=== PATIENT | female | born 2000 | race Caucasian/White ===

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

== ENCOUNTER → 2019-02-04 | Outpatient (REF) | payer OTHER ==
[~2019-02-04] MED LIST changes: +TRINTAB; -TRINTAB3
[2019-02-04 14:03] LABS: CHLAMYDIA DNA AMPLIFICATION NEGATIVE (NEGATIVE); GC DNA AMPLIFICATION NEGATIVE (NEGATIVE)
== END ==
LOC: M SFHCWAGY 11:43
PROVIDERS: ATTEND Nurse Practitioner Women's Health
DX: Z11.3 Encounter for screening for infections with a predominantly sexual mode of transmission (principal)

== ENCOUNTER → 2019-02-06 | Outpatient (REF) | payer OTHER | LOC: M SFHCLERA 15:38 | PROVIDERS: ATTEND Physician Assistant | DX: J02.9 Acute pharyngitis, unspecified (principal); R11.2 Nausea with vomiting, unspecified ==

== ENCOUNTER → 2019-03-27 | Outpatient (REF) | payer OTHER ==
[2019-03-27 20:12] LABS: CHLAMYDIA DNA AMPLIFICATION NEGATIVE (NEGATIVE); GC DNA AMPLIFICATION NEGATIVE (NEGATIVE)
[2019-03-29 10:51] LABS: HIV 1&2 SCREEN CENTAUR NEGATIVE (NEGATIVE)
== END ==
LOC: M SFHCWAGY 14:12
PROVIDERS: ATTEND Nurse Practitioner Women's Health
DX: Z11.4 Encounter for screening for human immunodeficiency virus [HIV] (principal); Z11.3 Encounter for screening for infections with a predominantly sexual mode of transmission; N89.8 Other specified noninflammatory disorders of vagina; N94.10 Unspecified dyspareunia

== ENCOUNTER → 2019-07-03 | Outpatient (REF) | payer OTHER ==
[2019-07-03 18:13] LABS: CHLAMYDIA DNA AMPLIFICATION NEGATIVE (NEGATIVE); GC DNA AMPLIFICATION NEGATIVE (NEGATIVE)
== END ==
LOC: M SMT 16:07
PROVIDERS: ATTEND Nurse Practitioner Women's Health
DX: Z11.3 Encounter for screening for infections with a predominantly sexual mode of transmission (principal)

== ENCOUNTER → 2019-12-17 | Outpatient (REF) | payer OTHER, MEDICAID | LOC: M SFHCLERA 14:45 | PROVIDERS: ATTEND Nurse Practitioner Family | DX: J02.9 Acute pharyngitis, unspecified (principal) ==

== ENCOUNTER → 2020-02-10 | Outpatient (REF) | payer OTHER ==
[2020-02-10 22:31] LABS: CHLAMYDIA DNA AMPLIFICATION NEGATIVE (NEGATIVE); GC DNA AMPLIFICATION NEGATIVE (NEGATIVE)
== END ==
LOC: M SFHCLERA 13:04
PROVIDERS: ATTEND Physician Assistant
DX: Z20.2 Contact with and (suspected) exposure to infections with a predominantly sexual mode of transmission (principal)

== ENCOUNTER → 2020-05-07 | Outpatient (REF) | payer OTHER, MEDICAID ==
[~2020-05-07] MED LIST changes: -ACET120S PO; +ACET125EL PO
[2020-06-26 12:13] LABS: HEPATITIS A ANTIBODY IGM NEGATIVE (NEGATIVE); HEPATITIS B CORE ANTIBODY IGM NEGATIVE (NEGATIVE); HEPATITIS B SURFACE ANTIGEN NEGATIVE (NEGATIVE); HEPATITIS C VIRUS ABY INDEX 0.2 INDEX (<0.8); HIV 1&2 SCREEN CENTAUR NEGATIVE (NEGATIVE)
[2020-07-02 15:21] LABS: CHLAMYDIA DNA AMPLIFICATION NEGATIVE (NEGATIVE); GC DNA AMPLIFICATION NEGATIVE (NEGATIVE)
== END ==
LOC: M SFHCLUC 15:08
PROVIDERS: ATTEND Physician Assistant
DX: Z11.3 Encounter for screening for infections with a predominantly sexual mode of transmission (principal)

== ENCOUNTER → 2020-06-07 | Outpatient (REF) | payer OTHER, MEDICAID ==
[2020-06-07 21:23] LABS: CHLAMYDIA DNA AMPLIFICATION POSITIVE (NEGATIVE); GC DNA AMPLIFICATION NEGATIVE (NEGATIVE)
== END ==
LOC: M LAB 19:16
PROVIDERS: ATTEND Nurse Practitioner Family
DX: Z11.3 Encounter for screening for infections with a predominantly sexual mode of transmission (principal)

== ENCOUNTER → 2020-08-18 | Outpatient (REF) | payer OTHER ==
[~2020-08-18] MED LIST changes: +PROM12.56 PO
[2020-08-18 21:01] LABS: URINE PREG TEST NEGATIVE (NEGATIVE)
[2020-08-18 21:06] LABS: APPEARANCE, URINE CLEAR (CLEAR); BACTERIA, URINE AUTO NEGATIVE (NEGATIVE); BILIRUBIN, URINE AUTO NEGATIVE (NEGATIVE); BLOOD, URINE BLOOD NEGATIVE (NEGATIVE); COLOR, URINE STRAW (YELLOW); GLUCOSE, URINE (UA) AUTO NEGATIVE (NEGATIVE); KETONE, URINE AUTO NEGATIVE (NEGATIVE); LEUKOCYTE ESTERASE, URINE AUTO NEGATIVE (NEGATIVE); MUCUS, URINE SMALL (NEGATIVE); NITRITE, URINE AUTO NEGATIVE (NEGATIVE); PROTEIN, URINE AUTO NEGATIVE (NEGATIVE); RBC, URINE AUTO 0 /HPF (0-3); SPECIFIC GRAVITY URINE AUTO 1.008 (1.002-1.035); SQUAMOUS EPITHELIAL CELL UR AU 1 /HPF (0-6); UROBILINOGEN, URINE AUTO 0.2 mg/dL (0.0-2.0); WBC, URINE AUTO 0 /HPF (0-3)
== END ==
LOC: M LAB REF 20:30
PROVIDERS: ATTEND Physician Assistant Medical
DX: N39.0 Urinary tract infection, site not specified (principal); Z11.3 Encounter for screening for infections with a predominantly sexual mode of transmission

== ENCOUNTER 2020-08-25 11:33 | Emergency (ER) | payer OTHER ==
[~2020-08-25] VITALS: Ht 162.6 cm; Wt 50.9 kg
[~2020-08-25 11:33] MED LIST changes: -PROM12.56 PO
[2020-08-25] MEDS ORDERED: NS 1,000 ML IV ONE (12:00)
[2020-08-25] MEDS ORDERED: METOCLOPRAMIDE INJ 10MG/2ML VIAL (J2765 PER 1) IV ONE (12:00)
[2020-08-25 12:34] LABS: BASO % 0.2 % (0.0-1.0); EOS % 0.2 % (0.0-3.0); HEMATOCRIT 37.3 % (36.0-47.0); HEMOGLOBIN 12.4 g/dl (12.0-15.5); LYMPH # 1.8 10^3/uL (1.5-5.0); LYMPH % 14.8 % (24.0-44.0); MEAN CORPUSCULAR HEMOGLOBIN 29.7 pg (27.0-33.0); MEAN CORPUSCULAR HGB CONC 33.2 g/dl (32.0-36.5); MEAN CORPUSCULAR VOLUME 89.2 fl (80.0-96.0); MONO # 0.6 10^3/uL (0.0-0.8); NEUTROPHILS # 9.9 10^3/uL (1.5-8.5); NEUTROPHILS % 79.5 % (36.0-66.0); PLATELET COUNT, AUTOMATED 274 10^3/uL (150-450); RED BLOOD COUNT 4.18 10^6/uL (4.00-5.40); WHITE BLOOD COUNT 12.4 10^3/uL (4.0-10.0)
[2020-08-25 13:02] LABS: HCG, SERUM QUALITATIVE NEGATIVE (NEGATIVE)
[2020-08-25 13:10] LABS: ALBUMIN 4.3 GM/DL (3.2-5.2); ALT/SGPT 33 U/L (12-78); BILIRUBIN,DIRECT 0.3 MG/DL (0.0-0.2); BILIRUBIN,TOTAL 1.4 MG/DL (0.2-1.0); BLOOD UREA NITROGEN 16 MG/DL (7-18); CALCIUM LEVEL 9.4 MG/DL (8.5-10.1); CARBON DIOXIDE LEVEL 23 MEQ/L (21-32); CHLORIDE LEVEL 109 MEQ/L (98-107); GLOMERULAR FILTRATION RATE > 60.0 (>60); GLUCOSE, FASTING 111 MG/DL (70-100); LIPASE 69 U/L (73-393); POTASSIUM SERUM 4.1 MEQ/L (3.5-5.1); SODIUM LEVEL 141 MEQ/L (136-145); TOTAL PROTEIN 7.7 GM/DL (6.4-8.2)
[2020-08-25] MEDS ORDERED: ONDANSETRON 4MG/2ML VIAL IV ONE (14:00)
[2020-08-25] MEDS ORDERED: KETOROLAC 30 MG/ML 1ML VIAL IV ONE (14:15)
[2020-08-25] MEDS ORDERED: PROMETHAZINE INJ 25 MG/ML VIAL (J2550) IV ONE (14:30)
--- NOTE | 2020-08-25 15:06 | REP ---
INDICATION: upper abdominal pain/chest pain. COMPARISON: Chest 01/11/2016. TECHNIQUE: Supine and erect views of the abdomen are performed. A PA view of the chest is performed. FINDINGS: There is no free intraperitoneal air identified. There is no evidence of bowel obstruction. No dilated small bowel loops are seen. No abnormal calcifications are seen. The visualized osseous structures are unremarkable. The lungs are free of infiltrate. The heart mediastinum are within normal limits. IMPRESSION: Negative abdominal series. <Electronically signed by Navneet Falcon > 08/25/20 [id number]
[2020-08-25] MEDS ORDERED: PROM12.56 PO (16:39)
[2020-08-25 17:02] VITALS: BP 128/78
== END 2020-08-25 17:03 | disposition home or self-care (01) ==
LOC: M ED 11:33 → EDBD 11:33 → M ED 17:03
DX: K52.9 Noninfective gastroenteritis and colitis, unspecified (principal); Z88.8 Allergy status to other drugs, medicaments and biological substances; Z88.5 Allergy status to narcotic agent
CPT/HCPCS: 74021; 80048; 80076; 81001; 83690; 84703; 85025; 87507; 96374; 96375; 99284; J1885; J2405; J2765; U0002

== ENCOUNTER → 2020-10-22 | Outpatient (REF) | payer OTHER ==
[~2020-10-22] MED LIST changes: +PROM12.56 PO
[2020-10-22 22:57] LABS: APPEARANCE, URINE HAZY (CLEAR); BACTERIA, URINE AUTO NEGATIVE (NEGATIVE); BILIRUBIN, URINE AUTO NEGATIVE (NEGATIVE); BLOOD, URINE BLOOD NEGATIVE (NEGATIVE); COLOR, URINE YELLOW (YELLOW); GLUCOSE, URINE (UA) AUTO NEGATIVE (NEGATIVE); KETONE, URINE AUTO TRACE mg/dL (NEGATIVE); LEUKOCYTE ESTERASE, URINE AUTO NEGATIVE (NEGATIVE); MUCUS, URINE MODERATE (NEGATIVE); NITRITE, URINE AUTO NEGATIVE (NEGATIVE); PROTEIN, URINE AUTO NEGATIVE (NEGATIVE); RBC, URINE AUTO 1 /HPF (0-3); SPECIFIC GRAVITY URINE AUTO 1.023 (1.002-1.035); SQUAMOUS EPITHELIAL CELL UR AU 2 /HPF (0-6); URIC ACID CRYSTALS SMALL; UROBILINOGEN, URINE AUTO 0.2 mg/dL (0.0-2.0); WBC, URINE AUTO 2 /HPF (0-3)
[2020-10-23 00:17] LABS: CHLAMYDIA DNA AMPLIFICATION NEGATIVE (NEGATIVE); GC DNA AMPLIFICATION NEGATIVE (NEGATIVE)
== END ==
LOC: M LAB REF 08:35
PROVIDERS: ATTEND Physician Assistant
DX: Z11.3 Encounter for screening for infections with a predominantly sexual mode of transmission (principal); N39.0 Urinary tract infection, site not specified

== ENCOUNTER → 2020-12-01 | Outpatient (REF) | payer OTHER ==
[2020-12-01 15:47] LABS: CHLAMYDIA DNA AMPLIFICATION NEGATIVE (NEGATIVE); GC DNA AMPLIFICATION NEGATIVE (NEGATIVE)
[2020-12-01 17:29] LABS: HEPATITIS C VIRUS ABY INDEX < 0.0 INDEX (<0.8); HIV 1&2 SCREEN CENTAUR NEGATIVE (NEGATIVE)
== END ==
LOC: M PLALAB 12:25
PROVIDERS: ATTEND Nurse Practitioner Family
DX: Z11.3 Encounter for screening for infections with a predominantly sexual mode of transmission (principal)

== ENCOUNTER → 2020-12-17 | Outpatient (REF) | payer OTHER, MEDICAID ==
[2020-12-17 21:51] LABS: APPEARANCE, URINE HAZY (CLEAR); BACTERIA, URINE AUTO NEGATIVE (NEGATIVE); BILIRUBIN, URINE AUTO NEGATIVE (NEGATIVE); BLOOD, URINE BLOOD NEGATIVE (NEGATIVE); COLOR, URINE YELLOW (YELLOW); GLUCOSE, URINE (UA) AUTO NEGATIVE (NEGATIVE); KETONE, URINE AUTO NEGATIVE (NEGATIVE); LEUKOCYTE ESTERASE, URINE AUTO NEGATIVE (NEGATIVE); MUCUS, URINE MODERATE (NEGATIVE); NITRITE, URINE AUTO NEGATIVE (NEGATIVE); PROTEIN, URINE AUTO NEGATIVE (NEGATIVE); RBC, URINE AUTO 1 /HPF (0-3); SPECIFIC GRAVITY URINE AUTO 1.026 (1.002-1.035); SQUAMOUS EPITHELIAL CELL UR AU 3 /HPF (0-6); UROBILINOGEN, URINE AUTO 0.2 mg/dL (0.0-2.0); WBC, URINE AUTO 1 /HPF (0-3)
== END ==
LOC: M LAB REF 21:23
PROVIDERS: ATTEND Physician Assistant
DX: R30.0 Dysuria (principal)

== ENCOUNTER → 2021-04-18 | Outpatient (REF) | payer OTHER, MEDICAID ==
[2021-04-18 18:36] LABS: APPEARANCE, URINE MANUAL CLEAR (CLEAR); COLOR, URINE MANUAL YELLOW (YELLOW)
[2021-04-18 18:38] LABS: BILIRUBIN, URINE MANUAL NEGATIVE (NEGATIVE); BLOOD URINE MANUAL POSITIVE (NEGATIVE); GLUCOSE, URINE (UA) MANUAL NEGATIVE (NEGATIVE); KETONE, URINE MANUAL NEGATIVE (NEGATIVE); LEUKOCYTE ESTERASE, URINE MAN TRACE (NEGATIVE); NITRITE, URINE MANUAL NEGATIVE (NEGATIVE); PH,URINE MAN 5.5 UNITS (5.0 - 7.0); PROTEIN, URINE MANUAL 1+ mg/dL (NEGATIVE); UROBILINOGEN, URINE MANUAL NORMAL (NORMAL)
[2021-04-18 18:39] LABS: URINE PREG TEST NEGATIVE (NEGATIVE)
[2021-04-18 18:48] LABS: RBC, URINE 0-1 /hpf (0-3); WBC, URINE 0-1 /hpf (0-3)
[2021-04-18 18:49] LABS: BACTERIA, URINE NONE SEEN; HYALINE CAST, URINE NONE SEEN /lpf (0-1); MUCUS, URINE LARGE AMOUNT (NEGATIVE); SQUAMOUS EPITHELIAL CELL URINE SMALL AMOUNT /hpf (SMALL AMT); TRANSITIONAL EPI CELLS, URINE SMALL AMOUNT /hpf
[2021-04-18 20:57] LABS: GC DNA AMPLIFICATION NEGATIVE (NEGATIVE)
== END ==
LOC: M LAB REF 18:26
PROVIDERS: ATTEND Physician Assistant Medical
DX: R30.0 Dysuria (principal)

== ENCOUNTER → 2021-04-26 | Outpatient (REF) | payer OTHER ==
[2021-04-26 20:17] LABS: GC DNA AMPLIFICATION NEGATIVE (NEGATIVE)
== END ==
LOC: M PLALAB 15:22
PROVIDERS: ATTEND Obstetrics & Gynecology
DX: N92.6 Irregular menstruation, unspecified (principal)

== ENCOUNTER → 2021-07-07 | Outpatient (REF) | payer OTHER, MEDICAID ==
[2021-07-07 22:59] LABS: APPEARANCE, URINE HAZY (CLEAR); BACTERIA, URINE AUTO 1+ (NEGATIVE); BILIRUBIN, URINE AUTO NEGATIVE (NEGATIVE); BLOOD, URINE BLOOD NEGATIVE (NEGATIVE); COLOR, URINE YELLOW (YELLOW); GLUCOSE, URINE (UA) AUTO NEGATIVE (NEGATIVE); KETONE, URINE AUTO NEGATIVE (NEGATIVE); LEUKOCYTE ESTERASE, URINE AUTO TRACE (NEGATIVE); MUCUS, URINE SMALL (NEGATIVE); NITRITE, URINE AUTO NEGATIVE (NEGATIVE); PROTEIN, URINE AUTO NEGATIVE (NEGATIVE); RBC, URINE AUTO 2 /HPF (0-3); SPECIFIC GRAVITY URINE AUTO 1.024 (1.002-1.035); SQUAMOUS EPITHELIAL CELL UR AU 1 /HPF (0-6); WBC, URINE AUTO 14 /HPF (0-3)
[2021-07-08 10:32] LABS: GC DNA AMPLIFICATION NEGATIVE (NEGATIVE)
== END ==
LOC: M LAB REF 22:19
PROVIDERS: ATTEND Physician Assistant
DX: R30.0 Dysuria (principal)

== ENCOUNTER 2021-07-31 12:56 | Emergency (ER) | payer MEDICAID, OTHER ==
[~2021-07-31] VITALS: Ht 162.6 cm; Wt 52.0 kg
--- OUTSIDE RECORDS SUMMARY | 2021-07-31 13:08 | CCD ---
Author Organization Unknown Address [address] [place] [address] Phone [phone] Care Team Providers [facility] Administrator Name Role Phone Nella Gray Unavailable Unavailable Allergies Code Code System Name Reaction Severity Status Onset 161 RxNorm Acetaminophen Vomiting Moderate to Severe Active 2670 RxNorm Codeine Vomiting Moderate to Severe Active Medications Name Status Start Date Stop Date azithromycin 500 mg tablet TAKE TWO TABLETS BY MOUTH ONCE Completed 01/29/20 fluconazole 150 mg tablet TAKE 1 TABLET BY MOUTH NOW THEN TAKE 2ND TABLET IN 48 HOURS Completed 01/28/2021 fluoxetine 10 mg capsule Completed 021 fluoxetine 20 mg capsule Active Not damian ilable hydroxyzine HCl 25 mg tablet Active Not available metronidazole 0.75 % vaginal gel APPLY 1 APPLICATORFUL AT BEDTIME ONCE A DAY FOR 5 DAYS Completed 01/28/2021 New Day 1.5 mg tablet Active Not availa ble nitrofurantoin monohydrate/macrocrystals 100 mg capsule TAKE ONE CAPSULE BY MOUTH TWICE A DAY Completed 0 01/28/2021 prednisolone acetate 1 % eye drops,suspe nsion INSTILL 1 DROP IN BOTH EYES FOUR TIMES A DAY DIRECTED Completed 05/07/2021 Qbrexza 2.4 % towelette APPLY 1 TOWELETTE BY TOPICAL ROUTE ONCE DAILY DIVIDED EVENLY BETWEEN EACH UNDERARM Active Not available sertraline 25 mg tablet TAKE ONE TABLET BY MOUTH EVERY DAY Completed 03/10 Problems Name Status Onset Date Source Major Depressive Disorder Active 01/28/2021 Generalized Anxiety Disorder Active 01/28/2021 Procedures Date Name Performed by Remove Tonsils and Adenoids Information not available Notes: Wrist & Hand surgery. Results Lab Results Date Name Specimen Result Interpretation Description Value Range Status Address 04/28/2021 TSH, Serum or Plasma Blood venous Normal T3 Uptake 30 % 22-35 % Final [facility]: [address], [place] Blood venous Normal T4 (Thyroxine), Total 7. 5 mcg/dL 5.1-11.9 mcg/dL Final [facility] [place]: [address] [facility] Blood venous Normal Free T4 Index (T7) 2.3 1.4 -3.8 [facility]: [address] [facility] Blood venous Normal Tsh 1.43 mIU/L [facility]: [address] [facility] 04/28/2021 CMP, Serum or Plasma Blood venous Normal Glucose 83 mg/dL 65-99 mg/dL Final [facility]: [address] [facility] Blood venous Normal Urea Nitrogen (BUN) 13 mg/dL 7-25 mg/dL [facility]: [address] [facility] Blood venous Normal Creatinine 0.76 mg/dL 0.50-1. 10 mg/dL [facility]: [address] [facility] Blood venous Normal eGFR Non-afr. Jordanian 1 12 mL/min/1.73m2 > or = 60 mL/min/1.73m2 Final [facility]: [address] [facility] Blood venous Normal eGFR 13 0 mL/min/1.73m2 > or = 60 mL/min/1.73m2 Final [facility]: [address] [facility] Blood venous BUN/creatinine Ratio not applicable (calc) 6-22 (calc) [facility]: [address] [facility] Blood venous Normal Sodium 139 mmol/L 135-146 mmo l/L [facility]: [address] [facility] Blood venous Normal Potassium 4.5 mmol/L 3.5-5.3 mmol/L [facility]: [address] [facility] Blood venous Normal Chloride 103 mmol/L 98-110 mm ol/L [facility]: [address] [facility] Blood venous Normal Carbon Dioxide 28 mmol/L 20-3 2 mmol/L [facility]: [address] [facility] Blood venous Normal Calcium 9.7 mg/dL 8.6-10.2 mg /dL [facility]: [address] [facility] Blood venous Normal Protein, Total 7.2 g/dL 6.1-8 .1 g/dL [facility]: [address] [facility] Blood venous Normal Albumin 4.9 g/dL 3.6-5.1 g/dL [facility]: [address] [facility] Blood venous Normal Globulin 2.3 g/dL (calc) 1.9- 3.7 g/dL (calc) [facility]: [address] [facility] Blood venous Normal Albumin/globulin Ratio 2 .1 (calc) 1.0-2.5 (calc) [facility]: [address] [facility] Blood venous High Bilirubin, Total 1.5 mg/dL 0. 2-1.2 mg/dL [facility]: [address] [facility] Blood venous Normal Alkaline Phosphatase 61 U/L 3 1-125 U/L [facility]: [address] [facility] Blood venous Normal Ast 12 U/L 10-30 U/L [facility]: [address] [facility] Blood venous Normal Alt 9 U/L 6-29 U/L Final [facility]: [address] [facility] 04/28/2021 CBC W/ Auto Diff Blood venous Normal White B lood Cell Count 7.5 thousand/uL 3.8-10.8 thousand/uL [facility]: [address] [facility] Blood venous Normal Red Blood Cell Count 4.8 0 million/uL 3.80-5.10 million/uL [facility] [address] [facility] Blood venous Normal Hemoglobin 14.5 g/dL 11.7-15. 5 g/dL Final [facility]: [address] [facility] Blood venous Normal Hematocrit 42.9 % 35.0-45.0 % [facility]: [address] [facility] Blood venous Normal Mcv 89.4 fL 80.0-100.0 fL Fi nal [facility]: [address] [facility] Blood venous Normal Mch 30.2 pg 27.0-33.0 pg Fin al [facility]: [address] [facility] Blood venous Normal Mchc 33.8 g/dL 32.0-36.0 g/dL [facility]: [address] [facility] Blood venous Normal Rdw 11.5 % 11.0-15.0 % Final [facility]: [address] [facility] Blood venous Normal Platelet Count 295 thous and/uL 140-400 thousand/uL Final [facility]: [address] [facility] Blood venous Normal Mpv 10.9 fL 7.5-12.5 fL Baylee l [facility]: [address] [facility] Blood venous Normal Absolute Neutrophils 303 8 cells/uL 7550-6917 cells/uL Final [facility] gh: [address] [facility] Blood venous Normal Absolute Lymphocytes 375 8 cells/uL 850-3900 cells/uL Final [facility] gh: [address] [facility] Blood venous Normal Absolute Monocytes 503 c ells/uL 200-950 cells/uL [facility]: [address] [facility] Blood venous Normal Absolute Eosinophils 173 cells/uL 15-500 cells/uL [facility]: [address] [facility] Blood venous Normal Absolute Basophils 30 ce lls/uL 0-200 cells/uL Final [facility]: [address] [facility] Blood venous Normal Neutrophils 40.5 % 38-80 % Fi [facility]: [address] [facility] Blood venous High Lymphocytes 50.1 % 15-49 % Fi [facility]: [address] [facility] Blood venous Normal Monocytes 6.7 % 0-13 % [facility]: [address] [facility] Blood venous Normal Eosinophils 2.3 % 0-8 % Fin al [facility]: [address] [facility] Blood venous Normal Basophils 0.4 % 0-2 % [facility]: [address] [facility] Past Encounters 06/07/2021 SIERRA MarW-R: [address] [facility] [address], [place] [address], Ph. 06/02/2021 Generalized Anxiety Disorder Sherrie Jean Baptiste LCSW-R: [address] [facility], [facility] [address], [place] [address], Ph. 05/24/2021 Sherrie Jean Baptiste LCSW-R: [address] [place] [address], Ph. 05/10/2021 Generalized Anxiety Disorder Sherrie Jean BaptisteJOANA-R: [address] [place] [address], Ph. 05/07/2021 Generalized Anxiety Disorder; Hyperhidrosis; Blurring of Visual Image Nella Gray PA-C: [address] [place] [address], Ph. 04/28/2021 Generalized Anxiety Disorder Jose Goldman RPA-C: [address], [place] [address], Ph. 04/15/2021 Generalized Anxiety Disorder Sherrie Jean BaptisteSIERRAW-R: [address] [facility], [address], [place] [address], Ph. 04/01/2021 Generalized Anxiety Disorder Sherrie Jean BaptisteJOANA-R: [address], [place] [address], Ph. 03/29/2021 Generalized Anxiety Disorder; Major Depressive Disorder; Loss of Appetite; Excessive Sweating Nella Gray PA-C: [address] [place] [address], Ph. 03/22/2021 Generalized Anxiety Disorder Sherrie DangeloJOANA michele-R: [address] [place] [address], Ph. 01/28/2021 Generalized Anxiety Disorder; Depressive Disorder; Blurring of Visual Image; Blepharospasm; Loss of Appetite; Nicotine Dependence; Cannabis Abuse Nella Gray PA-C: [address] [place] [address], Ph. Social History Tobacco Smoking Status Never Smoker Vaccine List Vaccine Type DTaP 1999 1999 02/16/2000 12/21/2000 07/06/2004 Hep A, live attenuated 04/21/2008 11/24/2008 Hib-Hep B 1999 1999 08/17/2000 HPV9 05/25/2011 07/27/2011 11/30/2011 IPV 1999 1999 05/19/2000 07/06/2004 meningococcal B, recombinant 05/26/2016 01/09/2017 meningococcal polysaccharide (groups A, C, Y, W-135) TT conjugate 05/25/2011 05/26/2016 MMR 12/21/2000 07/06/2004 pneumococcal conjugate PCV 7 08/17/2000 12/21/2000 Tdap 02/22/2010 varicella 08/17/2000 04/21/2008 Notes: Pt declines covid vaccine. Plan of Care Reminders Provider Appointments None recorded. Lab None recorded. Referral None recorded. Procedures None recorded. Surgeries None recorded. Imaging None recorded. Vitals 03/29/2021 01:00PM TELEHEALTH 20 Height 64 in 01/28/2021 08:20AM NEW PATIENT (11yrs - OLDER) Height Weight BMI Blood Pressure 64 in 114 lbs 16 oz 19.7 kg/m2 111/77 mm[Hg]
--- OUTSIDE RECORDS SUMMARY | 2021-07-31 13:08 | CCD ---
Author Organization Unknown Address [address] [place] [address] Phone [phone] Care Team Providers Care [employer] Name Role Phone Nella Gray Unavailable Unavailable [...] Completed 01/28/2021 fluoxetine 10 mg capsule Completed fluoxetine 20 mg capsule Take 1 capsule every day by oral route. Active Not available hydroxyzine HCl 25 mg tablet TAKE 1-2 TABLETS BY MOUTH 30 MINUTES BEFORE BEDTIME FOR SLEEP Active Not available metronidazole 0.75 % vaginal gel APPLY 1 APPLICATORFUL AT BEDTIME ONCE A DAY FOR 5 DAYS Completed 01/28/2021 nitrofurantoin monohydrate/macrocrystals 100 mg capsule TAKE ONE [...] T3 Uptake 30 % 22-35 % Final [facility]: [address], [place] Blood venous Normal T4 (Thyroxine), Total 7. 5 mcg/dL 5.1-11.9 mcg/dL Final [facility]: [address] [facility] Blood venous Normal Free T4 Index (T7) 2.3 1.4 -3.[address] [facility]: [address] [facility] Blood venous Normal Tsh 1.43 mIU/L [facility]: [address] [facility] 04/28/2021 CMP, Serum or Plasma Blood venous Normal Glucose 83 mg/dL 65-99 mg/dL Final [facility]: [address] [facility] Blood venous Normal Urea Nitrogen (BUN) 13 mg/dL 7-25 mg/dL Final [facility]: [address] [facility] Blood venous Normal Creatinine 0.76 mg/dL 0.50-1. 10 mg/dL [facility]: [address] [facility] Blood venous Normal eGFR Non-afr. [place] 1 12 mL/min/1.73m2 > or = 60 mL/min/1.73m2 Final [facility]: [address] [facility] Blood venous Normal eGFR 13 0 mL/min/1.73m2 > or = 60 mL/min/1.73m2 Final [facility]: [address] [facility] Blood venous BUN/creatinine Ratio not applicable (calc) 6-22 (calc) [facility]: [address] [facility] Blood venous Normal Sodium 139 mmol/L 135-146 mmo l/L [facility]: [address] [facility] Blood venous Normal Potassium 4.5 mmol/L 3.5-5.3 mmol/L Final [facility]: [address] [facility] Blood venous Normal Chloride 103 mmol/L 98-110 mm ol/L [facility]: [address] [facility] Blood venous Normal Carbon Dioxide 28 mmol/L 20-3 2 mmol/L [facility]: [address] [facility] Blood venous Normal Calcium 9.7 mg/dL 8.6-10.2 mg /dL [facility]: [address] [facility] Blood venous Normal Protein, Total 7.2 g/dL 6.1-8 .1 g/dL Final [facility]: [address] [facility] Blood venous Normal Albumin 4.9 g/dL 3.6-5.1 g/dL Final [facility]: [address] [facility] Blood venous Normal Globulin 2.3 g/dL (calc) 1.9- 3.7 g/dL (calc) [facility]: [address] [facility] Blood venous Normal Albumin/globulin Ratio 2 .1 (calc) 1.0-2.5 (calc) Final [facility]: [address] , [place] Blood venous High Bilirubin, Total 1.5 mg/dL 0. 2-1.2 mg/dL [facility]: [address] [facility] Blood venous Normal Alkaline Phosphatase 61 U/L 3 1-125 U/L [facility]: [address] , [place] Blood venous Normal Ast 12 U/L 10-30 U/L Final [facility]: [address] [facility] Blood venous Normal Alt 9 U/L 6-29 U/L [facility]: [address] [facility] 04/28/2021 CBC W/ Auto Diff Blood venous Normal White B lood Cell Count 7.5 thousand/uL 3.8-10.8 thousand/uL [facility]: [address] [facility] Blood venous Normal Red Blood Cell Count 4.8 0 million/uL 3.80-5.10 million/uL [facility] [address] [facility] Blood venous Normal Hemoglobin 14.5 g/dL 11.7-15. 5 g/dL Final [facility]: [address] [facility] Blood venous Normal Hematocrit 42.9 % 35.0-45.0 % [facility]: [address] [facility] Blood venous Normal Mcv 89.4 fL 80.0-100.[address] [facility]: [address] [facility] Blood venous Normal Mch 30.2 pg 27.0-33.[address] [facility]: [address] [facility] Blood venous Normal Mchc 33.8 g/dL 32.0-36.0 g/dL Final [facility]: [address] [facility] Blood venous Normal Rdw 11.5 % 11.0-15.0 % Final [facility]: [address] , [place] Blood venous Normal Platelet Count 295 thous and/uL 140-400 thousand/uL Final [facility]: [address] [facility] Blood venous Normal Mpv 10.9 fL 7.5-12.[address] [facility]: [address] [facility] Blood venous Normal Absolute Neutrophils 303 8 cells/uL 3686-3891 cells/uL Final [facility] gh: [address] , [place] Blood venous Normal Absolute Lymphocytes 375 8 cells/uL 850-3900 cells/uL Final [facility] gh: [address] [facility] Blood venous Normal Absolute Monocytes 503 c ells/uL 200-950 cells/uL [facility]: [address], [place] Blood venous Normal Absolute Eosinophils 173 cells/uL 15-500 cells/uL [facility]: [address] [facility] Blood venous Normal Absolute Basophils 30 ce lls/uL 0-200 cells/uL Final [facility]: [address] , [place] Blood venous Normal Neutrophils 40.5 % 38-80 % Fi [facility]: [address] [facility] Blood venous High Lymphocytes 50.1 % 15-49 % Fi [facility]: [address] [facility] Blood venous Normal Monocytes 6.7 % 0-13 % [facility]: [address] [facility] Blood venous Normal Eosinophils 2.3 % 0-8 % Fin al [facility]: [address] [facility] Blood venous Normal Basophils 0.4 % 0-2 % [facility]: [address], [place] Past Encounters 05/07/2021 Generalized Anxiety Disorder; Hyperhidrosis; Blurring of Visual Image EREN OscarC: [address] [place] [address], Ph. 04/28/2021 Generalized Anxiety Disorder DANTE PooleC: [address] [facility], [place] [address], Ph. 04/15/2021 Generalized Anxiety Disorder Sherrie Jean BaptisteSIERRAW-R: [address] [facility], [facility] [address], [place] [address], Ph. 04/01/2021 Generalized Anxiety Disorder Sherrie Jean Baptiste DIRECTOR OF PATIENT CARE-R: [address] [facility], [facility] [address], [place] [address], Ph. 03/29/2021 Generalized Anxiety Disorder; Major Depressive Disorder; Loss of Appetite; Excessive Sweating Nella Gray PA-C: [address] [place] [address], Ph. 03/22/2021 Generalized Anxiety Disorder Sherrie Jean BaptisteJOANA-R: [address] [place] [address], Ph. 01/28/2021 Generalized Anxiety Disorder; Depressive Disorder; Blurring of Visual Image; Blepharospasm; Loss of Appetite; Nicotine Dependence; Cannabis Abuse Nella Gray PA-C: [address] [place] [address], Ph. Social History Tobacco Smoking Status Never [...] Height 64 in 01/28/2021 08:20AM NEW PATIENT (12yrs - OLDER) Height Weight BMI Blood Pressure 64 in 114 lbs 16 oz 19.7 kg/m2 111/77 mm[Hg]
--- OUTSIDE RECORDS SUMMARY | 2021-07-31 13:08 | CCD ---
Author Organization Unknown Address [address] [place] [address] Phone [phone] Care Team Providers Care Motor Coach Driver Name Role Phone Nella Gray Unavailable Unavailable [...] T3 Uptake 30 % 22-35 % Final [facility]: [address], [place] Blood venous Normal T4 (Thyroxine), Total 7. 5 mcg/dL 5.1-11.9 mcg/dL Final [facility] [place]: [address] [facility] [address] Blood venous Normal Free T4 Index (T7) 2.3 1.4 -3.8 [facility]: [address] [facility] Blood venous Normal Tsh 1.43 mIU/L [facility]: [address] [facility] 04/28/2021 CMP, Serum or Plasma Blood venous Normal Glucose 83 mg/dL 65-99 mg/dL Final [facility]: [address] [facility] Blood venous Normal Urea Nitrogen (BUN) 13 mg/dL 7-25 mg/dL [facility]: [address] [facility] Blood venous Normal Creatinine 0.76 mg/dL 0.50-1. 10 mg/dL [facility]: [address] [facility] Blood venous Normal eGFR Non-afr. Egyptian 1 12 mL/min/1.73m2 > or = 60 mL/min/1.73m2 Final [facility]: [address] [facility] Blood venous Normal eGFR 13 0 mL/min/1.73m2 > or = 60 mL/min/1.73m2 Final [facility]: [address] [facility] Blood venous BUN/creatinine Ratio not applicable (calc) 6-22 (calc) [facility]: [address] [facility] [address] Blood venous Normal Sodium 139 mmol/L 135-146 mmo l/L [facility]: [address] [facility] Blood venous Normal Potassium 4.5 mmol/L 3.5-5.3 mmol/L [facility]: [address] [facility] Blood venous Normal Chloride 103 mmol/L 98-110 mm ol/L [facility]: [address] [facility] Blood venous Normal Carbon Dioxide 28 mmol/L 20-3 2 mmol/L [facility]: [address] [facility] Blood venous Normal Calcium 9.7 mg/dL 8.6-10.2 mg /dL [facility]: [address] [facility] Blood venous Normal Protein, Total 7.2 g/dL 6.1-8 .1 g/dL [facility]: [address] [facility] Blood venous Normal Albumin 4.9 g/dL 3.6-5.1 g/dL [facility]: [address] [facility] Blood venous Normal Globulin 2.3 g/dL (calc) 1.9- 3.7 g/dL (calc) [facility]: [address] [facility] Blood venous Normal Albumin/globulin Ratio 2 .1 (calc) 1.0-2.5 (calc) [facility]: [address] [facility] [address] Blood venous High Bilirubin, Total 1.5 mg/dL 0. 2-1.2 mg/dL [facility]: [address] [facility] Blood venous Normal Alkaline Phosphatase 61 U/L 3 1-125 U/L [facility]: [address] [facility] Blood venous Normal Ast 12 U/L 10-30 U/L [facility]: [address] [facility] Blood venous Normal Alt 9 U/L 6-29 U/L Final [facility]: [address] [facility] 04/28/2021 CBC W/ Auto Diff Blood venous Normal White B lood Cell Count 7.5 thousand/uL 3.8-10.8 thousand/uL [facility]: [address] [facility] Blood venous Normal Red Blood Cell Count 4.8 0 million/uL 3.80-5.10 [facility]/uL [facility] Blood venous Normal Hemoglobin 14.5 g/dL 11.7-15. 5 g/dL Final [facility]: [address] [facility] Blood venous Normal Hematocrit 42.9 % 35.0-45.0 % [facility]: [address] [facility] Blood venous Normal Mcv 89.4 fL 80.0-100.0 fL Fi nal [facility]: [address] [facility] Blood venous Normal Mch 30.2 pg 27.0-33.0 pg Fin al [facility]: [address] [facility] Blood venous Normal Mchc 33.8 g/dL 32.0-36.0 g/dL [facility]: [address] [facility] Blood venous Normal Rdw 11.5 % 11.0-15.0 % [facility]: [address] [facility] [address] Blood venous Normal Platelet Count 295 thous and/uL 140-400 thousand/uL Final [facility]: [address] [facility] [address] Blood venous Normal Mpv 10.9 fL 7.5-12.5 fL [facility]: [address] [facility] Blood venous Normal Absolute Neutrophils 303 8 cells/uL 5658-9699 cells/uL Final [facility] gh: [address] [facility] [address] Blood venous Normal Absolute Lymphocytes 375 8 cells/uL 850-3900 cells/uL Final [facility] gh: [address] [facility] Blood venous Normal Absolute Monocytes 503 c ells/uL 200-950 cells/uL [facility]: [address] [facility] [address] Blood venous Normal Absolute Eosinophils 173 cells/uL 15-500 cells/uL [facility]: [address] [facility] [address] Blood venous Normal Absolute Basophils 30 ce lls/uL 0-200 cells/uL Final [facility]: [address] [facility] [address] Blood venous Normal Neutrophils 40.5 % 38-80 % Fi [facility]: [address] [place] [facility] [address] Blood venous High Lymphocytes 50.1 % 15-49 % Fi [facility]: [address] [facility] [address] Blood venous Normal Monocytes 6.7 % 0-13 % [facility] Blood venous Normal Eosinophils 2.3 % 0-8 % Fin al [facility]: [address] [facility] [address] Blood venous Normal Basophils 0.4 % 0-2 % [facility]: [address] [facility] Past Encounters 06/07/2021 Generalized Anxiety Disorder SIERRA MarW-R: [address] [facility], [facility] [address], [place] [address], Ph. 06/02/2021 Generalized Anxiety Disorder Sherrie Jean Baptiste LCSW-R: [address] [facility], [facility] [address], [place] [address], Ph. 05/24/2021 Sherrie Jean Baptiste LCSW-R: [address] [place] [address], Ph. 05/10/2021 Generalized Anxiety Disorder Sherrie Jean BaptisteJOANA-R: [address] [place] [address], Ph. 05/07/2021 Generalized Anxiety Disorder; Hyperhidrosis; Blurring of Visual Image Nella Gray PA-C: [address] [place] [address], Ph. 04/28/2021 Generalized Anxiety Disorder Jose Goldman RPA-C: [address] [facility], [address], [place] [address], Ph. 04/15/2021 Generalized Anxiety Disorder Sherrie Jean BaptisteSIERRAW-R: [address] [facility], [address], [place] [address], Ph. 04/01/2021 Generalized Anxiety Disorder Sherrie Jean BaptisteSIERRAW-R: [address] [facility], [address], [place] [address], Ph. 03/29/2021 Generalized Anxiety Disorder; Major Depressive Disorder; Loss of Appetite; Excessive Sweating Nella Gray PA-C: [address] [place] [address], Ph. 03/22/2021 Generalized Anxiety Disorder Sherrie Jean BaptisteJOANA-R: [address] [place] [address], Ph. 01/28/2021 Generalized Anxiety Disorder; Depressive Disorder; Blurring of Visual Image; Blepharospasm; Loss of Appetite; Nicotine Dependence; Cannabis Abuse Nella Gray PA-C: [address] [place] [address], Ph. Social History Tobacco Smoking Status Never [...]
--- OUTSIDE RECORDS SUMMARY | 2021-07-31 13:08 | CCD ---
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 Name Role Phone Nikia Virgen Unavailable PROBLEMS Type Condition ICD9-CM Code [id number] Code Onset Dates Condition S tatus W/U Status Risk SNOMED Code Notes Problem Dyspareunia in female N94.10 Active confirmed 26862100 Problem Irregular menses N92.6 Active confirmed 801 [id number] ALLERGIES Allergen (clinical drug ingredient) Drug/Non Drug Allergy do cumented on EMR Reaction Allergy Type Onset Date Status Tylenol with Codeine #3 Nausea/Vomiting Drug Allergy Active ENCOUNTERS from 1999 to 2021-07-08 Encounter Location Date Provider Diagnosis [facility] [address] [place] [address] [place] [address] Jun, Nikia Virgen IMMUNIZATIONS Vaccine Route Administration Date Status Influenza 6mo & up Fluzone Unknown Nov 15, 2017 Other s SOCIAL HISTORY Tobacco Use: Social History Observation Description Date Details (start date - stop date) Never Smoker Sex Assigned At : Social History Observation Description Sex Assigned At Unknown Language: Question Answer Notes Languages spoken: Danish Sexual Hx: Question Answer Notes Had sex in the last 12 months (vaginal, oral, or anal)? Yes LMP: 09/06/18 Have you ever had an STD? Yes Prevention Strategies discussed: Condoms with Men only Use protection? Yes Other? No Herpes? No Syphilis? No GC? Yes Chlamydia? Yes Tobacco Use: Question Answer Notes Are you a: never smoker REASON FOR REFERRAL No Information VITAL SIGNS No information MEDICATIONS Medication SIG (Take, Route, Frequency, Duration) Notes Start Da te End Date Status metroNIDAZOLE 0.75 % 1 applicatorful at bedtime Vaginal Once a day for 5 day(s) Nov, Not-Taking hydrOXYzine HCl 25 MG 1 tablet as needed Orally every 8 hrs Active PROzac 20 MG 1 capsule Orally Once a day Active PROCEDURES No Information RESULTS No Results REASON FOR VISIT POSSIBLE UTI MEDICAL (GENERAL) HISTORY Type Description Date Medical History anxiety Surgical History tonsillectomy Surgical History wrist and elbow surgery Hospitalization History No Hospitalization history informati on Goals Section No Information Health Concerns No Information MEDICAL EQUIPMENT No Information MENTAL STATUS No Information FUNCTIONAL STATUS No Information ASSESSMENTS No Information PLAN OF TREATMENT Next Appt Details Provider Name:Nikia Virgen, 10-1 5 01:00:00 PM, [address] [facility], , [place], [address], Insurance Providers Payer Name Payer Address Payer Phone Insured Name Patient Relati onship to Insured Coverage Start Date Coverage End Date [facility] CORPORATE CLAIMS DEPT [address] [facility] [phone] KATLYN DIEGO self
--- OUTSIDE RECORDS SUMMARY | 2021-07-31 13:08 | CCD ---
Author Organization Unknown Address [address] [place] [address] Phone [phone] Care Team Providers Care Supply Chain Planner Name Role Phone Nella Gray Unavailable Unavailable [...] T3 Uptake 30 % 22-35 % Final [facility]: [address], [place] Blood venous Normal T4 (Thyroxine), Total 7. 5 mcg/dL 5.1-11.9 mcg/dL Final [facility] [place]: [address] [facility] Blood venous Normal Free T4 Index (T7) 2.3 1.4 -3.8 [facility]: [address] [facility] Blood venous Normal Tsh 1.43 mIU/L [facility]: [address] [facility] 04/28/2021 CMP, Serum or Plasma Blood venous Normal Glucose 83 mg/dL 65-99 mg/dL Final [facility]: [address] [facility] Blood venous Normal Urea Nitrogen (BUN) 13 mg/dL 7-25 mg/dL [facility]: [address] [facility] Blood venous Normal Creatinine 0.76 mg/dL 0.50-1. 10 mg/dL [facility]: [address] [facility] Blood venous Normal eGFR Non-afr. Ugandan 1 12 mL/min/1.73m2 > or = 60 mL/min/1.73m2 Final [facility]: [address] [facility] Blood venous Normal eGFR 13 0 mL/min/1.73m2 > or = 60 mL/min/1.73m2 Final [facility]: [address] [facility] Blood venous BUN/creatinine Ratio not applicable (calc) 6-22 (calc) [facility]: [address] [facility] Blood venous Normal Sodium 139 mmol/L 135-146 mmo l/L [facility]: [address] [facility] Blood venous Normal Potassium 4.5 mmol/L 3.5-5.3 mmol/L [facility]: [address] [facility] Blood venous Normal Chloride 103 mmol/L 98-110 mm ol/L [facility]: [address] [facility] Blood venous Normal Carbon Dioxide 28 mmol/L 20-3 2 mmol/L [facility]: [address] [facility] Blood venous Normal Calcium 9.7 mg/dL 8.6-10.2 mg /dL [facility]: [address] [facility] Blood venous Normal Protein, Total 7.2 g/dL 6.1-8 .1 g/dL [facility]: [address] [facility] Blood venous Normal Albumin 4.9 g/dL 3.6-5.1 g/dL [facility]: [address] [facility] Blood venous Normal Globulin 2.3 g/dL (calc) 1.9- 3.7 g/dL (calc) [facility]: [address] [facility] Blood venous Normal Albumin/globulin Ratio 2 .1 (calc) 1.0-2.5 (calc) [facility]: [address] [facility] Blood venous High Bilirubin, Total 1.5 mg/dL 0. 2-1.2 mg/dL [facility]: [address] [facility] Blood venous Normal Alkaline Phosphatase 61 U/L 3 1-125 U/L [facility]: [address] [facility] Blood venous Normal Ast 12 U/L 10-30 U/L [facility]: [address] [facility] Blood venous Normal Alt 9 U/L 6-29 U/L Final [facility]: [address] [facility] 04/28/2021 CBC W/ Auto Diff Blood venous Normal White B lood Cell Count 7.5 thousand/uL 3.8-10.8 thousand/uL [facility]: [address] [facility] Blood venous Normal Red Blood Cell Count 4.8 0 million/uL 3.80-5.10 million/uL [facility] [facility] Blood venous Normal Hemoglobin 14.5 g/dL 11.7-15. 5 g/dL Final [facility]: [address] [facility] Blood venous Normal Hematocrit 42.9 % 35.0-45.0 % [facility]: [address] [facility] Blood venous Normal Mcv 89.4 fL 80.0-100.0 fL Fi nal [facility]: [address] [facility] Blood venous Normal Mch 30.2 pg 27.0-33.0 pg Fin al [facility]: [address] [facility] Blood venous Normal Mchc 33.8 g/dL 32.0-36.0 g/dL [facility]: [address] [facility] Blood venous Normal Rdw 11.5 % 11.0-15.0 % [facility]: [address] [facility] Blood venous Normal Platelet Count 295 thous and/uL 140-400 thousand/uL Final [facility]: [address] [facility] Blood venous Normal Mpv 10.9 fL 7.5-12.5 fL [facility]: [address] [facility] Blood venous Normal Absolute Neutrophils 303 8 cells/uL 3876-6327 cells/uL Final [facility] gh: [address] [facility] Blood venous Normal Absolute Lymphocytes 375 8 cells/uL 850-3900 cells/uL Final [facility] gh: [address] [facility] Blood venous Normal Absolute Monocytes 503 c ells/uL 200-950 cells/uL [facility]: [address] [facility] Blood venous Normal Absolute Eosinophils 173 cells/uL 15-500 cells/uL [facility]: [address] [facility] Blood venous Normal Absolute Basophils 30 ce lls/uL 0-200 cells/uL Final [facility]: [address] [facility] Blood venous Normal Neutrophils 40.5 % 38-80 % Fi [facility]: [address] [facility] Blood venous High Lymphocytes 50.1 % 15-49 % Fi [facility]: [address] [facility] Blood venous Normal Monocytes 6.7 % 0-13 % [facility]: [address] [facility] Blood venous Normal Eosinophils 2.3 % 0-8 % Fin al [facility]: [address] [facility] Blood venous Normal Basophils 0.4 % 0-2 % [facility]: [address], [place] Past Encounters 06/21/2021 Generalized Anxiety Disorder Sherrie Jean Baptiste LCSW-R: [address], [place] [address], Ph. 06/07/2021 Generalized Anxiety Disorder SIERRA MarW-R: [address], [address], [place] [address], Ph. 06/02/2021 Generalized Anxiety Disorder Sherrie Jean Baptiste LCSW-R: [address], [address], [place] [address], Ph. 05/24/2021 Generalized Anxiety Disorder SIERRA MarW-R: [address] [place] [address], Ph. 05/10/2021 Generalized Anxiety Disorder SIERRA MarW-R: [address] [place] [address], Ph. 05/07/2021 Generalized Anxiety Disorder; Hyperhidrosis; Blurring of Visual Image Nella Gray PA-C: [address] [place] [address], Ph. 04/28/2021 Generalized Anxiety Disorder DANTE PooleC: [address] [facility], [facility] [address], [place] [address], Ph. 04/15/2021 Generalized Anxiety Disorder SIERRA MarW-R: [address] [facility], [facility] [address], [place] [address], Ph. 04/01/2021 Generalized Anxiety Disorder SIERRA MarW-R: [address] [facility], [facility] [address], [place] [address], Ph. 03/29/2021 Generalized Anxiety Disorder; Major Depressive Disorder; Loss of Appetite; Excessive Sweating Nella Gray PA-C: [address] [place] [address], Ph. 03/22/2021 Generalized Anxiety Disorder Sherrie Jean BaptisteJOANA-R: [address] [place] [address], Ph. 01/28/2021 Generalized Anxiety Disorder; Depressive Disorder; Blurring of Visual Image; Blepharospasm; Loss of Appetite; Nicotine Dependence; Cannabis Abuse Nella Gray PA-C: [address] [place] [address], Ph. Social History Tobacco Smoking Status Never [...]
--- OUTSIDE RECORDS SUMMARY | 2021-07-31 13:08 | CCD ---
Author Organization Unknown Address [address] [place] [address] Phone [phone] Care Team Providers Care Tail Sawyer Name Role Phone Nella Gray Unavailable Unavailable [...] damian ilable hydroxyzine HCl 25 mg tablet TAKE 1-2 [...] T3 Uptake 30 % 22-35 % Final [facility]: [address], [place] Blood venous Normal T4 (Thyroxine), Total 7. 5 mcg/dL 5.1-11.9 mcg/dL Final [facility]: [address] [facility] Blood venous Normal Free T4 Index (T7) 2.3 1.4 -3.8 Final [facility]: 875 [facility] Blood venous Normal Tsh 1.43 mIU/L [facility]: [address]75 [facility] 04/28/2021 CMP, Serum or Plasma Blood venous Normal Glucose 83 mg/dL 65-99 mg/dL Final [facility]: [address]75 [facility] Blood venous Normal Urea Nitrogen (BUN) 13 mg/dL 7-25 mg/dL Final [facility]: 875 [facility] Blood venous Normal Creatinine 0.76 mg/dL 0.50-1. 10 mg/dL [facility]: 875 [facility] Blood venous Normal eGFR Non-afr. English 1 12 mL/min/1.73m2 > or = 60 mL/min/1.73m2 Final [facility]: [address]75 [facility] Blood venous Normal eGFR 13 0 mL/min/1.73m2 > or = 60 mL/min/1.73m2 Final [facility]: [address]75 [facility] Blood venous BUN/creatinine Ratio not applicable (calc) 6-22 (calc) [facility]: [address] [facility] Blood venous Normal Sodium 139 mmol/L 135-146 mmo l/L Final [facility]: 875 [facility] Blood venous Normal Potassium 4.5 mmol/L 3.5-5.3 mmol/L Final [facility]: 875 [facility] Blood venous Normal Chloride 103 mmol/L 98-110 mm ol/L Final [facility]: 875 [facility] Blood venous Normal Carbon Dioxide 28 mmol/L 20-3 2 mmol/L [facility]: 875 [facility] Blood venous Normal Calcium 9.7 mg/dL 8.6-10.2 mg /dL [facility]: 875 [facility] Blood venous Normal Protein, Total 7.2 g/dL 6.1-8 .1 g/dL Final [facility]: [address]75 [facility] Blood venous Normal Albumin 4.9 g/dL 3.6-5.1 g/dL [facility]: [address]75 [facility] Blood venous Normal Globulin 2.3 g/dL (calc) 1.9- 3.7 g/dL (calc) [facility]: [address] [facility] Blood venous Normal Albumin/globulin Ratio 2 .1 (calc) 1.0-2.5 (calc) [facility]: [address] [facility] Blood venous High Bilirubin, Total 1.5 mg/dL 0. 2-1.2 mg/dL [facility]: [address] [facility] Blood venous Normal Alkaline Phosphatase 61 U/L 3 1-125 U/L [facility]: [address]75 [facility] Blood venous Normal Ast 12 U/L 10-30 U/L [facility]: [address]75 [facility] Blood venous Normal Alt 9 U/L 6-29 U/L Final [facility]: [address] [facility] 04/28/2021 CBC W/ Auto Diff Blood venous Normal White B lood Cell Count 7.5 thousand/uL 3.8-10.8 thousand/uL [facility]: [address] [facility] Blood venous Normal Red Blood Cell Count 4.8 0 million/uL 3.80-5.10 million/uL [facility]: 8[address] [facility] Blood venous Normal Hemoglobin 14.5 g/dL 11.7-15. 5 g/dL [facility]: [address] [facility] Blood venous Normal Hematocrit 42.9 % 35.0-45.0 % [facility]: [address]75 [facility] Blood venous Normal Mcv 89.4 fL 80.0-100.0 fL Fi nal [facility]: [address] [facility] Blood venous Normal Mch 30.2 pg 27.0-33.0 pg Fin al [facility]: [address] [facility] Blood venous Normal Mchc 33.8 g/dL 32.0-36.0 g/dL [facility]: [address]75 [facility] Blood venous Normal Rdw 11.5 % 11.0-15.0 % Final [facility]: [address] [facility] Blood venous Normal Platelet Count 295 thous and/uL 140-400 thousand/uL Final [facility]: [address] [facility] Blood venous Normal Mpv 10.9 fL 7.5-12.5 fL Baylee l [facility]: [address] [facility] Blood venous Normal Absolute Neutrophils 303 8 cells/uL 0567-6072 cells/uL Final [facility]: [address] [facility] Blood venous Normal Absolute Lymphocytes 375 8 cells/uL 850-3900 cells/uL Final [facility]: [address] [facility] Blood venous Normal Absolute Monocytes 503 c ells/uL 200-950 cells/uL Final [facility]: [address] [facility] Blood venous Normal Absolute Eosinophils 173 cells/uL 15-500 cells/uL Final [facility]: [address] [facility] Blood venous Normal Absolute Basophils 30 ce lls/uL 0-200 cells/uL Final [facility]: [address] [facility] Blood venous Normal Neutrophils 40.5 % 38-80 % Fi [facility][1]: [address] [facility] Blood venous High Lymphocytes 50.1 % 15-49 % Fi [facility]: [address] [facility] Blood venous Normal Monocytes 6.7 % 0-13 % [facility]: [address] [facility] venous Normal Eosinophils 2.3 % 0-8 % Fin al [facility]: [address] [facility] Blood venous Normal Basophils 0.4 % 0-2 % [facility]: [address] , [place] Past Encounters 05/10/2021 Generalized Anxiety Disorder Sherrie Jean Baptiste, CAR SEALER-R: [address] [place] [address], Ph. 05/07/2021 Generalized Anxiety Disorder; Hyperhidrosis; Blurring of Visual Image EREN OscarC: [address] [place] [address], Ph. 04/28/2021 Generalized Anxiety Disorder Jose Goldman RPA-C: [address] [facility], [facility] [address], [place] [address], Ph. 04/15/2021 Generalized Anxiety Disorder Sherrie Jean Baptiste CAR SEALER-R: [address] [facility], [facility] [address], [place] [address], Ph. 04/01/2021 Generalized Anxiety Disorder Sherrie Jean Baptiste CAR SEALER-R: [address] [facility], [facility] [address], [place] [address], Ph. 03/29/2021 Generalized Anxiety Disorder; Major Depressive Disorder; Loss of Appetite; Excessive Sweating Nella Gray PA-C: [address] [place] [address], Ph. 03/22/2021 Generalized Anxiety Disorder Sherrie Jean BaptisteJOANA-R: [address] [place] [address], Ph. 01/28/2021 Generalized Anxiety Disorder; Depressive Disorder; Blurring of Visual Image; Blepharospasm; Loss of Appetite; Nicotine Dependence; Cannabis Abuse Nella Gray PA-C: [address] [place] [address], Ph. Social History Tobacco Smoking Status Never [...]
--- OUTSIDE RECORDS SUMMARY | 2021-07-31 13:08 | CCD ---
Author Organization Unknown Address [address] [place] [address] Phone [phone] Care Team Providers Care Supervisor Fine Grading Name Role Phone Nella Gray Unavailable Unavailable [...] T3 Uptake 30 % 22-35 % Final [facility]: [address], [place] Blood venous Normal T4 (Thyroxine), Total 7. 5 mcg/dL 5.1-11.9 mcg/dL Final [facility] [place]: [address] [facility] Blood venous Normal Free T4 Index (T7) 2.3 1.4 -3.8 [facility]: [address] [facility] Blood venous Normal Tsh 1.43 mIU/L [facility]: [address] [facility] 04/28/2021 CMP, Serum or Plasma Blood venous Normal Glucose 83 mg/dL 65-99 mg/dL Final [facility]: [address] [facility] Blood venous Normal Urea Nitrogen (BUN) 13 mg/dL 7-25 mg/dL [facility]: [address] [facility] Blood venous Normal Creatinine 0.76 mg/dL 0.50-1. 10 mg/dL [facility]: [address] [facility] Blood venous Normal eGFR Non-afr. Rwandan 1 12 mL/min/1.73m2 > or = 60 mL/min/1.73m2 Final [facility]: [address] [facility] Blood venous Normal eGFR 13 0 mL/min/1.73m2 > or = 60 mL/min/1.73m2 Final [facility]: [address] [facility] Blood venous BUN/creatinine Ratio not applicable (calc) 6-22 (calc) [facility]: [address] [facility] Blood venous Normal Sodium 139 mmol/L 135-146 mmo l/L [facility]: [address] [facility] Blood venous Normal Potassium 4.5 mmol/L 3.5-5.3 mmol/L [facility]: [address] [facility] Blood venous Normal Chloride 103 mmol/L 98-110 mm ol/L [facility]: [address] [facility] Blood venous Normal Carbon Dioxide 28 mmol/L 20-3 2 mmol/L [facility]: [address] [facility] Blood venous Normal Calcium 9.7 mg/dL 8.6-10.2 mg /dL [facility]: [address] [facility] Blood venous Normal Protein, Total 7.2 g/dL 6.1-8 .1 g/dL [facility]: [address] [facility] Blood venous Normal Albumin 4.9 g/dL 3.6-5.1 g/dL [facility]: [address] [facility] Blood venous Normal Globulin 2.3 g/dL (calc) 1.9- 3.7 g/dL (calc) [facility]: [address] [facility] Blood venous Normal Albumin/globulin Ratio 2 .1 (calc) 1.0-2.5 (calc) [facility]: [address] [facility] Blood venous High Bilirubin, Total 1.5 mg/dL 0. 2-1.2 mg/dL [facility]: [address] [facility] Blood venous Normal Alkaline Phosphatase 61 U/L 3 1-125 U/L [facility]: [address] [facility] Blood venous Normal Ast 12 U/L 10-30 U/L [facility]: [address] [facility] Blood venous Normal Alt 9 U/L 6-29 U/L Final [facility]: [address] [facility] 04/28/2021 CBC W/ Auto Diff Blood venous Normal White B lood Cell Count 7.5 thousand/uL 3.8-10.8 thousand/uL [facility]: [address] [facility] Blood venous Normal Red Blood Cell Count 4.8 0 million/uL 3.80-5.10 million/uL [facility] Blood venous Normal Hemoglobin 14.5 g/dL 11.7-15. 5 g/dL Final [facility][1]: [address] [facility] Blood venous Normal Hematocrit 42.9 % 35.0-45.0 % [facility]: [address] [facility] Blood venous Normal Mcv 89.4 fL 80.0-100.0 fL Fi nal [facility][1]: [address] [facility] Blood venous Normal Mch 30.2 pg 27.0-33.0 pg Fin al [facility][1]: [address] [facility] Blood venous Normal Mchc 33.8 g/dL 32.0-36.0 g/dL [facility]: [address] [facility] Blood venous Normal Rdw 11.5 % 11.0-15.0 % [facility]: [address] [facility] Blood venous Normal Platelet Count 295 thous and/uL 140-400 thousand/uL Final [facility]: [address] [facility] Blood venous Normal Mpv 10.9 fL 7.5-12.5 fL Baylee l [facility][1]: [address] [facility] Blood venous Normal Absolute Neutrophils 303 8 cells/uL 2529-8697 cells/uL Final [facility] gh: [address] [facility] Blood venous Normal Absolute Lymphocytes 375 8 cells/uL 850-3900 cells/uL Final [facility] gh: [address] [facility] Blood venous Normal Absolute Monocytes 503 c ells/uL 200-950 cells/uL [facility]: [address] [facility] Blood venous Normal Absolute Eosinophils 173 cells/uL 15-500 cells/uL [facility]: [address] [facility] Blood venous Normal Absolute Basophils 30 ce lls/uL 0-200 cells/uL Final [facility]: [address] [facility] Blood venous Normal Neutrophils 40.5 % 38-80 % Fi [facility]: [address] [facility] Blood venous High Lymphocytes 50.1 % 15-49 % Fi [facility]: [address] [facility] Blood venous Normal Monocytes 6.7 % 0-13 % [facility]: [address] [facility] Blood venous Normal Eosinophils 2.3 % 0-8 % Fin al [facility][1]: [address] [facility] Blood venous Normal Basophils 0.4 % 0-2 % [facility]: [address] [facility] Past Encounters 06/07/2021 Generalized Anxiety Disorder SIERRA MarW-R: [address] [facility], [facility] [address], [place] [address], Ph. 06/02/2021 Generalized Anxiety Disorder Sherrie Jean Baptiste LCSW-R: [address] [facility], [facility] [address], [place] [address], Ph. 05/24/2021 Generalized Anxiety Disorder Sherrie Jean Baptiste LCSW-R: [address] [place] [address], Ph. 05/10/2021 Generalized Anxiety Disorder Sherrie Jean BaptisteJOANA-R: [address] [place] [address], Ph. 05/07/2021 Generalized Anxiety Disorder; Hyperhidrosis; Blurring of Visual Image Nella Gray PA-C: [address] [place] [address], Ph. 04/28/2021 Generalized Anxiety Disorder Jose Goldman RPA-C: [address] [facility], [place] [address], Ph. 04/15/2021 Generalized Anxiety Disorder Sherrie Jean BaptisteSIERRAW-R: [address] [facility], [address], [place] [address], Ph. 04/01/2021 Generalized Anxiety Disorder Sherrie Jean BaptisteSIERRAW-R: [address] [facility], [address], [place] [address], Ph. 03/29/2021 Generalized Anxiety Disorder; Major Depressive Disorder; Loss of Appetite; Excessive Sweating Nella Gray PA-C: [address] [place] [address], Ph. 03/22/2021 Generalized Anxiety Disorder Sherrie Jean BaptisteJOANA-R: [address] [place] [address], Ph. 01/28/2021 Generalized Anxiety Disorder; Depressive Disorder; Blurring of Visual Image; Blepharospasm; Loss of Appetite; Nicotine Dependence; Cannabis Abuse Nella Gray PA-C: [address] [place] [address], Ph. Social History Tobacco Smoking Status Never [...]
--- OUTSIDE RECORDS SUMMARY | 2021-07-31 13:08 | CCD ---
Author Organization Unknown Address [address] [place] [address] Phone [phone] Care Team Providers Care Dowel Sticker Operator Name Role Phone Nella Gray Unavailable Unavailable Allergies Code Code System Name Reaction Severity Status Onset 161 RxNorm Acetaminophen Active 2670 RxNorm Codeine Active Medications Name Status Start Date Stop Date azithromycin 500 mg tablet TAKE TWO TABLETS BY MOUTH ONCE Completed 01/29/20 fluconazole 150 mg tablet TAKE 1 TABLET BY MOUTH NOW THEN TAKE 2ND TABLET IN 48 HOURS Completed 01/28/2021 fluoxetine 10 mg capsule Active Not damian ilable hydroxyzine [...] BOTH EYES FOUR TIMES A DAY DIRECTED Active Not available sertraline 25 mg tablet TAKE ONE TABLET BY MOUTH EVERY DAY Completed 03/10 Problems Name Status Onset Date Source Major Depressive Disorder Active 01/28/2021 Generalized Anxiety Disorder Active 01/28/2021 Procedures Date Name Performed by Remove Tonsils and Adenoids Information not available Notes: Wrist & Hand Results Lab Results Date Name Specimen Result Interpretation Description Value Range Status Address 04/28/2021 TSH, Serum or Plasma Blood venous Normal T3 Uptake 30 % 22-35 % Final [facility] [address] [facility] Blood venous Normal T4 (Thyroxine), Total 7. 5 mcg/dL 5.1-11.9 mcg/dL Final [facility]: [address] [facility] Blood venous Normal Free T4 Index (T7) 2.3 1.4 -3.8 Final [facility]: [address] [facility] Blood venous Normal Tsh 1.43 mIU/L Final [facility]: [address] [facility] 04/28/2021 CMP, Serum or Plasma Blood venous Normal Glucose 83 mg/dL 65-99 mg/dL Final [facility]: [address] [facility] Blood venous Normal Urea Nitrogen (BUN) 13 mg/dL 7-25 mg/dL [facility]: [address] [facility] Blood venous Normal Creatinine 0.76 mg/dL 0.50-1. 10 mg/dL [facility]: [address] [facility] Blood venous Normal eGFR Non-afr. Mauritian 1 12 mL/min/1.73m2 > or = 60 mL/min/1.73m2 Final [facility]: [address] [facility] Blood venous Normal eGFR 13 0 mL/min/1.73m2 > or = 60 mL/min/1.73m2 Final [facility]: [address] [facility] Blood venous BUN/creatinine Ratio not applicable (calc) 6-22 (calc) [facility]: [address] [facility] Blood venous Normal Sodium 139 mmol/L 135-146 mmo l/L [facility]: [address] [facility] Blood venous Normal Potassium 4.5 mmol/L 3.5-5.3 mmol/L [facility]: [address] [facility] Blood venous Normal Chloride 103 mmol/L 98-110 mm ol/L [facility]: [address] [facility] Blood venous Normal Carbon Dioxide 28 mmol/L 20-3 2 mmol/L [facility]: [address] [facility] Blood venous Normal Calcium 9.7 mg/dL 8.6-10.2 mg /dL [facility]: [address] [facility] Blood venous Normal Protein, Total 7.2 g/dL 6.1-8 .1 g/dL [facility]: [address] [facility] Blood venous Normal Albumin 4.9 g/dL 3.6-5.1 g/dL [facility]: [address] [facility] Blood venous Normal Globulin 2.3 g/dL (calc) 1.9- 3.7 g/dL (calc) [facility]: [address] [facility] Blood venous Normal Albumin/globulin Ratio 2 .1 (calc) 1.0-2.5 (calc) Final [facility]: [address] [facility] Blood venous High Bilirubin, Total 1.5 mg/dL 0. 2-1.2 mg/dL Final [facility]: [address] [facility] Blood venous Normal Alkaline Phosphatase 61 U/L 3 1-125 U/L Final [facility]: [address] [facility] Blood venous Normal Ast 12 U/L 10-30 U/L [facility]: [address] [facility] Blood venous Normal Alt 9 U/L 6-29 U/L Final [facility]: [address] [facility] 04/28/2021 CBC W/ Auto Diff Blood venous Normal White B lood Cell Count 7.5 thousand/uL 3.8-10.8 thousand/uL Final [facility]: [address] [facility] Blood venous Normal Red Blood Cell Count 4.8 0 million/uL 3.80-5.10 million/uL [facility] [address] [facility] Blood venous Normal Hemoglobin 14.5 g/dL 11.7-15. 5 g/dL Final [facility]: [address] [facility] Blood venous Normal Hematocrit 42.9 % 35.0-45.0 % [facility]: [address] [facility] Blood venous Normal Mcv 89.4 fL 80.0-100.0 fL Fi nal [facility]: [address] [facility] Blood venous Normal Mch 30.2 pg 27.0-33.0 pg Fin al [facility]: [address] [facility] Blood venous Normal Mchc 33.8 g/dL 32.0-36.0 g/dL [facility]: [address] [facility] Blood venous Normal Rdw 11.5 % 11.0-15.0 % [facility]: [address] [facility] Blood venous Normal Platelet Count 295 thous and/uL 140-400 thousand/uL [facility]: [address] [facility] Blood [facility] Normal Mpv 10.9 fL 7.5-12.5 fL Baylee l [facility]: [address] [place] Blood venous Normal Absolute Neutrophils 303 8 cells/uL 8179-7583 cells/uL Final [facility]: [address], [place] Blood venous Normal Absolute Lymphocytes 375 8 cells/uL 850-3900 cells/uL [facility]: [address] [facility] Blood venous Normal Absolute Monocytes 503 c ells/uL 200-950 cells/uL [facility]: [address], [place] Blood venous Normal Absolute Eosinophils 173 cells/uL 15-500 cells/uL [facility]: [address], [place] Blood venous Normal Absolute Basophils 30 ce lls/uL 0-200 cells/uL [facility]: [address], [place] Blood venous Normal Neutrophils 40.5 % 38-80 % Fi [facility]: [address] [facility] Blood venous High Lymphocytes 50.1 % 15-49 % Fi nal [facility]: [address] [facility] Blood venous Normal Monocytes 6.7 % 0-13 % [facility]: [address] [facility] Blood venous Normal Eosinophils 2.3 % 0-8 % Fin al [facility]: [address], [place] Blood venous Normal Basophils 0.4 % 0-2 % [facility]: [address], [place] Past Encounters 04/28/2021 Generalized Anxiety Disorder Jose Goldman RPA-C: [address] [facility] [address], [place] [address], Ph. 04/15/2021 Generalized Anxiety Disorder SIERRA MarW-R: [address] [facility], [facility] [address], [place] [address], Ph. 04/01/2021 Generalized Anxiety Disorder SIERRA MarW-R: [address] [facility], [facility] [address], [place] [address], Ph. 03/29/2021 Generalized Anxiety Disorder; Major Depressive Disorder; Loss of Appetite; Excessive Sweating Nella Gray PA-C: [address] [place] [address], Ph. 03/22/2021 Generalized Anxiety Disorder SIERRA MarW-R: [address] [place] [address], Ph. 01/28/2021 Generalized Anxiety Disorder; Depressive Disorder; Blurring of Visual Image; Blepharospasm; Loss of Appetite; Nicotine Dependence; Cannabis Abuse Nella Gray PA-C: [address] [place] [address], Ph. Social History Tobacco Smoking Status Never [...] 08/17/2000 12/21/2000 Tdap 02/22/2010 varicella 08/17/2000 04/21/2008 Plan of Care Reminders Provider Appointments None recorded. Lab None recorded. Referral None recorded. Procedures None recorded. Surgeries None recorded. Imaging None recorded. Vitals 03/29/2021 01:00PM TELEHEALTH 20 Height 64 in 01/28/2021 08:20AM NEW PATIENT (12yrs - OLDER) Height Weight BMI Blood Pressure 64 in 114 lbs 16 oz 19.7 kg/m2 111/77 mm[Hg]
--- OUTSIDE RECORDS SUMMARY | 2021-07-31 13:08 | CCD ---
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 Name Role Phone Nikia Virgen Unavailable PROBLEMS Type Condition ICD9-CM Code CXL41-EN Code Onset Dates Condition S tatus W/U Status Risk SNOMED Code Notes Problem Dyspareunia in female N94.10 Active confirmed 20356307 Problem Irregular menses N92.6 Active confirmed [id number] ALLERGIES Allergen (clinical drug ingredient) Drug/Non Drug Allergy do cumented on EMR Reaction Allergy Type Onset Date Status Tylenol with Codeine #3 Nausea/Vomiting Drug Allergy Active ENCOUNTERS from 1999 to 2021-07-28 Encounter Location Date Provider Diagnosis [facility] [address] [place] [address] [place] [address] Jul, Nikia Virgen of unknown anatomic location O36.80X0 IMMUNIZATIONS Vaccine Route Administration Date Status Influenza 6mo & up Fluzone Unknown Nov 15, 2017 Other s SOCIAL HISTORY Tobacco Use: Social History Observation Description Date Details (start date - stop date) Never Smoker Sex Assigned At : Social History Observation Description Sex Assigned At Unknown Language: Question Answer Notes Languages spoken: Czech Sexual Hx: Question Answer Notes Had sex in the last 12 months (vaginal, oral, or anal)? Yes LMP: 09/06/18 Have you ever had an STD? Yes Prevention Strategies discussed: Condoms with Men only Use protection? Yes Other? No Herpes? No Syphilis? No GC? Yes Chlamydia? Yes Tobacco Use: Question Answer Notes Are you a: never smoker REASON FOR REFERRAL No Information VITAL SIGNS Weight 118 lbs Jul, Height 64 in Jul, BMI 20.25 kg/m2 Jul, Blood pressure systolic 120 mm Hg Jul, Blood pressure diastolic 80 mm Hg Jul, MEDICATIONS Medication SIG (Take, Route, Frequency, Duration) Notes Start Da te End Date Status 27-1 MG 1 tablet Orally Once a day Active hydrOXYzine HCl 25 MG 1 tablet as needed Orally every 8 hrs Not-Taking metroNIDAZOLE 0.75 % 1 applicatorful at bedtime Vaginal Once a day for 5 day(s) Nov, Unknown PROzac 20 MG 1 capsule Orally Once a day Not-Taking PROCEDURES No Information RESULTS No Results REASON FOR VISIT CERVIX EXAM/STD TESTING MEDICAL (GENERAL) HISTORY Type Description Date Medical History anxiety Surgical History tonsillectomy Surgical History wrist and elbow surgery Hospitalization History No Hospitalization history informati on Goals Section No Information Health Concerns No Information MEDICAL EQUIPMENT No Information MENTAL STATUS No Information FUNCTIONAL STATUS No Information ASSESSMENTS Encounter Date Diagnosis Assessment Notes Treatment Notes Treatm ent Clinical Notes Jul, of unknown anatomic location (ICD-10 - O36.80X0) PLAN OF TREATMENT Treatment Notes Test Name Order Date [facility] 2021-07-23 Next Appt Details Provider Name:Nikia Osuna Param, 5 10:40:00 AM, [address] [facility], , [place], [address], Insurance Providers Payer Name Payer Address Payer Phone Insured Name Patient Relati onship to Insured Coverage Start Date Coverage End Date [facility] CORPORATE CLAIMS [address]PT [address] [facility] [phone] [place] self
--- OUTSIDE RECORDS SUMMARY | 2021-07-31 13:09 | CCD ---
Author Author [facility] Organization [facility] Address Unknown Phone Unavailable Care Team Providers Care Patient Navigator Name Role Phone GOLDMAN, LOIDA JOSE RPA-C Unavailable Unavailable GOLDMAN, LOIDA JOSE RPA-C Unavailable Unavailable GOLDMAN, LOIDA JOSE RPA-C Unavailable Unavailable GOLDMAN, LOIDA JOSE RPA-C Unavailable Unavailable GOLDMAN, LOIDA JOSE RPA-C Unavailable Unavailable GOLDMAN, LOIDA JOSE RPA-C Unavailable Unavailable GOLDMAN, LOIDA JOSE RPA-C Unavailable Unavailable GOLDMAN, LOIDA JOSE RPA-C Unavailable Unavailable GOLDMAN, LOIDA JOSE RPA-C Unavailable Unavailable GOLDMAN, LOIDA JOSE RPA-C Unavailable Unavailable GOLDMAN, LOIDA JOSE RPA-C Unavailable Unavailable GOLDMAN, LOIDA JOSE RPA-C Unavailable Unavailable GOLDMAN, LOIDA JOSE RPA-C Unavailable Unavailable GOLDMAN, LOIDA JOSE RPA-C Unavailable Unavailable GOLDMAN, LOIDA JOSE RPA-C Unavailable Unavailable GOLDMAN, LOIDA JOSE RPA-C Unavailable Unavailable GOLDMAN, LOIDA JOSE RPA-C Unavailable Unavailable GOLDMAN, LOIDA JOSE RPA-C Unavailable Unavailable GOLDMAN, LOIDA JOSE RPA-C Unavailable Unavailable GOLDMAN, LOIDA JOSE RPA-C Unavailable Unavailable GOLDMAN, LOIDA JOSE RPA-C Unavailable Unavailable GOLDMAN, LOIDA JOSE RPA-C Unavailable Unavailable GOLDMAN, LOIDA JOSE RPA-C Unavailable Unavailable GOLDMAN, LOIDA JOSE RPA-C Unavailable Unavailable GOLDMAN, LOIDA JOSE RPA-C Unavailable Unavailable GOLDMAN, LOIDA JOSE RPA-C Unavailable Unavailable GOLDMAN, LOIDA JOSE RPA-C Unavailable Unavailable GOLDMAN, LOIDA JOSE RPA-C Unavailable Unavailable GOLDMAN, LOIDA JOSE RPA-C Unavailable Unavailable GOLDMAN, LOIDA JOSE RPA-C Unavailable Unavailable GOLDMAN, LOIDA JOSE RPA-C Unavailable Unavailable GOLDMAN, LOIDA JOSE RPA-C Unavailable Unavailable GOLDMAN, LOIDA JOSE RPA-C Unavailable Unavailable GOLDMAN, LOIDA JOSE RPA-C Unavailable Unavailable GOLDMAN, LOIDA JOSE RPA-C Unavailable Unavailable GOLDMAN, LOIAD JOSE RPA-C Unavailable Unavailable GOLDMAN, LOIDA JOSE RPA-C Unavailable Unavailable GOLDMAN, LOIDA OJSE RPA-C Unavailable Unavailable GOLDMAN, LOIDA JOSE RPA-C Unavailable Unavailable GOLDMAN, LOIDA JOSE RPA-C Unavailable Unavailable GOLDMAN, LOIDA JOSE RPA-C Unavailable Unavailable GOLDMAN, LOIDA JOSE RPA-C Unavailable Unavailable GOLDMAN, LOIDA JOSE RPA-C Unavailable Unavailable Fostveit, Sherrie Unavailable Unavailable Fostveit, Sherrie Unavailable Unavailable Scordo, M Nella PA Unavailable Unavailable Scordo, M Enlla PA Unavailable Unavailable Scordo, M Nella PA Unavailable Unavailable Scordo, M Nella PA Unavailable Unavailable Scordo, M Nella PA Unavailable Unavailable Scordo, M Nella PA Unavailable Unavailable Scordo, M Nella PA Unavailable Unavailable Scordo, M Nella PA Unavailable Unavailable Scordo, M Nella PA Unavailable Unavailable Scordo, M Nella PA Unavailable Unavailable Scordo, M Nella PA Unavailable Unavailable Scordo, M Nella PA Unavailable Unavailable Scordo, M Nella PA Unavailable Unavailable Scordo, M Nella PA Unavailable Unavailable Scordo, M Nella PA Unavailable Unavailable Scordo, M Nella PA Unavailable Unavailable Scordo, M Nella PA Unavailable Unavailable Scordo, M Nella PA Unavailable Unavailable Scordo, M Nella PA Unavailable Unavailable Scordo, M Nella PA Unavailable Unavailable Scordo, M Nella PA Unavailable Unavailable Scordo, M Nella PA Unavailable Unavailable Scordo, M Nella PA Unavailable Unavailable Scordo, M Nella PA Unavailable Unavailable Scordo, M Nella PA Unavailable Unavailable Scordo, M Nella PA Unavailable Unavailable Scordo, M Nella PA Unavailable Unavailable Scordo, M Nella PA Unavailable Unavailable Scordo, M Nella PA Unavailable Unavailable Scordo, M Nella PA Unavailable Unavailable Scordo, M Nella PA Unavailable Unavailable Scordo, M Nella PA Unavailable Unavailable Scordo, M Nella PA Unavailable Unavailable Scordo, M Nella PA Unavailable Unavailable Scordo, M Nella PA Unavailable Unavailable Scordo, M Nella PA Unavailable Unavailable Scordo, M Nella PA Unavailable Unavailable Scordo, M Nella PA Unavailable Unavailable Scordo, M Nella PA Unavailable Unavailable Scordo, M Nella PA Unavailable Unavailable Scordo, M Nella PA Unavailable Unavailable Scordo, M Nella PA Unavailable Unavailable Scordo, M Nella PA Unavailable Unavailable Scordo, M Nella PA Unavailable Unavailable Scordo, M Nella PA Unavailable Unavailable Scordo, M Nella PA Unavailable Unavailable Scordo, M Nella PA Unavailable Unavailable Re-disclosure Warning The records that you are about to access may contain information from federally-assisted alcohol or drug abuse programs. If such information is present, then the following federally mandated warning applies: This information has been disclosed to you from records protected by federal confidentiality rules (42 CFR part 2). The federal rules prohibit you from making any further disclosure of this information unless further disclosure is expressly permitted by the written consent of the person to whom it pertains or as otherwise permitted by 42 CFR part 2. A general authorization for the release of medical or other information is NOT sufficient for this purpose. The Federal rules restrict any use of the information to criminally investigate or prosecute any alcohol or drug abuse patient.The records that you are about to access may contain highly sensitive health information, the redisclosure of which is protected by Article 27-F of the [facility] Public Health law. If you continue you may have access to information: Regarding HIV / AIDS; Provided by facilities licensed or operated by the [facility] Office of Mental Health; or Provided by the [facility] Office for People With Developmental Disabilities. If such information is present, then the following [facility] mandated warning applies: This information has been disclosed to you from confidential records which are protected by state law. State law prohibits you from making any further disclosure of this information without the specific written consent of the person to whom it pertains, or as otherwise permitted by law. Any unauthorized further disclosure in violation of state law may result in a fine or mcc sentence or both. A general authorization for the release of medical or other information is NOT sufficient authorization for further disc losure. Family History Family Member Name Family Member Gender Family Member Status Date o f Status Description Data Source(s) Unknown Male Problem MEDENT ([facility]) Unknown Unknown Problem MEDENT ([facility], ) Encounters Encounter Providers Location Date Indications Data Source(s ) [place] [address] [address] 07/23/2021 12:00:00 AM EDT eCW1 ([facility]) [place] [address] [address] 07/07/2021 12:00:00 AM EDT eCW1 ([facility]) Sherrie Jean Baptiste LCSW-R: [address], [place] [address], Ph. Attender: Sherrie Landry [facility] Medical 06/21/2021 12:00:00 AM EDT [facility] Sherrie Jean Baptiste LCSW-R: [address], [address], [place] [address], Ph. Attender: Sherrie Landry [facility] Medical 06/07/2021 12:00:00 AM EDT [facility] Sherrie Jean Baptiste LCSW-R: [address], [address], [place] [address], Ph. Attender: Sherrie Landry [facility] Medical 06/07/2021 12:00:00 AM EDT [facility] Sherrie Jean Baptiste, EVENT PLANNING MANAGER-R: [address], [address], [place] [address], Ph. Attender: Sherrie Landry [facility] Medical 06/07/2021 12:00:00 AM EDT JENKINJONES ([facility]) SherrieSIERRA ChengW-R: [address], [address], [place] [address], Ph. Attender: Sherrie Landry [facility] Medical 06/07/2021 12:00:00 AM EDT HAROLDO ([facility]) SherrieSIERRA ChengW-R: [address], [place] [address], Ph. Attender: Sherrie Landry [facility] Medical 06/02/2021 12:00:00 AM EDT HAROLDO ([facility]) SIERRA MarW-R: [address], [address], [place] [address], Ph. Attender: Sherrie Landry [facility] Medical 06/02/2021 12:00:00 AM EDT JENKINJONES ([facility]) SIERRA MarW-R: [address], [address], [place] [address], Ph. Attender: Sherrie Landry [facility] Medical 06/02/2021 12:00:00 AM EDT HAROLDO ([facility]) SIERRA MarW-R: [address], [address], [place] [address], Ph. Attender: Sherrie Evangelinaanalydouglas [facility] Medical 06/02/2021 12:00:00 AM EDT [facility]) SIERRA MarW-R: [address], [place] [address], Ph. Attender: Sherrie Landry [facility] Medical 05/24/2021 12:00:00 AM EDT [facility]) SIERRA MarW-R: [address], [place] [address], Ph. Attender: Sherrie Landry [facility] Medical 05/24/2021 12:00:00 AM EDT [facility]) SIERRA MarW-R: [address], [place] [address], Ph. Attender: Sherrie Landry [facility] Medical 05/24/2021 12:00:00 AM EDT [facility]) SIERRA MarW-R: [address], [place] [address], Ph. Attender: Sherrie Landry [facility] Medical 05/24/2021 12:00:00 AM EDT [facility]) Sherrie Jean Baptiste LCSW-R: [address], [place] [address], Ph. Attender: Sherrie Landry [facility] Medical 05/10/2021 12:00:00 AM EDT JENKINJONES ([facility]) Sherrie Jean Baptiste LCSW-R: [address], [place] [address], Ph. Attender: Sherrie Landry [facility] Medical 05/10/2021 12:00:00 AM EDT JENKINJONES ([facility]) SIERRA MarW-R: [address], [place] [address], Ph. Attender: Sherrie Landry [facility] Medical 05/10/2021 12:00:00 AM EDT JENKINJONES ([facility]) SIERRA MarW-R: [address], [place] [address], Ph. Attender: Sherrie Mayorgabee [facility] Medical 05/10/2021 12:00:00 AM EDT JENKINJONES ([facility]) SIERRA MarW-R: [address], [place] [address], Ph. Attender: Sherrie Hutchinsonanalyleobee [facility] Medical 05/10/2021 12:00:00 AM EDT JENKINJONES ([facility]) Nella Gray PA-C: [address], [place] [address], Ph. Attender: Nella MIRANDA [facility] Medical 05/07/2021 12:00:00 AM EDT JENKINJONES ([facility]) Nella Gray PA-C: [address], [place] [address], Ph. Attender: Nella MIRANDA [facility] Medical 05/07/2021 12:00:00 AM EDT JENKINJONES ([facility]) Nella Gray PA-C: [address], [place] [address], Ph. Attender: Nella MIRANDA [facility] Medical 05/07/2021 12:00:00 AM EDT JENKINJONES ([facility]) Nella Gray PA-C: [address], [place] [address], Ph. Attender: Nella MIRANDA [facility] Medical 05/07/2021 12:00:00 AM EDT JENKINJONES ([facility]) EREN OscarC: [address], [facility] [place] [address], Ph. Attender: Nella MIRANDA [facility] Medical 05/07/2021 12:00:00 AM EDT JENKINJONES ([facility]) Nella Gray PA-C: [address], [facility] [place] [address], Ph. Attender: Nella MIRANDA [facility] Medical 05/07/2021 12:00:00 AM EDT JENKINJONES ([facility]) Jose Goldman RPA-C: [address], [place] [address], Ph. Attender: JOSE GOLDMAN RPA-C [facility] Medical 04/28/2021 12:00:00 AM EDT JENKINJONES ([facility]) Jose Goldman RPA-C: [address], [place] [address], Ph. Attender: JOSE GOLDMAN RPA-C [facility] Medical 04/28/2021 12:00:00 AM EDT JENKINJONES ([facility]) Jose Goldman RPA-C: [address], [place] [address], Ph. Attender: JOSE GOLDMAN RPA-C [facility] Medical 04/28/2021 12:00:00 AM EDT JENKINJONES ([facility]) Jose Goldman RPA-C: [address], [place] [address], Ph. Attender: JOSE GOLDMAN RPA-C [facility] Medical 04/28/2021 12:00:00 AM EDT HAROLDO ([facility]) Jose Goldman RPA-C: [address], [place] [address], Ph. Attender: JOSE GOLDMAN RPA-C [facility] Medical 04/28/2021 12:00:00 AM EDT HAROLDO ([facility]) Jose Goldman RPA-C: [address], [place] [address], Ph. Attender: JOSE GOLDMAN RPA-C [facility] Medical 04/28/2021 12:00:00 AM EDT HAROLDO ([facility]) Jose Goldman RPA-C: [address], [place] [address], Ph. Attender: JOSE GOLDMAN RPA-C [facility] Medical 04/28/2021 12:00:00 AM EDT HAROLDO ([facility]) Outpatient [address] [address] 04/26/2021 12:00:00 AM EDT eCW1 ([facility]) SIERRA MarW-R: [address], [address], [place] [address], Ph. Attender: Sherrie Landry [facility] Medical 04/15/2021 12:00:00 AM EDT HAROLDO ([facility]) SIERRA MarW-R: [address], [address], [place] [address], Ph. Attender: Sherrie Landry [facility] Medical 04/15/2021 12:00:00 AM EDT HAROLDO ([facility]) SIERRA MarW-R: [address], [address], [place] [address], Ph. Attender: Sherrie Landry [facility] Medical 04/15/2021 12:00:00 AM EDT HAROLDO ([facility]) SIERRA MarW-R: [address], [address], [place] [address], Ph. Attender: Sherrie Landry [facility] Medical 04/15/2021 12:00:00 AM EDT HAROLDO ([facility]) SIERRA MarW-R: [address], [address], [place] [address], Ph. Attender: Sherrie Landry [facility] Medical 04/15/2021 12:00:00 AM EDT HAROLDO ([facility]) SIERRA MarW-R: [address], [address], [place] [address], Ph. Attender: Sherrie Hutchinsonanalydouglas [facility] Medical 04/15/2021 12:00:00 AM EDT HAROLDO ([facility]) SIERRA MarW-R: [address], [address], [place] [address], Ph. Attender: Sherrie Landry [facility] Medical 04/15/2021 12:00:00 AM EDT [facility] SherrieSIERRA ChengW-R: [address], [address], [place] [address], Ph. Attender: Sherrie Landry [facility] Medical 04/15/2021 12:00:00 AM EDT HAROLDO ([facility]) SIERRA MarW-R: [address], [address], [place] [address], Ph. Attender: Sherrie Landry [facility] Medical 04/01/2021 12:00:00 AM EDT HAROLDO ([facility]) SIERRA MarW-R: [address], [place] [address], Ph. Attender: Sherrie Evangelinaanalyleobee [facility] Medical 04/01/2021 12:00:00 AM EDT JENKINJONES ([facility]) SIERRA MarW-R: [address], [address], [place] [address], Ph. Attender: Sherrie Landry [facility] Medical 04/01/2021 12:00:00 AM EDT HAROLDO ([facility]) SIERRA MarW-R: [address], [address], [place] [address], Ph. Attender: Sherrie Evangelinaanalyleobee [facility] Medical 04/01/2021 12:00:00 AM EDT HAROLDO ([facility]) SIERRA MarW-R: [address], [address], [place] [address], Ph. Attender: Sherrie Landry [facility] Medical 04/01/2021 12:00:00 AM EDT JENKINJONES ([facility]) Sherrie Jean Baptiste, EVENT PLANNING MANAGER-R: [address], [address], [place] [address], Ph. Attender: Sherrie Landry [facility] Medical 04/01/2021 12:00:00 AM EDT HAROLDO ([facility]) Sherrie Jean BaptisteSIERRAW-R: [address], [address], [place] [address], Ph. Attender: Sherrie Landry [facility] Medical 04/01/2021 12:00:00 AM EDT JENKINJONES ([facility]) Sherrie DangeloSIERRA micheleW-R: [address], [address], [place] [address], Ph. Attender: Sherrie Landry [facility] Medical 04/01/2021 12:00:00 AM EDT JENKINJONES ([facility]) Sherrie Jean BaptisteSIERRAW-R: [address], [address], [place] [address], Ph. Attender: Sherrie Mayorgabee [facility] Medical 04/01/2021 12:00:00 AM EDT JENKINJONES ([facility]) Nella Gray PA-C: [address], [place] [address], Ph. Attender: Nella MIRANDA [facility] Medical 03/29/2021 12:00:00 AM EDT JENKINJONES ([facility]) Nella Gray PA-C: [address], [place] [address], Ph. Attender: Nella MIRANDA [facility] Medical 03/29/2021 12:00:00 AM EDT JENKINJONES ([facility]) Nella Gray PA-C: [address], [place] [address], Ph. Attender: Nella MIRANDA [facility] Medical 03/29/2021 12:00:00 AM EDT JENKINJONES ([facility]) Nella Gray PA-C: [address], [place] [address], Ph. Attender: Nella MIRANDA [facility] Medical 03/29/2021 12:00:00 AM EDT JENKINJONES ([facility]) Nella Gray PA-C: [address], [place] [address], Ph. Attender: Nella MIRANDA [facility] Medical 03/29/2021 12:00:00 AM EDT JENKINJONES ([facility]) Nella Gray PA-C: [address], [place] [address], Ph. Attender: Nella MIRANDA [facility] Medical 03/29/2021 12:00:00 AM EDT JENKINJONES ([facility]) Nella Gray PA-C: [address], [place] [address], Ph. Attender: Nella MIRANDA [facility] Medical 03/29/2021 12:00:00 AM EDT JENKINJONES ([facility]) Nella Gray PA-C: [address], [place] [address], Ph. Attender: Nella IMRANDA [facility] Medical 03/29/2021 12:00:00 AM EDT JENKINJONES ([facility]) Nella Gray PA-C: [address], [place] [address], Ph. Attender: Nella MIRANDA [facility] Medical 03/29/2021 12:00:00 AM EDT JENKINJONES ([facility]) Nella Gray PA-C: [address], [place] [address], Ph. Attender: Nella MIRANDA [facility] Medical 03/29/2021 12:00:00 AM EDT JENKINJONES ([facility]) SIERRA MarW-R: [address], [place] [address], Ph. Attender: Sherrie Landry [facility] Medical 03/22/2021 12:00:00 AM EDT [facility]) SIERRA MarW-R: [address], [place] [address], Ph. Attender: Sherrie Landry [facility] Medical 03/22/2021 12:00:00 AM EDT JENKINJONES ([facility]) Sherrie Jean Baptiste LCSW-R: [address], [place] [address], Ph. Attender: Sherrie Landry [facility] Medical 03/22/2021 12:00:00 AM EDT JENKINJONES ([facility]) Sherrie Jean Baptiste LCSW-R: [address], [place] [address], Ph. Attender: Sherrie Landry [facility] Medical 03/22/2021 12:00:00 AM EDT [facility]) SIERRA MarW-R: [address], [place] [address], Ph. Attender: Sherrie Landry [facility] Medical 03/22/2021 12:00:00 AM EDT [facility]) SIERRA MarW-R: [address], [place] [address], Ph. Attender: Sherrie Landry [facility] Medical 03/22/2021 12:00:00 AM EDT [facility]) SIERRA MarW-R: [address], [place] [address], Ph. Attender: Sherrie Landry [facility] Medical 03/22/2021 12:00:00 AM EDT [facility]) SIERRA MarW-R: [address], [place] [address], Ph. Attender: Sherrie Landry [facility] Medical 03/22/2021 12:00:00 AM EDT [facility]) SIERRA MarW-R: [address], [place] [address], Ph. Attender: Sherrie Landry [facility] Medical 03/22/2021 12:00:00 AM EDT JENKINJONES ([facility]) SIERRA MarW-R: [address], [place] [address], Ph. Attender: Sherrie Landry [facility] Medical 03/22/2021 12:00:00 AM EDT JENKINJONES ([facility]) SIERRA MarW-R: [address], [place] [address], Ph. Attender: Sherrie Landry [facility] Medical 03/22/2021 12:00:00 AM EDT JENKINJONES ([facility]) Nella Gray PA-C: [address], [place] [address], Ph. Attender: Nella MIRANDA [facility] Medical 01/28/2021 12:00:00 AM EDT JENKINJONES ([facility]) Nella Gray PA-C: [address], [place] [address], Ph. Attender: Nella MIRANDA [facility] Medical 01/28/2021 12:00:00 AM EDT JENKINJONES ([facility]) Nella Gray PA-C: [address], [place] [address], Ph. Attender: Nella MIRANDA [facility] Medical 01/28/2021 12:00:00 AM EDT JENKINJONES ([facility]) Nella Gray PA-C: [address], [place] [address], Ph. Attender: Nella MIRANDA [facility] Medical 01/28/2021 12:00:00 AM EDT JENKINJONES ([facility]) Nella Gray PA-C: [address], [place] [address], Ph. Attender: Nella MIRANDA [facility] Medical 01/28/2021 12:00:00 AM EDT JENKINJONES ([facility]) Nella Gray PA-C: [address], [place] [address], Ph. Attender: Nella MIRANDA [facility] Medical 01/28/2021 12:00:00 AM EDT JENKINJONES ([facility]) Nella Gray PA-C: [address], [place] [address], Ph. Attender: Nella MIRANDA [facility] Medical 01/28/2021 12:00:00 AM EDT JENKINJONES ([facility]) Nella Gray PA-C: [address], [place] [address], Ph. Attender: Nella MIRANDA [facility] Medical 01/28/2021 12:00:00 AM EDT JENKINJONES ([facility]) Nella Gray PA-C: [address], [place] [address], Ph. Attender: Nella MIRANDA [facility] Medical 01/28/2021 12:00:00 AM EDT JENKINJONES ([facility]) Nella Gray PA-C: [address], [place] [address], Ph. Attender: Nella MIRANDA [facility] Medical 01/28/2021 12:00:00 AM EDT JENKINJONES ([facility]) Nella Gray PA-C: [address], [place] [address], Ph. Attender: Nella MIRANDA [facility] Medical 01/28/2021 12:00:00 AM EDT JENKINJONES ([facility]) Nella Gray PA-C: [address], [place] [address], Ph. 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 [address] [place] [address] 12/01/2020 12:00:00 AM EST eCW1 ([facility]) Medications Medication Brand Name Start Date Product Form Dose Route Admi nistrative Instructions Pharmacy Instructions Status Indications Reaction Description Data Source(s) 200 mg 07/07/2021 12:00:00 AM EDT tablet 6 TAKE ONE TABLET BY MOUTH THREE TIMES A DAY FOR 2 DAYS TAKE ONE TABLET BY MOUTH THREE TIMES A DAY FOR 2 DAYS SOLD: 07/07/2021 [facility] 500 mg 07/07/2021 12:00:00 AM EDT tablet 14 TAKE ONE TABLET BY MOUTH TWICE A DAY FOR 7 DAYS TAKE ONE TABLET BY MOUTH TWICE A DAY FOR 7 DAYS SOLD: 2020 [facility] 20 mg 05/22/2021 12:00:00 AM EDT capsule 30 TAKE ONE CAPSULE BY MOUTH EVERY DAY TAKE ONE CAPSULE BY MOUTH EVERY DAY SOLD: 06/21/2021 [facility] 20 mg 05/22/2021 12:00:00 AM EDT capsule 30 TAKE ONE CAPSULE BY MOUTH EVERY DAY TAKE ONE CAPSULE BY MOUTH EVERY DAY SOLD: 05/22/2021 [facility] 1.5 mg 05/22/2021 12:00:00 AM EDT tablet 1 TAKE DIRECTED TAKE DIRECTED SOLD: 05/22/2021 [facility] 25 mg 05/19/2021 12:00:00 AM EDT tablet 60 TAKE ONE TO TWO TABLETS BY MOUTH 30 MINUTES BEFORE BEDTIME FOR SLEEP TAKE ONE TO TWO TABLETS BY MOUTH 30 TIMOTHY CORRY BEFORE BEDTIME FOR SLEEP SOLD: 05/22/2021 [facility] 10 mg 03/30/2021 12:00:00 AM EDT capsule 30 TAKE ONE CAPSULE BY MOUTH EVERY DAY TAKE ONE CAPSULE BY MOUTH EVERY DAY SOLD: 04/03/2021 [facility] 1 % 03/30/2021 12:00:00 AM EDT drops,suspension 5 INSTILL 1 DROP IN BOTH EYES FOUR TIMES A DAY DIRECTED INSTILL 1 DROP IN BOTH EYES FOUR TIMES A DAY DIRECTED SOLD: 04/03/2021 [facility] 10 mg 03/30/2021 12:00:00 AM EDT capsule 30 TAKE ONE CAPSULE BY MOUTH EVERY DAY TAKE ONE CAPSULE BY MOUTH EVERY DAY SOLD: 05/04/2021 [facility] 25 mg 01/28/2021 12:00:00 AM EDT tablet 30 TAKE ONE TABLET BY MOUTH EVERY DAY TAKE ONE TABLET BY MOUTH EVERY DAY SOLD: 03/02/2021 [facility] 25 mg 01/28/2021 12:00:00 AM EDT tablet 60 TAKE 1-2 TABLETS BY MOUTH 30 MINUTES BEFORE BEDTIME FOR SLEEP TAKE 1-2 TABLETS BY MOUTH 30 MINUTES BE ORE BEDTIME FOR SLEEP SOLD: 04/26/2021 [facility] 25 mg 01/28/2021 12:00:00 AM EDT tablet 60 TAKE 1-2 TABLETS BY MOUTH 30 MINUTES BEFORE BEDTIME FOR SLEEP TAKE 1-2 TABLETS BY MOUTH 30 MINUTES BE ORE BEDTIME FOR SLEEP SOLD: 01/29/2021 [facility] 25 mg 01/28/2021 12:00:00 AM EDT tablet 30 TAKE ONE TABLET BY MOUTH EVERY DAY TAKE ONE TABLET BY MOUTH EVERY DAY SOLD: 01/29/2021 [facility] 150 mg 12/17/2020 12:00:00 AM EST tablet 2 TAKE 1 TABLET BY MOUTH NOW THEN TAKE 2ND TABLET IN 48 HOURS TAKE 1 TABLET BY MOUTH NOW THEN TAKE 2ND TABLET IN 48 HOURS SOLD: 12/17/2020 [facility] 0.75 % 12/01/2020 12:00:00 AM EST gel 70 APPLY 1 APPLICATORFUL AT BEDTIME ONCE A DAY FOR 5 DAYS APPLY 1 APPLICATORFUL AT BEDTIME ONCE A DAY FOR 5 DAYS SOLD: 12/02/2020 [facility] Metronidazole 0.0075 MG/MG Vaginal Gel metroNIDAZOLE 0 .75 % metroNIDAZOLE 0.75 % 12/01/2020 12:00:00 AM EST suspended metroNIDAZOLE 0.75 % eCW1 ([facility]) Metronidazole 0.0075 MG/MG Vaginal Gel metroNIDAZOLE 0 .75 % metroNIDAZOLE 0.75 % 12/01/2020 12:00:00 AM EST suspended metroNIDAZOLE 0.75 % eCW1 ([facility]) Metronidazole 0.0075 MG/MG Vaginal Gel metroNIDAZOLE 0 .75 % metroNIDAZOLE 0.75 % 12/01/2020 12:00:00 AM EST active metroNIDAZOLE 0.75 % eCW1 ([facility]) Metronidazole 0.0075 MG/MG Vaginal Gel Metronidazole 0 .75 % Metronidazole 0.75 % 12/01/2020 12:00:00 AM EST active Metronidazole 0.75 % eCW1 ([facility]) 500 mg 06/12/2020 12:00:00 AM EDT tablet 2 TAKE TWO TABLETS BY MOUTH ONCE TAKE TWO TABLETS BY MOUTH ONCE SOLD: 06/12/2020 [facility] 100 mg 06/06/2020 12:00:00 AM EDT capsule 10 TAKE ONE CAPSULE BY MOUTH TWICE A DAY TAKE ONE CAPSULE BY MOUTH TWICE A DAY SOLD: 06/08/2020 [facility] Fluconazole 150 MG Oral Tablet fluconazo le 150 mg tablet TAKE 1 TABLET BY MOUTH NOW THEN TAKE 2ND TABLET IN 48 HOURS fluconazole 150 mg tablet TAKE 1 TABLET BY MOUTH NOW THEN TAKE 2ND TABLET IN 48 HOURS completed fluconazole 150 MG Oral Tablet HAROLDO ([facility]) Azithromycin 500 MG Oral Tablet azithrom ycin 500 mg tablet TAKE TWO TABLETS BY MOUTH ONCE azithromycin 500 mg tablet TAKE TWO TABLETS BY MOUTH ONCE completed azithromycin 500 MG Oral Tab let HAROLDO ([facility]) prednisolone acetate 10 MG/ML Ophthalmic Suspension prednisolone acetate 1 % eye drops,suspension INSTILL 1 DROP IN BOTH EYES FOUR TIMES A DAY DIRECTED prednisolone acetate 1 % eye drops,suspension INSTILL 1 DROP IN BOTH EYES FOUR TIMES A DAY DIRECTED completed prednisolone acetate 10 MG/ML Ophthalmic Suspension JENKINJONES ([facility]) NITROFURANTOIN, MACROCRYSTALS 25 MG / Ni trofurantoin, Monohydrate 75 MG Oral Capsule nitrofurantoin monohydrate/macrocrystals 100 mg capsule TAKE ONE CAPSULE BY MOUTH TWICE A DAY nitrofurantoin monohydrate/macrocrystals 100 mg capsule TAKE ONE CAPSULE BY MOUTH TWICE A DAY completed nitrofurantoin, macrocrystals 25 MG / nitrofurantoin, monohydrate 75 MG Oral Capsule HAR[facility]DO ([facility]) Azithromycin 500 MG Oral Tablet azithrom ycin 500 mg tablet TAKE TWO TABLETS BY MOUTH ONCE azithromycin 500 mg tablet TAKE TWO TABLETS BY MOUTH ONCE completed azithromycin 500 MG Oral Tab let HAROLDO ([facility]) Fluoxetine 10 MG Oral Capsule fluoxetine 10 mg capsule fluox etine 10 mg capsule completed fluoxetine 10 MG Oral Capsule [facility]DO ([facility]) Metronidazole 0.0075 MG/MG Vaginal Gel m etronidazole 0.75 % vaginal gel APPLY 1 APPLICATORFUL AT BEDTIME ONCE A DAY FOR 5 DAYS metronidazole 0.75 % vaginal gel APPLY 1 APPLICATORFUL AT BEDTIME ONCE A DAY FOR 5 DAYS completed metronidazole 0.0075 MG/MG Vaginal Gel HAROLDO ([facility]) Metronidazole 0.0075 MG/MG Vaginal Gel m etronidazole 0.75 % vaginal gel APPLY 1 APPLICATORFUL AT BEDTIME ONCE A DAY FOR 5 DAYS metronidazole 0.75 % vaginal gel APPLY 1 APPLICATORFUL AT BEDTIME ONCE A DAY FOR 5 DAYS completed metronidazole 0.0075 MG/MG Vaginal Gel J[facility]KINJONES ([facility]) NITROFURANTOIN, MACROCRYSTALS 25 MG / Ni trofurantoin, Monohydrate 75 MG Oral Capsule nitrofurantoin monohydrate/macrocrystals 100 mg capsule TAKE ONE CAPSULE BY MOUTH TWICE A DAY nitrofurantoin monohydrate/macrocrystals 100 mg capsule TAKE ONE CAPSULE BY MOUTH TWICE A DAY completed nitrofurantoin, macrocrystals 25 MG / nitrofurantoin, monohydrate 75 MG Oral Capsule JENKINJONES ([facility]) Metronidazole 0.0075 MG/MG Vaginal Gel m etronidazole 0.75 % vaginal gel APPLY 1 APPLICATORFUL AT BEDTIME ONCE A DAY FOR 5 DAYS metronidazole 0.75 % vaginal gel APPLY 1 APPLICATORFUL AT BEDTIME ONCE A DAY FOR 5 DAYS completed metronidazole 0.0075 MG/MG Vaginal Gel HAROLDO ([facility]) Metronidazole 0.0075 MG/MG Vaginal Gel m etronidazole 0.75 % vaginal gel APPLY 1 APPLICATORFUL AT BEDTIME ONCE A DAY FOR 5 DAYS metronidazole 0.75 % vaginal gel APPLY 1 APPLICATORFUL AT BEDTIME ONCE A DAY FOR 5 DAYS completed metronidazole 0.0075 MG/MG Vaginal Gel HAROLDO ([facility]) Fluconazole 150 MG Oral Tablet fluconazo le 150 mg tablet TAKE 1 TABLET BY MOUTH NOW THEN TAKE 2ND TABLET IN 48 HOURS fluconazole 150 mg tablet TAKE 1 TABLET BY MOUTH NOW THEN TAKE 2ND TABLET IN 48 HOURS completed fluconazole 150 MG Oral Tablet HAROLDO ([facility]) Azithromycin 500 MG Oral Tablet azithrom ycin 500 mg tablet TAKE TWO TABLETS BY MOUTH ONCE azithromycin 500 mg tablet TAKE TWO TABLETS BY MOUTH ONCE completed azithromycin 500 MG Oral Tab let HAROLDO ([facility]) Fluoxetine 10 MG Oral Capsule fluoxetine 10 mg capsule fluox etine 10 mg capsule completed fluoxetine 10 MG Oral Capsule JENKINJONES ([facility]) Metronidazole 0.0075 MG/MG Vaginal Gel m etronidazole 0.75 % vaginal gel APPLY 1 APPLICATORFUL AT BEDTIME ONCE A DAY FOR 5 DAYS metronidazole 0.75 % vaginal gel APPLY 1 APPLICATORFUL AT BEDTIME ONCE A DAY FOR 5 DAYS completed metronidazole 0.0075 MG/MG Vaginal Gel HAROLDO ([facility]) prednisolone acetate 10 MG/ML Ophthalmic Suspension prednisolone acetate 1 % eye drops,suspension INSTILL 1 DROP IN BOTH EYES FOUR TIMES A DAY DIRECTED prednisolone acetate 1 % eye drops,suspension INSTILL 1 DROP IN BOTH EYES FOUR TIMES A DAY DIRECTED completed prednisolone acetate 10 MG/ML Ophthalmic Suspension JENKINJONES ([facility]) Sertraline 25 MG Oral Tablet sertraline 25 mg tablet TAKE ONE TABLET BY MOUTH EVERY DAY sertraline 25 mg tablet TAKE ONE TABLET BY MOUTH EVERY DAY completed sertraline 25 MG Oral Tablet JENKINJONES ([facility]) Azithromycin 500 MG Oral Tablet azithrom ycin 500 mg tablet TAKE TWO TABLETS BY MOUTH ONCE azithromycin 500 mg tablet TAKE TWO TABLETS BY MOUTH ONCE completed azithromycin 500 MG Oral Tab let HAROLDO ([facility]) Azithromycin 500 MG Oral Tablet azithrom ycin 500 mg tablet TAKE TWO TABLETS BY MOUTH ONCE azithromycin 500 mg tablet TAKE TWO TABLETS BY MOUTH ONCE completed azithromycin 500 MG Oral Tab let HAROLDO ([facility]) Metronidazole 0.0075 MG/MG Vaginal Gel m etronidazole 0.75 % vaginal gel APPLY 1 APPLICATORFUL AT BEDTIME ONCE A DAY FOR 5 DAYS metronidazole 0.75 % vaginal gel APPLY 1 APPLICATORFUL AT BEDTIME ONCE A DAY FOR 5 DAYS completed metronidazole 0.0075 MG/MG Vaginal Gel J[facility]KINJONES ([facility]) Sertraline 25 MG Oral Tablet sertraline 25 mg tablet TAKE ONE TABLET BY MOUTH EVERY DAY sertraline 25 mg tablet TAKE ONE TABLET BY MOUTH EVERY DAY completed sertraline 25 MG Oral Tablet JENKINJONES ([facility]) Metronidazole 0.0075 MG/MG Vaginal Gel m etronidazole 0.75 % vaginal gel APPLY 1 APPLICATORFUL AT BEDTIME ONCE A DAY FOR 5 DAYS metronidazole 0.75 % vaginal gel APPLY 1 APPLICATORFUL AT BEDTIME ONCE A DAY FOR 5 DAYS completed metronidazole 0.0075 MG/MG Vaginal Gel J[facility]KINJONES ([facility]) Fluoxetine 10 MG Oral Capsule fluoxetine 10 mg capsule fluox etine 10 mg capsule completed fluoxetine 10 MG Oral Capsule HAROLDO ([facility]) Fluconazole 150 MG Oral Tablet fluconazo le 150 mg tablet TAKE 1 TABLET BY MOUTH NOW THEN TAKE 2ND TABLET IN 48 HOURS fluconazole 150 mg tablet TAKE 1 TABLET BY MOUTH NOW THEN TAKE 2ND TABLET IN 48 HOURS completed fluconazole 150 MG Oral Tablet HAROLDO ([facility]) Sertraline 25 MG Oral Tablet sertraline 25 mg tablet TAKE ONE TABLET BY MOUTH EVERY DAY sertraline 25 mg tablet TAKE ONE TABLET BY MOUTH EVERY DAY completed sertraline 25 MG Oral Tablet JENKINJONES ([facility]) Fluoxetine 10 MG Oral Capsule fluoxetine 10 mg capsule fluox etine 10 mg capsule completed fluoxetine 10 MG Oral Capsule JENKINJONES ([facility]) Fluconazole 150 MG Oral Tablet fluconazo le 150 mg tablet TAKE 1 TABLET BY MOUTH NOW THEN TAKE 2ND TABLET IN 48 HOURS fluconazole 150 mg tablet TAKE 1 TABLET BY MOUTH NOW THEN TAKE 2ND TABLET IN 48 HOURS completed fluconazole 150 MG Oral Tablet HAROLDO ([facility]) prednisolone acetate 10 MG/ML Ophthalmic Suspension prednisolone acetate 1 % eye drops,suspension INSTILL 1 DROP IN BOTH EYES FOUR TIMES A DAY DIRECTED prednisolone acetate 1 % eye drops,suspension INSTILL 1 DROP IN BOTH EYES FOUR TIMES A DAY DIRECTED completed prednisolone acetate 10 MG/ML Ophthalmic Suspension HAROLDO ([facility]) NITROFURANTOIN, MACROCRYSTALS 25 MG / Ni trofurantoin, Monohydrate 75 MG Oral Capsule nitrofurantoin monohydrate/macrocrystals 100 mg capsule TAKE ONE CAPSULE BY MOUTH TWICE A DAY nitrofurantoin monohydrate/macrocrystals 100 mg capsule TAKE ONE CAPSULE BY MOUTH TWICE A DAY completed nitrofurantoin, macrocrystals 25 MG / nitrofurantoin, monohydrate 75 MG Oral Capsule HAROLDO ([facility]) Sertraline 25 MG Oral Tablet sertraline 25 mg tablet TAKE ONE TABLET BY MOUTH EVERY DAY sertraline 25 mg tablet TAKE ONE TABLET BY MOUTH EVERY DAY completed sertraline 25 MG Oral Tablet J[facility]KINJONES ([facility]) NITROFURANTOIN, MACROCRYSTALS 25 MG / Ni trofurantoin, Monohydrate 75 MG Oral Capsule nitrofurantoin monohydrate/macrocrystals 100 mg capsule TAKE ONE CAPSULE BY MOUTH TWICE A DAY nitrofurantoin monohydrate/macrocrystals 100 mg capsule TAKE ONE CAPSULE BY MOUTH TWICE A DAY completed nitrofurantoin, macrocrystals 25 MG / nitrofurantoin, monohydrate 75 MG Oral Capsule JENKINJONES ([facility]) NITROFURANTOIN, MACROCRYSTALS 25 MG / Ni trofurantoin, Monohydrate 75 MG Oral Capsule nitrofurantoin monohydrate/macrocrystals 100 mg capsule TAKE ONE CAPSULE BY MOUTH TWICE A DAY nitrofurantoin monohydrate/macrocrystals 100 mg capsule TAKE ONE CAPSULE BY MOUTH TWICE A DAY completed nitrofurantoin, macrocrystals 25 MG / nitrofurantoin, monohydrate 75 MG Oral Capsule JENKINJONES ([facility]) Fluconazole 150 MG Oral Tablet fluconazo le 150 mg tablet TAKE 1 TABLET BY MOUTH NOW THEN TAKE 2ND TABLET IN 48 HOURS fluconazole 150 mg tablet TAKE 1 TABLET BY MOUTH NOW THEN TAKE 2ND TABLET IN 48 HOURS completed fluconazole 150 MG Oral Tablet J[facility]KINJONES ([facility]) Metronidazole 0.0075 MG/MG Vaginal Gel m etronidazole 0.75 % vaginal gel APPLY 1 APPLICATORFUL AT BEDTIME ONCE A DAY FOR 5 DAYS metronidazole 0.75 % vaginal gel APPLY 1 APPLICATORFUL AT BEDTIME ONCE A DAY FOR 5 DAYS completed metronidazole 0.0075 MG/MG Vaginal Gel J[facility]KINJONES ([facility]) Metronidazole 0.0075 MG/MG Vaginal Gel m etronidazole 0.75 % vaginal gel APPLY 1 APPLICATORFUL AT BEDTIME ONCE A DAY FOR 5 DAYS metronidazole 0.75 % vaginal gel APPLY 1 APPLICATORFUL AT BEDTIME ONCE A DAY FOR 5 DAYS completed metronidazole 0.0075 MG/MG Vaginal Gel J[facility]KINJONES ([facility]) Sertraline 25 MG Oral Tablet sertraline 25 mg tablet TAKE ONE TABLET BY MOUTH EVERY DAY sertraline 25 mg tablet TAKE ONE TABLET BY MOUTH EVERY DAY completed sertraline 25 MG Oral Tablet J[facility]KINJONES ([facility]) NITROFURANTOIN, MACROCRYSTALS 25 MG / Ni trofurantoin, Monohydrate 75 MG Oral Capsule nitrofurantoin monohydrate/macrocrystals 100 mg capsule TAKE ONE CAPSULE BY MOUTH TWICE A DAY nitrofurantoin monohydrate/macrocrystals 100 mg capsule TAKE ONE CAPSULE BY MOUTH TWICE A DAY completed nitrofurantoin, macrocrystals 25 MG / nitrofurantoin, monohydrate 75 MG Oral Capsule [facility]) NITROFURANTOIN, MACROCRYSTALS 25 MG / Ni trofurantoin, Monohydrate 75 MG Oral Capsule nitrofurantoin monohydrate/macrocrystals 100 mg capsule TAKE ONE CAPSULE BY MOUTH TWICE A DAY nitrofurantoin monohydrate/macrocrystals 100 mg capsule TAKE ONE CAPSULE BY MOUTH TWICE A DAY completed nitrofurantoin, macrocrystals 25 MG / nitrofurantoin, monohydrate 75 MG Oral Capsule JENKINJONES ([facility]) Fluconazole 150 MG Oral Tablet fluconazo le 150 mg tablet TAKE 1 TABLET BY MOUTH NOW THEN TAKE 2ND TABLET IN 48 HOURS fluconazole 150 mg tablet TAKE 1 TABLET BY MOUTH NOW THEN TAKE 2ND TABLET IN 48 HOURS completed fluconazole 150 MG Oral Tablet [facility]) Sertraline 25 MG Oral Tablet sertraline 25 mg tablet TAKE ONE TABLET BY MOUTH EVERY DAY sertraline 25 mg tablet TAKE ONE TABLET BY MOUTH EVERY DAY completed sertraline 25 MG Oral Tablet [facility]) Azithromycin 500 MG Oral Tablet azithrom ycin 500 mg tablet TAKE TWO TABLETS BY MOUTH ONCE azithromycin 500 mg tablet TAKE TWO TABLETS BY MOUTH ONCE completed azithromycin 500 MG Oral Tab let [facility]) Fluoxetine 10 MG Oral Capsule fluoxetine 10 mg capsule fluox etine 10 mg capsule completed fluoxetine 10 MG Oral Capsule [facility]) Azithromycin 500 MG Oral Tablet azithrom ycin 500 mg tablet TAKE TWO TABLETS BY MOUTH ONCE azithromycin 500 mg tablet TAKE TWO TABLETS BY MOUTH ONCE completed azithromycin 500 MG Oral Tab let JENKINJONES ([facility]) Azithromycin 500 MG Oral Tablet azithrom ycin 500 mg tablet TAKE TWO TABLETS BY MOUTH ONCE azithromycin 500 mg tablet TAKE TWO TABLETS BY MOUTH ONCE completed azithromycin 500 MG Oral Tab let [facility]) prednisolone acetate 10 MG/ML Ophthalmic Suspension prednisolone acetate 1 % eye drops,suspension INSTILL 1 DROP IN BOTH EYES FOUR TIMES A DAY DIRECTED prednisolone acetate 1 % eye drops,suspension INSTILL 1 DROP IN BOTH EYES FOUR TIMES A DAY DIRECTED completed prednisolone acetate 10 MG/ML Ophthalmic Suspension JENKINJONES ([facility]) NITROFURANTOIN, MACROCRYSTALS 25 MG / Ni trofurantoin, Monohydrate 75 MG Oral Capsule nitrofurantoin monohydrate/macrocrystals 100 mg capsule TAKE ONE CAPSULE BY MOUTH TWICE A DAY nitrofurantoin monohydrate/macrocrystals 100 mg capsule TAKE ONE CAPSULE BY MOUTH TWICE A DAY completed nitrofurantoin, macrocrystals 25 MG / nitrofurantoin, monohydrate 75 MG Oral Capsule JENKINJONES ([facility]) Azithromycin 500 MG Oral Tablet azithrom ycin 500 mg tablet TAKE TWO TABLETS BY MOUTH ONCE azithromycin 500 mg tablet TAKE TWO TABLETS BY MOUTH ONCE completed azithromycin 500 MG Oral Tab let JENKINJONES ([facility]) Sertraline 25 MG Oral Tablet sertraline 25 mg tablet TAKE ONE TABLET BY MOUTH EVERY DAY sertraline 25 mg tablet TAKE ONE TABLET BY MOUTH EVERY DAY completed sertraline 25 MG Oral Tablet J[facility]KINJONES ([facility]) Azithromycin 500 MG Oral Tablet azithrom ycin 500 mg tablet TAKE TWO TABLETS BY MOUTH ONCE azithromycin 500 mg tablet TAKE TWO TABLETS BY MOUTH ONCE completed azithromycin 500 MG Oral Tab let JENKINJONES ([facility]) Fluconazole 150 MG Oral Tablet fluconazo le 150 mg tablet TAKE 1 TABLET BY MOUTH NOW THEN TAKE 2ND TABLET IN 48 HOURS fluconazole 150 mg tablet TAKE 1 TABLET BY MOUTH NOW THEN TAKE 2ND TABLET IN 48 HOURS completed fluconazole 150 MG Oral Tablet J[facility]KINJONES ([facility]) prednisolone acetate 10 MG/ML Ophthalmic Suspension prednisolone acetate 1 % eye drops,suspension INSTILL 1 DROP IN BOTH EYES FOUR TIMES A DAY DIRECTED prednisolone acetate 1 % eye drops,suspension INSTILL 1 DROP IN BOTH EYES FOUR TIMES A DAY DIRECTED completed prednisolone acetate 10 MG/ML Ophthalmic Suspension JENKINJONES ([facility]) Fluconazole 150 MG Oral Tablet fluconazo le 150 mg tablet TAKE 1 TABLET BY MOUTH NOW THEN TAKE 2ND TABLET IN 48 HOURS fluconazole 150 mg tablet TAKE 1 TABLET BY MOUTH NOW THEN TAKE 2ND TABLET IN 48 HOURS completed fluconazole 150 MG Oral Tablet [facility]) Sertraline 25 MG Oral Tablet sertraline 25 mg tablet TAKE ONE TABLET BY MOUTH EVERY DAY sertraline 25 mg tablet TAKE ONE TABLET BY MOUTH EVERY DAY completed sertraline 25 MG Oral Tablet J[facility]KINJONES ([facility]) Fluconazole 150 MG Oral Tablet fluconazo le 150 mg tablet TAKE 1 TABLET BY MOUTH NOW THEN TAKE 2ND TABLET IN 48 HOURS fluconazole 150 mg tablet TAKE 1 TABLET BY MOUTH NOW THEN TAKE 2ND TABLET IN 48 HOURS completed fluconazole 150 MG Oral Tablet HAROLDO ([facility]) Fluconazole 150 MG Oral Tablet fluconazo le 150 mg tablet TAKE 1 TABLET BY MOUTH NOW THEN TAKE 2ND TABLET IN 48 HOURS fluconazole 150 mg tablet TAKE 1 TABLET BY MOUTH NOW THEN TAKE 2ND TABLET IN 48 HOURS completed fluconazole 150 MG Oral Tablet J[facility]JONES ([facility]) Metronidazole 0.0075 MG/MG Vaginal Gel m etronidazole 0.75 % vaginal gel APPLY 1 APPLICATORFUL AT BEDTIME ONCE A DAY FOR 5 DAYS metronidazole 0.75 % vaginal gel APPLY 1 APPLICATORFUL AT BEDTIME ONCE A DAY FOR 5 DAYS completed metronidazole 0.0075 MG/MG Vaginal Gel J[facility]KINJONES ([facility]) NITROFURANTOIN, MACROCRYSTALS 25 MG / Ni trofurantoin, Monohydrate 75 MG Oral Capsule nitrofurantoin monohydrate/macrocrystals 100 mg capsule TAKE ONE CAPSULE BY MOUTH TWICE A DAY nitrofurantoin monohydrate/macrocrystals 100 mg capsule TAKE ONE CAPSULE BY MOUTH TWICE A DAY completed nitrofurantoin, macrocrystals 25 MG / nitrofurantoin, monohydrate 75 MG Oral Capsule J[facility]KINJONES ([facility]) Fluoxetine 10 MG Oral Capsule fluoxetine 10 mg capsule fluox etine 10 mg capsule completed fluoxetine 10 MG Oral Capsule [facility]JONES ([facility]) Sertraline 25 MG Oral Tablet sertraline 25 mg tablet TAKE ONE TABLET BY MOUTH EVERY DAY sertraline 25 mg tablet TAKE ONE TABLET BY MOUTH EVERY DAY completed sertraline 25 MG Oral Tablet [facility]ES ([facility]) Azithromycin 500 MG Oral Tablet azithrom ycin 500 mg tablet TAKE TWO TABLETS BY MOUTH ONCE azithromycin 500 mg tablet TAKE TWO TABLETS BY MOUTH ONCE completed azithromycin 500 MG Oral Tab let J[facility]KINJONES ([facility]) Azithromycin 500 MG Oral Tablet azithrom ycin 500 mg tablet TAKE TWO TABLETS BY MOUTH ONCE azithromycin 500 mg tablet TAKE TWO TABLETS BY MOUTH ONCE completed azithromycin 500 MG Oral Tab let [facility]) NITROFURANTOIN, MACROCRYSTALS 25 MG / Ni trofurantoin, Monohydrate 75 MG Oral Capsule nitrofurantoin monohydrate/macrocrystals 100 mg capsule TAKE ONE CAPSULE BY MOUTH TWICE A DAY nitrofurantoin monohydrate/macrocrystals 100 mg capsule TAKE ONE CAPSULE BY MOUTH TWICE A DAY completed nitrofurantoin, macrocrystals 25 MG / nitrofurantoin, monohydrate 75 MG Oral Capsule [facility]JONES ([facility]) Fluconazole 150 MG Oral Tablet fluconazo le 150 mg tablet TAKE 1 TABLET BY MOUTH NOW THEN TAKE 2ND TABLET IN 48 HOURS fluconazole 150 mg tablet TAKE 1 TABLET BY MOUTH NOW THEN TAKE 2ND TABLET IN 48 HOURS completed fluconazole 150 MG Oral Tablet [facility]) NITROFURANTOIN, MACROCRYSTALS 25 MG / Ni trofurantoin, Monohydrate 75 MG Oral Capsule nitrofurantoin monohydrate/macrocrystals 100 mg capsule TAKE ONE CAPSULE BY MOUTH TWICE A DAY nitrofurantoin monohydrate/macrocrystals 100 mg capsule TAKE ONE CAPSULE BY MOUTH TWICE A DAY completed nitrofurantoin, macrocrystals 25 MG / nitrofurantoin, monohydrate 75 MG Oral Capsule [facility] [facility] Metronidazole 0.0075 MG/MG Vaginal Gel m etronidazole 0.75 % vaginal gel APPLY 1 APPLICATORFUL AT BEDTIME ONCE A DAY FOR 5 DAYS metronidazole 0.75 % vaginal gel APPLY 1 APPLICATORFUL AT BEDTIME ONCE A DAY FOR 5 DAYS completed metronidazole 0.0075 MG/MG Vaginal Gel JENKINJONES ([facility]) Metronidazole 0.0075 MG/MG Vaginal Gel m etronidazole 0.75 % vaginal gel APPLY 1 APPLICATORFUL AT BEDTIME ONCE A DAY FOR 5 DAYS metronidazole 0.75 % vaginal gel APPLY 1 APPLICATORFUL AT BEDTIME ONCE A DAY FOR 5 DAYS completed metronidazole 0.0075 MG/MG Vaginal Gel JENKINJONES ([facility]) NITROFURANTOIN, MACROCRYSTALS 25 MG / Ni trofurantoin, Monohydrate 75 MG Oral Capsule nitrofurantoin monohydrate/macrocrystals 100 mg capsule TAKE ONE CAPSULE BY MOUTH TWICE A DAY nitrofurantoin monohydrate/macrocrystals 100 mg capsule TAKE ONE CAPSULE BY MOUTH TWICE A DAY completed nitrofurantoin, macrocrystals 25 MG / nitrofurantoin, monohydrate 75 MG Oral Capsule JENKINJONES ([facility]) prednisolone acetate 10 MG/ML Ophthalmic Suspension prednisolone acetate 1 % eye drops,suspension INSTILL 1 DROP IN BOTH EYES FOUR TIMES A DAY DIRECTED prednisolone acetate 1 % eye drops,suspension INSTILL 1 DROP IN BOTH EYES FOUR TIMES A DAY DIRECTED completed prednisolone acetate 10 MG/ML Ophthalmic Suspension HAROLDO ([facility]) Fluconazole 150 MG Oral Tablet fluconazo le 150 mg tablet TAKE 1 TABLET BY MOUTH NOW THEN TAKE 2ND TABLET IN 48 HOURS fluconazole 150 mg tablet TAKE 1 TABLET BY MOUTH NOW THEN TAKE 2ND TABLET IN 48 HOURS completed fluconazole 150 MG Oral Tablet HAROLDO ([facility]) Sertraline 25 MG Oral Tablet sertraline 25 mg tablet TAKE ONE TABLET BY MOUTH EVERY DAY sertraline 25 mg tablet TAKE ONE TABLET BY MOUTH EVERY DAY completed sertraline 25 MG Oral Tablet JENKINJONES ([facility]) Insurance Providers Payer name Policy type / Coverage type Policy ID Covered democrat ID Covered democrat's relationship to antoine Policy Antoine Plan Information [facility] MEDICAID [id number] SP [id number] Q [facility] [id number] SP [id number] EMEDNY [id number] SP [id number] [facility] O [id number] S [id number] [facility] [id number] SP [id number] MEDICAID [id number] SP [id number] [facility] [id number] 18 [id number] ANSI-Commercial [id number] ANSI-Commercial [id number] ANSI-Commercial [id number] [facility] Commercial [id number] Self [id number] ANSI-Commercial [id number] ANSI-Commercial [id number] ANSI-Commercial [id number] [facility] Commercial [id number] Self [id number] SELF PAY ONLY [id number] MO2 [id number] SELF PAY ONLY [id number] MO2 [id number] [facility] [id number] SP [id number] [employer] AMERICHOICE XIX -HMO [id number] 18 [id number] [facility] Health Maintenance Organization (HMO) [id number] Self [facility](MCA[facility]) O [id number] S [id number] Self Pay P [id number] S [id number] [employer] P [id number] S [id number] Self Pay P UNAVAILABLE S UNAVAILA BLE [employer] CHP P [id number] O [id number] BC/BS OF [place] P [id number] S [id number] Problems, Conditions, and Diagnoses Code Display Name Description Problem Type Effective Dates Data Source(s) 57378673 Generalized anxiety disorder Generalized Anxiety Disor ambreen Problem 01/28/2021 12:00:00 AM EDT JENKINJONES ([facility]) [id number] Major depressive disorder Major Depressive Disorder Pr oblem 01/28/2021 12:00:00 AM EDT HRAOLDO ([facility]) [id number] Generalized anxiety disorder Generalized Anxiety Disor ambreen Problem 01/28/2021 12:00:00 AM EDT HAROLDO ([facility]) [id number] Major depressive disorder Major Depressive Disorder Pr oblem 01/28/2021 12:00:00 AM EDT HAROLDO ([facility]) [id number] Generalized anxiety disorder Generalized Anxiety Disor ambreen Problem 01/28/2021 12:00:00 AM EDT HAROLDO ([facility]) [id number] Major depressive disorder Major Depressive Disorder Pr oblem 01/28/2021 12:00:00 AM EDT HAROLDO ([facility]) [id number] Generalized anxiety disorder Generalized Anxiety Disor ambreen Problem 01/28/2021 12:00:00 AM EDT HAROLDO ([facility]) [id number] Major depressive disorder Major Depressive Disorder Pr oblem 01/28/2021 12:00:00 AM EDT HAROLDO ([facility]) [id number] Generalized anxiety disorder Generalized Anxiety Disor ambreen Problem 01/28/2021 12:00:00 AM EDT HAROLDO ([facility]) [id number] Major depressive disorder Major Depressive Disorder Pr oblem 01/28/2021 12:00:00 AM EDT HAROLDO ([facility]) [id number] Generalized anxiety disorder Generalized Anxiety Disor ambreen Problem 01/28/2021 12:00:00 AM EDT HAROLDO ([facility]) [id number] Major depressive disorder Major Depressive Disorder Pr oblem 01/28/2021 12:00:00 AM EDT HAROLDO ([facility]) 05146924 Generalized anxiety disorder Generalized Anxiety Disor ambreen Problem 01/28/2021 12:00:00 AM EDT HAROLDO ([facility]) [id number] Major depressive disorder Major Depressive Disorder Pr oblem 01/28/2021 12:00:00 AM EDT HAROLDO ([facility]) 46143618 Generalized anxiety disorder Generalized Anxiety Disor ambreen Problem 01/28/2021 12:00:00 AM EDT HAROLDO ([facility]) [id number] Major depressive disorder Major Depressive Disorder Pr oblem 01/28/2021 12:00:00 AM EDT HAROLDO ([facility]) [id number] Generalized anxiety disorder Generalized Anxiety Disor ambreen Problem 01/28/2021 12:00:00 AM EDT HAROLDO ([facility]) [id number] Major depressive disorder Major Depressive Disorder Pr oblem 01/28/2021 12:00:00 AM EDT HAROLDO ([facility]) [id number] Generalized anxiety disorder Generalized Anxiety Disor ambreen Problem 01/28/2021 12:00:00 AM EDT HAROLDO ([facility]) [id number] Major depressive disorder Major Depressive Disorder Pr oblem 01/28/2021 12:00:00 AM EDT HAROLDO ([facility]) [id number] Generalized anxiety disorder Generalized Anxiety Disor ambreen Problem 01/28/2021 12:00:00 AM EDT HAROLDO ([facility]) [id number] Major depressive disorder Major Depressive Disorder Pr oblem 01/28/2021 12:00:00 AM EDT HAROLDO ([facility]) [id number] Generalized anxiety disorder Generalized Anxiety Disor ambreen Problem 01/28/2021 12:00:00 AM EDT HAROLDO ([facility]) [id number] Major depressive disorder Major Depressive Disorder Pr oblem 01/28/2021 12:00:00 AM EDT HAROLDO ([facility]) N92.6 [id number] Irregular menses Problem 12/01/2020 12:00:00 AM EST eCW1 ([facility]) Surgeries/Procedures Procedure Description Date Indications Data Source(s) URINE TEST 04/26/2021 12:00:00 AM EDT eCW1 ([facility]) Results ID Date Data Source [id number] 06/25/2021 12:00:00 AM EDT [facility] Name Value Range Interpretation Code Description Data Darby rce(s) Supporting Document(s) [facility] and reported by [facility]. ID Date Data Source [id number] 04/28/2021 11:43:00 AM EDT HAROLDO ([facility]) Name Value Range Interpretation Code Description Data Darby rce(s) Supporting Document(s) Leukocytes [#/volume] in Blood by Automated count 7.5 thousand/uL 3 .8-10.8 White Blood Cell Count HAROLDO ([facility]) Erythrocytes [#/volume] in Blood by Automated count 4.80 million/uL 3.80-5.10 Red Blood Cell Count HAROLDO ([facility]) Hemoglobin [Mass/volume] in Blood 14.5 g/dL 11.7-15.5 He moglobin HAROLDO ([facility]) Erythrocyte mean corpuscular volume [Entitic volume] by Auto mated count 89.4 fL 80.0-100.0 Mcv HAROLDO ([facility]) Hematocrit [Volume Fraction] of Blood by Automated count 42.9 % 35.0-45.0 Hematocrit JENKINJONES ([facility]) Erythrocyte mean corpuscular hemoglobin [Entitic mass] by Automated count 30.2 pg 27.0-33.0 Mch HAROLDO ([facility]) Platelet mean volume [Entitic volume] in Blood by Kavitha 10.9 f L 7.5-12.5 Mpv HAROLDO ([facility]) Platelets [#/volume] in Blood by Automated count 295 thousand/uL 14 0-400 Platelet Count HAROLDO ([facility]) Neutrophils [#/volume] in Blood by Automated count 3038 cells/uL 15 00-7800 Absolute Neutrophils HAROLDO ([facility]) Erythrocyte mean corpuscular hemoglobin concentration [Mass/volume] by Automated count 33.8 g/dL 32.0-36.0 Mchc HAROLDO ([facility]) Erythrocyte distribution width [Ratio] by Automated count 11.5 % 11.0-15.0 Rdw HAROLDO ([facility]) Lymphocytes [#/volume] in Blood by Automated count 3758 cells/uL 85 0-3900 Absolute Lymphocytes HAROLDO ([facility]) Monocytes [#/volume] in Blood by Automated count 503 cells/uL 200-9 50 Absolute Monocytes HAROLDO ([facility]) Basophils [#/volume] in Blood by Automated count 30 cells/uL 0-200 Absolute Basophils HAROLDO ([facility]) Eosinophils [#/volume] in Blood by Automated count 173 cells/uL 15- 500 Absolute Eosinophils HAROLDO ([facility]) Lymphocytes/100 leukocytes in Blood by Automated count 50.1 % 15-49 Above high normal Lymphocytes HAROLDO ([facility]) Eosinophils/100 leukocytes in Blood by Automated count 2.3 % 0-8 Eosinophils HAROLDO ([facility]) Neutrophils/100 leukocytes in Blood by Automated count 40.5 % 38-80 Neutrophils HAROLDO ([facility]) Basophils/100 leukocytes in Blood by Automated count 0.4 % 0-2 Basophils HAROLDO ([facility]) Monocytes/100 leukocytes in Blood by Automated count 6.7 % 0-13 Monocytes HAROLDO ([facility]) ID Date Data Source [id number] 04/28/2021 11:43:00 AM EDT HAROLDO ([facility]) Name Value Range Interpretation Code Description Data Darby rce(s) Supporting Document(s) Glucose [Mass/volume] in Serum or Plasma 83 mg/dL 65-99 Glucose HAROLDO ([facility]) Urea nitrogen [Mass/volume] in Serum or Plasma 13 mg/dL 7-25 Urea Nitrogen (BUN) HAROLDO ([facility]) Glomerular filtration rate/1.73 sq M.pre dicted among non-blacks [Volume Rate/Area] in Serum, Plasma or Blood by Creatinine-based formula (CKD-EPI) 112 mL/min/1.73m2 > or = 60 eGFR Non-afr. Congolese HAROLDO ([facility]) Creatinine [Mass/volume] in Serum or Plasma 0.76 mg/dL 0.50-1.10 Creatinine HAROLDO ([facility]) Glomerular filtration rate/1.73 sq M.pre dicted among blacks [Volume Rate/Area] in Serum, Plasma or Blood by Creatinine-based formula (CKD-EPI) 130 mL/min/1.73m2 > or = 60 eGFR HAROLDO ([facility]) Urea nitrogen/Creatinine [Mass Ratio] in Serum or Plasma not applic able 6-22 BUN/creatinine Ratio HAROLDO ([facility]) Potassium [Moles/volume] in Serum or Plasma 4.5 mmol/L 3.5-5.3 Potassium JENKINJONES ([facility]) Sodium [Moles/volume] in Serum or Plasma 139 mmol/L 135-146 Sodium HAROLDO ([facility]) Chloride [Moles/volume] in Serum or Plasma 103 mmol/L 98-110 Chloride HAROLDO ([facility]) Albumin [Mass/volume] in Serum or Plasma 4.9 g/dL 3.6-5.1 Albumin HAROLDO ([facility]) Carbon dioxide, total [Moles/volume] in Serum or Plasma 28 mmol/L 20-32 Carbon Dioxide HAROLDO ([facility]) Protein [Mass/volume] in Serum or Plasma 7.2 g/dL 6.1-8.1 Protein, Total JENKINJONES ([facility]) Calcium [Mass/volume] in Serum or Plasma 9.7 mg/dL 8.6-10.2 Calcium JENKINJONES ([facility]) Bilirubin.total [Mass/volume] in Serum or Plasma 1.5 mg/dL 0.2-1.2 Above high normal Bilirubin, Total HAROLDO ([facility]) Globulin [Mass/volume] in Serum by calculation 2.3 g/dL_(calc) 1.9- 3.7 Globulin JENKINJONES ([facility]) Albumin/Globulin [Mass Ratio] in Serum or Plasma 2.1 (calc) 1.0-2 .5 Albumin/globulin Ratio JENKINJONES ([facility]) Alkaline phosphatase [Enzymatic activity/volume] in Serum or Plasma 61 U/L 31-125 Alkaline Phosphatase HAROLDO ([facility]) Aspartate aminotransferase [Enzymatic activity/volume] in Serum or Plasma 12 U/L 10-30 Ast HAROLDO ([facility]) Alanine aminotransferase [Enzymatic activity/volume] in Seru m or Plasma 9 U/L 6-29 Alt HAROLDO ([facility]) ID Date Data Source [id number] 04/28/2021 11:43:00 AM EDT [facility]) Name Value Range Interpretation Code Description Data Darby rce(s) Supporting Document(s) Triiodothyronine resin uptake (T3RU) in Serum or Plasma 30 % 22 -35 T3 Uptake HAROLDO ([facility]) Thyroxine (T4) free index in Serum or Plasma by calculation 1.4-3.8 Free T4 Index (T7) HAROLDO ([facility]) Thyrotropin [Units/volume] in Serum or Plasma 1.43 mIU/L Tsh JENKINJONES ([facility]) Thyroxine (T4) [Mass/volume] in Serum or Plasma 7.5 mcg/dL 5.1-11 .9 T4 (Thyroxine), Total HAROLDO ([facility]) ID Date Data Source [id number] 04/28/2021 11:43:00 AM EDT JENKINJONES ([facility]) Name Value Range Interpretation Code Description Data Darby rce(s) Supporting Document(s) Hemoglobin [Mass/volume] in Blood 14.5 g/dL 11.7-15.5 He moglobin JENKINJONES ([facility]) Hematocrit [Volume Fraction] of Blood by Automated count 42.9 % 35.0-45.0 Hematocrit HAROLDO ([facility]) Erythrocytes [#/volume] in Blood by Automated count 4.80 million/uL 3.80-5.10 Red Blood Cell Count HAROLDO ([facility]) Leukocytes [#/volume] in Blood by Automated count 7.5 thousand/uL 3 .8-10.8 White Blood Cell Count JENKINJONES ([facility]) Erythrocyte mean corpuscular hemoglobin [Entitic mass] by Automated count 30.2 pg 27.0-33.0 Mch HAROLDO ([facility]) Erythrocyte mean corpuscular hemoglobin concentration [Mass/volume] by Automated count 33.8 g/dL 32.0-36.0 Mchc HAROLDO ([facility]) Erythrocyte mean corpuscular volume [Entitic volume] by Auto mated count 89.4 fL 80.0-100.0 Mcv HAROLDO ([facility]) Platelets [#/volume] in Blood by Automated count 295 thousand/uL 14 0-400 Platelet Count HAROLDO ([facility]) Erythrocyte distribution width [Ratio] by Automated count 11.5 % 11.0-15.0 Rdw HAROLDO ([facility]) Neutrophils [#/volume] in Blood by Automated count 3038 cells/uL 15 00-7800 Absolute Neutrophils HAROLDO ([facility]) Platelet mean volume [Entitic volume] in Blood by Kavitha 10.9 f L 7.5-12.5 Mpv HAROLDO ([facility]) Eosinophils [#/volume] in Blood by Automated count 173 cells/uL 15- 500 Absolute Eosinophils HAROLDO ([facility]) Basophils [#/volume] in Blood by Automated count 30 cells/uL 0-200 Absolute Basophils HAROLDO ([facility]) Monocytes [#/volume] in Blood by Automated count 503 cells/uL 200-9 50 Absolute Monocytes HAROLDO ([facility]) Lymphocytes [#/volume] in Blood by Automated count 3758 cells/uL 85 0-3900 Absolute Lymphocytes HAROLDO ([facility]) Neutrophils/100 leukocytes in Blood by Automated count 40.5 % 38-80 Neutrophils HAROLDO ([facility]) Lymphocytes/100 leukocytes in Blood by Automated count 50.1 % 15-49 Above high normal Lymphocytes HAROLDO ([facility]) Eosinophils/100 leukocytes in Blood by Automated count 2.3 % 0-8 Eosinophils HAROLDO ([facility]) Monocytes/100 leukocytes in Blood by Automated count 6.7 % 0-13 Monocytes HAROLDO ([facility]) Basophils/100 leukocytes in Blood by Automated count 0.4 % 0-2 Basophils HAROLDO ([facility]) ID Date Data Source [id number] 04/28/2021 11:43:00 AM EDT HAROLDO ([facility]) Name Value Range Interpretation Code Description Data Darby rce(s) Supporting Document(s) Urea nitrogen [Mass/volume] in Serum or Plasma 13 mg/dL 7-25 Urea Nitrogen (BUN) HAROLDO ([facility]) Glucose [Mass/volume] in Serum or Plasma 83 mg/dL 65-99 Glucose HAROLDO ([facility]) Creatinine [Mass/volume] in Serum or Plasma 0.76 mg/dL 0.50-1.10 Creatinine HAROLDO ([facility]) Glomerular filtration rate/1.73 sq M.pre dicted among blacks [Volume Rate/Area] in Serum, Plasma or Blood by Creatinine-based formula (CKD-EPI) 130 mL/min/1.73m2 > or = 60 eGFR HAROLDO ([facility]) Glomerular filtration rate/1.73 sq M.pre dicted among non-blacks [Volume Rate/Area] in Serum, Plasma or Blood by Creatinine-based formula (CKD-EPI) 112 mL/min/1.73m2 > or = 60 eGFR Non-afr. Congolese HAROLDO ([facility]) Urea nitrogen/Creatinine [Mass Ratio] in Serum or Plasma not applic able 6- BUN/creatinine Ratio HAROLDO ([facility]) Potassium [Moles/volume] in Serum or Plasma 4.5 mmol/L 3.5-5.3 Potassium JENKINJONES ([facility]) Sodium [Moles/volume] in Serum or Plasma 139 mmol/L 135-146 Sodium JENKINJONES ([facility]) Chloride [Moles/volume] in Serum or Plasma 103 mmol/L 98-110 Chloride JENKINJONES ([facility]) Carbon dioxide, total [Moles/volume] in Serum or Plasma 28 mmol/L 20-32 Carbon Dioxide [facility]) Protein [Mass/volume] in Serum or Plasma 7.2 g/dL 6.1-8.1 Protein, Total [facility]) Calcium [Mass/volume] in Serum or Plasma 9.7 mg/dL 8.6-10.2 Calcium [facility]) Albumin [Mass/volume] in Serum or Plasma 4.9 g/dL 3.6-5.1 Albumin [facility]) Globulin [Mass/volume] in Serum by calculation 2.3 g/dL_(calc) 1.9- 3.7 Globulin JENKINJONES ([facility]) Alkaline phosphatase [Enzymatic activity/volume] in Serum or Plasma 61 U/L 31-125 Alkaline Phosphatase [facility]) Bilirubin.total [Mass/volume] in Serum or Plasma 1.5 mg/dL 0.2-1.2 Above high normal Bilirubin, Total [facility]) Albumin/Globulin [Mass Ratio] in Serum or Plasma 2.1 (calc) 1.0-2 .5 Albumin/globulin Ratio JENKINJONES ([facility]) Aspartate aminotransferase [Enzymatic activity/volume] in Serum or Plasma 12 U/L 10-30 Ast HAROLDO ([facility]) Alanine aminotransferase [Enzymatic activity/volume] in Seru m or Plasma 9 U/L 6-29 Alt HAROLDO ([facility]) ID Date Data Source [id number] 04/28/2021 11:43:00 AM EDT JENKINJONES ([facility]) Name Value Range Interpretation Code Description Data Darby rce(s) Supporting Document(s) Thyroxine (T4) [Mass/volume] in Serum or Plasma 7.5 mcg/dL 5.1-11 .9 T4 (Thyroxine), Total HAROLDO ([facility]) Triiodothyronine resin uptake (T3RU) in Serum or Plasma 30 % 22 -35 T3 Uptake JENKINJONES ([facility]) Thyroxine (T4) free index in Serum or Plasma by calculation 1.4-3.8 Free T4 Index (T7) JENKINJONES ([facility]) Thyrotropin [Units/volume] in Serum or Plasma 1.43 mIU/L Tsh JENKINJONES ([facility]) ID Date Data Source [id number] 04/28/2021 11:43:00 AM EDT [facility]) Name Value Range Interpretation Code Description Data Darby rce(s) Supporting Document(s) Leukocytes [#/volume] in Blood by Automated count 7.5 thousand/uL 3 .8-10.8 White Blood Cell Count HAROLDO ([facility]) Hemoglobin [Mass/volume] in Blood 14.5 g/dL 11.7-15.5 He moglobin HAROLDO ([facility]) Erythrocytes [#/volume] in Blood by Automated count 4.80 million/uL 3.80-5.10 Red Blood Cell Count HAROLDO ([facility]) Erythrocyte mean corpuscular volume [Entitic volume] by Auto mated count 89.4 fL 80.0-100.0 Mcv HAROLDO ([facility]) Hematocrit [Volume Fraction] of Blood by Automated count 42.9 % 35.0-45.0 Hematocrit HAROLDO ([facility]) Erythrocyte mean corpuscular hemoglobin [Entitic mass] by Automated count 30.2 pg 27.0-33.0 Mch HAROLDO ([facility]) Platelets [#/volume] in Blood by Automated count 295 thousand/uL 14 0-400 Platelet Count HAROLDO ([facility]) Erythrocyte distribution width [Ratio] by Automated count 11.5 % 11.0-15.0 Rdw HAROLDO ([facility]) Erythrocyte mean corpuscular hemoglobin concentration [Mass/volume] by Automated count 33.8 g/dL 32.0-36.0 Mchc HAROLDO ([facility]) Monocytes [#/volume] in Blood by Automated count 503 cells/uL 200-9 50 Absolute Monocytes HAROLDO ([facility]) Lymphocytes [#/volume] in Blood by Automated count 3758 cells/uL 85 0-3900 Absolute Lymphocytes HAROLDO ([facility]) Platelet mean volume [Entitic volume] in Blood by Kavitha 10.9 f L 7.5-12.5 Mpv HAROLDO ([facility]) Neutrophils [#/volume] in Blood by Automated count 3038 cells/uL 15 00-7800 Absolute Neutrophils HAROLDO ([facility]) Basophils [#/volume] in Blood by Automated count 30 cells/uL 0-200 Absolute Basophils [facility] ([facility]) Neutrophils/100 leukocytes in Blood by Automated count 40.5 % 38-80 Neutrophils HAR[place] ([facility]) Lymphocytes/100 leukocytes in Blood by Automated count 50.1 % 15-49 Above high normal Lymphocytes HAR[facility]DO ([facility]) Eosinophils [#/volume] in Blood by Automated count 173 cells/uL 15- 500 Absolute Eosinophils HRAOLDO ([facility]) Monocytes/100 leukocytes in Blood by Automated count 6.7 % 0-13 Monocytes HAR[facility]DO ([facility]) Basophils/100 leukocytes in Blood by Automated count 0.4 % 0-2 Basophils [facility]DO ([facility]) Eosinophils/100 leukocytes in Blood by Automated count 2.3 % 0-8 Eosinophils [facility] ([facility]) ID Date Data Source [id number] 04/28/2021 11:43:00 AM EDT [place]ENK[place]JONES ([facility]) Name Value Range Interpretation Code Description Data Darby rce(s) Supporting Document(s) Urea nitrogen [Mass/volume] in Serum or Plasma 13 mg/dL 7-25 Urea Nitrogen (BUN) HAROLDO ([facility]) Glucose [Mass/volume] in Serum or Plasma 83 mg/dL 65-99 Glucose HAR[facility]DO ([facility]) Glomerular filtration rate/1.73 sq M.pre dicted among non-blacks [Volume Rate/Area] in Serum, Plasma or Blood by Creatinine-based formula (CKD-EPI) 112 mL/min/1.73m2 > or = 60 eGFR Non-afr. [place]ese HAROLDO ([facility]) Creatinine [Mass/volume] in Serum or Plasma 0.76 mg/dL 0.50-1.10 Creatinine [facility]) Glomerular filtration rate/1.73 sq M.pre dicted among blacks [Volume Rate/Area] in Serum, Plasma or Blood by Creatinine-based formula (CKD-EPI) 130 mL/min/1.73m2 > or = 60 eGFR HAR[facility]DO ([facility]) Urea nitrogen/Creatinine [Mass Ratio] in Serum or Plasma not applic able 6-22 BUN/creatinine Ratio JENKINJONES ([facility]) Sodium [Moles/volume] in Serum or Plasma 139 mmol/L 135-146 Sodium JENK[place]JONES ([facility]) Potassium [Moles/volume] in Serum or Plasma 4.5 mmol/L 3.5-5.3 Potassium HAR[place]DO ([facility]) Chloride [Moles/volume] in Serum or Plasma 103 mmol/L 98-110 Chloride HAR[facility]DO ([facility]) Calcium [Mass/volume] in Serum or Plasma 9.7 mg/dL 8.6-10.2 Calcium [facility]DO ([facility]) Carbon dioxide, total [Moles/volume] in Serum or Plasma 28 mmol/L 20-32 Carbon Dioxide HAR[facility]DO ([facility]) Protein [Mass/volume] in Serum or Plasma 7.2 g/dL 6.1-8.1 Protein, Total HAR[place]DO ([facility]) Albumin [Mass/volume] in Serum or Plasma 4.9 g/dL 3.6-5.1 Albumin [facility] ([facility]) Globulin [Mass/volume] in Serum by calculation 2.3 g/dL_(calc) 1.9- 3.7 Globulin [facility] ([facility]) Albumin/Globulin [Mass Ratio] in Serum or Plasma 2.1 (calc) 1.0-2 .5 Albumin/globulin Ratio HAR[facility] ([facility]) Alkaline phosphatase [Enzymatic activity/volume] in Serum or Plasma 61 U/L 31-125 Alkaline Phosphatase [facility] ([facility]) Bilirubin.total [Mass/volume] in Serum or Plasma 1.5 mg/dL 0.2-1.2 Above high normal Bilirubin, Total [facility]DO ([facility]) Aspartate aminotransferase [Enzymatic activity/volume] in Serum or Plasma 12 U/L 10-30 Ast JENKINJONES ([facility]) Alanine aminotransferase [Enzymatic activity/volume] in Seru m or Plasma 9 U/L 6-29 Alt HAR[facility]DO ([facility]) ID Date Data Source [id number] 04/28/2021 11:43:00 AM EDT [facility]) Name Value Range Interpretation Code Description Data Darby rce(s) Supporting Document(s) Triiodothyronine resin uptake (T3RU) in Serum or Plasma 30 % 22 -35 T3 Uptake JENKINJONES ([facility]) Thyroxine (T4) [Mass/volume] in Serum or Plasma 7.5 mcg/dL 5.1-11 .9 T4 ([facility]ine), [facility] Thyrotropin [Units/volume] in Serum or Plasma 1.43 mIU/L Tsh [facility]K[place]JONES ([facility]) Thyroxine (T4) free index in Serum or Plasma by calculation 1.4-3.8 Free T4 Index (T7) [facility]) ID Date Data Source [id number] 04/28/2021 11:43:00 AM EDT [facility]) Name Value Range Interpretation Code Description Data Darby rce(s) Supporting Document(s) Leukocytes [#/volume] in Blood by Automated count 7.5 thousand/uL 3 .8-10.8 White Blood Cell Count HAR[place]DO ([facility]) Erythrocytes [#/volume] in Blood by Automated count 4.80 million/uL 3.80-5.10 Red Blood Cell Count [facility] ([facility]) Erythrocyte mean corpuscular volume [Entitic volume] by Auto mated count 89.4 fL 80.0-100.0 Mcv [facility] ([facility]) Hemoglobin [Mass/volume] in Blood 14.5 g/dL 11.7-15.5 He moglobin HAR[facility]DO ([facility]) Hematocrit [Volume Fraction] of Blood by Automated count 42.9 % 35.0-45.0 Hematocrit [facility] ([facility]) Erythrocyte mean corpuscular hemoglobin [Entitic mass] by Automated count 30.2 pg 27.0-33.0 Mch [facility]DO ([facility]) Platelets [#/volume] in Blood by Automated count 295 thousand/uL 14 0-400 Platelet Count HAR[place] ([facility]) Erythrocyte mean corpuscular hemoglobin concentration [Mass/volume] by Automated count 33.8 g/dL 32.0-36.0 Mchc HAR[facility]DO ([facility]) Erythrocyte distribution width [Ratio] by Automated count 11.5 % 11.0-15.0 Rdw HAR[place]DO ([facility]) Neutrophils [#/volume] in Blood by Automated count 3038 cells/uL 15 00-7800 Absolute Neutrophils [facility] ([facility]) Lymphocytes [#/volume] in Blood by Automated count 3758 cells/uL 85 0-3900 Absolute Lymphocytes [facility] ([facility]) Platelet mean volume [Entitic volume] in Blood by Kavitha 10.9 f L 7.5-12.5 Mpv [facility]DO ([facility]) Monocytes [#/volume] in Blood by Automated count 503 cells/uL 200-9 50 Absolute Monocytes [facility] ([facility]) Neutrophils/100 leukocytes in Blood by Automated count 40.5 % 38-80 Neutrophils [facility] ([facility]) Eosinophils [#/volume] in Blood by Automated count 173 cells/uL 15- 500 Absolute Eosinophils [facility] ([facility]) Basophils [#/volume] in Blood by Automated count 30 cells/uL 0-200 Absolute Basophils [facility] ([facility]) Eosinophils/100 leukocytes in Blood by Automated count 2.3 % 0-8 Eosinophils [facility] ([facility]) Lymphocytes/100 leukocytes in Blood by Automated count 50.1 % 15-49 Above high normal Lymphocytes [facility]DO ([facility]) Monocytes/100 leukocytes in Blood by Automated count 6.7 % 0-13 Monocytes [place] ([facility]) Basophils/100 leukocytes in Blood by Automated count 0.4 % 0-2 Basophils [facility] ([facility]) ID Date Data Source [id number] 04/28/2021 11:43:00 AM EDT JENKINJONES ([facility]) Name Value Range Interpretation Code Description Data Darby rce(s) Supporting Document(s) Glucose [Mass/volume] in Serum or Plasma 83 mg/dL 65-99 Glucose [facility] Creatinine [Mass/volume] in Serum or Plasma 0.76 mg/dL 0.50-1.10 Creatinine [facility]) Glomerular filtration rate/1.73 sq M.pre dicted among non-blacks [Volume Rate/Area] in Serum, Plasma or Blood by Creatinine-based formula (CKD-EPI) 112 mL/min/1.73m2 > or = 60 eGFR Non-afr. [place] HAROLDO ([facility]) Urea nitrogen [Mass/volume] in Serum or Plasma 13 mg/dL 7-25 Urea Nitrogen (BUN) [facility] Potassium [Moles/volume] in Serum or Plasma 4.5 mmol/L 3.5-5.3 Potassium HAR[place]DO ([facility]) Urea nitrogen/Creatinine [Mass Ratio] in Serum or Plasma not applic able 6-22 BUN/creatinine Ratio [facility]) Sodium [Moles/volume] in Serum or Plasma 139 mmol/L 135-146 Sodium [facility]) Glomerular filtration rate/1.73 sq M.pre dicted among blacks [Volume Rate/Area] in Serum, Plasma or Blood by Creatinine-based formula (CKD-EPI) 130 mL/min/1.73m2 > or = 60 eGFR [facility] ([facility]) Chloride [Moles/volume] in Serum or Plasma 103 mmol/L 98-110 Chloride JENKINJONES ([facility]) Carbon dioxide, total [Moles/volume] in Serum or Plasma 28 mmol/L 20-32 Carbon Dioxide HAR[place]DO ([facility]) Calcium [Mass/volume] in Serum or Plasma 9.7 mg/dL 8.6-10.2 Calcium JENKINJONES ([facility]) Protein [Mass/volume] in Serum or Plasma 7.2 g/dL 6.1-8.1 Protein, Total JENKINJONES ([facility]) Albumin [Mass/volume] in Serum or Plasma 4.9 g/dL 3.6-5.1 Albumin [facility]) Globulin [Mass/volume] in Serum by calculation 2.3 g/dL_(calc) 1.9- 3.7 Globulin JENKINJONES ([facility]) Bilirubin.total [Mass/volume] in Serum or Plasma 1.5 mg/dL 0.2-1.2 Above high normal Bilirubin, Total [facility]) Albumin/Globulin [Mass Ratio] in Serum or Plasma 2.1 (calc) 1.0-2 .5 Albumin/globulin Ratio JENKINJONES ([facility]) Alkaline phosphatase [Enzymatic activity/volume] in Serum or Plasma 61 U/L 31-125 Alkaline Phosphatase J[facility]KINJONES ([facility]) Aspartate aminotransferase [Enzymatic activity/volume] in Serum or Plasma 12 U/L 10-30 Ast JENKINJONES ([facility]) Alanine aminotransferase [Enzymatic activity/volume] in Seru m or Plasma 9 U/L 6-29 Alt [facility]KINJONES ([facility]) ID Date Data Source [id number] 04/28/2021 11:43:00 AM EDT JENKINJONES ([facility]) Name Value Range Interpretation Code Description Data Darby rce(s) Supporting Document(s) Triiodothyronine resin uptake (T3RU) in Serum or Plasma 30 % 22 -35 T3 Uptake JENKINJONES ([facility]) Thyroxine (T4) free index in Serum or Plasma by calculation 1.4-3.8 Free T4 Index (T7) JENKINJONES ([facility]) Thyroxine (T4) [Mass/volume] in Serum or Plasma 7.5 mcg/dL 5.1-11 .9 T4 (Thyroxine), Total HAROLDO ([facility]) Thyrotropin [Units/volume] in Serum or Plasma 1.43 mIU/L Tsh JENKINJONES ([facility]) ID Date Data Source [id number] 04/28/2021 11:43:00 AM EDT JENKINJONES ([facility]) Name Value Range Interpretation Code Description Data Darby rce(s) Supporting Document(s) Erythrocytes [#/volume] in Blood by Automated count 4.80 million/uL 3.80-5.10 Red Blood Cell Count JENKINJONES ([facility]) Leukocytes [#/volume] in Blood by Automated count 7.5 thousand/uL 3 .8-10.8 White Blood Cell Count JENKINJONES ([facility]) Erythrocyte mean corpuscular volume [Entitic volume] by Auto mated count 89.4 fL 80.0-100.0 Mcv [facility]DO ([facility]) Hemoglobin [Mass/volume] in Blood 14.5 g/dL 11.7-15.5 He moglobin HAR[place]DO ([facility]) Hematocrit [Volume Fraction] of Blood by Automated count 42.9 % 35.0-45.0 Hematocrit HAR[place]DO ([facility]) Erythrocyte mean corpuscular hemoglobin [Entitic mass] by Automated count 30.2 pg 27.0-33.0 Mch [facility]DO ([facility]) Erythrocyte mean corpuscular hemoglobin concentration [Mass/volume] by Automated count 33.8 g/dL 32.0-36.0 Mchc HAR[place]DO ([facility]) Erythrocyte distribution width [Ratio] by Automated count 11.5 % 11.0-15.0 Rdw HAR[place]DO ([facility]) Platelets [#/volume] in Blood by Automated count 295 thousand/uL 14 0-400 Platelet Count JENKINJONES ([facility]) Neutrophils [#/volume] in Blood by Automated count 3038 cells/uL 15 00-7800 Absolute Neutrophils HAR[place]DO ([facility]) Platelet mean volume [Entitic volume] in Blood by Kavitha 10.9 f L 7.5-12.5 Mpv HAR[place]DO ([facility]) Lymphocytes [#/volume] in Blood by Automated count 3758 cells/uL 85 0-3900 Absolute Lymphocytes HAR[facility]DO ([facility]) Lymphocytes/100 leukocytes in Blood by Automated count 50.1 % 15-49 Above high normal Lymphocytes [facility]DO ([facility]) Monocytes [#/volume] in Blood by Automated count 503 cells/uL 200-9 50 Absolute Monocytes [facility]DO ([facility]) Basophils [#/volume] in Blood by Automated count 30 cells/uL 0-200 Absolute Basophils [facility]DO ([facility]) Neutrophils/100 leukocytes in Blood by Automated count 40.5 % 38-80 Neutrophils HAR[place]DO ([facility]) Eosinophils [#/volume] in Blood by Automated count 173 cells/uL 15- 500 Absolute Eosinophils HAR[place]DO ([facility]) Monocytes/100 leukocytes in Blood by Automated count 6.7 % 0-13 Monocytes [facility]DO ([facility]) Eosinophils/100 leukocytes in Blood by Automated count 2.3 % 0-8 Eosinophils [facility] ([facility]) Basophils/100 leukocytes in Blood by Automated count 0.4 % 0-2 Basophils [facility] ([facility]) ID Date Data Source [id number] 04/28/2021 11:43:00 AM EDT HAR[place]DO ([facility]) Name Value Range Interpretation Code Description Data Darby rce(s) Supporting Document(s) Glucose [Mass/volume] in Serum or Plasma 83 mg/dL 65-99 Glucose HAR[place] ([facility]) Urea nitrogen [Mass/volume] in Serum or Plasma 13 mg/dL 7-25 Urea Nitrogen (BUN) [facility]DO ([facility]) Creatinine [Mass/volume] in Serum or Plasma 0.76 mg/dL 0.50-1.10 Creatinine [facility] ([facility]) Glomerular filtration rate/1.73 sq M.pre dicted among blacks [Volume Rate/Area] in Serum, Plasma or Blood by Creatinine-based formula (CKD-EPI) 130 mL/min/1.73m2 > or = 60 eGFR [facility] ([facility]) Urea nitrogen/Creatinine [Mass Ratio] in Serum or Plasma not applic able 6-22 BUN/creatinine Ratio JENKINJONES ([facility]) Glomerular filtration rate/1.73 sq M.pre dicted among non-blacks [Volume Rate/Area] in Serum, Plasma or Blood by Creatinine-based formula (CKD-EPI) 112 mL/min/1.73m2 > or = 60 eGFR Non-afr. [place]ese HAROLDO ([facility]) Sodium [Moles/volume] in Serum or Plasma 139 mmol/L 135-146 Sodium JENKINJONES ([facility]) Potassium [Moles/volume] in Serum or Plasma 4.5 mmol/L 3.5-5.3 Potassium [facility]JONES ([facility]) Chloride [Moles/volume] in Serum or Plasma 103 mmol/L 98-110 Chloride [facility]) Carbon dioxide, total [Moles/volume] in Serum or Plasma 28 mmol/L 20-32 Carbon Dioxide JENKINJONES ([facility]) Calcium [Mass/volume] in Serum or Plasma 9.7 mg/dL 8.6-10.2 Calcium [facility]) Protein [Mass/volume] in Serum or Plasma 7.2 g/dL 6.1-8.1 Protein, Total [facility]) Albumin [Mass/volume] in Serum or Plasma 4.9 g/dL 3.6-5.1 Albumin [facility]) Globulin [Mass/volume] in Serum by calculation 2.3 g/dL_(calc) 1.9- 3.7 Globulin [facility]) Albumin/Globulin [Mass Ratio] in Serum or Plasma 2.1 (calc) 1.0-2 .5 Albumin/globulin Ratio [facility]) Bilirubin.total [Mass/volume] in Serum or Plasma 1.5 mg/dL 0.2-1.2 Above high normal Bilirubin, Total HAROLDO ([facility]) Alkaline phosphatase [Enzymatic activity/volume] in Serum or Plasma 61 U/L 31-125 Alkaline Phosphatase HAR[facility]DO ([facility]) Aspartate aminotransferase [Enzymatic activity/volume] in Serum or Plasma 12 U/L 10-30 Ast [facility] ([facility]) Alanine aminotransferase [Enzymatic activity/volume] in Seru m or Plasma 9 U/L 6-29 Alt [facility] ([facility]) ID Date Data Source [id number] 04/28/2021 11:43:00 AM EDT [facility]) Name Value Range Interpretation Code Description Data Darby rce(s) Supporting Document(s) Triiodothyronine resin uptake (T3RU) in Serum or Plasma 30 % 22 -35 T3 Uptake JENKINJONES ([facility]) Thyroxine (T4) [Mass/volume] in Serum or Plasma 7.5 mcg/dL 5.1-11 .9 T4 (Thyroxine), Total HAR[place]DO ([facility]) Thyroxine (T4) free index in Serum or Plasma by calculation 1.4-3.8 Free T4 Index (T7) [facility]DO ([facility]) Thyrotropin [Units/volume] in Serum or Plasma 1.43 mIU/L Tsh [facility]) ID Date Data Source [id number] 04/28/2021 11:43:00 AM EDT [facility]) Name Value Range Interpretation Code Description Data Darby rce(s) Supporting Document(s) Hemoglobin [Mass/volume] in Blood 14.5 g/dL 11.7-15.5 He moglobin HAROLDO ([facility]) Leukocytes [#/volume] in Blood by Automated count 7.5 thousand/uL 3 .8-10.8 White Blood Cell Count [facility] ([facility]) Erythrocytes [#/volume] in Blood by Automated count 4.80 million/uL 3.80-5.10 Red Blood Cell Count [facility]KINJONES ([facility]) Erythrocyte mean corpuscular hemoglobin concentration [Mass/volume] by Automated count 33.8 g/dL 32.0-36.0 Mchc HAR[facility]DO ([facility]) Erythrocyte mean corpuscular hemoglobin [Entitic mass] by Automated count 30.2 pg 27.0-33.0 Mch HAR[place]DO ([facility]) Hematocrit [Volume Fraction] of Blood by Automated count 42.9 % 35.0-45.0 Hematocrit [facility]DO ([facility]) Erythrocyte mean corpuscular volume [Entitic volume] by Auto mated count 89.4 fL 80.0-100.0 Mcv [facility] ([facility]) Erythrocyte distribution width [Ratio] by Automated count 11.5 % 11.0-15.0 Rdw HAR[place]DO ([facility]) Platelet mean volume [Entitic volume] in Blood by Kavitha 10.9 f L 7.5-12.5 Mpv [facility]JONES ([facility]) Platelets [#/volume] in Blood by Automated count 295 thousand/uL 14 0-400 Platelet Count [facility]DO ([facility]) Neutrophils [#/volume] in Blood by Automated count 3038 cells/uL 15 00-7800 Absolute Neutrophils HAR[facility]DO ([facility]) Basophils [#/volume] in Blood by Automated count 30 cells/uL 0-200 Absolute Basophils [facility] ([facility]) Lymphocytes [#/volume] in Blood by Automated count 3758 cells/uL 85 0-3900 Absolute Lymphocytes [facility] ([facility]) Monocytes [#/volume] in Blood by Automated count 503 cells/uL 200-9 50 Absolute Monocytes [facility] ([facility]) Eosinophils [#/volume] in Blood by Automated count 173 cells/uL 15- 500 Absolute Eosinophils [facility] ([facility]) Neutrophils/100 leukocytes in Blood by Automated count 40.5 % 38-80 Neutrophils [facility] ([facility]) Eosinophils/100 leukocytes in Blood by Automated count 2.3 % 0-8 Eosinophils [facility] ([facility]) Basophils/100 leukocytes in Blood by Automated count 0.4 % 0-2 Basophils [facility] ([facility]) Monocytes/100 leukocytes in Blood by Automated count 6.7 % 0-13 Monocytes [facility] ([facility]) Lymphocytes/100 leukocytes in Blood by Automated count 50.1 % 15-49 Above high normal Lymphocytes [facility] ([facility]) ID Date Data Source [id number] 04/28/2021 11:43:00 AM EDT JENKINJONES ([facility]) Name Value Range Interpretation Code Description Data Darby rce(s) Supporting Document(s) Glucose [Mass/volume] in Serum or Plasma 83 mg/dL 65-99 Glucose [facility] ([facility]) Urea nitrogen [Mass/volume] in Serum or Plasma 13 mg/dL 7-25 Urea Nitrogen (BUN) [facility] ([facility]) Creatinine [Mass/volume] in Serum or Plasma 0.76 mg/dL 0.50-1.10 Creatinine [facility] ([facility]) Sodium [Moles/volume] in Serum or Plasma 139 mmol/L 135-146 Sodium [facility] ([facility]) Glomerular filtration rate/1.73 sq M.pre dicted among non-blacks [Volume Rate/Area] in Serum, Plasma or Blood by Creatinine-based formula (CKD-EPI) 112 mL/min/1.73m2 > or = 60 eGFR Non-afr. [place] HAROLDO ([facility]) Urea nitrogen/Creatinine [Mass Ratio] in Serum or Plasma not applic able 6-22 BUN/creatinine Ratio J[facility]KINJONES ([facility]) Glomerular filtration rate/1.73 sq M.pre dicted among blacks [Volume Rate/Area] in Serum, Plasma or Blood by Creatinine-based formula (CKD-EPI) 130 mL/min/1.73m2 > or = 60 eGFR [facility] ([facility]) Potassium [Moles/volume] in Serum or Plasma 4.5 mmol/L 3.5-5.3 Potassium [facility] ([facility]) Calcium [Mass/volume] in Serum or Plasma 9.7 mg/dL 8.6-10.2 Calcium [facility] ([facility]) Carbon dioxide, total [Moles/volume] in Serum or Plasma 28 mmol/L 20-32 Carbon Dioxide HAR[facility] ([facility]) Chloride [Moles/volume] in Serum or Plasma 103 mmol/L 98-110 Chloride [facility] ([facility]) Globulin [Mass/volume] in Serum by calculation 2.3 g/dL_(calc) 1.9- 3.7 Globulin [facility] ([facility]) Protein [Mass/volume] in Serum or Plasma 7.2 g/dL 6.1-8.1 Protein, Total [facility] ([facility]) Albumin [Mass/volume] in Serum or Plasma 4.9 g/dL 3.6-5.1 Albumin [facility]ES ([facility]) Bilirubin.total [Mass/volume] in Serum or Plasma 1.5 mg/dL 0.2-1.2 Above high normal Bilirubin, Total [facility] ([facility]) Aspartate aminotransferase [Enzymatic activity/volume] in Serum or Plasma 12 U/L 10-30 Ast [facility] ([facility]) Alkaline phosphatase [Enzymatic activity/volume] in Serum or Plasma 61 U/L 31-125 Alkaline Phosphatase HAROLDO ([facility]) Albumin/Globulin [Mass Ratio] in Serum or Plasma 2.1 (calc) 1.0-2 .5 Albumin/globulin Ratio HAROLDO ([facility]) Alanine aminotransferase [Enzymatic activity/volume] in Seru m or Plasma 9 U/L 6-29 Alt HAROLDO ([facility]) ID Date Data Source [id number] 04/28/2021 11:43:00 AM EDT [facility]) Name Value Range Interpretation Code Description Data Darby rce(s) Supporting Document(s) Triiodothyronine resin uptake (T3RU) in Serum or Plasma 30 % 22 -35 T3 Uptake JENKINJONES ([facility]) Thyroxine (T4) free index in Serum or Plasma by calculation 1.4-3.8 Free T4 Index (T7) HAROLDO ([facility]) Thyroxine (T4) [Mass/volume] in Serum or Plasma 7.5 mcg/dL 5.1-11 .9 T4 (Thyroxine), Total HAROLDO ([facility]) Thyrotropin [Units/volume] in Serum or Plasma 1.43 mIU/L Tsh [facility]) ID Date Data Source [id number] 04/28/2021 11:43:00 AM EDT [facility]) Name Value Range Interpretation Code Description Data Darby rce(s) Supporting Document(s) Leukocytes [#/volume] in Blood by Automated count 7.5 thousand/uL 3 .8-10.8 White Blood Cell Count HAROLDO ([facility]) Hemoglobin [Mass/volume] in Blood 14.5 g/dL 11.7-15.5 He moglobin HAROLDO ([facility]) Erythrocytes [#/volume] in Blood by Automated count 4.80 million/uL 3.80-5.10 Red Blood Cell Count HAROLDO ([facility]) Erythrocyte mean corpuscular volume [Entitic volume] by Auto mated count 89.4 fL 80.0-100.0 Mcv HAROLDO ([facility]) Hematocrit [Volume Fraction] of Blood by Automated count 42.9 % 35.0-45.0 Hematocrit JENKINJONES ([facility]) Erythrocyte distribution width [Ratio] by Automated count 11.5 % 11.0-15.0 Rdw HAROLDO ([facility]) Erythrocyte mean corpuscular hemoglobin [Entitic mass] by Automated count 30.2 pg 27.0-33.0 Mch HAROLDO ([facility]) Erythrocyte mean corpuscular hemoglobin concentration [Mass/volume] by Automated count 33.8 g/dL 32.0-36.0 Mchc HAROLDO ([facility]) Platelets [#/volume] in Blood by Automated count 295 thousand/uL 14 0-400 Platelet Count HAROLDO ([facility]) Monocytes [#/volume] in Blood by Automated count 503 cells/uL 200-9 50 Absolute Monocytes HAROLDO ([facility]) Lymphocytes [#/volume] in Blood by Automated count 3758 cells/uL 85 0-3900 Absolute Lymphocytes HAROLDO ([facility]) Platelet mean volume [Entitic volume] in Blood by Kavitha 10.9 f L 7.5-12.5 Mpv HAROLDO ([facility]) Neutrophils [#/volume] in Blood by Automated count 3038 cells/uL 15 00-7800 Absolute Neutrophils HAROLDO ([facility]) Eosinophils [#/volume] in Blood by Automated count 173 cells/uL 15- 500 Absolute Eosinophils HAROLDO ([facility]) Monocytes/100 leukocytes in Blood by Automated count 6.7 % 0-13 Monocytes HAROLDO ([facility]) Neutrophils/100 leukocytes in Blood by Automated count 40.5 % 38-80 Neutrophils HAROLDO ([facility]) Basophils [#/volume] in Blood by Automated count 30 cells/uL 0-200 Absolute Basophils HAROLDO ([facility]) Lymphocytes/100 leukocytes in Blood by Automated count 50.1 % 15-49 Above high normal Lymphocytes HAROLDO ([facility]) Basophils/100 leukocytes in Blood by Automated count 0.4 % 0-2 Basophils HAROLDO ([facility]) Eosinophils/100 leukocytes in Blood by Automated count 2.3 % 0-8 Eosinophils HAROLDO ([facility]) ID Date Data Source [id number] 04/28/2021 11:43:00 AM EDT [facility]) Name Value Range Interpretation Code Description Data Darby rce(s) Supporting Document(s) Urea nitrogen [Mass/volume] in Serum or Plasma 13 mg/dL 7-25 Urea Nitrogen (BUN) HAROLDO ([facility]) Glucose [Mass/volume] in Serum or Plasma 83 mg/dL 65-99 Glucose HAROLDO ([facility]) Creatinine [Mass/volume] in Serum or Plasma 0.76 mg/dL 0.50-1.10 [facility]inine [facility] Glomerular filtration rate/1.73 sq M.pre dicted among non-blacks [Volume Rate/Area] in Serum, Plasma or Blood by Creatinine-based formula (CKD-EPI) 112 mL/min/1.73m2 > or = 60 eGFR Non-afr. [place]ese HAROLDO ([facility]) Urea nitrogen/Creatinine [Mass Ratio] in Serum or Plasma not applic able 6-22 BUN/creatinine Ratio HAROLDO ([facility]) Glomerular filtration rate/1.73 sq M.pre dicted among blacks [Volume Rate/Area] in Serum, Plasma or Blood by Creatinine-based formula (CKD-EPI) 130 mL/min/1.73m2 > or = 60 eGFR HAROLDO ([facility]) Potassium [Moles/volume] in Serum or Plasma 4.5 mmol/L 3.5-5.3 Potassium HAROLDO ([facility]) Chloride [Moles/volume] in Serum or Plasma 103 mmol/L 98-110 Chloride HAROLDO ([facility]) Sodium [Moles/volume] in Serum or Plasma 139 mmol/L 135-146 Sodium HAROLDO ([facility]) Protein [Mass/volume] in Serum or Plasma 7.2 g/dL 6.1-8.1 Protein, Total HAROLDO ([facility]) Albumin [Mass/volume] in Serum or Plasma 4.9 g/dL 3.6-5.1 Albumin HAROLDO ([facility]) Carbon dioxide, total [Moles/volume] in Serum or Plasma 28 mmol/L 20-32 Carbon Dioxide HAROLDO ([facility]) Calcium [Mass/volume] in Serum or Plasma 9.7 mg/dL 8.6-10.2 Calcium JENKINJONES ([facility]) Bilirubin.total [Mass/volume] in Serum or Plasma 1.5 mg/dL 0.2-1.2 Above high normal Bilirubin, Total HAROLDO ([facility]) Alkaline phosphatase [Enzymatic activity/volume] in Serum or Plasma 61 U/L 31-125 Alkaline Phosphatase HAROLDO ([facility]) Albumin/Globulin [Mass Ratio] in Serum or Plasma 2.1 (calc) 1.0-2 .5 Albumin/globulin Ratio JENKINJONES ([facility]) Globulin [Mass/volume] in Serum by calculation 2.3 g/dL_(calc) 1.9- 3.7 Globulin HAROLDO ([facility]) Alanine aminotransferase [Enzymatic activity/volume] in Seru m or Plasma 9 U/L 6-29 Alt HAROLDO ([facility]) Aspartate aminotransferase [Enzymatic activity/volume] in Serum or Plasma 12 U/L 10-30 Ast HAROLDO ([facility]) ID Date Data Source [id number] 04/28/2021 11:43:00 AM EDT JENKINJONES ([facility]) Name Value Range Interpretation Code Description Data Darby rce(s) Supporting Document(s) Triiodothyronine resin uptake (T3RU) in Serum or Plasma 30 % 22 -35 T3 Uptake HAROLDO ([facility]) Thyroxine (T4) [Mass/volume] in Serum or Plasma 7.5 mcg/dL 5.1-11 .9 T4 (Thyroxine), Total HAROLDO ([facility]) Thyrotropin [Units/volume] in Serum or Plasma 1.43 mIU/L Tsh JENKINJONES ([facility]) Thyroxine (T4) free index in Serum or Plasma by calculation 1.4-3.8 Free T4 Index (T7) HAROLDO ([facility]) ID Date Data Source CHLAMYDIA & GC DNA AMPLIFICAT 04/26/2021 12:00:00 AM EDT eCW 1 ([facility]) Name Value Range Interpretation Code Description Data Darby rce(s) Supporting Document(s) Chlamydia trachomatis rRNA [Presence] in Unspecified specimen by Probe and target amplification method NEGATIVE NEGATIVE CHLAMYDIA DNA AMPLIFICATION eCW1 ([facility]) ID Date Data Source SYPHILIS ANTIBODY (RPR SCREEN) 12/01/2020 12:00:00 AM EST eC W1 ([facility]) Name Value Range Interpretation Code Description Data Darby rce(s) Supporting Document(s) NONREACTIVE NONREACTIVE eCW1 ([facility]) ID Date Data Source PAP REQUEST FOR SERVICE 12/01/2020 12:00:00 AM EST eCW[facility] Name Value Range Interpretation Code Description Data Darby rce(s) Supporting Document(s) eCW1 ([facility]) ID Date Data Source [id number] 12/01/2020 12:00:00 AM EST eCW1 ([facility]) Name Value Range Interpretation Code Description Data Darby rce(s) Supporting Document(s) eCW1 ([facility]) ID Date Data Source HEPATITIS C ANTIBODY INDEX 12/01/2020 12:00:00 AM EST eCW1 ( [facility]) Name Value Range Interpretation Code Description Data Darby rce(s) Supporting Document(s) < 0.0 <0.8 [facility] ([facility]) ID Date Data Source CHLAMYDIA, GC & TRICH AMP 12/01/2020 12:00:00 AM EST eCW1 ([facility]) Name Value Range Interpretation Code Description Data Darby rce(s) Supporting Document(s) NOT DETECTED NEGATIVE eCW1 ([facility]) ID Date Data Source [id number] 11/13/2020 12:00:00 AM EST [facility] Name Value Range Interpretation Code Description Data Darby rce(s) Supporting Document(s) SARS-CoV2 Rapid Antigen Negative [facility] This lab was ordered by [facility] and reported by [facility]. ID Date Data Source [id number] 09/18/2020 12:00:00 AM EST [facility] Name Value Range Interpretation Code Description Data Darby rce(s) Supporting Document(s) SARS-CoV2 Rapid Antigen [facility] This lab was ordered by [facility] and reported by [facility]. Procedure Social History Code Duration Value Status Description Data Source(s ) Smoking 07/23/2021 12:00:00 AM EDT Never Smoker completed Never S moker eCW1 ([facility]) Smoking 04/26/2021 12:00:00 AM EDT Never Smoker completed Never S moker eCW1 ([facility]) Smoking 04/26/2021 12:00:00 AM EDT Never Smoker completed Never S moker eCW1 ([facility]) Smoking 12/01/2020 12:00:00 AM EST Never Smoker completed Never S moker eCW1 ([facility]) Vital Signs ID Date Data Source UNK Name Value Range Interpretation Code Description Data Source(s) Body mass index (BMI) [Ratio] 20.25 kg/m2 20.25 kg/m2 eCW1 ([facility]) Body height 64 [in_i] 64 [in_i] eCW1 ([facility]) Diastolic blood pressure 80 mm[Hg] 80 mm[Hg] eCW1 ([facility]) Systolic blood pressure 120 mm[Hg] 120 mm[Hg] e CW1 ([facility]) Body weight 118 [lb_av] 118 [lb_av] eCW1 ([facility]) Body mass index (BMI) [Ratio] 19.87 kg/m2 19.87 kg/m2 eCW1 ([facility]) Body weight 52.53 kg 52.53 kg W1 ([facility]) Body height 64 [in_i] 64 [in_i] eCW1 ([facility]) Body weight 115.8 [lb_av] 115.8 [lb_av] eCW1 ([facility]) Systolic blood pressure 118 mm[Hg] 118 mm[Hg] e CW1 ([facility]) Diastolic blood pressure 64 mm[Hg] 64 mm[Hg] eCW1 ([facility]) Body height 64 [in_i] 64 [in_i] HAROLDO ([facility]) Body height 64 [in_i] 64 [in_i] HAROLDO ([facility]) Body height 64 [in_i] 64 [in_i] HAROLDO ([facility]) Body height 64 [in_i] 64 [in_i] HAROLDO ([facility]) Body height 64 [in_i] 64 [in_i] HAROLDO ([facility]) Body height 64 [in_i] 64 [in_i] HAROLDO ([facility]) Body height 64 [in_i] 64 [in_i] HAROLDO ([facility]) Body height 64 [in_i] 64 [in_i] HAROLDO ([facility]) Body height 64 [in_i] 64 [in_i] HAROLDO ([facility]) Body height 64 [in_i] 64 [in_i] HAROLDO ([facility]) Diastolic blood pressure 77 mm[Hg] 77 mm[Hg] HAROLDO ([facility]) Body height 64 [in_i] 64 [in_i] HAROLDO ([facility]) Body mass index (BMI) [Ratio] 19.7 kg/m2 19.7 k g/m2 HAROLDO ([facility]) Systolic blood pressure 111 mm[Hg] 111 mm[Hg] A THENA ([facility]) Body weight 1840 [oz_av] 1840 [oz_av] HAROLDO ([facility]) Body height 64 [in_i] 64 [in_i] HAROLDO ([facility]) Body mass index (BMI) [Ratio] 19.7 kg/m2 19.7 k g/m2 HAROLDO ([facility]) Diastolic blood pressure 77 mm[Hg] 77 mm[Hg] HAROLDO ([facility]) Systolic blood pressure 111 mm[Hg] 111 mm[Hg] A THENA ([facility]) Body weight 1840 [oz_av] 1840 [oz_av] HAROLDO ([facility]) Diastolic blood pressure 77 mm[Hg] 77 mm[Hg] HAROLDO ([facility]) Body height 64 [in_i] 64 [in_i] HAORLDO ([facility]) Body mass index (BMI) [Ratio] 19.7 kg/m2 19.7 k g/m2 HAROLDO ([facility]) Systolic blood pressure 111 mm[Hg] 111 [facility]Hg] [facility] Body weight 1840 [oz_av] 1840 [oz_av] HAROLDO ([facility]) Body mass index (BMI) [Ratio] 19.7 kg/m2 19.7 k g/m2 HAROLDO ([facility]) Systolic blood pressure 111 mm[Hg] 111 mm[Hg] A THENA ([facility]) Body weight 1840 [oz_av] 1840 [oz_av] HAROLDO ([facility]) Diastolic blood pressure 77 mm[Hg] 77 mm[Hg] HAROLDO ([facility]) Body height 64 [in_i] 64 [in_i] HAROLDO ([facility]) Diastolic blood pressure 77 mm[Hg] 77 mm[Hg] HAROLDO ([facility]) Body height 64 [in_i] 64 [in_i] HAROLDO ([facility]) Body mass index (BMI) [Ratio] 19.7 kg/m2 19.7 k g/m2 HAROLDO ([facility]) Systolic blood pressure 111 mm[Hg] 111 mm[Hg] A THENA ([facility]) Body weight 1840 [oz_av] 1840 [oz_av] HAROLDO ([facility]) Diastolic blood pressure 77 mm[Hg] 77 mm[Hg] HAROLDO ([facility]) Body height 64 [in_i] 64 [in_i] HAROLDO ([facility]) Body mass index (BMI) [Ratio] 19.7 kg/m2 19.7 k g/m2 HAROLDO ([facility]) Systolic blood pressure 111 mm[Hg] 111 mm[Hg] A THENA ([facility]) Body weight 1840 [oz_av] 1840 [oz_av] HAROLDO ([facility]) Diastolic blood pressure 77 mm[Hg] 77 mm[Hg] HAROLDO ([facility]) Body height 64 [in_i] 64 [in_i] HAROLDO ([facility]) Body mass index (BMI) [Ratio] 19.7 kg/m2 19.7 k g/m2 HAROLDO ([facility]) Systolic blood pressure 111 mm[Hg] 111 mm[Hg] [facility] Body weight 1840 [oz_av] 1840 [oz_av] HAROLDO ([facility]) Body height 64 [in_i] 64 [in_i] HAROLDO ([facility]) Body mass index (BMI) [Ratio] 19.7 kg/m2 19.7 k g/m2 HAROLDO ([facility]) Systolic blood pressure 111 mm[Hg] 111 mm[Hg] A THENA ([facility]) Body weight 1840 [oz_av] 1840 [oz_av] HAROLDO ([facility]) Diastolic blood pressure 77 mm[Hg] 77 mm[Hg] HAROLDO ([facility]) Systolic blood pressure 111 mm[Hg] 111 mm[Hg] A THENA ([facility]) Body weight 1840 [oz_av] 1840 [oz_av] HAROLDO ([facility]) Diastolic blood pressure 77 mm[Hg] 77 mm[Hg] HAROLDO ([facility]) Body height 64 [in_i] 64 [in_i] HAROLDO ([facility]) Body mass index (BMI) [Ratio] 19.7 kg/m2 19.7 k g/m2 HAROLDO ([facility]) Diastolic blood pressure 77 mm[Hg] 77 mm[Hg] HAROLDO ([facility]) Body height 64 [in_i] 64 [in_i] HAROLDO ([facility]) Body mass index (BMI) [Ratio] 19.7 kg/m2 19.7 k g/m2 HAROLDO ([facility]) Systolic blood pressure 111 mm[Hg] 111 mm[Hg] [facility] Body weight 1840 [oz_av] 1840 [oz_av] HAROLDO ([facility]) Body mass index (BMI) [Ratio] 19.7 kg/m2 19.7 k g/m2 HAROLDO ([facility]) Diastolic blood pressure 77 mm[Hg] 77 mm[Hg] HAROLDO ([facility]) Body height 64 [in_i] 64 [in_i] HAROLDO ([facility]) Body mass index (BMI) [Ratio] 19.7 kg/m2 19.7 k g/m2 HAROLDO ([facility]) Systolic blood pressure 111 mm[Hg] 111 mm[Hg] A THENA ([facility]) Body weight 1840 [oz_av] 1840 [oz_av] HAROLDO ([facility]) Diastolic blood pressure 77 mm[Hg] 77 mm[Hg] HAROLDO ([facility]) Body height 64 [in_i] 64 [in_i] HAROLDO ([facility]) Systolic blood pressure 111 mm[Hg] 111 mm[Hg] A THENA ([facility]) Body weight 1840 [oz_av] 1840 [oz_av] HAROLDO ([facility]) Systolic blood pressure 117 mm[Hg] 117 mm[Hg] e CW1 ([facility]) Body weight 120 [lb_av] 120 [lb_av] eCW1 ([facility]) Diastolic blood pressure 73 mm[Hg] 73 mm[Hg] eCW1 ([facility]) Body weight 54.43 kg 54.43 kg eCW1 ([facility]) Body height 64 [in_i] 64 [in_i] eCW1 ([facility]) Body mass index (BMI) [Ratio] 20.6 kg/m2 20.6 k g/m2 [facility] ([facility]) Patient Treatment Plan of Care Planned Activity Planned Date Details Description Data Source (s) Metronidazole 0.0075 MG/MG Vaginal Gel 12/01/2020 12:00:00 AM EST eCW1 ([facility]) Sertraline 25 MG Oral Tablet HAROLDO ([facility]) prednisolone acetate 10 MG/ML Ophthalmic Suspension HAROLDO ([facility]) NITROFURANTOIN, MACROCRYSTALS 25 MG / Ni trofurantoin, Monohydrate 75 MG Oral Capsule HAROLDO ([facility]) Metronidazole 0.0075 MG/MG Vaginal Gel HAROLDO ([facility]) Fluoxetine 10 MG Oral Capsule HAROLDO ([facility]) Fluconazole 150 MG Oral Tablet HAROLDO ([facility]) Azithromycin 500 MG Oral Tablet HAROLDO ([facility]) Sertraline 25 MG Oral Tablet HAROLDO ([facility]) prednisolone acetate 10 MG/ML Ophthalmic Suspension HAROLDO ([facility]) NITROFURANTOIN, MACROCRYSTALS 25 MG / Ni trofurantoin, Monohydrate 75 MG Oral Capsule HAROLDO ([facility]) Metronidazole 0.0075 MG/MG Vaginal Gel HAROLDO ([facility]) Fluoxetine 10 MG Oral Capsule HAROLDO ([facility]) Fluconazole 150 MG Oral Tablet HAROLDO ([facility]) Azithromycin 500 MG Oral Tablet HAROLDO ([facility]) Sertraline 25 MG Oral Tablet HAROLDO ([facility]) prednisolone acetate 10 MG/ML Ophthalmic Suspension HAROLDO ([facility]) NITROFURANTOIN, MACROCRYSTALS 25 MG / Ni trofurantoin, Monohydrate 75 MG Oral Capsule HAROLDO ([facility]) Metronidazole 0.0075 MG/MG Vaginal Gel HAROLDO ([facility]) Fluoxetine 10 MG Oral Capsule HAROLDO ([facility]) Fluconazole 150 MG Oral Tablet HAROLDO ([facility]) Azithromycin 500 MG Oral Tablet HAROLDO ([facility]) Sertraline 25 MG Oral Tablet HAROLDO ([facility]) prednisolone acetate 10 MG/ML Ophthalmic Suspension HAROLDO ([facility]) NITROFURANTOIN, MACROCRYSTALS 25 MG / Ni trofurantoin, Monohydrate 75 MG Oral Capsule HAROLDO ([facility]) Metronidazole 0.0075 MG/MG Vaginal Gel HAROLDO ([facility]) Fluoxetine 10 MG Oral Capsule HAROLDO ([facility]) Fluconazole 150 MG Oral Tablet HAROLDO ([facility]) Azithromycin 500 MG Oral Tablet HAROLDO ([facility]) Sertraline 25 MG Oral Tablet HAROLDO ([facility]) prednisolone acetate 10 MG/ML Ophthalmic Suspension HAROLDO ([facility]) NITROFURANTOIN, MACROCRYSTALS 25 MG / Ni trofurantoin, Monohydrate 75 MG Oral Capsule HAROLDO ([facility]) Metronidazole 0.0075 MG/MG Vaginal Gel HAROLDO ([facility]) Fluoxetine 10 MG Oral Capsule HAROLDO ([facility]) Fluconazole 150 MG Oral Tablet HAROLDO ([facility]) Azithromycin 500 MG Oral Tablet HAROLDO ([facility]) Sertraline 25 MG Oral Tablet HAROLDO ([facility]) prednisolone acetate 10 MG/ML Ophthalmic Suspension HAROLDO ([facility]) NITROFURANTOIN, MACROCRYSTALS 25 MG / Ni trofurantoin, Monohydrate 75 MG Oral Capsule HAROLDO ([facility]) Metronidazole 0.0075 MG/MG Vaginal Gel AHROLDO ([facility]) Fluoxetine 10 MG Oral Capsule HAROLDO ([facility]) Fluconazole 150 MG Oral Tablet HAROLDO ([facility]) Azithromycin 500 MG Oral Tablet HAROLDO ([facility]) Sertraline 25 MG Oral Tablet HAROLDO ([facility]) NITROFURANTOIN, MACROCRYSTALS 25 MG / Ni trofurantoin, Monohydrate 75 MG Oral Capsule HAROLDO ([facility]) Metronidazole 0.0075 MG/MG Vaginal Gel HAROLDO ([facility]) Fluconazole 150 MG Oral Tablet HAROLDO ([facility]) Azithromycin 500 MG Oral Tablet HAROLDO ([facility]) Fluconazole 150 MG Oral Tablet HAROLDO ([facility]) Azithromycin 500 MG Oral Tablet HAROLDO ([facility]) Sertraline 25 MG Oral Tablet HAROLDO ([facility]) NITROFURANTOIN, MACROCRYSTALS 25 MG / Ni trofurantoin, Monohydrate 75 MG Oral Capsule HAROLDO ([facility]) Metronidazole 0.0075 MG/MG Vaginal Gel HAROLDO ([facility]) Fluconazole 150 MG Oral Tablet HAROLDO ([facility]) Azithromycin 500 MG Oral Tablet HAROLDO ([facility]) NITROFURANTOIN, MACROCRYSTALS 25 MG / Ni trofurantoin, Monohydrate 75 MG Oral Capsule [facility]DO ([facility]) Metronidazole 0.0075 MG/MG Vaginal Gel HAROLDO ([facility]) Fluconazole 150 MG Oral Tablet HAROLDO ([facility]) Azithromycin 500 MG Oral Tablet HAROLDO ([facility]) Sertraline 25 MG Oral Tablet HARLODO ([facility]) NITROFURANTOIN, MACROCRYSTALS 25 MG / Ni trofurantoin, Monohydrate 75 MG Oral Capsule HAROLDO ([facility]) Metronidazole 0.0075 MG/MG Vaginal Gel HAROLDO ([facility]) Fluconazole 150 MG Oral Tablet HAROLDO ([facility]) Azithromycin 500 MG Oral Tablet HAROLDO ([facility]) NITROFURANTOIN, MACROCRYSTALS 25 MG / Ni trofurantoin, Monohydrate 75 MG Oral Capsule HAROLDO ([facility]) Metronidazole 0.0075 MG/MG Vaginal Gel HAROLDO ([facility]) Fluconazole 150 MG Oral Tablet HAROLDO ([facility]) Azithromycin 500 MG Oral Tablet HAROLDO ([facility]) Sertraline 25 MG Oral Tablet HAROLDO ([facility]) NITROFURANTOIN, MACROCRYSTALS 25 MG / Ni trofurantoin, Monohydrate 75 MG Oral Capsule HAROLDO ([facility]) Metronidazole 0.0075 MG/MG Vaginal Gel HAROLDO ([facility])
--- OUTSIDE RECORDS SUMMARY | 2021-07-31 14:12 | CCD ---
Author Author [facility] Organization [facility] Address Unknown Phone Unavailable Care Team Providers Care Animal Laboratory Technician Name Role Phone GOLDMAN, LOIDA JOSE RPA-C [...] LOIDA JOSE RPA-C Unavailable Unavailable GOLDMAN, LOIDA JOES RPA-C Unavailable Unavailable GOLDMAN, LOIDA JOSE RPA-C [...] is protected by Article 27-F of the [facility] Public Health law. If you continue you may have access to information: Regarding HIV / AIDS; Provided by facilities licensed or operated by the [facility] Office of Mental Health; or Provided by the [facility] Office for People With Developmental Disabilities. If such information is present, then the following [facility] mandated warning applies: This information has been [...] law may result in a fine or care home sentence or both. A general authorization for the release of medical or other information is NOT sufficient authorization for further disc losure. Family History Family Member Name Family Member Gender Family Member Status Date o f Status Description Data Source(s) Unknown Male Problem MEDENT ([facility]) Unknown Unknown Problem MEDENT ([facility], ) Encounters Encounter Providers Location Date Indications Data Source(s ) Outpatient [address] [facility] [address] 07/23/2021 12:00:00 AM EDT eCW1 ([facility]) Unknown [address] [facility] [address] 07/07/2021 12:00:00 AM EDT eCW1 ([facility]) Sherrie Jean Baptiste LCSW-R: [address], [place] [address], Ph. Attender: Sherrie Landry [facility] Medical 06/21/2021 12:00:00 [facility] Sherrie Jean Baptiste LCSW-R: [address], [place] [address], Ph. Attender: Sherrie Landry [facility] Medical 06/07/2021 12:00:00 AM [facility]T [facility] Sherrie Jean Baptiste LCSW-R: [address], [address], [place] [address], Ph. Attender: Sherrie Landry [facility] Medical 06/07/2021 12:00:00 AM EDT [facility] Sherrie Jean Baptiste, COAL DELIVERER-R: [address], [address], [place] [address], Ph. Attender: Sherrie Landry [facility] Medical 06/07/2021 12:00:00 AM EDT [place] ([facility]) SherrieSIERRA ChengW-R: [address], [address], [place] [address], Ph. Attender: Sherrie Landry [facility] Medical 06/07/2021 12:00:00 AM EDT [place] ([facility]) SherrieSIERRA ChengW-R: [address], [address], [place] [address], Ph. Attender: Sherrie Landry [facility] Medical 06/02/2021 12:00:00 AM EDT [place] ([facility]) SIERRA MarW-R: [address], [address], [place] [address], Ph. Attender: Sherrie Landry [facility] Medical 06/02/2021 12:00:00 AM EDT [place] ([facility]) SIERRA MarW-R: [address], [address], [place] [address], Ph. Attender: Sherrie Landry [facility] Medical 06/02/2021 12:00:00 AM EDT [place] ([facility]) SIERRA MarW-R: [address], [address], [place] [address], Ph. Attender: Sherrie Evangelinaanalydouglas [facility] Medical 06/02/2021 12:00:00 AM EDT [facility]) SIERRA MarW-R: [address], [place] [address], Ph. Attender: Sherrie Landry [facility] Medical 05/24/2021 12:00:00 AM EDT [facility]) SIERRA MarW-R: [address], [place] [address], Ph. Attender: Sherrie Landry [facility] Medical 05/24/2021 12:00:00 AM EDT [facility]) SIERRA MarW-R: [address], [place] [address], Ph. Attender: Sherrie Landry [facility] Medical 05/24/2021 12:00:00 AM EDT [facility]) SIERRA MarW-R: [address], [place] [address], Ph. Attender: Sherrie Landry [facility] Medical 05/24/2021 12:00:00 AM EDT [facility]) Sherrie Jean Baptiste LCSW-R: [address], [place] [address], Ph. Attender: Sherrie Landry [facility] Medical 05/10/2021 12:00:00 AM EDT [place] ([facility]) Sherrie Jean Baptiste LCSW-R: [address], [place] [address], Ph. Attender: Sherrie Landry [facility] Medical 05/10/2021 12:00:00 AM EDT [place] ([facility]) SIERRA MarW-R: [address], [place] [address], Ph. Attender: Sherrie Landry [facility] Medical 05/10/2021 12:00:00 AM EDT [place] ([facility]) SIERRA MarW-R: [address], [place] [address], Ph. Attender: Sherrie Mayorgabee [facility] Medical 05/10/2021 12:00:00 AM EDT [place] ([facility]) SIERRA MarW-R: [address], [place] [address], Ph. Attender: Sherrie Hutchinsonanalyleobee [facility] Medical 05/10/2021 12:00:00 AM EDT [place] ([facility]) Nella Gray PA-C: [address], [place] [address], Ph. Attender: Nella MIRANDA [facility] Medical 05/07/2021 12:00:00 AM EDT [place] ([facility]) Nella Gray PA-C: [address], [place] [address], Ph. Attender: Nella MIRANDA [facility] Medical 05/07/2021 12:00:00 AM EDT [place] ([facility]) Nella Gray PA-C: [address], [place] [address], Ph. Attender: Nella MIRANDA [facility] Medical 05/07/2021 12:00:00 AM EDT [place] ([facility]) Nella Gray PA-C: [address], [place] [address], Ph. Attender: Nella MIRANDA [facility] Medical 05/07/2021 12:00:00 AM EDT [place] ([facility]) EREN OscarC: [address], [facility] [place] [address], Ph. Attender: Nella MIRANDA [facility] Medical 05/07/2021 12:00:00 AM EDT [place] ([facility]) Nella Gray PA-C: [address], [facility] [facility] [address], Ph. Attender: Nella MIRANDA [facility] Medical 05/07/2021 12:00:00 AM EDT [place] ([facility]) Jose Goldman RPA-C: [address], [place] [address], Ph. Attender: JOSE GOLDMAN RPA-C [facility] Medical 04/28/2021 12:00:00 AM EDT [place] ([facility]) Jose Goldman RPA-C: [address], [place] [address], Ph. Attender: JOSE GOLDMAN RPA-C [facility] Medical 04/28/2021 12:00:00 AM EDT [place] ([facility]) Jose Goldman RPA-C: [address], [place] [address], Ph. Attender: JOSE GOLDMAN RPA-C [facility] Medical 04/28/2021 12:00:00 AM EDT [place] ([facility]) Jose Goldman RPA-C: [address], [place] [address], Ph. Attender: JOSE GOLDMAN RPA-C [facility] Medical 04/28/2021 12:00:00 AM EDT [place] ([facility]) Jose Goldman RPA-C: [address], [place] [address], Ph. Attender: JOSE GOLDMAN RPA-C [facility] Medical 04/28/2021 12:00:00 AM EDT [place] ([facility]) Jose Goldman RPA-C: [address], [address], [place] [address], Ph. Attender: JOSE GOLDMAN RPA-C [facility] Medical 04/28/2021 12:00:00 AM EDT [place] ([facility]) Jose Goldman RPA-C: [address], [address], [place] [address], Ph. Attender: JOSE GOLDMAN RPA-C [facility] Medical 04/28/2021 12:00:00 AM EDT [place] ([facility]) [place] [address] [facility] [address] 04/26/2021 12:00:00 AM EDT eCW1 ([facility]) SIERRA MarW-R: [address], [address], [place] [address], Ph. Attender: Sherrie Landry [facility] Medical 04/15/2021 12:00:00 AM EDT [place] ([facility]) SIERRA MarW-R: [address], [address], [place] [address], Ph. Attender: Sherrie Landry [facility] Medical 04/15/2021 12:00:00 AM EDT [place] ([facility]) SIERRA MarW-R: [address], [address], [place] [address], Ph. Attender: Sherrie Landry [facility] Medical 04/15/2021 12:00:00 AM EDT [place] ([facility]) SIERRA MarW-R: [address], [address], [place] [address], Ph. Attender: Sherrie Landry [facility] Medical 04/15/2021 12:00:00 AM EDT [place] ([facility]) SIERRA MarW-R: [address], [address], [place] [address], Ph. Attender: Sherrie Landry [facility] Medical 04/15/2021 12:00:00 AM EDT [place] ([facility]) SIERRA MarW-R: [address], [address], [place] [address], Ph. Attender: Sherrie Hutchinsonanalydouglas [facility] Medical 04/15/2021 12:00:00 AM EDT [place] ([facility]) SIERRA MarW-R: [address], [address], [place] [address], Ph. Attender: Sherrie Landry [facility] Medical 04/15/2021 12:00:00 AM EDT [facility] SherrieSIERRA ChengW-R: [address], [address], [place] [address], Ph. Attender: Sherrie Landry [facility] Medical 04/15/2021 12:00:00 AM EDT [place] ([facility]) SIERRA MarW-R: [address], [address], [place] [address], Ph. Attender: Sherrie Landry [facility] Medical 04/01/2021 12:00:00 AM EDT [place] ([facility]) SIERRA MarW-R: [address], [address], [place] [address], Ph. Attender: Sherrie Evangelinaanalyleobee [facility] Medical 04/01/2021 12:00:00 AM EDT [place] ([facility]) SIERRA MarW-R: [address], [address], [place] [address], Ph. Attender: Sherrie Landry [facility] Medical 04/01/2021 12:00:00 AM EDT [place] ([facility]) SIERRA MarW-R: [address], [address], [place] [address], Ph. Attender: Sherrie Evangelinaanalyleobee [facility] Medical 04/01/2021 12:00:00 AM EDT [place] ([facility]) SIERRA MarW-R: [address], [address], [place] [address], Ph. Attender: Sherrie Landry [facility] Medical 04/01/2021 12:00:00 AM EDT [place] ([facility]) Sherrie Jean Baptiste, COAL DELIVERER-R: [address], [address], [place] [address], Ph. Attender: Sherrie Landry [facility] Medical 04/01/2021 12:00:00 AM EDT [place] ([facility]) Sherrie Jean BaptisteSIERRAW-R: [address], [address], [place] [address], Ph. Attender: Sherrie Landry [facility] Medical 04/01/2021 12:00:00 AM EDT [place] ([facility]) Sherrie DangeloSIERRA micheleW-R: [address], [address], [place] [address], Ph. Attender: Sherrie Landry [facility] Medical 04/01/2021 12:00:00 AM EDT [place] ([facility]) Sherrie Jean BaptisteSIERRAW-R: [address], [address], [place] [address], Ph. Attender: Sherrie Mayorgabee [facility] Medical 04/01/2021 12:00:00 AM EDT [place] ([facility]) Nella Gray PA-C: [address], [place] [address], Ph. Attender: Nella MIRANDA [facility] Medical 03/29/2021 12:00:00 AM EDT [place] ([facility]) Nella Gray PA-C: [address], [place] [address], Ph. Attender: Nella MIRANDA [facility] Medical 03/29/2021 12:00:00 AM EDT [place] ([facility]) Nella Gray PA-C: [address], [place] [address], Ph. Attender: Nella MIRANDA [facility] Medical 03/29/2021 12:00:00 AM EDT [place] ([facility]) Nella Gray PA-C: [address], [place] [address], Ph. Attender: Nella MIRANDA [facility] Medical 03/29/2021 12:00:00 AM EDT [place] ([facility]) Nella Gray PA-C: [address], [place] [address], Ph. Attender: Nella MIRANDA [facility] Medical 03/29/2021 12:00:00 AM EDT [place] ([facility]) Nella Gray PA-C: [address], [place] [address], Ph. Attender: Nella MIRANDA [facility] Medical 03/29/2021 12:00:00 AM EDT [place] ([facility]) Nella Gray PA-C: [address], [place] [address], Ph. Attender: Nella MIRANDA [facility] Medical 03/29/2021 12:00:00 AM EDT [place] ([facility]) Nella Gray PA-C: [address], [place] [address], Ph. Attender: Nella MIRANDA [facility] Medical 03/29/2021 12:00:00 AM EDT [place] ([facility]) Nella Gray PA-C: [address], [place] [address], Ph. Attender: Nella MIRANDA [facility] Medical 03/29/2021 12:00:00 AM EDT [place] ([facility]) Nella Gray PA-C: [address], [place] [address], Ph. Attender: Nella MIRANDA [facility] Medical 03/29/2021 12:00:00 AM EDT [place] ([facility]) SIERRA MarW-R: [address], [place] [address], Ph. Attender: Sherrie Landry [facility] Medical 03/22/2021 12:00:00 AM EDT [facility]) SIERRA MarW-R: [address], [place] [address], Ph. Attender: Sherrie Landry [facility] Medical 03/22/2021 12:00:00 AM EDT [place] ([facility]) Sherrie Jean Baptiste LCSW-R: [address], [place] [address], Ph. Attender: Sherrie Landry [facility] Medical 03/22/2021 12:00:00 AM EDT [place] ([facility]) Sherrie Jean Baptiste LCSW-R: [address], [place] [address], Ph. Attender: Sherrie Landry [facility] Medical 03/22/2021 12:00:00 AM EDT [facility]) SIERRA MarW-R: [address], [place] [address], Ph. Attender: Sherrie Landry [facility] Medical 03/22/2021 12:00:00 AM EDT [facility]) SIERRA MarW-R: [address], [place] [address], Ph. Attender: Sherrie Landry [facility] Medical 03/22/2021 12:00:00 AM EDT [facility]) SIERRA MarW-R: [address], [place] [address], Ph. Attender: Sherrie Landry [facility] Medical 03/22/2021 12:00:00 AM EDT [facility]) SIERRA MarW-R: [address], [place] [address], Ph. Attender: Sherrie Landry [facility] Medical 03/22/2021 12:00:00 AM EDT [facility]) SIERRA MarW-R: [address], [place] [address], Ph. Attender: Sherrie Landry [facility] Medical 03/22/2021 12:00:00 AM EDT [place] ([facility]) SIERRA MarW-R: [address], [place] [address], Ph. Attender: Sherrie Landry [facility] Medical 03/22/2021 12:00:00 AM EDT [place] ([facility]) SIERRA MarW-R: [address], [place] [address], Ph. Attender: Sherrie Landry [facility] Medical 03/22/2021 12:00:00 AM EDT [place] ([facility]) Nella Gray PA-C: [address], [place] [address], Ph. Attender: Nella MIRANDA [facility] Medical 01/28/2021 12:00:00 AM EDT [place] ([facility]) Nella Gray PA-C: [address], [place] [address], Ph. Attender: Nella MIRANDA [facility] Medical 01/28/2021 12:00:00 AM EDT [place] ([facility]) Nella Gray PA-C: [address], [place] [address], Ph. Attender: Nella MIRANDA [facility] Medical 01/28/2021 12:00:00 AM EDT [place] ([facility]) Nella Gray PA-C: [address], [place] [address], Ph. Attender: Nella MIRANDA [facility] Medical 01/28/2021 12:00:00 AM EDT [place] ([facility]) Nella Gray PA-C: [address], [place] [address], Ph. Attender: Nella MIRANDA [facility] Medical 01/28/2021 12:00:00 AM EDT [place] ([facility]) Nella Gray PA-C: [address], [place] [address], Ph. Attender: Nella MIRANDA [facility] Medical 01/28/2021 12:00:00 AM EDT [place] ([facility]) Nella Gray PA-C: [address], [place] [address], Ph. Attender: Nella MIRANDA [facility] Medical 01/28/2021 12:00:00 AM EDT [place] ([facility]) Nella Gray PA-C: [address], [place] [address], Ph. Attender: eNlla MIRANDA [facility] Medical 01/28/2021 12:00:00 AM EDT [place] ([facility]) Nella Gray PA-C: [address], [place] [address], Ph. Attender: Nella MIRANDA [facility] Medical 01/28/2021 12:00:00 AM EDT [place] ([facility]) Nella Gray PA-C: [address], [place] [address], Ph. Attender: Nella MIRANDA [facility] Medical 01/28/2021 12:00:00 AM EDT [place] ([facility]) Nella Gray PA-C: [address], [place] [address], Ph. Attender: Nella MIRANDA [facility] Medical 01/28/2021 12:00:00 AM EDT [place] ([facility]) Nella Gray PA-C: [address], [place] [address], Ph. 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 [address] [place] [address] 12/01/2020 12:00:00 AM EST eCW1 ([facility]) Medications Medication Brand Name Start Date Product [...] AM EST suspended metroNIDAZOLE 0.75 % eCW1 ([facility]) Metronidazole 0.0075 MG/MG Vaginal Gel metroNIDAZOLE 0 .75 % metroNIDAZOLE 0.75 % 12/01/2020 12:00:00 AM EST suspended metroNIDAZOLE 0.75 % eCW1 ([facility]) Metronidazole 0.0075 MG/MG Vaginal Gel metroNIDAZOLE 0 .75 % metroNIDAZOLE 0.75 % 12/01/2020 12:00:00 AM EST active metroNIDAZOLE 0.75 % eCW1 ([facility]) Metronidazole 0.0075 MG/MG Vaginal Gel Metronidazole 0 .75 % Metronidazole 0.75 % 12/01/2020 12:00:00 AM EST active Metronidazole 0.75 % eCW1 ([facility]) 500 mg 06/12/2020 12:00:00 AM EDT tablet [...] completed fluconazole 150 MG Oral Tablet [place] ([facility]) Azithromycin 500 MG Oral Tablet azithrom ycin 500 mg tablet TAKE TWO TABLETS BY MOUTH ONCE azithromycin 500 mg tablet TAKE TWO TABLETS BY MOUTH ONCE completed azithromycin 500 MG Oral Tab let [place] ([facility]) prednisolone acetate 10 MG/ML Ophthalmic Suspension prednisolone acetate 1 % eye drops,suspension INSTILL 1 DROP IN BOTH EYES FOUR TIMES A DAY DIRECTED prednisolone acetate 1 % eye drops,suspension INSTILL 1 DROP IN BOTH EYES FOUR TIMES A DAY DIRECTED completed prednisolone acetate 10 MG/ML Ophthalmic Suspension [place] ([facility]) NITROFURANTOIN, MACROCRYSTALS 25 MG / Ni trofurantoin, Monohydrate 75 MG Oral Capsule nitrofurantoin monohydrate/macrocrystals 100 mg capsule TAKE ONE CAPSULE BY MOUTH TWICE A DAY nitrofurantoin monohydrate/macrocrystals 100 mg capsule TAKE ONE CAPSULE BY MOUTH TWICE A DAY completed nitrofurantoin, macrocrystals 25 MG / nitrofurantoin, monohydrate 75 MG Oral Capsule [place] ([facility]) Azithromycin 500 MG Oral Tablet azithrom ycin 500 mg tablet TAKE TWO TABLETS BY MOUTH ONCE azithromycin 500 mg tablet TAKE TWO TABLETS BY MOUTH ONCE completed azithromycin 500 MG Oral Tab let [place] ([facility]) Fluoxetine 10 MG Oral Capsule fluoxetine 10 mg capsule fluox etine 10 mg capsule completed fluoxetine 10 MG Oral Capsule [place] ([facility]) Metronidazole 0.0075 MG/MG Vaginal Gel m etronidazole 0.75 % vaginal gel APPLY 1 APPLICATORFUL AT BEDTIME ONCE A DAY FOR 5 DAYS metronidazole 0.75 % vaginal gel APPLY 1 APPLICATORFUL AT BEDTIME ONCE A DAY FOR 5 DAYS completed metronidazole 0.0075 MG/MG Vaginal Gel [place] ([facility]) Metronidazole 0.0075 MG/MG Vaginal Gel m etronidazole 0.75 % vaginal gel APPLY 1 APPLICATORFUL AT BEDTIME ONCE A DAY FOR 5 DAYS metronidazole 0.75 % vaginal gel APPLY 1 APPLICATORFUL AT BEDTIME ONCE A DAY FOR 5 DAYS completed metronidazole 0.0075 MG/MG Vaginal Gel [place] ([facility]) NITROFURANTOIN, MACROCRYSTALS 25 MG / Ni trofurantoin, Monohydrate 75 MG Oral Capsule nitrofurantoin monohydrate/macrocrystals 100 mg capsule TAKE ONE CAPSULE BY MOUTH TWICE A DAY nitrofurantoin monohydrate/macrocrystals 100 mg capsule TAKE ONE CAPSULE BY MOUTH TWICE A DAY completed nitrofurantoin, macrocrystals 25 MG / nitrofurantoin, monohydrate 75 MG Oral Capsule [place] ([facility]) Metronidazole 0.0075 MG/MG Vaginal Gel m etronidazole 0.75 % vaginal gel APPLY 1 APPLICATORFUL AT BEDTIME ONCE A DAY FOR 5 DAYS metronidazole 0.75 % vaginal gel APPLY 1 APPLICATORFUL AT BEDTIME ONCE A DAY FOR 5 DAYS completed metronidazole 0.0075 MG/MG Vaginal Gel [place] ([facility]) Metronidazole 0.0075 MG/MG Vaginal Gel m etronidazole 0.75 % vaginal gel APPLY 1 APPLICATORFUL AT BEDTIME ONCE A DAY FOR 5 DAYS metronidazole 0.75 % vaginal gel APPLY 1 APPLICATORFUL AT BEDTIME ONCE A DAY FOR 5 DAYS completed metronidazole 0.0075 MG/MG Vaginal Gel [place] ([facility]) Fluconazole 150 MG Oral Tablet fluconazo le 150 mg tablet TAKE 1 TABLET BY MOUTH NOW THEN TAKE 2ND TABLET IN 48 HOURS fluconazole 150 mg tablet TAKE 1 TABLET BY MOUTH NOW THEN TAKE 2ND TABLET IN 48 HOURS completed fluconazole 150 MG Oral Tablet [place] ([facility]) Azithromycin 500 MG Oral Tablet azithrom ycin 500 mg tablet TAKE TWO TABLETS BY MOUTH ONCE azithromycin 500 mg tablet TAKE TWO TABLETS BY MOUTH ONCE completed azithromycin 500 MG Oral Tab let [place] ([facility]) Fluoxetine 10 MG Oral Capsule fluoxetine 10 mg capsule fluox etine 10 mg capsule completed fluoxetine 10 MG Oral Capsule [place] ([facility]) Metronidazole 0.0075 MG/MG Vaginal Gel m etronidazole 0.75 % vaginal gel APPLY 1 APPLICATORFUL AT BEDTIME ONCE A DAY FOR 5 DAYS metronidazole 0.75 % vaginal gel APPLY 1 APPLICATORFUL AT BEDTIME ONCE A DAY FOR 5 DAYS completed metronidazole 0.0075 MG/MG Vaginal Gel [place] ([facility]) prednisolone acetate 10 MG/ML Ophthalmic Suspension prednisolone acetate 1 % eye drops,suspension INSTILL 1 DROP IN BOTH EYES FOUR TIMES A DAY DIRECTED prednisolone acetate 1 % eye drops,suspension INSTILL 1 DROP IN BOTH EYES FOUR TIMES A DAY DIRECTED completed prednisolone acetate 10 MG/ML Ophthalmic Suspension [place]) Sertraline 25 MG Oral Tablet sertraline 25 mg tablet TAKE ONE TABLET BY MOUTH EVERY DAY sertraline 25 mg tablet TAKE ONE TABLET BY MOUTH EVERY DAY completed sertraline 25 MG Oral Tablet [place] ([facility]) Azithromycin 500 MG Oral Tablet azithrom ycin 500 mg tablet TAKE TWO TABLETS BY MOUTH ONCE azithromycin 500 mg tablet TAKE TWO TABLETS BY MOUTH ONCE completed azithromycin 500 MG Oral Tab let [place] ([facility]) Azithromycin 500 MG Oral Tablet azithrom ycin 500 mg tablet TAKE TWO TABLETS BY MOUTH ONCE azithromycin 500 mg tablet TAKE TWO TABLETS BY MOUTH ONCE completed azithromycin 500 MG Oral Tab let [place] ([facility]) Metronidazole 0.0075 MG/MG Vaginal Gel m etronidazole 0.75 % vaginal gel APPLY 1 APPLICATORFUL AT BEDTIME ONCE A DAY FOR 5 DAYS metronidazole 0.75 % vaginal gel APPLY 1 APPLICATORFUL AT BEDTIME ONCE A DAY FOR 5 DAYS completed metronidazole 0.0075 MG/MG Vaginal Gel [place] ([facility]) Sertraline 25 MG Oral Tablet sertraline 25 mg tablet TAKE ONE TABLET BY MOUTH EVERY DAY sertraline 25 mg tablet TAKE ONE TABLET BY MOUTH EVERY DAY completed sertraline 25 MG Oral Tablet [place] ([facility]) Metronidazole 0.0075 MG/MG Vaginal Gel m etronidazole 0.75 % vaginal gel APPLY 1 APPLICATORFUL AT BEDTIME ONCE A DAY FOR 5 DAYS metronidazole 0.75 % vaginal gel APPLY 1 APPLICATORFUL AT BEDTIME ONCE A DAY FOR 5 DAYS completed metronidazole 0.0075 MG/MG Vaginal Gel [place] ([facility]) Fluoxetine 10 MG Oral Capsule fluoxetine 10 mg capsule fluox etine 10 mg capsule completed fluoxetine 10 MG Oral Capsule [place] ([facility]) Fluconazole 150 MG Oral Tablet fluconazo le 150 mg tablet TAKE 1 TABLET BY MOUTH NOW THEN TAKE 2ND TABLET IN 48 HOURS fluconazole 150 mg tablet TAKE 1 TABLET BY MOUTH NOW THEN TAKE 2ND TABLET IN 48 HOURS completed fluconazole 150 MG Oral Tablet [place] ([facility]) Sertraline 25 MG Oral Tablet sertraline 25 mg tablet TAKE ONE TABLET BY MOUTH EVERY DAY sertraline 25 mg tablet TAKE ONE TABLET BY MOUTH EVERY DAY completed sertraline 25 MG Oral Tablet [place] ([facility]) Fluoxetine 10 MG Oral Capsule fluoxetine 10 mg capsule fluox etine 10 mg capsule completed fluoxetine 10 MG Oral Capsule [place] ([facility]) Fluconazole 150 MG Oral Tablet fluconazo le 150 mg tablet TAKE 1 TABLET BY MOUTH NOW THEN TAKE 2ND TABLET IN 48 HOURS fluconazole 150 mg tablet TAKE 1 TABLET BY MOUTH NOW THEN TAKE 2ND TABLET IN 48 HOURS completed fluconazole 150 MG Oral Tablet [place] ([facility]) prednisolone acetate 10 MG/ML Ophthalmic Suspension prednisolone acetate 1 % eye drops,suspension INSTILL 1 DROP IN BOTH EYES FOUR TIMES A DAY DIRECTED prednisolone acetate 1 % eye drops,suspension INSTILL 1 DROP IN BOTH EYES FOUR TIMES A DAY DIRECTED completed prednisolone acetate 10 MG/ML Ophthalmic Suspension [place] ([facility]) NITROFURANTOIN, MACROCRYSTALS 25 MG / Ni trofurantoin, Monohydrate 75 MG Oral Capsule nitrofurantoin monohydrate/macrocrystals 100 mg capsule TAKE ONE CAPSULE BY MOUTH TWICE A DAY nitrofurantoin monohydrate/macrocrystals 100 mg capsule TAKE ONE CAPSULE BY MOUTH TWICE A DAY completed nitrofurantoin, macrocrystals 25 MG / nitrofurantoin, monohydrate 75 MG Oral Capsule [place] ([facility]) Sertraline 25 MG Oral Tablet sertraline 25 mg tablet TAKE ONE TABLET BY MOUTH EVERY DAY sertraline 25 mg tablet TAKE ONE TABLET BY MOUTH EVERY DAY completed sertraline 25 MG Oral Tablet [place] ([facility]) NITROFURANTOIN, MACROCRYSTALS 25 MG / Ni trofurantoin, Monohydrate 75 MG Oral Capsule nitrofurantoin monohydrate/macrocrystals 100 mg capsule TAKE ONE CAPSULE BY MOUTH TWICE A DAY nitrofurantoin monohydrate/macrocrystals 100 mg capsule TAKE ONE CAPSULE BY MOUTH TWICE A DAY completed nitrofurantoin, macrocrystals 25 MG / nitrofurantoin, monohydrate 75 MG Oral Capsule [place] ([facility]) NITROFURANTOIN, MACROCRYSTALS 25 MG / Ni trofurantoin, Monohydrate 75 MG Oral Capsule nitrofurantoin monohydrate/macrocrystals 100 mg capsule TAKE ONE CAPSULE BY MOUTH TWICE A DAY nitrofurantoin monohydrate/macrocrystals 100 mg capsule TAKE ONE CAPSULE BY MOUTH TWICE A DAY completed nitrofurantoin, macrocrystals 25 MG / nitrofurantoin, monohydrate 75 MG Oral Capsule [place] ([facility]) Fluconazole 150 MG Oral Tablet fluconazo le 150 mg tablet TAKE 1 TABLET BY MOUTH NOW THEN TAKE 2ND TABLET IN 48 HOURS fluconazole 150 mg tablet TAKE 1 TABLET BY MOUTH NOW THEN TAKE 2ND TABLET IN 48 HOURS completed fluconazole 150 MG Oral Tablet [place] ([facility]) Metronidazole 0.0075 MG/MG Vaginal Gel m etronidazole 0.75 % vaginal gel APPLY 1 APPLICATORFUL AT BEDTIME ONCE A DAY FOR 5 DAYS metronidazole 0.75 % vaginal gel APPLY 1 APPLICATORFUL AT BEDTIME ONCE A DAY FOR 5 DAYS completed metronidazole 0.0075 MG/MG Vaginal Gel [place] ([facility]) Metronidazole 0.0075 MG/MG Vaginal Gel m etronidazole 0.75 % vaginal gel APPLY 1 APPLICATORFUL AT BEDTIME ONCE A DAY FOR 5 DAYS metronidazole 0.75 % vaginal gel APPLY 1 APPLICATORFUL AT BEDTIME ONCE A DAY FOR 5 DAYS completed metronidazole 0.0075 MG/MG Vaginal Gel [place] ([facility]) Sertraline 25 MG Oral Tablet sertraline 25 mg tablet TAKE ONE TABLET BY MOUTH EVERY DAY sertraline 25 mg tablet TAKE ONE TABLET BY MOUTH EVERY DAY completed sertraline 25 MG Oral Tablet [place] ([facility]) NITROFURANTOIN, MACROCRYSTALS 25 MG / Ni trofurantoin, Monohydrate 75 MG Oral Capsule nitrofurantoin monohydrate/macrocrystals 100 mg capsule TAKE ONE CAPSULE BY MOUTH TWICE A DAY nitrofurantoin monohydrate/macrocrystals 100 mg capsule TAKE ONE CAPSULE BY MOUTH TWICE A DAY completed nitrofurantoin, macrocrystals 25 MG / nitrofurantoin, monohydrate 75 MG Oral Capsule [facility]) NITROFURANTOIN, MACROCRYSTALS 25 MG / Ni trofurantoin, Monohydrate 75 MG Oral Capsule nitrofurantoin monohydrate/macrocrystals 100 mg capsule TAKE ONE CAPSULE BY MOUTH TWICE A DAY nitrofurantoin monohydrate/macrocrystals 100 mg capsule TAKE ONE CAPSULE BY MOUTH TWICE A DAY completed nitrofurantoin, macrocrystals 25 MG / nitrofurantoin, monohydrate 75 MG Oral Capsule [place] ([facility]) Fluconazole 150 MG Oral Tablet fluconazo le 150 mg tablet TAKE 1 TABLET BY MOUTH NOW THEN TAKE 2ND TABLET IN 48 HOURS fluconazole 150 mg tablet TAKE 1 TABLET BY MOUTH NOW THEN TAKE 2ND TABLET IN 48 HOURS completed fluconazole 150 MG Oral Tablet [facility]) Sertraline 25 MG Oral Tablet sertraline 25 mg tablet TAKE ONE TABLET BY MOUTH EVERY DAY sertraline 25 mg tablet TAKE ONE TABLET BY MOUTH EVERY DAY completed sertraline 25 MG Oral Tablet [facility]) Azithromycin 500 MG Oral Tablet azithrom ycin 500 mg tablet TAKE TWO TABLETS BY MOUTH ONCE azithromycin 500 mg tablet TAKE TWO TABLETS BY MOUTH ONCE completed azithromycin 500 MG Oral Tab let [facility]) Fluoxetine 10 MG Oral Capsule fluoxetine 10 mg capsule fluox etine 10 mg capsule completed fluoxetine 10 MG Oral Capsule [facility]) Azithromycin 500 MG Oral Tablet azithrom ycin 500 mg tablet TAKE TWO TABLETS BY MOUTH ONCE azithromycin 500 mg tablet TAKE TWO TABLETS BY MOUTH ONCE completed azithromycin 500 MG Oral Tab let [place] ([facility]) Azithromycin 500 MG Oral Tablet azithrom ycin 500 mg tablet TAKE TWO TABLETS BY MOUTH ONCE azithromycin 500 mg tablet TAKE TWO TABLETS BY MOUTH ONCE completed azithromycin 500 MG Oral Tab let [facility]) prednisolone acetate 10 MG/ML Ophthalmic Suspension prednisolone acetate 1 % eye drops,suspension INSTILL 1 DROP IN BOTH EYES FOUR TIMES A DAY DIRECTED prednisolone acetate 1 % eye drops,suspension INSTILL 1 DROP IN BOTH EYES FOUR TIMES A DAY DIRECTED completed prednisolone acetate 10 MG/ML Ophthalmic Suspension [place] ([facility]) NITROFURANTOIN, MACROCRYSTALS 25 MG / Ni trofurantoin, Monohydrate 75 MG Oral Capsule nitrofurantoin monohydrate/macrocrystals 100 mg capsule TAKE ONE CAPSULE BY MOUTH TWICE A DAY nitrofurantoin monohydrate/macrocrystals 100 mg capsule TAKE ONE CAPSULE BY MOUTH TWICE A DAY completed nitrofurantoin, macrocrystals 25 MG / nitrofurantoin, monohydrate 75 MG Oral Capsule [place] ([facility]) Azithromycin 500 MG Oral Tablet azithrom ycin 500 mg tablet TAKE TWO TABLETS BY MOUTH ONCE azithromycin 500 mg tablet TAKE TWO TABLETS BY MOUTH ONCE completed azithromycin 500 MG Oral Tab let [place] ([facility]) Sertraline 25 MG Oral Tablet sertraline 25 mg tablet TAKE ONE TABLET BY MOUTH EVERY DAY sertraline 25 mg tablet TAKE ONE TABLET BY MOUTH EVERY DAY completed sertraline 25 MG Oral Tablet [place] ([facility]) Azithromycin 500 MG Oral Tablet azithrom ycin 500 mg tablet TAKE TWO TABLETS BY MOUTH ONCE azithromycin 500 mg tablet TAKE TWO TABLETS BY MOUTH ONCE completed azithromycin 500 MG Oral Tab let [place] ([facility]) Fluconazole 150 MG Oral Tablet fluconazo le 150 mg tablet TAKE 1 TABLET BY MOUTH NOW THEN TAKE 2ND TABLET IN 48 HOURS fluconazole 150 mg tablet TAKE 1 TABLET BY MOUTH NOW THEN TAKE 2ND TABLET IN 48 HOURS completed fluconazole 150 MG Oral Tablet [place] ([facility]) prednisolone acetate 10 MG/ML Ophthalmic Suspension prednisolone acetate 1 % eye drops,suspension INSTILL 1 DROP IN BOTH EYES FOUR TIMES A DAY DIRECTED prednisolone acetate 1 % eye drops,suspension INSTILL 1 DROP IN BOTH EYES FOUR TIMES A DAY DIRECTED completed prednisolone acetate 10 MG/ML Ophthalmic Suspension [place] ([facility]) Fluconazole 150 MG Oral Tablet fluconazo le 150 mg tablet TAKE 1 TABLET BY MOUTH NOW THEN TAKE 2ND TABLET IN 48 HOURS fluconazole 150 mg tablet TAKE 1 TABLET BY MOUTH NOW THEN TAKE 2ND TABLET IN 48 HOURS completed fluconazole 150 MG Oral Tablet [facility]) Sertraline 25 MG Oral Tablet sertraline 25 mg tablet TAKE ONE TABLET BY MOUTH EVERY DAY sertraline 25 mg tablet TAKE ONE TABLET BY MOUTH EVERY DAY completed sertraline 25 MG Oral Tablet [place] ([facility]) Fluconazole 150 MG Oral Tablet fluconazo le 150 mg tablet TAKE 1 TABLET BY MOUTH NOW THEN TAKE 2ND TABLET IN 48 HOURS fluconazole 150 mg tablet TAKE 1 TABLET BY MOUTH NOW THEN TAKE 2ND TABLET IN 48 HOURS completed fluconazole 150 MG Oral Tablet [place] ([facility]) Fluconazole 150 MG Oral Tablet fluconazo le 150 mg tablet TAKE 1 TABLET BY MOUTH NOW THEN TAKE 2ND TABLET IN 48 HOURS fluconazole 150 mg tablet TAKE 1 TABLET BY MOUTH NOW THEN TAKE 2ND TABLET IN 48 HOURS completed fluconazole 150 MG Oral Tablet [place] ([facility]) Metronidazole 0.0075 MG/MG Vaginal Gel m etronidazole 0.75 % vaginal gel APPLY 1 APPLICATORFUL AT BEDTIME ONCE A DAY FOR 5 DAYS metronidazole 0.75 % vaginal gel APPLY 1 APPLICATORFUL AT BEDTIME ONCE A DAY FOR 5 DAYS completed metronidazole 0.0075 MG/MG Vaginal Gel [place] ([facility]) NITROFURANTOIN, MACROCRYSTALS 25 MG / Ni trofurantoin, Monohydrate 75 MG Oral Capsule nitrofurantoin monohydrate/macrocrystals 100 mg capsule TAKE ONE CAPSULE BY MOUTH TWICE A DAY nitrofurantoin monohydrate/macrocrystals 100 mg capsule TAKE ONE CAPSULE BY MOUTH TWICE A DAY completed nitrofurantoin, macrocrystals 25 MG / nitrofurantoin, monohydrate 75 MG Oral Capsule [place] ([facility]) Fluoxetine 10 MG Oral Capsule fluoxetine 10 mg capsule fluox etine 10 mg capsule completed fluoxetine 10 MG Oral Capsule [place] ([facility]) Sertraline 25 MG Oral Tablet sertraline 25 mg tablet TAKE ONE TABLET BY MOUTH EVERY DAY sertraline 25 mg tablet TAKE ONE TABLET BY MOUTH EVERY DAY completed sertraline 25 MG Oral Tablet [place] ([facility]) Azithromycin 500 MG Oral Tablet azithrom ycin 500 mg tablet TAKE TWO TABLETS BY MOUTH ONCE azithromycin 500 mg tablet TAKE TWO TABLETS BY MOUTH ONCE completed azithromycin 500 MG Oral Tab let [place] ([facility]) Azithromycin 500 MG Oral Tablet azithrom ycin 500 mg tablet TAKE TWO TABLETS BY MOUTH ONCE azithromycin 500 mg tablet TAKE TWO TABLETS BY MOUTH ONCE completed azithromycin 500 MG Oral Tab let [facility]) NITROFURANTOIN, MACROCRYSTALS 25 MG / Ni trofurantoin, Monohydrate 75 MG Oral Capsule nitrofurantoin monohydrate/macrocrystals 100 mg capsule TAKE ONE CAPSULE BY MOUTH TWICE A DAY nitrofurantoin monohydrate/macrocrystals 100 mg capsule TAKE ONE CAPSULE BY MOUTH TWICE A DAY completed nitrofurantoin, macrocrystals 25 MG / nitrofurantoin, monohydrate 75 MG Oral Capsule [place] ([facility]) Fluconazole 150 MG Oral Tablet fluconazo le 150 mg tablet TAKE 1 TABLET BY MOUTH NOW THEN TAKE 2ND TABLET IN 48 HOURS fluconazole 150 mg tablet TAKE 1 TABLET BY MOUTH NOW THEN TAKE 2ND TABLET IN 48 HOURS completed fluconazole 150 MG Oral Tablet [facility]) NITROFURANTOIN, MACROCRYSTALS 25 MG / Ni trofurantoin, Monohydrate 75 MG Oral Capsule nitrofurantoin monohydrate/macrocrystals 100 mg capsule TAKE ONE CAPSULE BY MOUTH TWICE A DAY nitrofurantoin monohydrate/macrocrystals 100 mg capsule TAKE ONE CAPSULE BY MOUTH TWICE A DAY completed nitrofurantoin, macrocrystals 25 MG / nitrofurantoin, monohydrate 75 MG Oral Capsule [facility]) Metronidazole 0.0075 MG/MG Vaginal Gel m etronidazole 0.75 % vaginal gel APPLY 1 APPLICATORFUL AT BEDTIME ONCE A DAY FOR 5 DAYS metronidazole 0.75 % vaginal gel APPLY 1 APPLICATORFUL AT BEDTIME ONCE A DAY FOR 5 DAYS completed metronidazole 0.0075 MG/MG Vaginal Gel [place] ([facility]) Metronidazole 0.0075 MG/MG Vaginal Gel m etronidazole 0.75 % vaginal gel APPLY 1 APPLICATORFUL AT BEDTIME ONCE A DAY FOR 5 DAYS metronidazole 0.75 % vaginal gel APPLY 1 APPLICATORFUL AT BEDTIME ONCE A DAY FOR 5 DAYS completed metronidazole 0.0075 MG/MG Vaginal Gel [place] ([facility]) NITROFURANTOIN, MACROCRYSTALS 25 MG / Ni trofurantoin, Monohydrate 75 MG Oral Capsule nitrofurantoin monohydrate/macrocrystals 100 mg capsule TAKE ONE CAPSULE BY MOUTH TWICE A DAY nitrofurantoin monohydrate/macrocrystals 100 mg capsule TAKE ONE CAPSULE BY MOUTH TWICE A DAY completed nitrofurantoin, macrocrystals 25 MG / nitrofurantoin, monohydrate 75 MG Oral Capsule [place] ([facility]) prednisolone acetate 10 MG/ML Ophthalmic Suspension prednisolone acetate 1 % eye drops,suspension INSTILL 1 DROP IN BOTH EYES FOUR TIMES A DAY DIRECTED prednisolone acetate 1 % eye drops,suspension INSTILL 1 DROP IN BOTH EYES FOUR TIMES A DAY DIRECTED completed prednisolone acetate 10 MG/ML Ophthalmic Suspension [place] ([facility]) Fluconazole 150 MG Oral Tablet fluconazo le 150 mg tablet TAKE 1 TABLET BY MOUTH NOW THEN TAKE 2ND TABLET IN 48 HOURS fluconazole 150 mg tablet TAKE 1 TABLET BY MOUTH NOW THEN TAKE 2ND TABLET IN 48 HOURS completed fluconazole 150 MG Oral Tablet [place] ([facility]) Sertraline 25 MG Oral Tablet sertraline 25 mg tablet TAKE ONE TABLET BY MOUTH EVERY DAY sertraline 25 mg tablet TAKE ONE TABLET BY MOUTH EVERY DAY completed sertraline 25 MG Oral Tablet [place] ([facility]) Insurance Providers Payer name Policy type / Coverage type Policy ID Covered green party ID Covered green party's relationship to antoine Policy Antoine Plan Information [facility] [id number] SP [id number] [id number] SP [id number] [facility] O [id number] S [id number] [facility] [id number] SP [id number] MEDICAID [id number] SP [id number] [facility] [place] [id number] 18 [id number] ANSI-Commercial [id number] ANSI-Commercial [id number] ANSI-Commercial [id number] [facility] Commercial [id number] Self [id number] ANSI-Commercial [id number] ANSI-Commercial [id number] ANSI-Commercial [id number] [facility] Commercial [id number] Self [id number] SELF PAY ONLY [id number] MO2 [id number] SELF PAY ONLY [id number] MO2 [id number] [facility] [id number] SP [id number] [employer] AMER[employer]HOICE XIX -HMO [id number] 18 [id number] [facility] Health Maintenance Organization (HMO) [id number] Self [facility]) O [id number] S [id number] Self Pay P [id number] S [id number] [employer] P [id number] S [id number] Self Pay P UNAVAILABLE S UNAVAILA BLE [employer] CHP P [id number] O [id number] BC/BS OF [place] P [id number] S [id number] Problems, Conditions, and Diagnoses Code Display Name Description Problem Type Effective Dates Data Source(s) 95507142 Generalized anxiety disorder Generalized Anxiety Disor ambreen Problem 01/28/2021 12:00:00 AM EDT [place] ([facility]) [id number] Major depressive disorder Major Depressive Disorder Pr oblem 01/28/2021 12:00:00 AM EDT [place] ([facility]) [id number] Generalized anxiety disorder Generalized Anxiety Disor ambreen Problem 01/28/2021 12:00:00 AM EDT [place] ([facility]) [id number] Major depressive disorder Major Depressive Disorder Pr oblem 01/28/2021 12:00:00 AM EDT [place] ([facility]) [id number] Generalized anxiety disorder Generalized Anxiety Disor ambreen Problem 01/28/2021 12:00:00 AM EDT [place] ([facility]) [id number] Major depressive disorder Major Depressive Disorder Pr oblem 01/28/2021 12:00:00 AM EDT [place] ([facility]) [id number] Generalized anxiety disorder Generalized Anxiety Disor ambreen Problem 01/28/2021 12:00:00 AM EDT [place] ([facility]) [id number] Major depressive disorder Major Depressive Disorder Pr oblem 01/28/2021 12:00:00 AM EDT [place] ([facility]) [id number] Generalized anxiety disorder Generalized Anxiety Disor ambreen Problem 01/28/2021 12:00:00 AM EDT [place] ([facility]) [id number] Major depressive disorder Major Depressive Disorder Pr oblem 01/28/2021 12:00:00 AM EDT [place] ([facility]) [id number] Generalized anxiety disorder Generalized Anxiety Disor ambreen Problem 01/28/2021 12:00:00 AM EDT [place] ([facility]) [id number] Major depressive disorder Major Depressive Disorder Pr oblem 01/28/2021 12:00:00 AM EDT [place] ([facility]) [id number] Generalized anxiety disorder Generalized Anxiety Disor ambreen Problem 01/28/2021 12:00:00 AM EDT [place] ([facility]) [id number] Major depressive disorder Major Depressive Disorder Pr oblem 01/28/2021 12:00:00 AM EDT [place] ([facility]) [id number] Generalized anxiety disorder Generalized Anxiety Disor ambreen Problem 01/28/2021 12:00:00 AM EDT [place] ([facility]) [id number] Major depressive disorder Major Depressive Disorder Pr oblem 01/28/2021 12:00:00 AM EDT [place] ([facility]) [id number] Generalized anxiety disorder Generalized Anxiety Disor ambreen Problem 01/28/2021 12:00:00 AM EDT [place] ([facility]) [id number] Major depressive disorder Major Depressive Disorder Pr oblem 01/28/2021 12:00:00 AM EDT [place] ([facility]) [id number] Generalized anxiety disorder Generalized Anxiety Disor ambreen Problem 01/28/2021 12:00:00 AM EDT [place] ([facility]) [id number] Major depressive disorder Major Depressive Disorder Pr oblem 01/28/2021 12:00:00 AM EDT [place] ([facility]) [id number] Generalized anxiety disorder Generalized Anxiety Disor ambreen Problem 01/28/2021 12:00:00 AM EDT [place] ([facility]) [id number] Major depressive disorder Major Depressive Disorder Pr oblem 01/28/2021 12:00:00 AM EDT [place] ([facility]) [id number] Generalized anxiety disorder Generalized Anxiety Disor ambreen Problem 01/28/2021 12:00:00 AM EDT [place] ([facility]) [id number] Major depressive disorder Major Depressive Disorder Pr oblem 01/28/2021 12:00:00 AM EDT [place] ([facility]) N92.6 [id number] Irregular menses Problem 12/01/2020 12:00:00 AM EST [email or web address] ([facility]) Surgeries/Procedures Procedure Description Date Indications Data Source(s) URINE TEST 04/26/2021 12:00:00 AM EDT eCW1 ([facility]) Results ID Date Data Source [id number] 06/25/2021 12:00:00 AM EDT [facility] Name Value Range Interpretation Code Description Data Darby rce(s) Supporting Document(s) SARS-CoV2 Rapid Antigen Negative [facility] and reported by [facility]. ID Date Data Source [id number] 04/28/2021 11:43:00 AM EDT [place] ([facility]) Name Value Range Interpretation Code Description Data Darby rce(s) Supporting Document(s) Leukocytes [#/volume] in Blood by Automated count 7.5 thousand/uL 3 .8-10.8 White Blood Cell Count [place] ([facility]) Erythrocytes [#/volume] in Blood by Automated count 4.80 million/uL 3.80-5.10 Red Blood Cell Count [place] ([facility]) Hemoglobin [Mass/volume] in Blood 14.5 g/dL 11.7-15.5 He moglobin [place] ([facility]) Erythrocyte mean corpuscular volume [Entitic volume] by Auto mated count 89.4 fL 80.0-100.0 Mcv [place] ([facility]) Hematocrit [Volume Fraction] of Blood by Automated count 42.9 % 35.0-45.0 Hematocrit [place] ([facility]) Erythrocyte mean corpuscular hemoglobin [Entitic mass] by Automated count 30.2 pg 27.0-33.0 Mch [place] ([facility]) Platelet mean volume [Entitic volume] in Blood by Kavitha 10.9 f L 7.5-12.5 Mpv [place] ([facility]) Platelets [#/volume] in Blood by Automated count 295 thousand/uL 14 0-400 Platelet Count [place] ([facility]) Neutrophils [#/volume] in Blood by Automated count 3038 cells/uL 15 00-7800 Absolute Neutrophils [place] ([facility]) Erythrocyte mean corpuscular hemoglobin concentration [Mass/volume] by Automated count 33.8 g/dL 32.0-36.0 Mchc [place] ([facility]) Erythrocyte distribution width [Ratio] by Automated count 11.5 % 11.0-15.0 Rdw [place] ([facility]) Lymphocytes [#/volume] in Blood by Automated count 3758 cells/uL 85 0-3900 Absolute Lymphocytes [place] ([facility]) Monocytes [#/volume] in Blood by Automated count 503 cells/uL 200-9 50 Absolute Monocytes [place] ([facility]) Basophils [#/volume] in Blood by Automated count 30 cells/uL 0-200 Absolute Basophils [place] ([facility]) Eosinophils [#/volume] in Blood by Automated count 173 cells/uL 15- 500 Absolute Eosinophils [place] ([facility]) Lymphocytes/100 leukocytes in Blood by Automated count 50.1 % 15-49 Above high normal Lymphocytes [place] ([facility]) Eosinophils/100 leukocytes in Blood by Automated count 2.3 % 0-8 Eosinophils [place] ([facility]) Neutrophils/100 leukocytes in Blood by Automated count 40.5 % 38-80 Neutrophils [place] ([facility]) Basophils/100 leukocytes in Blood by Automated count 0.4 % 0-2 Basophils [place] ([facility]) Monocytes/100 leukocytes in Blood by Automated count 6.7 % 0-13 Monocytes [place] ([facility]) ID Date Data Source [id number] 04/28/2021 11:43:00 AM EDT [place] ([facility]) Name Value Range Interpretation Code Description Data Darby rce(s) Supporting Document(s) Glucose [Mass/volume] in Serum or Plasma 83 mg/dL 65-99 Glucose [place] ([facility]) Urea nitrogen [Mass/volume] in Serum or Plasma 13 mg/dL 7-25 Urea Nitrogen (BUN) [place] ([facility]) Glomerular filtration rate/1.73 sq M.pre dicted among non-blacks [Volume Rate/Area] in Serum, Plasma or Blood by Creatinine-based formula (CKD-EPI) 112 mL/min/1.73m2 > or = 60 eGFR Non-afr. [place] ([facility]) Creatinine [Mass/volume] in Serum or Plasma 0.76 mg/dL 0.50-1.10 Creatinine [place] ([facility]) Glomerular filtration rate/1.73 sq M.pre dicted among blacks [Volume Rate/Area] in Serum, Plasma or Blood by Creatinine-based formula (CKD-EPI) 130 mL/min/1.73m2 > or = 60 eGFR [place] ([facility]) Urea nitrogen/Creatinine [Mass Ratio] in Serum or Plasma not applic able 6-22 BUN/creatinine Ratio [place] ([facility]) Potassium [Moles/volume] in Serum or Plasma 4.5 mmol/L 3.5-5.3 Potassium [place] ([facility]) Sodium [Moles/volume] in Serum or Plasma 139 mmol/L 135-146 Sodium [place] ([facility]) Chloride [Moles/volume] in Serum or Plasma 103 mmol/L 98-110 Chloride [place] ([facility]) Albumin [Mass/volume] in Serum or Plasma 4.9 g/dL 3.6-5.1 Albumin [place] ([facility]) Carbon dioxide, total [Moles/volume] in Serum or Plasma 28 mmol/L 20-32 Carbon Dioxide [place] ([facility]) Protein [Mass/volume] in Serum or Plasma 7.2 g/dL 6.1-8.1 Protein, Total [place] ([facility]) Calcium [Mass/volume] in Serum or Plasma 9.7 mg/dL 8.6-10.2 Calcium [place] ([facility]) Bilirubin.total [Mass/volume] in Serum or Plasma 1.5 mg/dL 0.2-1.2 Above high normal Bilirubin, Total [place] ([facility]) Globulin [Mass/volume] in Serum by calculation 2.3 g/dL_(calc) 1.9- 3.7 Globulin [place] ([facility]) Albumin/Globulin [Mass Ratio] in Serum or Plasma 2.1 (calc) 1.0-2 .5 Albumin/globulin Ratio [place] ([facility]) Alkaline phosphatase [Enzymatic activity/volume] in Serum or Plasma 61 U/L 31-125 Alkaline Phosphatase [place] ([facility]) Aspartate aminotransferase [Enzymatic activity/volume] in Serum or Plasma 12 U/L 10-30 Ast [place] ([facility]) Alanine aminotransferase [Enzymatic activity/volume] in Seru m or Plasma 9 U/L 6-29 Alt [place] ([facility]) ID Date Data Source [id number] 04/28/2021 11:43:00 AM EDT [facility]) Name Value Range Interpretation Code Description Data Darby rce(s) Supporting Document(s) Triiodothyronine resin uptake (T3RU) in Serum or Plasma 30 % 22 -35 T3 Uptake [place] ([facility]) Thyroxine (T4) free index in Serum or Plasma by calculation 1.4-3.8 Free T4 Index (T7) [place] ([facility]) Thyrotropin [Units/volume] in Serum or Plasma 1.43 mIU/L Tsh [place] ([facility]) Thyroxine (T4) [Mass/volume] in Serum or Plasma 7.5 mcg/dL 5.1-11 .9 T4 (Thyroxine), Total [place] ([facility]) ID Date Data Source [id number] 04/28/2021 11:43:00 AM EDT [place] ([facility]) Name Value Range Interpretation Code Description Data Darby rce(s) Supporting Document(s) Hemoglobin [Mass/volume] in Blood 14.5 g/dL 11.7-15.5 He moglobin [place] ([facility]) Hematocrit [Volume Fraction] of Blood by Automated count 42.9 % 35.0-45.0 Hematocrit [place] ([facility]) Erythrocytes [#/volume] in Blood by Automated count 4.80 million/uL 3.80-5.10 Red Blood Cell Count [place] ([facility]) Leukocytes [#/volume] in Blood by Automated count 7.5 thousand/uL 3 .8-10.8 White Blood Cell Count [place] ([facility]) Erythrocyte mean corpuscular hemoglobin [Entitic mass] by Automated count 30.2 pg 27.0-33.0 Mch [place] ([facility]) Erythrocyte mean corpuscular hemoglobin concentration [Mass/volume] by Automated count 33.8 g/dL 32.0-36.0 Mchc [place] ([facility]) Erythrocyte mean corpuscular volume [Entitic volume] by Auto mated count 89.4 fL 80.0-100.0 Mcv [place] ([facility]) Platelets [#/volume] in Blood by Automated count 295 thousand/uL 14 0-400 Platelet Count [place] ([facility]) Erythrocyte distribution width [Ratio] by Automated count 11.5 % 11.0-15.0 Rdw [place] ([facility]) Neutrophils [#/volume] in Blood by Automated count 3038 cells/uL 15 00-7800 Absolute Neutrophils [place] ([facility]) Platelet mean volume [Entitic volume] in Blood by Kavitha 10.9 f L 7.5-12.5 Mpv [place] ([facility]) Eosinophils [#/volume] in Blood by Automated count 173 cells/uL 15- 500 Absolute Eosinophils [place] ([facility]) Basophils [#/volume] in Blood by Automated count 30 cells/uL 0-200 Absolute Basophils [place] ([facility]) Monocytes [#/volume] in Blood by Automated count 503 cells/uL 200-9 50 Absolute Monocytes [place] ([facility]) Lymphocytes [#/volume] in Blood by Automated count 3758 cells/uL 85 0-3900 Absolute Lymphocytes [place] ([facility]) Neutrophils/100 leukocytes in Blood by Automated count 40.5 % 38-80 Neutrophils [place] ([facility]) Lymphocytes/100 leukocytes in Blood by Automated count 50.1 % 15-49 Above high normal Lymphocytes [place] ([facility]) Eosinophils/100 leukocytes in Blood by Automated count 2.3 % 0-8 Eosinophils [place] ([facility]) Monocytes/100 leukocytes in Blood by Automated count 6.7 % 0-13 Monocytes [place] ([facility]) Basophils/100 leukocytes in Blood by Automated count 0.4 % 0-2 Basophils [place] ([facility]) ID Date Data Source [id number] 04/28/2021 11:43:00 AM EDT [place] ([facility]) Name Value Range Interpretation Code Description Data Darby rce(s) Supporting Document(s) Urea nitrogen [Mass/volume] in Serum or Plasma 13 mg/dL 7-25 Urea Nitrogen (BUN) [place] ([facility]) Glucose [Mass/volume] in Serum or Plasma 83 mg/dL 65-99 Glucose [place] ([facility]) Creatinine [Mass/volume] in Serum or Plasma 0.76 mg/dL 0.50-1.10 Creatinine [place] ([facility]) Glomerular filtration rate/1.73 sq M.pre dicted among blacks [Volume Rate/Area] in Serum, Plasma or Blood by Creatinine-based formula (CKD-EPI) 130 mL/min/1.73m2 > or = 60 eGFR [place] ([facility]) Glomerular filtration rate/1.73 sq M.pre dicted among non-blacks [Volume Rate/Area] in Serum, Plasma or Blood by Creatinine-based formula (CKD-EPI) 112 mL/min/1.73m2 > or = 60 eGFR Non-afr. [place] ([facility]) Urea nitrogen/Creatinine [Mass Ratio] in Serum or Plasma not applic able 6- BUN/creatinine Ratio [place] ([facility]) Potassium [Moles/volume] in Serum or Plasma 4.5 mmol/L 3.5-5.3 Potassium [place] ([facility]) Sodium [Moles/volume] in Serum or Plasma 139 mmol/L 135-146 Sodium [place] ([facility]) Chloride [Moles/volume] in Serum or Plasma 103 mmol/L 98-110 Chloride [place] ([facility]) Carbon dioxide, total [Moles/volume] in Serum or Plasma 28 mmol/L 20-32 Carbon Dioxide [facility]) Protein [Mass/volume] in Serum or Plasma 7.2 g/dL 6.1-8.1 Protein, Total [facility]) Calcium [Mass/volume] in Serum or Plasma 9.7 mg/dL 8.6-10.2 Calcium [facility]) Albumin [Mass/volume] in Serum or Plasma 4.9 g/dL 3.6-5.1 Albumin [facility]) Globulin [Mass/volume] in Serum by calculation 2.3 g/dL_(calc) 1.9- 3.7 Globulin [place] ([facility]) Alkaline phosphatase [Enzymatic activity/volume] in Serum or Plasma 61 U/L 31-125 Alkaline Phosphatase [facility]) Bilirubin.total [Mass/volume] in Serum or Plasma 1.5 mg/dL 0.2-1.2 Above high normal Bilirubin, Total [facility]) Albumin/Globulin [Mass Ratio] in Serum or Plasma 2.1 (calc) 1.0-2 .5 Albumin/globulin Ratio [place] ([facility]) Aspartate aminotransferase [Enzymatic activity/volume] in Serum or Plasma 12 U/L 10-30 Ast [place] ([facility]) Alanine aminotransferase [Enzymatic activity/volume] in Seru m or Plasma 9 U/L 6-29 Alt [place] ([facility]) ID Date Data Source [id number] 04/28/2021 11:43:00 AM EDT [place] ([facility]) Name Value Range Interpretation Code Description Data Darby rce(s) Supporting Document(s) Thyroxine (T4) [Mass/volume] in Serum or Plasma 7.5 mcg/dL 5.1-11 .9 T4 (Thyroxine), Total [place] ([facility]) Triiodothyronine resin uptake (T3RU) in Serum or Plasma 30 % 22 -35 T3 Uptake [place] ([facility]) Thyroxine (T4) free index in Serum or Plasma by calculation 1.4-3.8 Free T4 Index (T7) [place] ([facility]) Thyrotropin [Units/volume] in Serum or Plasma 1.43 mIU/L Tsh [place] ([facility]) ID Date Data Source [id number] 04/28/2021 11:43:00 AM EDT [facility]) Name Value Range Interpretation Code Description Data Darby rce(s) Supporting Document(s) Leukocytes [#/volume] in Blood by Automated count 7.5 thousand/uL 3 .8-10.8 White Blood Cell Count [place] ([facility]) Hemoglobin [Mass/volume] in Blood 14.5 g/dL 11.7-15.5 He moglobin [place] ([facility]) Erythrocytes [#/volume] in Blood by Automated count 4.80 million/uL 3.80-5.10 Red Blood Cell Count [place] ([facility]) Erythrocyte mean corpuscular volume [Entitic volume] by Auto mated count 89.4 fL 80.0-100.0 Mcv [place] ([facility]) Hematocrit [Volume Fraction] of Blood by Automated count 42.9 % 35.0-45.0 Hematocrit [place] ([facility]) Erythrocyte mean corpuscular hemoglobin [Entitic mass] by Automated count 30.2 pg 27.0-33.0 Mch [place] ([facility]) Platelets [#/volume] in Blood by Automated count 295 thousand/uL 14 0-400 Platelet Count [place] ([facility]) Erythrocyte distribution width [Ratio] by Automated count 11.5 % 11.0-15.0 Rdw [place] ([facility]) Erythrocyte mean corpuscular hemoglobin concentration [Mass/volume] by Automated count 33.8 g/dL 32.0-36.0 Mchc [place] ([facility]) Monocytes [#/volume] in Blood by Automated count 503 cells/uL 200-9 50 Absolute Monocytes [place] ([facility]) Lymphocytes [#/volume] in Blood by Automated count 3758 cells/uL 85 0-3900 Absolute Lymphocytes [place] ([facility]) Platelet mean volume [Entitic volume] in Blood by Kavitha 10.9 f L 7.5-12.5 Mpv [place] ([facility]) Neutrophils [#/volume] in Blood by Automated count 3038 cells/uL 15 00-7800 Absolute Neutrophils [place] ([facility]) Basophils [#/volume] in Blood by Automated count 30 cells/uL 0-200 Absolute Basophils [place] ([facility]) Neutrophils/100 leukocytes in Blood by Automated count 40.5 % 38-80 Neutrophils [place] ([facility]) Lymphocytes/100 leukocytes in Blood by Automated count 50.1 % 15-49 Above high normal Lymphocytes [place] ([facility]) Eosinophils [#/volume] in Blood by Automated count 173 cells/uL 15- 500 Absolute Eosinophils [place] ([facility]) Monocytes/100 leukocytes in Blood by Automated count 6.7 % 0-13 Monocytes [place] ([facility]) Basophils/100 leukocytes in Blood by Automated count 0.4 % 0-2 Basophils [place] ([facility]) Eosinophils/100 leukocytes in Blood by Automated count 2.3 % 0-8 Eosinophils [place] ([facility]) ID Date Data Source [id number] 04/28/2021 11:43:00 AM EDT [place] ([facility]) Name Value Range Interpretation Code Description Data Darby rce(s) Supporting Document(s) Urea nitrogen [Mass/volume] in Serum or Plasma 13 mg/dL 7-25 Urea Nitrogen (BUN) [place] ([facility]) Glucose [Mass/volume] in Serum or Plasma 83 mg/dL 65-99 Glucose [place] ([facility]) Glomerular filtration rate/1.73 sq M.pre dicted among non-blacks [Volume Rate/Area] in Serum, Plasma or Blood by Creatinine-based formula (CKD-EPI) 112 mL/min/1.73m2 > or = 60 eGFR Non-afr. [place] ([facility]) Creatinine [Mass/volume] in Serum or Plasma 0.76 mg/dL 0.50-1.10 Creatinine [facility]) Glomerular filtration rate/1.73 sq M.pre dicted among blacks [Volume Rate/Area] in Serum, Plasma or Blood by Creatinine-based formula (CKD-EPI) 130 mL/min/1.73m2 > or = 60 eGFR [place] ([facility]) Urea nitrogen/Creatinine [Mass Ratio] in Serum or Plasma not applic able 6-22 BUN/creatinine Ratio [place] ([facility]) Sodium [Moles/volume] in Serum or Plasma 139 mmol/L 135-146 Sodium [place] ([facility]) Potassium [Moles/volume] in Serum or Plasma 4.5 mmol/L 3.5-5.3 Potassium [place] ([facility]) Chloride [Moles/volume] in Serum or Plasma 103 mmol/L 98-110 Chloride [place] ([facility]) Calcium [Mass/volume] in Serum or Plasma 9.7 mg/dL 8.6-10.2 Calcium [place] ([facility]) Carbon dioxide, total [Moles/volume] in Serum or Plasma 28 mmol/L 20-32 Carbon Dioxide [place] ([facility]) Protein [Mass/volume] in Serum or Plasma 7.2 g/dL 6.1-8.1 Protein, Total [place] ([facility]) Albumin [Mass/volume] in Serum or Plasma 4.9 g/dL 3.6-5.1 Albumin [place] ([facility]) Globulin [Mass/volume] in Serum by calculation 2.3 g/dL_(calc) 1.9- 3.7 Globulin [place] ([facility]) Albumin/Globulin [Mass Ratio] in Serum or Plasma 2.1 (calc) 1.0-2 .5 Albumin/globulin Ratio [place] ([facility]) Alkaline phosphatase [Enzymatic activity/volume] in Serum or Plasma 61 U/L 31-125 Alkaline Phosphatase [place] ([facility]) Bilirubin.total [Mass/volume] in Serum or Plasma 1.5 mg/dL 0.2-1.2 Above high normal Bilirubin, Total [place] ([facility]) Aspartate aminotransferase [Enzymatic activity/volume] in Serum or Plasma 12 U/L 10-30 Ast [place] ([facility]) Alanine aminotransferase [Enzymatic activity/volume] in Seru m or Plasma 9 U/L 6-29 Alt [place] ([facility]) ID Date Data Source [id number] 04/28/2021 11:43:00 AM EDT [facility]) Name Value Range Interpretation Code Description Data Darby rce(s) Supporting Document(s) Triiodothyronine resin uptake (T3RU) in Serum or Plasma 30 % 22 -35 T3 Uptake [place] ([facility]) Thyroxine (T4) [Mass/volume] in Serum or Plasma 7.5 mcg/dL 5.1-11 .9 [facility] ([facility]), [facility] Thyrotropin [Units/volume] in Serum or Plasma 1.43 mIU/L Tsh [place] ([facility]) Thyroxine (T4) free index in Serum or Plasma by calculation 1.4-3.8 Free T4 Index (T7) [facility]) ID Date Data Source [id number] 04/28/2021 11:43:00 AM EDT [facility]) Name Value Range Interpretation Code Description Data Darby rce(s) Supporting Document(s) Leukocytes [#/volume] in Blood by Automated count 7.5 thousand/uL 3 .8-10.8 White Blood Cell Count [place] ([facility]) Erythrocytes [#/volume] in Blood by Automated count 4.80 million/uL 3.80-5.10 Red Blood Cell Count [place] ([facility]) Erythrocyte mean corpuscular volume [Entitic volume] by Auto mated count 89.4 fL 80.0-100.0 Mcv [place] ([facility]) Hemoglobin [Mass/volume] in Blood 14.5 g/dL 11.7-15.5 He moglobin [place] ([facility]) Hematocrit [Volume Fraction] of Blood by Automated count 42.9 % 35.0-45.0 Hematocrit [place] ([facility]) Erythrocyte mean corpuscular hemoglobin [Entitic mass] by Automated count 30.2 pg 27.0-33.0 Mch [place] ([facility]) Platelets [#/volume] in Blood by Automated count 295 thousand/uL 14 0-400 Platelet Count [place] ([facility]) Erythrocyte mean corpuscular hemoglobin concentration [Mass/volume] by Automated count 33.8 g/dL 32.0-36.0 Mchc [place] ([facility]) Erythrocyte distribution width [Ratio] by Automated count 11.5 % 11.0-15.0 Rdw [place] ([facility]) Neutrophils [#/volume] in Blood by Automated count 3038 cells/uL 15 00-7800 Absolute Neutrophils [place] ([facility]) Lymphocytes [#/volume] in Blood by Automated count 3758 cells/uL 85 0-3900 Absolute Lymphocytes [place] ([facility]) Platelet mean volume [Entitic volume] in Blood by Kavitha 10.9 f L 7.5-12.5 Mpv [place] ([facility]) Monocytes [#/volume] in Blood by Automated count 503 cells/uL 200-9 50 Absolute Monocytes [place] ([facility]) Neutrophils/100 leukocytes in Blood by Automated count 40.5 % 38-80 Neutrophils [place] ([facility]) Eosinophils [#/volume] in Blood by Automated count 173 cells/uL 15- 500 Absolute Eosinophils [place] ([facility]) Basophils [#/volume] in Blood by Automated count 30 cells/uL 0-200 Absolute Basophils [place] ([facility]) Eosinophils/100 leukocytes in Blood by Automated count 2.3 % 0-8 Eosinophils [place] ([facility]) Lymphocytes/100 leukocytes in Blood by Automated count 50.1 % 15-49 Above high normal Lymphocytes [place] ([facility]) Monocytes/100 leukocytes in Blood by Automated count 6.7 % 0-13 Monocytes [place] ([facility]) Basophils/100 leukocytes in Blood by Automated count 0.4 % 0-2 Basophils [place] ([facility]) ID Date Data Source [id number] 04/28/2021 11:43:00 AM EDT [place] ([facility]) Name Value Range Interpretation Code Description Data Darby rce(s) Supporting Document(s) Glucose [Mass/volume] in Serum or Plasma 83 mg/dL 65-99 [facility] Creatinine [Mass/volume] in Serum or Plasma 0.76 mg/dL 0.50-1.10 Creatinine [facility]) Glomerular filtration rate/1.73 sq M.pre dicted among non-blacks [Volume Rate/Area] in Serum, Plasma or Blood by Creatinine-based formula (CKD-EPI) 112 mL/min/1.73m2 > or = 60 eGFR Non-afr. [place] ([facility]) Urea nitrogen [Mass/volume] in Serum or Plasma 13 mg/dL 7-25 [facility]) [facility] Potassium [Moles/volume] in Serum or Plasma 4.5 mmol/L 3.5-5.3 Potassium [place] ([facility]) Urea nitrogen/Creatinine [Mass Ratio] in Serum or Plasma not applic able 6-22 BUN/creatinine Ratio [facility]) Sodium [Moles/volume] in Serum or Plasma 139 mmol/L 135-146 [facility] Glomerular filtration rate/1.73 sq M.pre dicted among blacks [Volume Rate/Area] in Serum, Plasma or Blood by Creatinine-based formula (CKD-EPI) 130 mL/min/1.73m2 > or = 60 eGFR [place] ([facility]) Chloride [Moles/volume] in Serum or Plasma 103 mmol/L 98-110 Chloride [place] ([facility]) Carbon dioxide, total [Moles/volume] in Serum or Plasma 28 mmol/L 20-32 Carbon Dioxide [place] ([facility]) Calcium [Mass/volume] in Serum or Plasma 9.7 mg/dL 8.6-10.2 Calcium [place] ([facility]) Protein [Mass/volume] in Serum or Plasma 7.2 g/dL 6.1-8.1 Protein, Total [place] ([facility]) Albumin [Mass/volume] in Serum or Plasma 4.9 g/dL 3.6-5.1 Albumin [facility]) Globulin [Mass/volume] in Serum by calculation 2.3 g/dL_(calc) 1.9- 3.7 Globulin [place] ([facility]) Bilirubin.total [Mass/volume] in Serum or Plasma 1.5 mg/dL 0.2-1.2 Above high normal Bilirubin, Total [facility]) Albumin/Globulin [Mass Ratio] in Serum or Plasma 2.1 (calc) 1.0-2 .5 Albumin/globulin Ratio [place] ([facility]) Alkaline phosphatase [Enzymatic activity/volume] in Serum or Plasma 61 U/L 31-125 Alkaline Phosphatase [place] ([facility]) Aspartate aminotransferase [Enzymatic activity/volume] in Serum or Plasma 12 U/L 10-30 Ast [place] ([facility]) Alanine aminotransferase [Enzymatic activity/volume] in Seru m or Plasma 9 U/L 6-29 Alt [place] ([facility]) ID Date Data Source [id number] 04/28/2021 11:43:00 AM EDT [place] ([facility]) Name Value Range Interpretation Code Description Data Darby rce(s) Supporting Document(s) Triiodothyronine resin uptake (T3RU) in Serum or Plasma 30 % 22 -35 T3 Uptake [place] ([facility]) Thyroxine (T4) free index in Serum or Plasma by calculation 1.4-3.8 Free T4 Index (T7) [place] ([facility]) Thyroxine (T4) [Mass/volume] in Serum or Plasma 7.5 mcg/dL 5.1-11 .9 T4 (Thyroxine), Total [place] ([facility]) Thyrotropin [Units/volume] in Serum or Plasma 1.43 mIU/L Tsh [place] ([facility]) ID Date Data Source [id number] 04/28/2021 11:43:00 AM EDT [place] ([facility]) Name Value Range Interpretation Code Description Data Darby rce(s) Supporting Document(s) Erythrocytes [#/volume] in Blood by Automated count 4.80 million/uL 3.80-5.10 Red Blood Cell Count [place] ([facility]) Leukocytes [#/volume] in Blood by Automated count 7.5 thousand/uL 3 .8-10.8 White Blood Cell Count [place] ([facility]) Erythrocyte mean corpuscular volume [Entitic volume] by Auto mated count 89.4 fL 80.0-100.0 Mcv [place] ([facility]) Hemoglobin [Mass/volume] in Blood 14.5 g/dL 11.7-15.5 He moglobin [place] ([facility]) Hematocrit [Volume Fraction] of Blood by Automated count 42.9 % 35.0-45.0 Hematocrit [place] ([facility]) Erythrocyte mean corpuscular hemoglobin [Entitic mass] by Automated count 30.2 pg 27.0-33.0 Mch [place] ([facility]) Erythrocyte mean corpuscular hemoglobin concentration [Mass/volume] by Automated count 33.8 g/dL 32.0-36.0 Mchc [place] ([facility]) Erythrocyte distribution width [Ratio] by Automated count 11.5 % 11.0-15.0 Rdw [place] ([facility]) Platelets [#/volume] in Blood by Automated count 295 thousand/uL 14 0-400 Platelet Count [place] ([facility]) Neutrophils [#/volume] in Blood by Automated count 3038 cells/uL 15 00-7800 Absolute Neutrophils [place] ([facility]) Platelet mean volume [Entitic volume] in Blood by Kavitha 10.9 f L 7.5-12.5 Mpv [place] ([facility]) Lymphocytes [#/volume] in Blood by Automated count 3758 cells/uL 85 0-3900 Absolute Lymphocytes [place] ([facility]) Lymphocytes/100 leukocytes in Blood by Automated count 50.1 % 15-49 Above high normal Lymphocytes [place] ([facility]) Monocytes [#/volume] in Blood by Automated count 503 cells/uL 200-9 50 Absolute Monocytes [place] ([facility]) Basophils [#/volume] in Blood by Automated count 30 cells/uL 0-200 Absolute Basophils [place] ([facility]) Neutrophils/100 leukocytes in Blood by Automated count 40.5 % 38-80 Neutrophils [place] ([facility]) Eosinophils [#/volume] in Blood by Automated count 173 cells/uL 15- 500 Absolute Eosinophils [place] ([facility]) Monocytes/100 leukocytes in Blood by Automated count 6.7 % 0-13 Monocytes [place] ([facility]) Eosinophils/100 leukocytes in Blood by Automated count 2.3 % 0-8 Eosinophils [place] ([facility]) Basophils/100 leukocytes in Blood by Automated count 0.4 % 0-2 Basophils [place] ([facility]) ID Date Data Source [id number] 04/28/2021 11:43:00 AM EDT [place] ([facility]) Name Value Range Interpretation Code Description Data Darby rce(s) Supporting Document(s) Glucose [Mass/volume] in Serum or Plasma 83 mg/dL 65-99 Glucose [place] ([facility]) Urea nitrogen [Mass/volume] in Serum or Plasma 13 mg/dL 7-25 Urea Nitrogen (BUN) [place] ([facility]) Creatinine [Mass/volume] in Serum or Plasma 0.76 mg/dL 0.50-1.10 Creatinine [place] ([facility]) Glomerular filtration rate/1.73 sq M.pre dicted among blacks [Volume Rate/Area] in Serum, Plasma or Blood by Creatinine-based formula (CKD-EPI) 130 mL/min/1.73m2 > or = 60 eGFR [place] ([facility]) Urea nitrogen/Creatinine [Mass Ratio] in Serum or Plasma not applic able 6-22 BUN/creatinine Ratio [place] ([facility]) Glomerular filtration rate/1.73 sq M.pre dicted among non-blacks [Volume Rate/Area] in Serum, Plasma or Blood by Creatinine-based formula (CKD-EPI) 112 mL/min/1.73m2 > or = 60 eGFR Non-afr. [place] ([facility]) Sodium [Moles/volume] in Serum or Plasma 139 mmol/L 135-146 Sodium [place] ([facility]) Potassium [Moles/volume] in Serum or Plasma 4.5 mmol/L 3.5-5.3 Potassium [place] ([facility]) Chloride [Moles/volume] in Serum or Plasma 103 mmol/L 98-110 Chloride [facility]) Carbon dioxide, total [Moles/volume] in Serum or Plasma 28 mmol/L 20-32 Carbon Dioxide [place] ([facility]) Calcium [Mass/volume] in Serum or Plasma 9.7 mg/dL 8.6-10.2 Calcium [facility]) Protein [Mass/volume] in Serum or Plasma 7.2 g/dL 6.1-8.1 Protein, Total [facility]) Albumin [Mass/volume] in Serum or Plasma 4.9 g/dL 3.6-5.1 Albumin [facility]) Globulin [Mass/volume] in Serum by calculation 2.3 g/dL_(calc) 1.9- 3.7 Globulin [facility]) Albumin/Globulin [Mass Ratio] in Serum or Plasma 2.1 (calc) 1.0-2 .5 Albumin/globulin Ratio [facility]) Bilirubin.total [Mass/volume] in Serum or Plasma 1.5 mg/dL 0.2-1.2 Above high normal Bilirubin, Total [place] ([facility]) Alkaline phosphatase [Enzymatic activity/volume] in Serum or Plasma 61 U/L 31-125 Alkaline Phosphatase [place] ([facility]) Aspartate aminotransferase [Enzymatic activity/volume] in Serum or Plasma 12 U/L 10-30 Ast [place] ([facility]) Alanine aminotransferase [Enzymatic activity/volume] in Seru m or Plasma 9 U/L 6-29 Alt [place] ([facility]) ID Date Data Source [id number] 04/28/2021 11:43:00 AM EDT [facility]) Name Value Range Interpretation Code Description Data Darby rce(s) Supporting Document(s) Triiodothyronine resin uptake (T3RU) in Serum or Plasma 30 % 22 -35 T3 Uptake [place] ([facility]) Thyroxine (T4) [Mass/volume] in Serum or Plasma 7.5 mcg/dL 5.1-11 .9 T4 (Thyroxine), Total [place] ([facility]) Thyroxine (T4) free index in Serum or Plasma by calculation 1.4-3.8 Free T4 Index (T7) [place] ([facility]) Thyrotropin [Units/volume] in Serum or Plasma 1.43 mIU/L Tsh [facility]) ID Date Data Source [id number] 04/28/2021 11:43:00 AM EDT [facility]) Name Value Range Interpretation Code Description Data Darby rce(s) Supporting Document(s) Hemoglobin [Mass/volume] in Blood 14.5 g/dL 11.7-15.5 He moglobin [place] ([facility]) Leukocytes [#/volume] in Blood by Automated count 7.5 thousand/uL 3 .8-10.8 White Blood Cell Count [place] ([facility]) Erythrocytes [#/volume] in Blood by Automated count 4.80 million/uL 3.80-5.10 Red Blood Cell Count [place] ([facility]) Erythrocyte mean corpuscular hemoglobin concentration [Mass/volume] by Automated count 33.8 g/dL 32.0-36.0 Mchc HAR[place]DO ([facility]) Erythrocyte mean corpuscular hemoglobin [Entitic mass] by Automated count 30.2 pg 27.0-33.0 Mch [place] ([facility]) Hematocrit [Volume Fraction] of Blood by Automated count 42.9 % 35.0-45.0 Hematocrit [place] ([facility]) Erythrocyte mean corpuscular volume [Entitic volume] by Auto mated count 89.4 fL 80.0-100.0 Mcv HAR[place] ([facility]) Erythrocyte distribution width [Ratio] by Automated count 11.5 % 11.0-15.0 Rdw [place] ([facility]) Platelet mean volume [Entitic volume] in Blood by Kavitha 10.9 f L 7.5-12.5 Mpv [place] ([facility]) Platelets [#/volume] in Blood by Automated count 295 thousand/uL 14 0-400 Platelet Count [place] ([facility]) Neutrophils [#/volume] in Blood by Automated count 3038 cells/uL 15 00-7800 Absolute Neutrophils [place] ([facility]) Basophils [#/volume] in Blood by Automated count 30 cells/uL 0-200 Absolute Basophils [place] ([facility]) Lymphocytes [#/volume] in Blood by Automated count 3758 cells/uL 85 0-3900 Absolute Lymphocytes [place] ([facility]) Monocytes [#/volume] in Blood by Automated count 503 cells/uL 200-9 50 Absolute Monocytes [place] ([facility]) Eosinophils [#/volume] in Blood by Automated count 173 cells/uL 15- 500 Absolute Eosinophils [place] ([facility]) Neutrophils/100 leukocytes in Blood by Automated count 40.5 % 38-80 Neutrophils [place] ([facility]) Eosinophils/100 leukocytes in Blood by Automated count 2.3 % 0-8 Eosinophils [place] ([facility]) Basophils/100 leukocytes in Blood by Automated count 0.4 % 0-2 Basophils [place] ([facility]) Monocytes/100 leukocytes in Blood by Automated count 6.7 % 0-13 Monocytes [place] ([facility]) Lymphocytes/100 leukocytes in Blood by Automated count 50.1 % 15-49 Above high normal Lymphocytes [place] ([facility]) ID Date Data Source [id number] 04/28/2021 11:43:00 AM EDT [place] ([facility]) Name Value Range Interpretation Code Description Data Darby rce(s) Supporting Document(s) Glucose [Mass/volume] in Serum or Plasma 83 mg/dL 65-99 Glucose [place] ([facility]) Urea nitrogen [Mass/volume] in Serum or Plasma 13 mg/dL 7-25 Urea Nitrogen (BUN) [place] ([facility]) Creatinine [Mass/volume] in Serum or Plasma 0.76 mg/dL 0.50-1.10 Creatinine [place] ([facility]) Sodium [Moles/volume] in Serum or Plasma 139 mmol/L 135-146 Sodium [place] ([facility]) Glomerular filtration rate/1.73 sq M.pre dicted among non-blacks [Volume Rate/Area] in Serum, Plasma or Blood by Creatinine-based formula (CKD-EPI) 112 mL/min/1.73m2 > or = 60 eGFR Non-afr. [place] ([facility]) Urea nitrogen/Creatinine [Mass Ratio] in Serum or Plasma not applic able 6-22 BUN/creatinine Ratio [place] ([facility]) Glomerular filtration rate/1.73 sq M.pre dicted among blacks [Volume Rate/Area] in Serum, Plasma or Blood by Creatinine-based formula (CKD-EPI) 130 mL/min/1.73m2 > or = 60 eGFR [place] ([facility]) Potassium [Moles/volume] in Serum or Plasma 4.5 mmol/L 3.5-5.3 Potassium [place] ([facility]) Calcium [Mass/volume] in Serum or Plasma 9.7 mg/dL 8.6-10.2 Calcium [place] ([facility]) Carbon dioxide, total [Moles/volume] in Serum or Plasma 28 mmol/L 20-32 Carbon Dioxide [place] ([facility]) Chloride [Moles/volume] in Serum or Plasma 103 mmol/L 98-110 Chloride [place] ([facility]) Globulin [Mass/volume] in Serum by calculation 2.3 g/dL_(calc) 1.9- 3.7 Globulin [place] ([facility]) Protein [Mass/volume] in Serum or Plasma 7.2 g/dL 6.1-8.1 Protein, Total AHR[place]DO ([facility]) Albumin [Mass/volume] in Serum or Plasma 4.9 g/dL 3.6-5.1 Albumin [place] ([facility]) Bilirubin.total [Mass/volume] in Serum or Plasma 1.5 mg/dL 0.2-1.2 Above high normal Bilirubin, Total [place] ([facility]) Aspartate aminotransferase [Enzymatic activity/volume] in Serum or Plasma 12 U/L 10-30 Ast [place] ([facility]) Alkaline phosphatase [Enzymatic activity/volume] in Serum or Plasma 61 U/L 31-125 Alkaline Phosphatase [place] ([facility]) Albumin/Globulin [Mass Ratio] in Serum or Plasma 2.1 (calc) 1.0-2 .5 Albumin/globulin Ratio [place] ([facility]) Alanine aminotransferase [Enzymatic activity/volume] in Seru m or Plasma 9 U/L 6-29 Alt [place] ([facility]) ID Date Data Source [id number] 04/28/2021 11:43:00 AM EDT [facility]) Name Value Range Interpretation Code Description Data Darby rce(s) Supporting Document(s) Triiodothyronine resin uptake (T3RU) in Serum or Plasma 30 % 22 -35 T3 Uptake [place] ([facility]) Thyroxine (T4) free index in Serum or Plasma by calculation 1.4-3.8 Free T4 Index (T7) [place] ([facility]) Thyroxine (T4) [Mass/volume] in Serum or Plasma 7.5 mcg/dL 5.1-11 .9 T4 (Thyroxine), Total [place] ([facility]) Thyrotropin [Units/volume] in Serum or Plasma 1.43 mIU/L Tsh [facility]) ID Date Data Source [id number] 04/28/2021 11:43:00 AM EDT [facility]) Name Value Range Interpretation Code Description Data Darby rce(s) Supporting Document(s) Leukocytes [#/volume] in Blood by Automated count 7.5 thousand/uL 3 .8-10.8 White Blood Cell Count [place] ([facility]) Hemoglobin [Mass/volume] in Blood 14.5 g/dL 11.7-15.5 He moglobin [place] ([facility]) Erythrocytes [#/volume] in Blood by Automated count 4.80 million/uL 3.80-5.10 Red Blood Cell Count [place] ([facility]) Erythrocyte mean corpuscular volume [Entitic volume] by Auto mated count 89.4 fL 80.0-100.0 Mcv [place] ([facility]) Hematocrit [Volume Fraction] of Blood by Automated count 42.9 % 35.0-45.0 Hematocrit [place] ([facility]) Erythrocyte distribution width [Ratio] by Automated count 11.5 % 11.0-15.0 Rdw [place] ([facility]) Erythrocyte mean corpuscular hemoglobin [Entitic mass] by Automated count 30.2 pg 27.0-33.0 Mch [place] ([facility]) Erythrocyte mean corpuscular hemoglobin concentration [Mass/volume] by Automated count 33.8 g/dL 32.0-36.0 Mchc [place] ([facility]) Platelets [#/volume] in Blood by Automated count 295 thousand/uL 14 0-400 Platelet Count [place] ([facility]) Monocytes [#/volume] in Blood by Automated count 503 cells/uL 200-9 50 Absolute Monocytes [place] ([facility]) Lymphocytes [#/volume] in Blood by Automated count 3758 cells/uL 85 0-3900 Absolute Lymphocytes [place] ([facility]) Platelet mean volume [Entitic volume] in Blood by Kavitha 10.9 f L 7.5-12.5 Mpv [place] ([facility]) Neutrophils [#/volume] in Blood by Automated count 3038 cells/uL 15 00-7800 Absolute Neutrophils [place] ([facility]) Eosinophils [#/volume] in Blood by Automated count 173 cells/uL 15- 500 Absolute Eosinophils [place] ([facility]) Monocytes/100 leukocytes in Blood by Automated count 6.7 % 0-13 Monocytes [place] ([facility]) Neutrophils/100 leukocytes in Blood by Automated count 40.5 % 38-80 Neutrophils [place] ([facility]) Basophils [#/volume] in Blood by Automated count 30 cells/uL 0-200 Absolute Basophils [place] ([facility]) Lymphocytes/100 leukocytes in Blood by Automated count 50.1 % 15-49 Above high normal Lymphocytes [place] ([facility]) Basophils/100 leukocytes in Blood by Automated count 0.4 % 0-2 Basophils [place] ([facility]) Eosinophils/100 leukocytes in Blood by Automated count 2.3 % 0-8 Eosinophils [place] ([facility]) ID Date Data Source [id number] 04/28/2021 11:43:00 AM EDT [facility]) Name Value Range Interpretation Code Description Data Darby rce(s) Supporting Document(s) Urea nitrogen [Mass/volume] in Serum or Plasma 13 mg/dL 7-25 Urea Nitrogen (BUN) [place] ([facility]) Glucose [Mass/volume] in Serum or Plasma 83 mg/dL 65-99 Glucose [place] ([facility]) Creatinine [Mass/volume] in Serum or Plasma 0.76 mg/dL 0.50-1.10 [facility] Glomerular filtration rate/1.73 sq M.pre dicted among non-blacks [Volume Rate/Area] in Serum, Plasma or Blood by Creatinine-based formula (CKD-EPI) 112 mL/min/1.73m2 > or = 60 eGFR Non-afr. [place] ([facility]) Urea nitrogen/Creatinine [Mass Ratio] in Serum or Plasma not applic able 6-22 BUN/creatinine Ratio [place] ([facility]) Glomerular filtration rate/1.73 sq M.pre dicted among blacks [Volume Rate/Area] in Serum, Plasma or Blood by Creatinine-based formula (CKD-EPI) 130 mL/min/1.73m2 > or = 60 eGFR [place] ([facility]) Potassium [Moles/volume] in Serum or Plasma 4.5 mmol/L 3.5-5.3 Potassium [place] ([facility]) Chloride [Moles/volume] in Serum or Plasma 103 mmol/L 98-110 Chloride [place] ([facility]) Sodium [Moles/volume] in Serum or Plasma 139 mmol/L 135-146 Sodium [place] ([facility]) Protein [Mass/volume] in Serum or Plasma 7.2 g/dL 6.1-8.1 Protein, Total [place] ([facility]) Albumin [Mass/volume] in Serum or Plasma 4.9 g/dL 3.6-5.1 Albumin [place] ([facility]) Carbon dioxide, total [Moles/volume] in Serum or Plasma 28 mmol/L 20-32 Carbon Dioxide [place] ([facility]) Calcium [Mass/volume] in Serum or Plasma 9.7 mg/dL 8.6-10.2 Calcium [place] ([facility]) Bilirubin.total [Mass/volume] in Serum or Plasma 1.5 mg/dL 0.2-1.2 Above high normal Bilirubin, Total [place] ([facility]) Alkaline phosphatase [Enzymatic activity/volume] in Serum or Plasma 61 U/L 31-125 Alkaline Phosphatase [place] ([facility]) Albumin/Globulin [Mass Ratio] in Serum or Plasma 2.1 (calc) 1.0-2 .5 Albumin/globulin Ratio [place] ([facility]) Globulin [Mass/volume] in Serum by calculation 2.3 g/dL_(calc) 1.9- 3.7 Globulin [place] ([facility]) Alanine aminotransferase [Enzymatic activity/volume] in Seru m or Plasma 9 U/L 6-29 Alt [place] ([facility]) Aspartate aminotransferase [Enzymatic activity/volume] in Serum or Plasma 12 U/L 10-30 Ast [place] ([facility]) ID Date Data Source [id number] 04/28/2021 11:43:00 AM EDT [place] ([facility]) Name Value Range Interpretation Code Description Data Darby rce(s) Supporting Document(s) Triiodothyronine resin uptake (T3RU) in Serum or Plasma 30 % 22 -35 T3 Uptake [place] ([facility]) Thyroxine (T4) [Mass/volume] in Serum or Plasma 7.5 mcg/dL 5.1-11 .9 T4 (Thyroxine), Total [place] ([facility]) Thyrotropin [Units/volume] in Serum or Plasma 1.43 mIU/L Tsh [place] ([facility]) Thyroxine (T4) free index in Serum or Plasma by calculation 1.4-3.8 Free T4 Index (T7) [place] ([facility]) ID Date Data Source CHLAMYDIA & GC DNA AMPLIFICAT 04/26/2021 12:00:00 AM EDT eCW 1 ([facility]) Name Value Range Interpretation Code Description Data Darby rce(s) Supporting Document(s) Chlamydia trachomatis rRNA [Presence] in Unspecified specimen by Probe and target amplification method NEGATIVE NEGATIVE CHLAMYDIA DNA AMPLIFICATION eCW1 ([facility]) ID Date Data Source SYPHILIS ANTIBODY (RPR SCREEN) 12/01/2020 12:00:00 AM EST eC W1 ([facility]) Name Value Range Interpretation Code Description Data Darby rce(s) Supporting Document(s) NONREACTIVE NONREACTIVE eCW1 ([facility]) ID Date Data Source PAP REQUEST FOR SERVICE 12/01/2020 12:00:00 AM EST eCW1 ([facility]) Name Value Range Interpretation Code Description Data Darby rce(s) Supporting Document(s) eCW1 ([facility]) ID Date Data Source [id number] 12/01/2020 12:00:00 AM EST eCW1 ([facility]) Name Value Range Interpretation Code Description Data Darby rce(s) Supporting Document(s) eCW1 ([facility]) ID Date Data Source HEPATITIS C ANTIBODY INDEX 12/01/2020 12:00:00 AM EST eCW1 ( [facility]) Name Value Range Interpretation Code Description Data Darby rce(s) Supporting Document(s) < 0.0 <0.8 [facility] ([facility]) ID Date Data Source CHLAMYDIA, GC & TRICH AMP 12/01/2020 12:00:00 AM EST eCW1 ([facility]) Name Value Range Interpretation Code Description Data Darby rce(s) Supporting Document(s) NOT DETECTED NEGATIVE eCW1 ([facility]) ID Date Data Source [id number] 11/13/2020 12:00:00 [...] lab was ordered by [facility] and reported by [facility]. Procedure Social History Code Duration Value Status Description Data Source(s ) Smoking 07/23/2021 12:00:00 AM EDT Never Smoker completed Never S moker eCW1 ([facility]) Smoking 04/26/2021 12:00:00 AM EDT Never Smoker completed Never S moker eCW1 ([facility]) Smoking 04/26/2021 12:00:00 AM EDT Never Smoker completed Never S moker eCW1 ([facility]) Smoking 12/01/2020 12:00:00 AM EST Never Smoker completed Never S moker eCW1 ([facility]) Vital Signs ID Date Data Source UNK Name Value Range Interpretation Code Description Data Source(s) Body height 64 [in_i] 64 [in_i] eCW1 ([facility]) Systolic blood pressure 120 mm[Hg] 120 mm[Hg] e CW1 ([facility]) Body weight 118 [lb_av] 118 [lb_av] eCW1 ([facility]) Body mass index (BMI) [Ratio] 20.25 kg/m2 20.25 kg/m2 eCW1 ([facility]) Diastolic blood pressure 80 mm[Hg] 80 mm[Hg] eCW1 ([facility]) Body weight 115.8 [lb_av] 115.8 [lb_av] eCW1 ([facility]) Systolic blood pressure 118 mm[Hg] 118 mm[Hg] e CW1 ([facility]) Body weight 52.53 kg 52.53 kg eCW1 ([facility]) Body height 64 [in_i] 64 [in_i] eCW1 ([facility]) Diastolic blood pressure 64 mm[Hg] 64 mm[Hg] eCW1 ([facility]) Body mass index (BMI) [Ratio] 19.87 kg/m2 19.87 kg/m2 eCW1 ([facility]) Body height 64 [in_i] 64 [in_i] [place] ([facility]) Body height 64 [in_i] 64 [in_i] [place] ([facility]) Body height 64 [in_i] 64 [in_i] [place] ([facility]) Body height 64 [in_i] 64 [in_i] [place] ([facility]) Body height 64 [in_i] 64 [in_i] [place] ([facility]) Body height 64 [in_i] 64 [in_i] [place] ([facility]) Body height 64 [in_i] 64 [in_i] [place] ([facility]) Body height 64 [in_i] 64 [in_i] [place] ([facility]) Body height 64 [in_i] 64 [in_i] [place] ([facility]) Body height 64 [in_i] 64 [in_i] [place] ([facility]) Diastolic blood pressure 77 mm[Hg] 77 mm[Hg] [place] ([facility]) Body height 64 [in_i] 64 [in_i] [place] ([facility]) Body mass index (BMI) [Ratio] 19.7 kg/m2 19.7 k g/m2 [place] ([facility]) Systolic blood pressure 111 mm[Hg] 111 mm[Hg] A THENA ([facility]) Body weight 1840 [oz_av] 1840 [oz_av] [place] ([facility]) Diastolic blood pressure 77 mm[Hg] 77 mm[Hg] [place] ([facility]) Body height 64 [in_i] 64 [in_i] [place] ([facility]) Body mass index (BMI) [Ratio] 19.7 kg/m2 19.7 k g/m2 [place] ([facility]) Systolic blood pressure 111 mm[Hg] 111 mm[Hg] A [place] ([facility]) Body weight 1840 [oz_av] 1840 [oz_av] [place] ([facility]) Diastolic blood pressure 77 mm[Hg] 77 mm[Hg] [place] ([facility]) Body height 64 [in_i] 64 [in_i] [place] ([facility]) Body mass index (BMI) [Ratio] 19.7 kg/m2 19.7 k g/m2 [place] ([facility]) Systolic blood pressure 111 mm[Hg] 111 mm[Hg] [facility] Body weight 1840 [oz_av] 1840 [oz_av] [place] ([facility]) Body mass index (BMI) [Ratio] 19.7 kg/m2 19.7 k g/m2 [place] ([facility]) Systolic blood pressure 111 mm[Hg] 111 mm[Hg] A THENA ([facility]) Body weight 1840 [oz_av] 1840 [oz_av] [place] ([facility]) Diastolic blood pressure 77 mm[Hg] 77 mm[Hg] [place] ([facility]) Body height 64 [in_i] 64 [in_i] [place] ([facility]) Diastolic blood pressure 77 mm[Hg] 77 mm[Hg] [place] ([facility]) Body height 64 [in_i] 64 [in_i] [place] ([facility]) Body mass index (BMI) [Ratio] 19.7 kg/m2 19.7 k g/m2 [facility] ([facility]) Systolic blood pressure 111 mm[Hg] 111 mm[Hg] A THENA ([facility]) Body weight 1840 [oz_av] 1840 [oz_av] [facility] ([facility]) Diastolic blood pressure 77 mm[Hg] 77 mm[Hg] [facility] ([facility]) Body height 64 [in_i] 64 [in_i] [facility] ([facility]) Body mass index (BMI) [Ratio] 19.7 kg/m2 19.7 k g/m2 [facility] ([facility]) Systolic blood pressure 111 mm[Hg] 111 mm[Hg] A THENA ([facility]) Body weight 1840 [oz_av] 1840 [oz_av] [facility] ([facility]) Diastolic blood pressure 77 mm[Hg] 77 mm[Hg] [facility] ([facility]) Body mass index (BMI) [Ratio] 19.7 kg/m2 19.7 k g/m2 [facility] ([facility]) Body height 64 [in_i] 64 [in_i] [facility] ([facility]) Systolic blood pressure 111 mm[Hg] 111 mm[Hg] A THENA ([facility]) Body weight 1840 [oz_av] 1840 [oz_av] [facility] ([facility]) Diastolic blood pressure 77 mm[Hg] 77 mm[Hg] [facility] ([facility]) Body height 64 [in_i] 64 [in_i] [facility] ([facility]) Body mass index (BMI) [Ratio] 19.7 kg/m2 19.7 k g/m2 [facility] ([facility]) Systolic blood pressure 111 mm[Hg] 111 mm[Hg] A THENA ([facility]) Body weight 1840 [oz_av] 1840 [oz_av] [facility] ([facility]) Systolic blood pressure 111 mm[Hg] 111 mm[Hg] A THENA ([facility]) Diastolic blood pressure 77 mm[Hg] 77 mm[Hg] [facility] ([facility]) Body height 64 [in_i] 64 [in_i] [facility] ([facility]) Body mass index (BMI) [Ratio] 19.7 kg/m2 19.7 k g/m2 [facility] ([facility]) Body weight 1840 [oz_av] 1840 [oz_av] [facility] ([facility]) Diastolic blood pressure 77 mm[Hg] 77 mm[Hg] HRA[facility] ([facility]) Diastolic blood pressure 77 mm[Hg] 77 mm[Hg] [facility] ([facility]) Body height 64 [in_i] 64 [in_i] [facility] ([facility]) Body mass index (BMI) [Ratio] 19.7 kg/m2 19.7 k g/m2 [facility] ([facility]) Systolic blood pressure 111 mm[Hg] 111 mm[Hg] A THENA ([facility]) Body weight 1840 [oz_av] 1840 [oz_av] [facility] ([facility]) Body height 64 [in_i] 64 [in_i] [facility] ([facility]) Body mass index (BMI) [Ratio] 19.7 kg/m2 19.7 k g/m2 [facility] ([facility]) Systolic blood pressure 111 mm[Hg] 111 mm[Hg] A THENA ([facility]) Body weight 1840 [oz_av] 1840 [oz_av] [facility] ([facility]) Diastolic blood pressure 77 mm[Hg] 77 mm[Hg] [facility] ([facility]) Body height 64 [in_i] 64 [in_i] [facility] ([facility]) Body mass index (BMI) [Ratio] 19.7 kg/m2 19.7 k g/m2 [facility] ([facility]) Systolic blood pressure 111 mm[Hg] 111 mm[Hg] A THENA ([facility]) Body weight 1840 [oz_av] 1840 [oz_av] [facility] ([facility]) Body weight 120 [lb_av] 120 [lb_av] eCW1 ([facility]ly [facility]) Body weight 54.43 kg 54.43 kg eCW1 ([facility]) Body height 64 [in_i] 64 [in_i] eCW1 ([facility]) Systolic blood pressure 117 mm[Hg] 117 mm[Hg] e CW1 (Formerly [facility], [facility]) Diastolic blood pressure 73 mm[Hg] 73 mm[Hg] eCW1 ([facility], [facility]) Body mass index (BMI) [Ratio] 20.6 kg/m2 20.6 k g/m2 [facility] ([facility], [facility]) Patient Treatment Plan of Care Planned Activity Planned Date Details Description Data Source (s) Metronidazole 0.0075 MG/MG Vaginal Gel 12/01/2020 12:00:00 AM EST eCW1 ([facility]ly [facility], [facility]) Sertraline 25 MG Oral Tablet [facility] ([facility]) prednisolone acetate 10 MG/ML Ophthalmic Suspension [facility] ([facility]) NITROFURANTOIN, MACROCRYSTALS 25 MG / Ni trofurantoin, Monohydrate 75 MG Oral Capsule [facility] ([facility]) Metronidazole 0.0075 MG/MG Vaginal Gel [facility] ([facility]) Fluoxetine 10 MG Oral Capsule [facility] ([facility]) Fluconazole 150 MG Oral Tablet [facility] ([facility]) Azithromycin 500 MG Oral Tablet [facility] ([facility]) Sertraline 25 MG Oral Tablet [facility] ([facility]) prednisolone acetate 10 MG/ML Ophthalmic Suspension [facility] ([facility]) NITROFURANTOIN, MACROCRYSTALS 25 MG / Ni trofurantoin, Monohydrate 75 MG Oral Capsule [facility] ([facility]) Metronidazole 0.0075 MG/MG Vaginal Gel [facility] ([facility]) Fluoxetine 10 MG Oral Capsule [facility] ([facility]) Fluconazole 150 MG Oral Tablet [facility] ([facility]) Azithromycin 500 MG Oral Tablet [facility] ([facility]) Sertraline 25 MG Oral Tablet [facility] ([facility]) prednisolone acetate 10 MG/ML Ophthalmic Suspension [facility] ([facility]) NITROFURANTOIN, MACROCRYSTALS 25 MG / Ni trofurantoin, Monohydrate 75 MG Oral Capsule [facility] ([facility]) Metronidazole 0.0075 MG/MG Vaginal Gel [facility] ([facility]) Fluoxetine 10 MG Oral Capsule [facility] ([facility]) Fluconazole 150 MG Oral Tablet [facility] ([facility]) Azithromycin 500 MG Oral Tablet [facility] ([facility]) Sertraline 25 MG Oral Tablet [facility] ([facility]) prednisolone acetate 10 MG/ML Ophthalmic Suspension [facility] ([facility]) NITROFURANTOIN, MACROCRYSTALS 25 MG / Ni trofurantoin, Monohydrate 75 MG Oral Capsule [facility] ([facility]) Metronidazole 0.0075 MG/MG Vaginal Gel [facility] ([facility]) Fluoxetine 10 MG Oral Capsule [facility] ([facility]) Fluconazole 150 MG Oral Tablet [facility] ([facility]) Azithromycin 500 MG Oral Tablet [facility] ([facility]) Sertraline 25 MG Oral Tablet [facility] ([facility]) prednisolone acetate 10 MG/ML Ophthalmic Suspension [facility] ([facility]) NITROFURANTOIN, MACROCRYSTALS 25 MG / Ni trofurantoin, Monohydrate 75 MG Oral Capsule [facility] ([facility]) Metronidazole 0.0075 MG/MG Vaginal Gel [facility] ([facility]) Fluoxetine 10 MG Oral Capsule [facility] ([facility]) Fluconazole 150 MG Oral Tablet [facility] ([facility]) Azithromycin 500 MG Oral Tablet [facility] ([facility]) Sertraline 25 MG Oral Tablet [facility] ([facility]) prednisolone acetate 10 MG/ML Ophthalmic Suspension [facility] ([facility]) NITROFURANTOIN, MACROCRYSTALS 25 MG / Ni trofurantoin, Monohydrate 75 MG Oral Capsule [facility] ([facility]) Metronidazole 0.0075 MG/MG Vaginal Gel [facility] ([facility]) Fluoxetine 10 MG Oral Capsule [facility] ([facility]) Fluconazole 150 MG Oral Tablet [facility] ([facility]) Azithromycin 500 MG Oral Tablet [facility] ([facility]) Sertraline 25 MG Oral Tablet [facility] ([facility]) NITROFURANTOIN, MACROCRYSTALS 25 MG / Ni trofurantoin, Monohydrate 75 MG Oral Capsule [facility] ([facility]) Metronidazole 0.0075 MG/MG Vaginal Gel [facility] ([facility]) Fluconazole 150 MG Oral Tablet [facility] ([facility]) Azithromycin 500 MG Oral Tablet [facility] ([facility]) Fluconazole 150 MG Oral Tablet [facility] ([facility]) Azithromycin 500 MG Oral Tablet [facility] ([facility]) Sertraline 25 MG Oral Tablet [facility] ([facility]) NITROFURANTOIN, MACROCRYSTALS 25 MG / Ni trofurantoin, Monohydrate 75 MG Oral Capsule [facility] ([facility]) Metronidazole 0.0075 MG/MG Vaginal Gel [facility] ([facility]) Fluconazole 150 MG Oral Tablet [facility] ([facility]) Azithromycin 500 MG Oral Tablet [facility] ([facility]) NITROFURANTOIN, MACROCRYSTALS 25 MG / Ni trofurantoin, Monohydrate 75 MG Oral Capsule [facility] ([facility]) Metronidazole 0.0075 MG/MG Vaginal Gel [facility] ([facility]) Fluconazole 150 MG Oral Tablet [facility] ([facility]) Azithromycin 500 MG Oral Tablet [facility] ([facility]) Sertraline 25 MG Oral Tablet [facility] ([facility]) NITROFURANTOIN, MACROCRYSTALS 25 MG / Ni trofurantoin, Monohydrate 75 MG Oral Capsule [facility] ([facility]) Metronidazole 0.0075 MG/MG Vaginal Gel [facility] ([facility]) Fluconazole 150 MG Oral Tablet [facility] ([facility]) Azithromycin 500 MG Oral Tablet [facility] ([facility]) NITROFURANTOIN, MACROCRYSTALS 25 MG / Ni trofurantoin, Monohydrate 75 MG Oral Capsule [facility] ([facility]) Metronidazole 0.0075 MG/MG Vaginal Gel [facility] ([facility]) Fluconazole 150 MG Oral Tablet [facility] ([facility]) Azithromycin 500 MG Oral Tablet [facility] ([facility]) Sertraline 25 MG Oral Tablet [facility] ([facility]) NITROFURANTOIN, MACROCRYSTALS 25 MG / Ni trofurantoin, Monohydrate 75 MG Oral Capsule [facility] ([facility]) Metronidazole 0.0075 MG/MG Vaginal Gel [facility] ([facility])
[2021-07-31] MEDS ORDERED: ONDANSETRON 4MG/2ML VIAL IV ONE (14:20)
[2021-07-31] MEDS ORDERED: ONDANSETRON 4 MG ORAL DISINTEGRATING TAB PO ONE (14:20)
[2021-07-31 14:53] LABS: BASO % 0.2 % (0.0-1.0); EOS % 0.1 % (0.0-3.0); HEMOGLOBIN 14.1 g/dl (12.0-15.5); LYMPH # 2.8 10^3/uL (1.5-5.0); LYMPH % 19.5 % (24.0-44.0); MEAN CORPUSCULAR HEMOGLOBIN 29.6 pg (27.0-33.0); MEAN CORPUSCULAR HGB CONC 33.6 g/dl (32.0-36.5); MEAN CORPUSCULAR VOLUME 88.2 fl (80.0-96.0); MONO # 0.8 10^3/uL (0.0-0.8); MONO % 5.1 % (2.0-8.0); NEUTROPHILS # 10.9 10^3/uL (1.5-8.5); NEUTROPHILS % 74.8 % (36.0-66.0); PLATELET COUNT, AUTOMATED 367 10^3/uL (150-450); RED BLOOD COUNT 4.76 10^6/uL (4.00-5.40); WHITE BLOOD COUNT 14.6 10^3/uL (4.0-10.0)
[2021-07-31] MEDS ORDERED: METOCLOPRAMIDE INJ 10MG/2ML VIAL (J2765 PER 1) IV ONE (15:05)
[2021-07-31] MEDS ORDERED: NS 1,000 ML IV SCH (15:05)
[2021-07-31 15:28] LABS: HCG, SERUM QUALITATIVE POSITIVE (NEGATIVE)
[2021-07-31 15:37] LABS: ALBUMIN 4.2 GM/DL (3.2-5.2); ALT/SGPT 24 U/L (12-78); BILIRUBIN,DIRECT 0.3 MG/DL (0.0-0.2); BILIRUBIN,TOTAL 1.2 MG/DL (0.2-1.0); FREE T4 1.16 NG/DL (0.76-1.46); HCG, SERUM QUANTITATIVE 67029 MIU/ML; LIPASE 56 U/L (73-393); THYROID STIMULATING HORMONE 0.468 uIU/ML (0.358-3.740); TOTAL PROTEIN 7.7 GM/DL (6.4-8.2)
[2021-07-31] MEDS ORDERED: PROMETHAZINE INJ 25 MG/ML VIAL (J2550) IV ONE (16:50)
[2021-07-31] MEDS ORDERED: MORPHINE 4 MG/ML 1ML VIAL/SYRINGE (J2270) IV ONE (16:50)
--- NOTE | 2021-07-31 17:00 | REP ---
INDICATION: R/O GALLBLADDER DISEASE. COMPARISON: None TECHNIQUE: Real-time sonographic evaluation of the right upper quadrant with Doppler FINDINGS: Multiple ultrasonographic images of the liver show the hepatic parenchymal echo texture to appear unremarkable. There are no focal masses. There is no intrahepatic ductal dilatation. The common bile duct measures between 2 and 3 mm in its greatest transverse dimension. Multiple ultrasonographic images of the gallbladder show no focal or diffuse gallbladder wall thickening. There are no echogenic foci within the gallbladder lumen, which casts acoustic shadows. There is no pericholecystic edema. Images of the pancreatic region show no gross abnormality. The imaged portion of the right kidney is unremarkable. IMPRESSION: Unremarkable right upper quadrant ultrasound. Accredited by the [employer] in General Ultrasound. <Electronically signed by Collin Fortune > 07/31/21 [id number]
[2021-07-31] MEDS ORDERED: ONDA4TAB6 PO (17:33)
[2021-07-31 17:52] VITALS: BP 116/70
--- NOTE | 2021-07-31 18:24 | ECGEPIP ---
[facility] - ED Test Date: 2021-07-31 Pat Name: KATLYN DIEGO Department: Room: - Gender: Female [employer]: ROCKY : 2000 Requested By: Suma Pan PA-C Order Number: [id number] Reading MD: Adilia Hanna Measurements Intervals [place] Rate: 50 P: 67 [place]: 140 QRS: 74 QRSD: 76 T: 40 QT: 462 QTc: 421 Interpretive Statements Sinus bradycardia No prior Electronically Signed on 07-31-2021 18:23:40 EDT by Adilia Hanna
== END 2021-07-31 17:54 | disposition left against medical advice (07) ==
LOC: M ED 12:56
DX: R11.10 Vomiting, unspecified (principal); R19.7 Diarrhea, unspecified; R10.11 Right upper quadrant pain; R00.1 Bradycardia, unspecified; Z53.9 Procedure and treatment not carried out, unspecified reason; Z88.6 Allergy status to analgesic agent
CPT/HCPCS: 76705; 80047; 80076; 83690; 84439; 84443; 84702; 84703; 85025; 93005; 96361; 96374; 96375; 99284; J2405; J2765

== ENCOUNTER 2021-07-31 19:34 | Emergency (ER) | payer OTHER ==
[~2021-07-31] VITALS: Ht 162.6 cm; Wt 51.3 kg
[~2021-07-31 19:34] MED LIST changes: +ONDA4TAB6 PO
[2021-07-31 19:37] VITALS: BP 124/60
--- OUTSIDE RECORDS SUMMARY | 2021-07-31 19:43 | CCD ---
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 If you continue you may have access to information: Regarding HIV / AIDS; Provided by facilities licensed or operated by the [facility] Office of Mental Health; or Provided by the [facility] Office for People With Developmental Disabilities. If such information is present, then the following [facility] mandated warning applies: This information has [...] law may result in a fine or alf sentence or both. A general authorization for the release of medical or other information is NOT sufficient authorization for further disc losure. Family History Family Member Name Family Member Gender Family Member Status Date o f Status Description Data Source(s) Unknown Male Problem [facility] ([facility]) Unknown Unknown Problem MEDENT ([facility], ) Encounters Encounter Providers Location Date Indications Data Source(s ) Out[place] [address] [facility] [address] 07/23/2021 12:00:00 AM EDT eCW1 ([facility]ly [facility]) Unknown [address] [facility] [address] 07/07/2021 12:00:00 AM EDT eCW1 ([facility]) Sherrie Jean Baptiste LCSW-R: [address], [place] [address], Ph. Attender: Sherrie Landry [facility] Medical 06/21/2021 12:00:00 AM [facility]T [facility] Sherrie Jean Baptiste LCSW-R: [address], [address], [place] [address], Ph. Attender: Sherrie Landry [facility] Medical 06/07/2021 12:00:00 AM EDT [facility] Sherrie Jean Baptiste LCSW-R: [address], [address], [place] [address], Ph. Attender: Shrerie Landry [facility] Medical 06/07/2021 12:00:00 AM EDT [facility] Sherrie Jean Baptiste, [employer] PILOT-R: [address], [address], [place] [address], Ph. Attender: Sherrie Landry [facility] Medical 06/07/2021 12:00:00 AM EDT [place] ([facility]) SherrieSIERRA ChengW-R: [address], [address], [place] [address], Ph. Attender: Sherrie Landry [facility] Medical 06/07/2021 12:00:00 AM EDT [place] ([facility]) SherrieSIERRA ChengW-R: [address], [address], [place] [address], Ph. Attender: Sherrie Landry [facility] Medical 06/02/2021 12:00:00 AM EDT [place] ([facility]) SherrieSIERRA ChengW-R: [address], [address], [place] [address], Ph. Attender: Sherrie Landry [facility] Medical 06/02/2021 12:00:00 AM EDT [place] ([facility]) SIERRA MarW-R: [address], [address], [place] [address], Ph. Attender: Sherrie Landry [facility] Medical 06/02/2021 12:00:00 AM EDT [place] ([facility]) SIERRA MarW-R: [address], [address], [place] [address], Ph. Attender: Sherrie Evangelinaanalydouglas [facility] Medical 06/02/2021 12:00:00 AM EDT [facility]) SIERRA MarW-R: [address], [place] [address], Ph. Attender: Sherrie Landry [facility] Medical 05/24/2021 12:00:00 AM EDT [facility]) SIERRA MarW-R: [address], [place] [address], Ph. Attender: Sherrie Landry [facility] Medical 05/24/2021 12:00:00 AM EDT [facility]) SIERRA MarW-R: [address], [place] [address], Ph. Attender: Sherrie Landry [facility] Medical 05/24/2021 12:00:00 AM EDT [facility]) SIERRA MarW-R: [address], [place] [address], Ph. Attender: Sherrie Landry [facility] Medical 05/24/2021 12:00:00 AM EDT [facility]) Sherrie Jean Baptiste LCSW-R: [address], [place] [address], Ph. Attender: Sherrie Landry [facility] Medical 05/10/2021 12:00:00 AM EDT [facility]) Sherrie Jean Baptiste LCSW-R: [address], [place] [address], Ph. Attender: Sherrie Landry [facility] Medical 05/10/2021 12:00:00 AM EDT [facility]) Sherrie Jean Baptiste, [employer] P[employer]-R: [address], [place] [address], Ph. Attender: Sherrie Landry [facility] Medical 05/10/2021 12:00:00 AM EDT [place] ([facility]) SIERRA MarW-R: [address], [place] [address], Ph. Attender: Sherrie Mayorgabee [facility] Medical 05/10/2021 12:00:00 AM EDT [place] ([facility]) SIERRA MarW-R: [address], [place] [address], Ph. Attender: Sherrie Hutchinsonanalyleobee [facility] Medical 05/10/2021 12:00:00 AM EDT [facility]) Nella Gray PA-C: [address], [place] [address], Ph. Attender: Nella MIRANDA [facility] Medical 05/07/2021 12:00:00 AM EDT [place] ([facility]) Nella Gray PA-C: [address], [place] [address], Ph. Attender: Nella MIRANDA [facility] Medical 05/07/2021 12:00:00 AM EDT [place] ([facility]) Nella Gray PA-C: [address], [place] [address], Ph. Attender: Nella MIRANDA [facility] Medical 05/07/2021 12:00:00 AM EDT [place] ([facility]) Nella Gray PA-C: [address], [place] [address], Ph. Attender: Nella MIRANDA [facility] Medical 05/07/2021 12:00:00 AM EDT [place] ([facility]) EREN OscarC: [address], [place] [address], Ph. Attender: Nella MIRANDA [facility] Medical 05/07/2021 12:00:00 AM EDT [place] ([facility]) Nella Gray PA-C: [address], [facility] [place] [address], Ph. Attender: Nella MIRANDA [facility] Medical 05/07/2021 12:00:00 AM EDT [place] ([facility]) Jose Goldman RPA-C: [address], [place] [address], Ph. Attender: JOSE HOWELLC [facility] Medical 04/28/2021 12:00:00 AM EDT [place] ([facility]) Jose Goldman RPA-C: [address], [place] [address], Ph. Attender: JOSE GOLDMAN RPA-C [facility] Medical 04/28/2021 12:00:00 AM EDT [place] ([facility]) Jose Goldman RPA-C: [address], [place] [address], Ph. Attender: JOSE GOLDMAN RPA-C [facility] Medical 04/28/2021 12:00:00 AM EDT [place] ([facility]) Jose Goldman RPA-C: [address], [place] [address], Ph. Attender: JOSE GOLDMAN RPA-C [facility] Medical 04/28/2021 12:00:00 AM EDT [place] ([facility]) Jose Goldman RPA-C: [address], [place] [address], Ph. Attender: JOSE GOLDMAN RPA-C [facility] Medical 04/28/2021 12:00:00 AM EDT [place] ([facility]) Jose Goldman RPA-C: [address], [place] [address], Ph. Attender: JOSE GOLDMAN RPA-C [facility] Medical 04/28/2021 12:00:00 AM EDT [place] ([facility]) Jose Goldman RPA-C: [address], [place] [address], Ph. Attender: JOSE GOLDMAN RPA-C [facility] Medical 04/28/2021 12:00:00 AM EDT [place] ([facility]) Outpatient [address] [facility] [address] 04/26/2021 12:00:00 AM EDT eCW1 ([facility]) SIERRA MarW-R: [address], [address], [place] [address], Ph. Attender: Sherrie Landry [facility] Medical 04/15/2021 12:00:00 AM EDT [place] ([facility]) SIERRA MarW-R: [address], [address], [place] [address], Ph. Attender: Sherrie Landry [facility] Medical 04/15/2021 12:00:00 AM EDT [place] ([facility]) SIERRA MarW-R: [address], [address], [place] [address], Ph. Attender: Sherrie Landry [facility] Medical 04/15/2021 12:00:00 AM EDT [place] ([facility]) SIERRA MarW-R: [address], [address], [place] [address], Ph. Attender: Sherrie Landry [facility] Medical 04/15/2021 12:00:00 AM EDT [place] ([facility]) SIERRA MarW-R: [address], [address], [place] [address], Ph. Attender: Sherrie Landry [facility] Medical 04/15/2021 12:00:00 AM EDT [place] ([facility]) SIERRA MarW-R: [address], [address], [place] [address], Ph. Attender: Sherrie Hutchinsonanalyleobee [facility] Medical 04/15/2021 12:00:00 AM EDT [place] ([facility]) SIERRA MarW-R: [address], [address], [place] [address], Ph. Attender: Sherrie Landry [facility] Medical 04/15/2021 12:00:00 AM EDT [place] ([facility]) SherrieSIERRA ChengW-R: [address], [address], [place] [address], Ph. Attender: Sherrie Landry [facility] Medical 04/15/2021 12:00:00 AM EDT [place] ([facility]) SIERRA MarW-R: [address], [address], [place] [address], Ph. Attender: Sherrie Landry [facility] Medical 04/01/2021 12:00:00 AM EDT [place] ([facility]) SherrieSIERRA ChengW-R: [address], [address], [place] [address], Ph. Attender: Sherrie Evangelinaanalyleobee [facility] Medical 04/01/2021 12:00:00 AM EDT [place] ([facility]) SIERRA MarW-R: [address], [address], [place] [address], Ph. Attender: Sherrie Landry [facility] Medical 04/01/2021 12:00:00 AM EDT [place] ([facility]) SIERRA MarW-R: [address], [address], [place] [address], Ph. Attender: Sherrie Evangelinaanalyleobee [facility] Medical 04/01/2021 12:00:00 AM EDT [place] ([facility]) SIERRA MarW-R: [address], [address], [place] [address], Ph. Attender: Sherrie Quilesleobee [facility] Medical 04/01/2021 12:00:00 AM EDT [place] ([facility]) Sherrie Jean Baptiste, [employer] PILOT-R: [address], [address], [place] [address], Ph. Attender: Sherrie Landry [facility] Medical 04/01/2021 12:00:00 AM EDT [place] ([facility]) Sherrie Jean BaptisteSIERRAW-R: [address], [address], [place] [address], Ph. Attender: Sherrie Landry [facility] Medical 04/01/2021 12:00:00 AM EDT [place] ([facility]) Sherrie Jean BaptisteSIERRAW-R: [address], [address], [place] [address], Ph. Attender: Sherrie Landry [facility] Medical 04/01/2021 12:00:00 AM EDT [place] ([facility]) Sherrie Jean BaptisteSIERRAW-R: [address], [address], [place] [address], Ph. Attender: Sherrie Landry [facility] Medical 04/01/2021 12:00:00 AM EDT [place] ([facility]) Nella Gray PA-C: [address], [place] [address], Ph. Attender: Nella MIRANDA [facility] Medical 03/29/2021 12:00:00 AM EDT [place] ([facility]) Nella Gray PA-C: [address], [place] [address], Ph. Attender: Nella MIRANDA [facility] Medical 03/29/2021 12:00:00 AM EDT [place] ([facility]) Nella Gray PA-C: [address], [place] [address], Ph. Attender: Nella MIRANDA [facility] Medical 03/29/2021 12:00:00 AM EDT [place] ([facility]) Nella Gray PA-C: [address], [place] [address], Ph. Attender: Nella MIRANDA [facility] Medical 03/29/2021 12:00:00 AM EDT [place] ([facility]) Nella Gray PA-C: [address], [place] [address], Ph. Attender: Nella MIRANDA [facility] Medical 03/29/2021 12:00:00 AM EDT [place] ([facility]) Nella Gray PA-C: [address], [place] [address], Ph. Attender: Nella MIRANDA [facility] Medical 03/29/2021 12:00:00 AM EDT [place] ([facility]) Nella Gray PA-C: [address], [place] [address], Ph. Attender: Nella MIRANDA [facility] Medical 03/29/2021 12:00:00 AM EDT [place] ([facility]) Nella Gray PA-C: [address], [place] [address], Ph. Attender: Nella MIRANDA [facility] Medical 03/29/2021 12:00:00 AM EDT [place] ([facility]) Nella Gray PA-C: [address], [place] [address], Ph. Attender: Nella MIRANDA [facility] Medical 03/29/2021 12:00:00 AM EDT [place] ([facility]) Nella Gray PA-C: [address], [place] [address], Ph. Attender: Nella MIRANDA [facility] Medical 03/29/2021 12:00:00 AM EDT [place] ([facility]) SIERRA MarW-R: [address], [place] [address], Ph. Attender: Sherrie Landry [facility] Medical 03/22/2021 12:00:00 AM EDT [place] ([facility]) SIERRA MarW-R: [address], [place] [address], Ph. Attender: Sherrie Landry [facility] Medical 03/22/2021 12:00:00 AM EDT [place] ([facility]) SIERRA MarW-R: [address], [place] [address], Ph. Attender: Sherrie Landry [facility] Medical 03/22/2021 12:00:00 AM EDT [place] ([facility]) SIERRA MarW-R: [address], [place] [address], Ph. Attender: Sherrie Landry [facility] Medical 03/22/2021 12:00:00 AM EDT [facility]) SIERRA MarW-R: [address], [place] [address], Ph. Attender: Sherrie Landry [facility] Medical 03/22/2021 12:00:00 AM EDT [facility]) SIERRA MarW-R: [address], [place] [address], Ph. Attender: Sherrie Landry [facility] Medical 03/22/2021 12:00:00 AM EDT [facility]) SIERRA MarW-R: [address], [place] [address], Ph. Attender: Sherrie Landry [facility] Medical 03/22/2021 12:00:00 AM EDT [facility]) SIERRA MarW-R: [address], [place] [address], Ph. Attender: Sherrie Landry [facility] Medical 03/22/2021 12:00:00 AM EDT [facility]) SIERRA MarW-R: [address], [place] [address], Ph. Attender: Sherrie Landry [facility] Medical 03/22/2021 12:00:00 AM EDT [facility]) SIERRA MarW-R: [address], [place] [address], Ph. Attender: Sherrie Landry [facility] Medical 03/22/2021 12:00:00 AM EDT [facility]) SIERRA MarW-R: [address], [place] [address], Ph. Attender: Sherrie Landry [facility] Medical 03/22/2021 12:00:00 AM EDT [place] ([facility]) Nella Gray PA-C: [address], [place] [address], Ph. Attender: Nella MIRANDA [facility] Medical 01/28/2021 12:00:00 AM EDT [place] ([facility]) Nella Gray PA-C: [address], [place] [address], Ph. Attender: Nella MIRANDA [facility] Medical 01/28/2021 12:00:00 AM EDT [place] ([facility]) Nella Gray PA-C: [address], [place] [address], Ph. Attender: Nella MIRANDA [facility] Medical 01/28/2021 12:00:00 AM EDT [place] ([facility]) Nella Gray PA-C: [address], [place] [address], Ph. Attender: Nella MIRANDA [facility] Medical 01/28/2021 12:00:00 AM EDT [place] ([facility]) Nella Gray PA-C: [address], [place] [address], Ph. Attender: Nella MIRANDA [facility] Medical 01/28/2021 12:00:00 AM EDT [place] ([facility]) Nella Gray PA-C: [address], [place] [address], Ph. Attender: Nella MIRANDA [facility] Medical 01/28/2021 12:00:00 AM EDT [place] ([facility]) Nella Gray PA-C: [address], [place] [address], Ph. Attender: Nella MIRANDA [facility] Medical 01/28/2021 12:00:00 AM EDT [place] ([facility]) Nella Gray PA-C: [address], [place] [address], Ph. Attender: Nella MIRANDA [facility] Medical 01/28/2021 12:00:00 AM EDT [place] ([facility]) Nella Gray PA-C: [address], [place] [address], Ph. Attender: Nella MIRANDA [facility] Medical 01/28/2021 12:00:00 AM EDT [place] ([facility]) Nella Gray PA-C: [address], [place] [address], Ph. Attender: Nella MIRANDA [facility] Medical 01/28/2021 12:00:00 AM EDT [place] ([facility]) Nella Gray PA-C: [address], [place] [address], Ph. Attender: Nella MIRANDA [facility] Medical 01/28/2021 12:00:00 AM EDT [place] ([facility]) Nella Gray PA-C: [address], [place] [address], Ph. 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 [address] [place] [address] 12/01/2020 12:00:00 AM EST eCW1 ([facility]) Medications Medication Brand Name Start [...] AM EST suspended metroNIDAZOLE 0.75 % eCW1 (Pending Sale To [facility]) Metronidazole 0.0075 MG/MG Vaginal Gel metroNIDAZOLE 0 .75 % metroNIDAZOLE 0.75 % 12/01/2020 12:00:00 AM EST suspended metroNIDAZOLE 0.75 % eCW1 (Pending Sale To [facility]) Metronidazole 0.0075 MG/MG Vaginal Gel metroNIDAZOLE 0 .75 % metroNIDAZOLE 0.75 % 12/01/2020 12:00:00 AM EST active metroNIDAZOLE 0.75 % eCW1 (Pending Sale To [facility]) Metronidazole 0.0075 MG/MG Vaginal Gel Metronidazole 0 .75 % Metronidazole 0.75 % 12/01/2020 12:00:00 AM EST active Metronidazole 0.75 % eCW1 (Pending Sale To [facility]) 500 mg 06/12/2020 12:00:00 AM EDT tablet [...] completed fluconazole 150 MG Oral Tablet [place] ([facility]) Azithromycin 500 MG Oral Tablet azithrom ycin 500 mg tablet TAKE TWO TABLETS BY MOUTH ONCE azithromycin 500 mg tablet TAKE TWO TABLETS BY MOUTH ONCE completed azithromycin 500 MG Oral Tab let [place] ([facility]) prednisolone acetate 10 MG/ML Ophthalmic Suspension prednisolone acetate 1 % eye drops,suspension INSTILL 1 DROP IN BOTH EYES FOUR TIMES A DAY DIRECTED prednisolone acetate 1 % eye drops,suspension INSTILL 1 DROP IN BOTH EYES FOUR TIMES A DAY DIRECTED completed prednisolone acetate 10 MG/ML Ophthalmic Suspension [place] ([facility]) NITROFURANTOIN, MACROCRYSTALS 25 MG / Ni trofurantoin, Monohydrate 75 MG Oral Capsule nitrofurantoin monohydrate/macrocrystals 100 mg capsule TAKE ONE CAPSULE BY MOUTH TWICE A DAY nitrofurantoin monohydrate/macrocrystals 100 mg capsule TAKE ONE CAPSULE BY MOUTH TWICE A DAY completed nitrofurantoin, macrocrystals 25 MG / nitrofurantoin, monohydrate 75 MG Oral Capsule [place] ([facility]) Azithromycin 500 MG Oral Tablet azithrom ycin 500 mg tablet TAKE TWO TABLETS BY MOUTH ONCE azithromycin 500 mg tablet TAKE TWO TABLETS BY MOUTH ONCE completed azithromycin 500 MG Oral Tab let [place] ([facility]) Fluoxetine 10 MG Oral Capsule fluoxetine 10 mg capsule fluox etine 10 mg capsule completed fluoxetine 10 MG Oral Capsule [place] ([facility]) Metronidazole 0.0075 MG/MG Vaginal Gel m etronidazole 0.75 % vaginal gel APPLY 1 APPLICATORFUL AT BEDTIME ONCE A DAY FOR 5 DAYS metronidazole 0.75 % vaginal gel APPLY 1 APPLICATORFUL AT BEDTIME ONCE A DAY FOR 5 DAYS completed metronidazole 0.0075 MG/MG Vaginal Gel [place] ([facility]) Metronidazole 0.0075 MG/MG Vaginal Gel m etronidazole 0.75 % vaginal gel APPLY 1 APPLICATORFUL AT BEDTIME ONCE A DAY FOR 5 DAYS metronidazole 0.75 % vaginal gel APPLY 1 APPLICATORFUL AT BEDTIME ONCE A DAY FOR 5 DAYS completed metronidazole 0.0075 MG/MG Vaginal Gel [place] ([facility]) NITROFURANTOIN, MACROCRYSTALS 25 MG / Ni trofurantoin, Monohydrate 75 MG Oral Capsule nitrofurantoin monohydrate/macrocrystals 100 mg capsule TAKE ONE CAPSULE BY MOUTH TWICE A DAY nitrofurantoin monohydrate/macrocrystals 100 mg capsule TAKE ONE CAPSULE BY MOUTH TWICE A DAY completed nitrofurantoin, macrocrystals 25 MG / nitrofurantoin, monohydrate 75 MG Oral Capsule [place] ([facility]) Metronidazole 0.0075 MG/MG Vaginal Gel m etronidazole 0.75 % vaginal gel APPLY 1 APPLICATORFUL AT BEDTIME ONCE A DAY FOR 5 DAYS metronidazole 0.75 % vaginal gel APPLY 1 APPLICATORFUL AT BEDTIME ONCE A DAY FOR 5 DAYS completed metronidazole 0.0075 MG/MG Vaginal Gel [place] ([facility]) Metronidazole 0.0075 MG/MG Vaginal Gel m etronidazole 0.75 % vaginal gel APPLY 1 APPLICATORFUL AT BEDTIME ONCE A DAY FOR 5 DAYS metronidazole 0.75 % vaginal gel APPLY 1 APPLICATORFUL AT BEDTIME ONCE A DAY FOR 5 DAYS completed metronidazole 0.0075 MG/MG Vaginal Gel [place] ([facility]) Fluconazole 150 MG Oral Tablet fluconazo le 150 mg tablet TAKE 1 TABLET BY MOUTH NOW THEN TAKE 2ND TABLET IN 48 HOURS fluconazole 150 mg tablet TAKE 1 TABLET BY MOUTH NOW THEN TAKE 2ND TABLET IN 48 HOURS completed fluconazole 150 MG Oral Tablet [place] ([facility]) Azithromycin 500 MG Oral Tablet azithrom ycin 500 mg tablet TAKE TWO TABLETS BY MOUTH ONCE azithromycin 500 mg tablet TAKE TWO TABLETS BY MOUTH ONCE completed azithromycin 500 MG Oral Tab let [place] ([facility]) Fluoxetine 10 MG Oral Capsule fluoxetine 10 mg capsule fluox etine 10 mg capsule completed fluoxetine 10 MG Oral Capsule [place] ([facility]) Metronidazole 0.0075 MG/MG Vaginal Gel m etronidazole 0.75 % vaginal gel APPLY 1 APPLICATORFUL AT BEDTIME ONCE A DAY FOR 5 DAYS metronidazole 0.75 % vaginal gel APPLY 1 APPLICATORFUL AT BEDTIME ONCE A DAY FOR 5 DAYS completed metronidazole 0.0075 MG/MG Vaginal Gel [place] ([facility]) prednisolone acetate 10 MG/ML Ophthalmic Suspension prednisolone acetate 1 % eye drops,suspension INSTILL 1 DROP IN BOTH EYES FOUR TIMES A DAY DIRECTED prednisolone acetate 1 % eye drops,suspension INSTILL 1 DROP IN BOTH EYES FOUR TIMES A DAY DIRECTED completed prednisolone acetate 10 MG/ML Ophthalmic Suspension [place] ([facility]) Sertraline 25 MG Oral Tablet sertraline 25 mg tablet TAKE ONE TABLET BY MOUTH EVERY DAY sertraline 25 mg tablet TAKE ONE TABLET BY MOUTH EVERY DAY completed sertraline 25 MG Oral Tablet [place] ([facility]) Azithromycin 500 MG Oral Tablet azithrom ycin 500 mg tablet TAKE TWO TABLETS BY MOUTH ONCE azithromycin 500 mg tablet TAKE TWO TABLETS BY MOUTH ONCE completed azithromycin 500 MG Oral Tab let [place] ([facility]) Azithromycin 500 MG Oral Tablet azithrom ycin 500 mg tablet TAKE TWO TABLETS BY MOUTH ONCE azithromycin 500 mg tablet TAKE TWO TABLETS BY MOUTH ONCE completed azithromycin 500 MG Oral Tab let [place] ([facility]) Metronidazole 0.0075 MG/MG Vaginal Gel m etronidazole 0.75 % vaginal gel APPLY 1 APPLICATORFUL AT BEDTIME ONCE A DAY FOR 5 DAYS metronidazole 0.75 % vaginal gel APPLY 1 APPLICATORFUL AT BEDTIME ONCE A DAY FOR 5 DAYS completed metronidazole 0.0075 MG/MG Vaginal Gel [place] ([facility]) Sertraline 25 MG Oral Tablet sertraline 25 mg tablet TAKE ONE TABLET BY MOUTH EVERY DAY sertraline 25 mg tablet TAKE ONE TABLET BY MOUTH EVERY DAY completed sertraline 25 MG Oral Tablet [place] ([facility]) Metronidazole 0.0075 MG/MG Vaginal Gel m etronidazole 0.75 % vaginal gel APPLY 1 APPLICATORFUL AT BEDTIME ONCE A DAY FOR 5 DAYS metronidazole 0.75 % vaginal gel APPLY 1 APPLICATORFUL AT BEDTIME ONCE A DAY FOR 5 DAYS completed metronidazole 0.0075 MG/MG Vaginal Gel [place] ([facility]) Fluoxetine 10 MG Oral Capsule fluoxetine 10 mg capsule fluox etine 10 mg capsule completed fluoxetine 10 MG Oral Capsule [place] ([facility]) Fluconazole 150 MG Oral Tablet fluconazo le 150 mg tablet TAKE 1 TABLET BY MOUTH NOW THEN TAKE 2ND TABLET IN 48 HOURS fluconazole 150 mg tablet TAKE 1 TABLET BY MOUTH NOW THEN TAKE 2ND TABLET IN 48 HOURS completed fluconazole 150 MG Oral Tablet [place] ([facility]) Sertraline 25 MG Oral Tablet sertraline 25 mg tablet TAKE ONE TABLET BY MOUTH EVERY DAY sertraline 25 mg tablet TAKE ONE TABLET BY MOUTH EVERY DAY completed sertraline 25 MG Oral Tablet [place] ([facility]) Fluoxetine 10 MG Oral Capsule fluoxetine 10 mg capsule fluox etine 10 mg capsule completed fluoxetine 10 MG Oral Capsule [place] ([facility]) Fluconazole 150 MG Oral Tablet fluconazo le 150 mg tablet TAKE 1 TABLET BY MOUTH NOW THEN TAKE 2ND TABLET IN 48 HOURS fluconazole 150 mg tablet TAKE 1 TABLET BY MOUTH NOW THEN TAKE 2ND TABLET IN 48 HOURS completed fluconazole 150 MG Oral Tablet [place] ([facility]) prednisolone acetate 10 MG/ML Ophthalmic Suspension prednisolone acetate 1 % eye drops,suspension INSTILL 1 DROP IN BOTH EYES FOUR TIMES A DAY DIRECTED prednisolone acetate 1 % eye drops,suspension INSTILL 1 DROP IN BOTH EYES FOUR TIMES A DAY DIRECTED completed prednisolone acetate 10 MG/ML Ophthalmic Suspension [place] ([facility]) NITROFURANTOIN, MACROCRYSTALS 25 MG / Ni trofurantoin, Monohydrate 75 MG Oral Capsule nitrofurantoin monohydrate/macrocrystals 100 mg capsule TAKE ONE CAPSULE BY MOUTH TWICE A DAY nitrofurantoin monohydrate/macrocrystals 100 mg capsule TAKE ONE CAPSULE BY MOUTH TWICE A DAY completed nitrofurantoin, macrocrystals 25 MG / nitrofurantoin, monohydrate 75 MG Oral Capsule [place] ([facility]) Sertraline 25 MG Oral Tablet sertraline 25 mg tablet TAKE ONE TABLET BY MOUTH EVERY DAY sertraline 25 mg tablet TAKE ONE TABLET BY MOUTH EVERY DAY completed sertraline 25 MG Oral Tablet [place] ([facility]) NITROFURANTOIN, MACROCRYSTALS 25 MG / Ni trofurantoin, Monohydrate 75 MG Oral Capsule nitrofurantoin monohydrate/macrocrystals 100 mg capsule TAKE ONE CAPSULE BY MOUTH TWICE A DAY nitrofurantoin monohydrate/macrocrystals 100 mg capsule TAKE ONE CAPSULE BY MOUTH TWICE A DAY completed nitrofurantoin, macrocrystals 25 MG / nitrofurantoin, monohydrate 75 MG Oral Capsule [place] ([facility]) NITROFURANTOIN, MACROCRYSTALS 25 MG / Ni trofurantoin, Monohydrate 75 MG Oral Capsule nitrofurantoin monohydrate/macrocrystals 100 mg capsule TAKE ONE CAPSULE BY MOUTH TWICE A DAY nitrofurantoin monohydrate/macrocrystals 100 mg capsule TAKE ONE CAPSULE BY MOUTH TWICE A DAY completed nitrofurantoin, macrocrystals 25 MG / nitrofurantoin, monohydrate 75 MG Oral Capsule [place] ([facility]) Fluconazole 150 MG Oral Tablet fluconazo le 150 mg tablet TAKE 1 TABLET BY MOUTH NOW THEN TAKE 2ND TABLET IN 48 HOURS fluconazole 150 mg tablet TAKE 1 TABLET BY MOUTH NOW THEN TAKE 2ND TABLET IN 48 HOURS completed fluconazole 150 MG Oral Tablet [place] ([facility]) Metronidazole 0.0075 MG/MG Vaginal Gel m etronidazole 0.75 % vaginal gel APPLY 1 APPLICATORFUL AT BEDTIME ONCE A DAY FOR 5 DAYS metronidazole 0.75 % vaginal gel APPLY 1 APPLICATORFUL AT BEDTIME ONCE A DAY FOR 5 DAYS completed metronidazole 0.0075 MG/MG Vaginal Gel [place] ([facility]) Metronidazole 0.0075 MG/MG Vaginal Gel m etronidazole 0.75 % vaginal gel APPLY 1 APPLICATORFUL AT BEDTIME ONCE A DAY FOR 5 DAYS metronidazole 0.75 % vaginal gel APPLY 1 APPLICATORFUL AT BEDTIME ONCE A DAY FOR 5 DAYS completed metronidazole 0.0075 MG/MG Vaginal Gel [place] ([facility]) Sertraline 25 MG Oral Tablet sertraline 25 mg tablet TAKE ONE TABLET BY MOUTH EVERY DAY sertraline 25 mg tablet TAKE ONE TABLET BY MOUTH EVERY DAY completed sertraline 25 MG Oral Tablet [place] ([facility]) NITROFURANTOIN, MACROCRYSTALS 25 MG / Ni trofurantoin, Monohydrate 75 MG Oral Capsule nitrofurantoin monohydrate/macrocrystals 100 mg capsule TAKE ONE CAPSULE BY MOUTH TWICE A DAY nitrofurantoin monohydrate/macrocrystals 100 mg capsule TAKE ONE CAPSULE BY MOUTH TWICE A DAY completed nitrofurantoin, macrocrystals 25 MG / nitrofurantoin, monohydrate 75 MG Oral Capsule [facility]) NITROFURANTOIN, MACROCRYSTALS 25 MG / Ni trofurantoin, Monohydrate 75 MG Oral Capsule nitrofurantoin monohydrate/macrocrystals 100 mg capsule TAKE ONE CAPSULE BY MOUTH TWICE A DAY nitrofurantoin monohydrate/macrocrystals 100 mg capsule TAKE ONE CAPSULE BY MOUTH TWICE A DAY completed nitrofurantoin, macrocrystals 25 MG / nitrofurantoin, monohydrate 75 MG Oral Capsule [place] ([facility]) Fluconazole 150 MG Oral Tablet fluconazo le 150 mg tablet TAKE 1 TABLET BY MOUTH NOW THEN TAKE 2ND TABLET IN 48 HOURS fluconazole 150 mg tablet TAKE 1 TABLET BY MOUTH NOW THEN TAKE 2ND TABLET IN 48 HOURS completed fluconazole 150 MG Oral Tablet [facility]) Sertraline 25 MG Oral Tablet sertraline 25 mg tablet TAKE ONE TABLET BY MOUTH EVERY DAY sertraline 25 mg tablet TAKE ONE TABLET BY MOUTH EVERY DAY completed sertraline 25 MG Oral Tablet [facility]) Azithromycin 500 MG Oral Tablet azithrom ycin 500 mg tablet TAKE TWO TABLETS BY MOUTH ONCE azithromycin 500 mg tablet TAKE TWO TABLETS BY MOUTH ONCE completed azithromycin 500 MG Oral Tab let [facility]) Fluoxetine 10 MG Oral Capsule fluoxetine 10 mg capsule fluox etine 10 mg capsule completed fluoxetine 10 MG Oral Capsule [facility]) Azithromycin 500 MG Oral Tablet azithrom ycin 500 mg tablet TAKE TWO TABLETS BY MOUTH ONCE azithromycin 500 mg tablet TAKE TWO TABLETS BY MOUTH ONCE completed azithromycin 500 MG Oral Tab let [place] ([facility]) Azithromycin 500 MG Oral Tablet azithrom ycin 500 mg tablet TAKE TWO TABLETS BY MOUTH ONCE azithromycin 500 mg tablet TAKE TWO TABLETS BY MOUTH ONCE completed azithromycin 500 MG Oral Tab let [facility]) prednisolone acetate 10 MG/ML Ophthalmic Suspension prednisolone acetate 1 % eye drops,suspension INSTILL 1 DROP IN BOTH EYES FOUR TIMES A DAY DIRECTED prednisolone acetate 1 % eye drops,suspension INSTILL 1 DROP IN BOTH EYES FOUR TIMES A DAY DIRECTED completed prednisolone acetate 10 MG/ML Ophthalmic Suspension [facility]) NITROFURANTOIN, MACROCRYSTALS 25 MG / Ni trofurantoin, Monohydrate 75 MG Oral Capsule nitrofurantoin monohydrate/macrocrystals 100 mg capsule TAKE ONE CAPSULE BY MOUTH TWICE A DAY nitrofurantoin monohydrate/macrocrystals 100 mg capsule TAKE ONE CAPSULE BY MOUTH TWICE A DAY completed nitrofurantoin, macrocrystals 25 MG / nitrofurantoin, monohydrate 75 MG Oral Capsule [place] ([facility]) Azithromycin 500 MG Oral Tablet azithrom ycin 500 mg tablet TAKE TWO TABLETS BY MOUTH ONCE azithromycin 500 mg tablet TAKE TWO TABLETS BY MOUTH ONCE completed azithromycin 500 MG Oral Tab let [place] ([facility]) Sertraline 25 MG Oral Tablet sertraline 25 mg tablet TAKE ONE TABLET BY MOUTH EVERY DAY sertraline 25 mg tablet TAKE ONE TABLET BY MOUTH EVERY DAY completed sertraline 25 MG Oral Tablet [place] ([facility]) Azithromycin 500 MG Oral Tablet azithrom ycin 500 mg tablet TAKE TWO TABLETS BY MOUTH ONCE azithromycin 500 mg tablet TAKE TWO TABLETS BY MOUTH ONCE completed azithromycin 500 MG Oral Tab let [place] ([facility]) Fluconazole 150 MG Oral Tablet fluconazo le 150 mg tablet TAKE 1 TABLET BY MOUTH NOW THEN TAKE 2ND TABLET IN 48 HOURS fluconazole 150 mg tablet TAKE 1 TABLET BY MOUTH NOW THEN TAKE 2ND TABLET IN 48 HOURS completed fluconazole 150 MG Oral Tablet [place] ([facility]) prednisolone acetate 10 MG/ML Ophthalmic Suspension prednisolone acetate 1 % eye drops,suspension INSTILL 1 DROP IN BOTH EYES FOUR TIMES A DAY DIRECTED prednisolone acetate 1 % eye drops,suspension INSTILL 1 DROP IN BOTH EYES FOUR TIMES A DAY DIRECTED completed prednisolone acetate 10 MG/ML Ophthalmic Suspension [facility]) Fluconazole 150 MG Oral Tablet fluconazo le 150 mg tablet TAKE 1 TABLET BY MOUTH NOW THEN TAKE 2ND TABLET IN 48 HOURS fluconazole 150 mg tablet TAKE 1 TABLET BY MOUTH NOW THEN TAKE 2ND TABLET IN 48 HOURS completed fluconazole 150 MG Oral Tablet [facility]) Sertraline 25 MG Oral Tablet sertraline 25 mg tablet TAKE ONE TABLET BY MOUTH EVERY DAY sertraline 25 mg tablet TAKE ONE TABLET BY MOUTH EVERY DAY completed sertraline 25 MG Oral Tablet [place] ([facility]) Fluconazole 150 MG Oral Tablet fluconazo le 150 mg tablet TAKE 1 TABLET BY MOUTH NOW THEN TAKE 2ND TABLET IN 48 HOURS fluconazole 150 mg tablet TAKE 1 TABLET BY MOUTH NOW THEN TAKE 2ND TABLET IN 48 HOURS completed fluconazole 150 MG Oral Tablet [place] ([facility]) Fluconazole 150 MG Oral Tablet fluconazo le 150 mg tablet TAKE 1 TABLET BY MOUTH NOW THEN TAKE 2ND TABLET IN 48 HOURS fluconazole 150 mg tablet TAKE 1 TABLET BY MOUTH NOW THEN TAKE 2ND TABLET IN 48 HOURS completed fluconazole 150 MG Oral Tablet [place] ([facility]) Metronidazole 0.0075 MG/MG Vaginal Gel m etronidazole 0.75 % vaginal gel APPLY 1 APPLICATORFUL AT BEDTIME ONCE A DAY FOR 5 DAYS metronidazole 0.75 % vaginal gel APPLY 1 APPLICATORFUL AT BEDTIME ONCE A DAY FOR 5 DAYS completed metronidazole 0.0075 MG/MG Vaginal Gel [place] ([facility]) NITROFURANTOIN, MACROCRYSTALS 25 MG / Ni trofurantoin, Monohydrate 75 MG Oral Capsule nitrofurantoin monohydrate/macrocrystals 100 mg capsule TAKE ONE CAPSULE BY MOUTH TWICE A DAY nitrofurantoin monohydrate/macrocrystals 100 mg capsule TAKE ONE CAPSULE BY MOUTH TWICE A DAY completed nitrofurantoin, macrocrystals 25 MG / nitrofurantoin, monohydrate 75 MG Oral Capsule [place] ([facility]) Fluoxetine 10 MG Oral Capsule fluoxetine 10 mg capsule fluox etine 10 mg capsule completed fluoxetine 10 MG Oral Capsule [place] ([facility]) Sertraline 25 MG Oral Tablet sertraline 25 mg tablet TAKE ONE TABLET BY MOUTH EVERY DAY sertraline 25 mg tablet TAKE ONE TABLET BY MOUTH EVERY DAY completed sertraline 25 MG Oral Tablet [place] ([facility]) Azithromycin 500 MG Oral Tablet azithrom ycin 500 mg tablet TAKE TWO TABLETS BY MOUTH ONCE azithromycin 500 mg tablet TAKE TWO TABLETS BY MOUTH ONCE completed azithromycin 500 MG Oral Tab let [place] ([facility]) Azithromycin 500 MG Oral Tablet azithrom ycin 500 mg tablet TAKE TWO TABLETS BY MOUTH ONCE azithromycin 500 mg tablet TAKE TWO TABLETS BY MOUTH ONCE completed azithromycin 500 MG Oral Tab let [place] ([facility]) NITROFURANTOIN, MACROCRYSTALS 25 MG / Ni trofurantoin, Monohydrate 75 MG Oral Capsule nitrofurantoin monohydrate/macrocrystals 100 mg capsule TAKE ONE CAPSULE BY MOUTH TWICE A DAY nitrofurantoin monohydrate/macrocrystals 100 mg capsule TAKE ONE CAPSULE BY MOUTH TWICE A DAY completed nitrofurantoin, macrocrystals 25 MG / nitrofurantoin, monohydrate 75 MG Oral Capsule [place] ([facility]) Fluconazole 150 MG Oral Tablet fluconazo le 150 mg tablet TAKE 1 TABLET BY MOUTH NOW THEN TAKE 2ND TABLET IN 48 HOURS fluconazole 150 mg tablet TAKE 1 TABLET BY MOUTH NOW THEN TAKE 2ND TABLET IN 48 HOURS completed fluconazole 150 MG Oral Tablet [facility]) NITROFURANTOIN, MACROCRYSTALS 25 MG / Ni trofurantoin, Monohydrate 75 MG Oral Capsule nitrofurantoin monohydrate/macrocrystals 100 mg capsule TAKE ONE CAPSULE BY MOUTH TWICE A DAY nitrofurantoin monohydrate/macrocrystals 100 mg capsule TAKE ONE CAPSULE BY MOUTH TWICE A DAY completed nitrofurantoin, macrocrystals 25 MG / nitrofurantoin, monohydrate 75 MG Oral Capsule [facility]) Metronidazole 0.0075 MG/MG Vaginal Gel m etronidazole 0.75 % vaginal gel APPLY 1 APPLICATORFUL AT BEDTIME ONCE A DAY FOR 5 DAYS metronidazole 0.75 % vaginal gel APPLY 1 APPLICATORFUL AT BEDTIME ONCE A DAY FOR 5 DAYS completed metronidazole 0.0075 MG/MG Vaginal Gel [place] ([facility]) Metronidazole 0.0075 MG/MG Vaginal Gel m etronidazole 0.75 % vaginal gel APPLY 1 APPLICATORFUL AT BEDTIME ONCE A DAY FOR 5 DAYS metronidazole 0.75 % vaginal gel APPLY 1 APPLICATORFUL AT BEDTIME ONCE A DAY FOR 5 DAYS completed metronidazole 0.0075 MG/MG Vaginal Gel [place] ([facility]) NITROFURANTOIN, MACROCRYSTALS 25 MG / Ni trofurantoin, Monohydrate 75 MG Oral Capsule nitrofurantoin monohydrate/macrocrystals 100 mg capsule TAKE ONE CAPSULE BY MOUTH TWICE A DAY nitrofurantoin monohydrate/macrocrystals 100 mg capsule TAKE ONE CAPSULE BY MOUTH TWICE A DAY completed nitrofurantoin, macrocrystals 25 MG / nitrofurantoin, monohydrate 75 MG Oral Capsule [place] ([facility]) prednisolone acetate 10 MG/ML Ophthalmic Suspension prednisolone acetate 1 % eye drops,suspension INSTILL 1 DROP IN BOTH EYES FOUR TIMES A DAY DIRECTED prednisolone acetate 1 % eye drops,suspension INSTILL 1 DROP IN BOTH EYES FOUR TIMES A DAY DIRECTED completed prednisolone acetate 10 MG/ML Ophthalmic Suspension [place] ([facility]) Fluconazole 150 MG Oral Tablet fluconazo le 150 mg tablet TAKE 1 TABLET BY MOUTH NOW THEN TAKE 2ND TABLET IN 48 HOURS fluconazole 150 mg tablet TAKE 1 TABLET BY MOUTH NOW THEN TAKE 2ND TABLET IN 48 HOURS completed fluconazole 150 MG Oral Tablet [place] ([facility]) Sertraline 25 MG Oral Tablet sertraline 25 mg tablet TAKE ONE TABLET BY MOUTH EVERY DAY sertraline 25 mg tablet TAKE ONE TABLET BY MOUTH EVERY DAY completed sertraline 25 MG Oral Tablet [place] ([facility]) Insurance Providers Payer name Policy type / Coverage type Policy ID Covered democrat ID Covered democrat's relationship to antoine Policy Antoine Plan Information [facility] [id number] SP [id number] [id number] SP [id number] SP [id number] [facility] O [id number] S [id number] [facility] [id number] SP [id number] MEDICAID [id number] SP [id number] [facility] [place] [id number] ANSI-Commercial [id number] ANSI-Commercial [id number] ANSI-Commercial [id number] [facility] Commercial [id number] Self [id number] ANSI-Commercial [id number] ANSI-Commercial [id number] ANSI-Commercial [id number] [facility] Commercial [id number] Self [id number] SELF PAY ONLY [id number] SELF PAY ONLY [id number] MO2 [id number] [facility] [id number] SP [id number] [employer] XIX -HMO [id number] 18 [id number] [facility] Health Maintenance Organization (HMO) [id number] Self [facility]) O [id number] S [id number] Self Pay P [id number] S [id number] [employer] P [id number] Self Pay P UNAVAILABLE S UNAVAILA BLE [employer] CHP P [id number] O [id number] BC/BS OF [place] P [id number] S [id number] Problems, Conditions, and Diagnoses Code Display Name Description Problem Type Effective Dates Data Source(s) 86124830 Generalized anxiety disorder Generalized Anxiety Disor ambreen Problem 01/28/2021 12:00:00 AM EDT [place] ([facility]) [id number] Major depressive disorder Major Depressive Disorder Pr oblem 01/28/2021 12:00:00 AM EDT [place] ([facility]) [id number] Generalized anxiety disorder Generalized Anxiety Disor ambreen Problem 01/28/2021 12:00:00 AM EDT [place] ([facility]) [id number] Major depressive disorder Major Depressive Disorder Pr oblem 01/28/2021 12:00:00 AM EDT [place] ([facility]) [id number] Generalized anxiety disorder Generalized Anxiety Disor ambreen Problem 01/28/2021 12:00:00 AM EDT [place] ([facility]) [id number] Major depressive disorder Major Depressive Disorder Pr oblem 01/28/2021 12:00:00 AM EDT [place] ([facility]) [id number] Generalized anxiety disorder Generalized Anxiety Disor ambreen Problem 01/28/2021 12:00:00 AM EDT [place] ([facility]) [id number] Major depressive disorder Major Depressive Disorder Pr oblem 01/28/2021 12:00:00 AM EDT [place] ([facility]) [id number] Generalized anxiety disorder Generalized Anxiety Disor ambreen Problem 01/28/2021 12:00:00 AM EDT [place] ([facility]) [id number] Major depressive disorder Major Depressive Disorder Pr oblem 01/28/2021 12:00:00 AM EDT [place] ([facility]) [id number] Generalized anxiety disorder Generalized Anxiety Disor ambreen Problem 01/28/2021 12:00:00 AM EDT [place] ([facility]) [id number] Major depressive disorder Major Depressive Disorder Pr oblem 01/28/2021 12:00:00 AM EDT [place] ([facility]) [id number] Generalized anxiety disorder Generalized Anxiety Disor ambreen Problem 01/28/2021 12:00:00 AM EDT [place] ([facility]) [id number] Major depressive disorder Major Depressive Disorder Pr oblem 01/28/2021 12:00:00 AM EDT [place] ([facility]) [id number] Generalized anxiety disorder Generalized Anxiety Disor ambreen Problem 01/28/2021 12:00:00 AM EDT [place] ([facility]) [id number] Major depressive disorder Major Depressive Disorder Pr oblem 01/28/2021 12:00:00 AM EDT [place] ([facility]) [id number] Generalized anxiety disorder Generalized Anxiety Disor ambreen Problem 01/28/2021 12:00:00 AM EDT [place] ([facility]) [id number] Major depressive disorder Major Depressive Disorder Pr oblem 01/28/2021 12:00:00 AM EDT [place] ([facility]) [id number] Generalized anxiety disorder Generalized Anxiety Disor ambreen Problem 01/28/2021 12:00:00 AM EDT [place] ([facility]) [id number] Major depressive disorder Major Depressive Disorder Pr oblem 01/28/2021 12:00:00 AM EDT [place] ([facility]) [id number] Generalized anxiety disorder Generalized Anxiety Disor ambreen Problem 01/28/2021 12:00:00 AM EDT [place] ([facility]) [id number] Major depressive disorder Major Depressive Disorder Pr oblem 01/28/2021 12:00:00 AM EDT [place] ([facility]) [id number] Generalized anxiety disorder Generalized Anxiety Disor ambreen Problem 01/28/2021 12:00:00 AM EDT [place] ([facility]) [id number] Major depressive disorder Major Depressive Disorder Pr oblem 01/28/2021 12:00:00 AM EDT [place] ([facility]) N92.6 [id number] Irregular menses Problem 12/01/2020 12:00:00 AM EST W1 (Pending Sale To [facility]) Surgeries/Procedures Procedure Description Date Indications Data Source(s) URINE TEST 04/26/2021 12:00:00 AM EDT eCW1 (Pending Sale To [facility]) Results ID Date Data Source [id number] 06/25/2021 12:00:00 AM EDT [facility] Name Value Range Interpretation Code Description Data Darby rce(s) Supporting Document(s) [facility]2 [facility] and reported by [facility]. ID Date Data Source [id number] 04/28/2021 11:43:00 AM EDT [place] ([facility]) Name Value Range Interpretation Code Description Data Darby rce(s) Supporting Document(s) Leukocytes [#/volume] in Blood by Automated count 7.5 thousand/uL 3 .8-10.8 White Blood Cell Count [place] ([facility]) Erythrocytes [#/volume] in Blood by Automated count 4.80 million/uL 3.80-5.10 Red Blood Cell Count [place] ([facility]) Hemoglobin [Mass/volume] in Blood 14.5 g/dL 11.7-15.5 He moglobin [place] ([facility]) Erythrocyte mean corpuscular volume [Entitic volume] by Auto mated count 89.4 fL 80.0-100.0 Mcv [place] ([facility]) Hematocrit [Volume Fraction] of Blood by Automated count 42.9 % 35.0-45.0 Hematocrit [place] ([facility]) Erythrocyte mean corpuscular hemoglobin [Entitic mass] by Automated count 30.2 pg 27.0-33.0 Mch [place] ([facility]) Platelet mean volume [Entitic volume] in Blood by Kavitha 10.9 f L 7.5-12.5 Mpv [place] ([facility]) Platelets [#/volume] in Blood by Automated count 295 thousand/uL 14 0-400 Platelet Count [place] ([facility]) Neutrophils [#/volume] in Blood by Automated count 3038 cells/uL 15 00-7800 Absolute Neutrophils [place] ([facility]) Erythrocyte mean corpuscular hemoglobin concentration [Mass/volume] by Automated count 33.8 g/dL 32.0-36.0 Mchc [place] ([facility]) Erythrocyte distribution width [Ratio] by Automated count 11.5 % 11.0-15.0 Rdw [place] ([facility]) Lymphocytes [#/volume] in Blood by Automated count 3758 cells/uL 85 0-3900 Absolute Lymphocytes [place] ([facility]) Monocytes [#/volume] in Blood by Automated count 503 cells/uL 200-9 50 Absolute Monocytes [place] ([facility]) Basophils [#/volume] in Blood by Automated count 30 cells/uL 0-200 Absolute Basophils [place] ([facility]) Eosinophils [#/volume] in Blood by Automated count 173 cells/uL 15- 500 Absolute Eosinophils [place] ([facility]) Lymphocytes/100 leukocytes in Blood by Automated count 50.1 % 15-49 Above high normal Lymphocytes [place] ([facility]) Eosinophils/100 leukocytes in Blood by Automated count 2.3 % 0-8 Eosinophils [place] ([facility]) Neutrophils/100 leukocytes in Blood by Automated count 40.5 % 38-80 Neutrophils [place] ([facility]) Basophils/100 leukocytes in Blood by Automated count 0.4 % 0-2 Basophils [place] ([facility]) Monocytes/100 leukocytes in Blood by Automated count 6.7 % 0-13 Monocytes [place] ([facility]) ID Date Data Source [id number] 04/28/2021 11:43:00 AM EDT [place] ([facility]) Name Value Range Interpretation Code Description Data Darby rce(s) Supporting Document(s) Glucose [Mass/volume] in Serum or Plasma 83 mg/dL 65-99 Glucose [place] ([facility]) Urea nitrogen [Mass/volume] in Serum or Plasma 13 mg/dL 7-25 Urea Nitrogen (BUN) [place] ([facility]) Glomerular filtration rate/1.73 sq M.pre dicted among non-blacks [Volume Rate/Area] in Serum, Plasma or Blood by Creatinine-based formula (CKD-EPI) 112 mL/min/1.73m2 > or = 60 eGFR Non-afr. [place] ([facility]) Creatinine [Mass/volume] in Serum or Plasma 0.76 mg/dL 0.50-1.10 Creatinine [place] ([facility]) Glomerular filtration rate/1.73 sq M.pre dicted among blacks [Volume Rate/Area] in Serum, Plasma or Blood by Creatinine-based formula (CKD-EPI) 130 mL/min/1.73m2 > or = 60 eGFR [place] (No [facility]) Urea nitrogen/Creatinine [Mass Ratio] in Serum or Plasma not applic able 6-22 BUN/creatinine Ratio [place] ([facility]) Potassium [Moles/volume] in Serum or Plasma 4.5 mmol/L 3.5-5.3 Potassium [place] ([facility]) Sodium [Moles/volume] in Serum or Plasma 139 mmol/L 135-146 Sodium [place] ([facility]) Chloride [Moles/volume] in Serum or Plasma 103 mmol/L 98-110 Chloride [place] ([facility]) Albumin [Mass/volume] in Serum or Plasma 4.9 g/dL 3.6-5.1 Albumin [place] ([facility]) Carbon dioxide, total [Moles/volume] in Serum or Plasma 28 mmol/L 20-32 Carbon Dioxide [place] ([facility]) Protein [Mass/volume] in Serum or Plasma 7.2 g/dL 6.1-8.1 Protein, Total [place] ([facility]) Calcium [Mass/volume] in Serum or Plasma 9.7 mg/dL 8.6-10.2 Calcium [place] ([facility]) Bilirubin.total [Mass/volume] in Serum or Plasma 1.5 mg/dL 0.2-1.2 Above high normal Bilirubin, Total [place] ([facility]) Globulin [Mass/volume] in Serum by calculation 2.3 g/dL_(calc) 1.9- 3.7 Globulin [place] ([facility]) Albumin/Globulin [Mass Ratio] in Serum or Plasma 2.1 (calc) 1.0-2 .5 Albumin/globulin Ratio [place] ([facility]) Alkaline phosphatase [Enzymatic activity/volume] in Serum or Plasma 61 U/L 31-125 Alkaline Phosphatase [place] ([facility]) Aspartate aminotransferase [Enzymatic activity/volume] in Serum or Plasma 12 U/L 10-30 Ast [place] ([facility]) Alanine aminotransferase [Enzymatic activity/volume] in Seru m or Plasma 9 U/L 6-29 Alt [place] ([facility]) ID Date Data Source [id number] 04/28/2021 11:43:00 AM EDT [facility]) Name Value Range Interpretation Code Description Data Darby rce(s) Supporting Document(s) Triiodothyronine resin uptake (T3RU) in Serum or Plasma 30 % 22 -35 T3 Uptake [place] ([facility]) Thyroxine (T4) free index in Serum or Plasma by calculation 1.4-3.8 Free T4 Index (T7) [place] ([facility]) Thyrotropin [Units/volume] in Serum or Plasma 1.43 mIU/L Tsh [place] ([facility]) Thyroxine (T4) [Mass/volume] in Serum or Plasma 7.5 mcg/dL 5.1-11 .9 T4 (Thyroxine), Total [place] ([facility]) ID Date Data Source [id number] 04/28/2021 11:43:00 AM EDT [place] ([facility]) Name Value Range Interpretation Code Description Data Darby rce(s) Supporting Document(s) Hemoglobin [Mass/volume] in Blood 14.5 g/dL 11.7-15.5 He moglobin [place] ([facility]) Hematocrit [Volume Fraction] of Blood by Automated count 42.9 % 35.0-45.0 Hematocrit [place] ([facility]) Erythrocytes [#/volume] in Blood by Automated count 4.80 million/uL 3.80-5.10 Red Blood Cell Count [place] ([facility]) Leukocytes [#/volume] in Blood by Automated count 7.5 thousand/uL 3 .8-10.8 White Blood Cell Count [place] ([facility]) Erythrocyte mean corpuscular hemoglobin [Entitic mass] by Automated count 30.2 pg 27.0-33.0 Mch [place] ([facility]) Erythrocyte mean corpuscular hemoglobin concentration [Mass/volume] by Automated count 33.8 g/dL 32.0-36.0 Mchc [place] ([facility]) Erythrocyte mean corpuscular volume [Entitic volume] by Auto mated count 89.4 fL 80.0-100.0 Mcv [place] ([facility]) Platelets [#/volume] in Blood by Automated count 295 thousand/uL 14 0-400 Platelet Count [place] ([facility]) Erythrocyte distribution width [Ratio] by Automated count 11.5 % 11.0-15.0 Rdw [place] ([facility]) Neutrophils [#/volume] in Blood by Automated count 3038 cells/uL 15 00-7800 Absolute Neutrophils [place] ([facility]) Platelet mean volume [Entitic volume] in Blood by Kavitha 10.9 f L 7.5-12.5 Mpv [place] ([facility]) Eosinophils [#/volume] in Blood by Automated count 173 cells/uL 15- 500 Absolute Eosinophils [place] ([facility]) Basophils [#/volume] in Blood by Automated count 30 cells/uL 0-200 Absolute Basophils [place] ([facility]) Monocytes [#/volume] in Blood by Automated count 503 cells/uL 200-9 50 Absolute Monocytes [place] ([facility]) Lymphocytes [#/volume] in Blood by Automated count 3758 cells/uL 85 0-3900 Absolute Lymphocytes [place] ([facility]) Neutrophils/100 leukocytes in Blood by Automated count 40.5 % 38-80 Neutrophils [place] ([facility]) Lymphocytes/100 leukocytes in Blood by Automated count 50.1 % 15-49 Above high normal Lymphocytes [place] ([facility]) Eosinophils/100 leukocytes in Blood by Automated count 2.3 % 0-8 Eosinophils [place] ([facility]) Monocytes/100 leukocytes in Blood by Automated count 6.7 % 0-13 Monocytes [place] ([facility]) Basophils/100 leukocytes in Blood by Automated count 0.4 % 0-2 Basophils [place] ([facility]) ID Date Data Source [id number] 04/28/2021 11:43:00 AM EDT [place] ([facility]) Name Value Range Interpretation Code Description Data Darby rce(s) Supporting Document(s) Urea nitrogen [Mass/volume] in Serum or Plasma 13 mg/dL 7-25 Urea Nitrogen (BUN) [place] ([facility]) Glucose [Mass/volume] in Serum or Plasma 83 mg/dL 65-99 Glucose [place] ([facility]) Creatinine [Mass/volume] in Serum or Plasma 0.76 mg/dL 0.50-1.10 Creatinine [place] ([facility]) Glomerular filtration rate/1.73 sq M.pre dicted among blacks [Volume Rate/Area] in Serum, Plasma or Blood by Creatinine-based formula (CKD-EPI) 130 mL/min/1.73m2 > or = 60 eGFR [place] ([facility]) Glomerular filtration rate/1.73 sq M.pre dicted among non-blacks [Volume Rate/Area] in Serum, Plasma or Blood by Creatinine-based formula (CKD-EPI) 112 mL/min/1.73m2 > or = 60 eGFR Non-afr. [place] ([facility]) Urea nitrogen/Creatinine [Mass Ratio] in Serum or Plasma not applic able 6- BUN/creatinine Ratio [place] ([facility]) Potassium [Moles/volume] in Serum or Plasma 4.5 mmol/L 3.5-5.3 Potassium [place] ([facility]) Sodium [Moles/volume] in Serum or Plasma 139 mmol/L 135-146 Sodium [place] ([facility]) Chloride [Moles/volume] in Serum or Plasma 103 mmol/L 98-110 Chloride [facility]) Carbon dioxide, total [Moles/volume] in Serum or Plasma 28 mmol/L 20-32 Carbon Dioxide [facility]) Protein [Mass/volume] in Serum or Plasma 7.2 g/dL 6.1-8.1 Protein, Total [facility]) Calcium [Mass/volume] in Serum or Plasma 9.7 mg/dL 8.6-10.2 Calcium [facility]) Albumin [Mass/volume] in Serum or Plasma 4.9 g/dL 3.6-5.1 Albumin [facility]) Globulin [Mass/volume] in Serum by calculation 2.3 g/dL_(calc) 1.9- 3.7 Globulin [place] ([facility]) Alkaline phosphatase [Enzymatic activity/volume] in Serum or Plasma 61 U/L 31-125 Alkaline Phosphatase [facility]) Bilirubin.total [Mass/volume] in Serum or Plasma 1.5 mg/dL 0.2-1.2 Above high normal Bilirubin, Total [facility]) Albumin/Globulin [Mass Ratio] in Serum or Plasma 2.1 (calc) 1.0-2 .5 Albumin/globulin Ratio [place] ([facility]) Aspartate aminotransferase [Enzymatic activity/volume] in Serum or Plasma 12 U/L 10-30 Ast [place] ([facility]) Alanine aminotransferase [Enzymatic activity/volume] in Seru m or Plasma 9 U/L 6-29 Alt [place] ([facility]) ID Date Data Source [id number] 04/28/2021 11:43:00 AM EDT [place] ([facility]) Name Value Range Interpretation Code Description Data Darby rce(s) Supporting Document(s) Thyroxine (T4) [Mass/volume] in Serum or Plasma 7.5 mcg/dL 5.1-11 .9 T4 (Thyroxine), Total [place] ([facility]) Triiodothyronine resin uptake (T3RU) in Serum or Plasma 30 % 22 -35 T3 Uptake [place] ([facility]) Thyroxine (T4) free index in Serum or Plasma by calculation 1.4-3.8 Free T4 Index (T7) [place] ([facility]) Thyrotropin [Units/volume] in Serum or Plasma 1.43 mIU/L Tsh [place] ([facility]) ID Date Data Source [id number] 04/28/2021 11:43:00 AM EDT [facility]) Name Value Range Interpretation Code Description Data Darby rce(s) Supporting Document(s) Leukocytes [#/volume] in Blood by Automated count 7.5 thousand/uL 3 .8-10.8 White Blood Cell Count [place] ([facility]) Hemoglobin [Mass/volume] in Blood 14.5 g/dL 11.7-15.5 He moglobin [place] ([facility]) Erythrocytes [#/volume] in Blood by Automated count 4.80 million/uL 3.80-5.10 Red Blood Cell Count [place] ([facility]) Erythrocyte mean corpuscular volume [Entitic volume] by Auto mated count 89.4 fL 80.0-100.0 Mcv [place] ([facility]) Hematocrit [Volume Fraction] of Blood by Automated count 42.9 % 35.0-45.0 Hematocrit [place] ([facility]) Erythrocyte mean corpuscular hemoglobin [Entitic mass] by Automated count 30.2 pg 27.0-33.0 Mch [place] ([facility]) Platelets [#/volume] in Blood by Automated count 295 thousand/uL 14 0-400 Platelet Count [place] ([facility]) Erythrocyte distribution width [Ratio] by Automated count 11.5 % 11.0-15.0 Rdw [place] ([facility]) Erythrocyte mean corpuscular hemoglobin concentration [Mass/volume] by Automated count 33.8 g/dL 32.0-36.0 Mchc [place] ([facility]) Monocytes [#/volume] in Blood by Automated count 503 cells/uL 200-9 50 Absolute Monocytes [place] ([facility]) Lymphocytes [#/volume] in Blood by Automated count 3758 cells/uL 85 0-3900 Absolute Lymphocytes [place] ([facility]) Platelet mean volume [Entitic volume] in Blood by Kavitha 10.9 f L 7.5-12.5 Mpv [place] ([facility]) Neutrophils [#/volume] in Blood by Automated count 3038 cells/uL 15 00-7800 Absolute Neutrophils [place] ([facility]) Basophils [#/volume] in Blood by Automated count 30 cells/uL 0-200 Absolute Basophils [place] ([facility]) Neutrophils/100 leukocytes in Blood by Automated count 40.5 % 38-80 Neutrophils [place] ([facility]) Lymphocytes/100 leukocytes in Blood by Automated count 50.1 % 15-49 Above high normal Lymphocytes [place] ([facility]) Eosinophils [#/volume] in Blood by Automated count 173 cells/uL 15- 500 Absolute Eosinophils [place] ([facility]) Monocytes/100 leukocytes in Blood by Automated count 6.7 % 0-13 Monocytes [place] ([facility]) Basophils/100 leukocytes in Blood by Automated count 0.4 % 0-2 Basophils [place] ([facility]) Eosinophils/100 leukocytes in Blood by Automated count 2.3 % 0-8 Eosinophils [place] ([facility]) ID Date Data Source [id number] 04/28/2021 11:43:00 AM EDT [place] ([facility]) Name Value Range Interpretation Code Description Data Darby rce(s) Supporting Document(s) Urea nitrogen [Mass/volume] in Serum or Plasma 13 mg/dL 7-25 Urea Nitrogen (BUN) [place] ([facility]) Glucose [Mass/volume] in Serum or Plasma 83 mg/dL 65-99 Glucose [place] ([facility]) Glomerular filtration rate/1.73 sq M.pre dicted among non-blacks [Volume Rate/Area] in Serum, Plasma or Blood by Creatinine-based formula (CKD-EPI) 112 mL/min/1.73m2 > or = 60 eGFR Non-afr. [place] ([facility]) Creatinine [Mass/volume] in Serum or Plasma 0.76 mg/dL 0.50-1.10 Creatinine [place] ([facility]) Glomerular filtration rate/1.73 sq M.pre dicted among blacks [Volume Rate/Area] in Serum, Plasma or Blood by Creatinine-based formula (CKD-EPI) 130 mL/min/1.73m2 > or = 60 eGFR [place] (No [facility]) Urea nitrogen/Creatinine [Mass Ratio] in Serum or Plasma not applic able 6-22 BUN/creatinine Ratio [place] ([facility]) Sodium [Moles/volume] in Serum or Plasma 139 mmol/L 135-146 Sodium [place] ([facility]) Potassium [Moles/volume] in Serum or Plasma 4.5 mmol/L 3.5-5.3 Potassium [place] ([facility]) Chloride [Moles/volume] in Serum or Plasma 103 mmol/L 98-110 Chloride [place] ([facility]) Calcium [Mass/volume] in Serum or Plasma 9.7 mg/dL 8.6-10.2 Calcium [place] ([facility]) Carbon dioxide, total [Moles/volume] in Serum or Plasma 28 mmol/L 20-32 Carbon Dioxide [place] ([facility]) Protein [Mass/volume] in Serum or Plasma 7.2 g/dL 6.1-8.1 Protein, Total [place] ([facility]) Albumin [Mass/volume] in Serum or Plasma 4.9 g/dL 3.6-5.1 Albumin [place] ([facility]) Globulin [Mass/volume] in Serum by calculation 2.3 g/dL_(calc) 1.9- 3.7 Globulin [place] ([facility]) Albumin/Globulin [Mass Ratio] in Serum or Plasma 2.1 (calc) 1.0-2 .5 Albumin/globulin Ratio [place] ([facility]) Alkaline phosphatase [Enzymatic activity/volume] in Serum or Plasma 61 U/L 31-125 Alkaline Phosphatase [place] ([facility]) Bilirubin.total [Mass/volume] in Serum or Plasma 1.5 mg/dL 0.2-1.2 Above high normal Bilirubin, Total [place] ([facility]) Aspartate aminotransferase [Enzymatic activity/volume] in Serum or Plasma 12 U/L 10-30 Ast [place] ([facility]) Alanine aminotransferase [Enzymatic activity/volume] in Seru m or Plasma 9 U/L 6-29 Alt [place] ([facility]) ID Date Data Source [id number] 04/28/2021 11:43:00 AM EDT [facility]) Name Value Range Interpretation Code Description Data Darby rce(s) Supporting Document(s) Triiodothyronine resin uptake (T3RU) in Serum or Plasma 30 % 22 -35 T3 Uptake [place] ([facility]) Thyroxine (T4) [Mass/volume] in Serum or Plasma 7.5 mcg/dL 5.1-11 .9 T4 (Th[facility]roxine), [facility] Thyrotropin [Units/volume] in Serum or Plasma 1.43 mIU/L Tsh [place] ([facility]) Thyroxine (T4) free index in Serum or Plasma by calculation 1.4-3.8 Free T4 Index (T7) [facility]) ID Date Data Source [id number] 04/28/2021 11:43:00 AM EDT [facility]) Name Value Range Interpretation Code Description Data Darby rce(s) Supporting Document(s) Leukocytes [#/volume] in Blood by Automated count 7.5 thousand/uL 3 .8-10.8 White Blood Cell Count [place] ([facility]) Erythrocytes [#/volume] in Blood by Automated count 4.80 million/uL 3.80-5.10 Red Blood Cell Count [place] ([facility]) Erythrocyte mean corpuscular volume [Entitic volume] by Auto mated count 89.4 fL 80.0-100.0 Mcv [place] ([facility]) Hemoglobin [Mass/volume] in Blood 14.5 g/dL 11.7-15.5 He moglobin [place] ([facility]) Hematocrit [Volume Fraction] of Blood by Automated count 42.9 % 35.0-45.0 Hematocrit [place] ([facility]) Erythrocyte mean corpuscular hemoglobin [Entitic mass] by Automated count 30.2 pg 27.0-33.0 Mch [place] ([facility]) Platelets [#/volume] in Blood by Automated count 295 thousand/uL 14 0-400 Platelet Count [place] ([facility]) Erythrocyte mean corpuscular hemoglobin concentration [Mass/volume] by Automated count 33.8 g/dL 32.0-36.0 Mchc [place] ([facility]) Erythrocyte distribution width [Ratio] by Automated count 11.5 % 11.0-15.0 Rdw [place] ([facility]) Neutrophils [#/volume] in Blood by Automated count 3038 cells/uL 15 00-7800 Absolute Neutrophils [place] ([facility]) Lymphocytes [#/volume] in Blood by Automated count 3758 cells/uL 85 0-3900 Absolute Lymphocytes [place] ([facility]) Platelet mean volume [Entitic volume] in Blood by Kavitha 10.9 f L 7.5-12.5 Mpv [place] ([facility]) Monocytes [#/volume] in Blood by Automated count 503 cells/uL 200-9 50 Absolute Monocytes [place] ([facility]) Neutrophils/100 leukocytes in Blood by Automated count 40.5 % 38-80 Neutrophils [place] ([facility]) Eosinophils [#/volume] in Blood by Automated count 173 cells/uL 15- 500 Absolute Eosinophils [place] ([facility]) Basophils [#/volume] in Blood by Automated count 30 cells/uL 0-200 Absolute Basophils [place] ([facility]) Eosinophils/100 leukocytes in Blood by Automated count 2.3 % 0-8 Eosinophils [place] ([facility]) Lymphocytes/100 leukocytes in Blood by Automated count 50.1 % 15-49 Above high normal Lymphocytes [place] ([facility]) Monocytes/100 leukocytes in Blood by Automated count 6.7 % 0-13 Monocytes [place] ([facility]) Basophils/100 leukocytes in Blood by Automated count 0.4 % 0-2 Basophils [place] ([facility]) ID Date Data Source [id number] 04/28/2021 11:43:00 AM EDT [place] ([facility]) Name Value Range Interpretation Code Description Data Darby rce(s) Supporting Document(s) Glucose [Mass/volume] in Serum or Plasma 83 mg/dL 65-99 [facility] Creatinine [Mass/volume] in Serum or Plasma 0.76 mg/dL 0.50-1.10 Creatinine [facility]) Glomerular filtration rate/1.73 sq M.pre dicted among non-blacks [Volume Rate/Area] in Serum, Plasma or Blood by Creatinine-based formula (CKD-EPI) 112 mL/min/1.73m2 > or = 60 eGFR Non-afr. [place] ([facility]) Urea nitrogen [Mass/volume] in Serum or Plasma 13 mg/dL 7-25 Urea Nitrogen (BUN) [facility] Potassium [Moles/volume] in Serum or Plasma 4.5 mmol/L 3.5-5.3 Potassium [place] ([facility]) Urea nitrogen/Creatinine [Mass Ratio] in Serum or Plasma not applic able 6-22 BUN/creatinine Ratio [facility]) Sodium [Moles/volume] in Serum or Plasma 139 mmol/L 135-146 Sodium [facility] Glomerular filtration rate/1.73 sq M.pre dicted among blacks [Volume Rate/Area] in Serum, Plasma or Blood by Creatinine-based formula (CKD-EPI) 130 mL/min/1.73m2 > or = 60 eGFR [place] (No [facility]) Chloride [Moles/volume] in Serum or Plasma 103 mmol/L 98-110 Chloride [place] ([facility]) Carbon dioxide, total [Moles/volume] in Serum or Plasma 28 mmol/L 20-32 Carbon Dioxide [place] ([facility]) Calcium [Mass/volume] in Serum or Plasma 9.7 mg/dL 8.6-10.2 Calcium [place] ([facility]) Protein [Mass/volume] in Serum or Plasma 7.2 g/dL 6.1-8.1 Protein, Total [place] ([facility]) Albumin [Mass/volume] in Serum or Plasma 4.9 g/dL 3.6-5.1 Albumin [place] ([facility]) Globulin [Mass/volume] in Serum by calculation 2.3 g/dL_(calc) 1.9- 3.7 Globulin [place] ([facility]) Bilirubin.total [Mass/volume] in Serum or Plasma 1.5 mg/dL 0.2-1.2 Above high normal Bilirubin, Total [place] ([facility]) Albumin/Globulin [Mass Ratio] in Serum or Plasma 2.1 (calc) 1.0-2 .5 Albumin/globulin Ratio [place] ([facility]) Alkaline phosphatase [Enzymatic activity/volume] in Serum or Plasma 61 U/L 31-125 Alkaline Phosphatase [place] ([facility]) Aspartate aminotransferase [Enzymatic activity/volume] in Serum or Plasma 12 U/L 10-30 Ast [place] ([facility]) Alanine aminotransferase [Enzymatic activity/volume] in Seru m or Plasma 9 U/L 6-29 Alt [place] ([facility]) ID Date Data Source [id number] 04/28/2021 11:43:00 AM EDT [place] ([facility]) Name Value Range Interpretation Code Description Data Darby rce(s) Supporting Document(s) Triiodothyronine resin uptake (T3RU) in Serum or Plasma 30 % 22 -35 [facility] Thyroxine (T4) free index in Serum or Plasma by calculation 1.4-3.8 Free T4 Index (T7) [place] ([facility]) Thyroxine (T4) [Mass/volume] in Serum or Plasma 7.5 mcg/dL 5.1-11 .9 T4 (Thyroxine), Total [place] ([facility]) Thyrotropin [Units/volume] in Serum or Plasma 1.43 mIU/L Tsh [place] ([facility]) ID Date Data Source [id number] 04/28/2021 11:43:00 AM EDT [place] ([facility]) Name Value Range Interpretation Code Description Data Darby rce(s) Supporting Document(s) Erythrocytes [#/volume] in Blood by Automated count 4.80 million/uL 3.80-5.10 Red Blood Cell Count [place] ([facility]) Leukocytes [#/volume] in Blood by Automated count 7.5 thousand/uL 3 .8-10.8 White Blood Cell Count [place] ([facility]) Erythrocyte mean corpuscular volume [Entitic volume] by Auto mated count 89.4 fL 80.0-100.0 Mcv [place] ([facility]) Hemoglobin [Mass/volume] in Blood 14.5 g/dL 11.7-15.5 He moglobin [place] ([facility]) Hematocrit [Volume Fraction] of Blood by Automated count 42.9 % 35.0-45.0 Hematocrit [place] ([facility]) Erythrocyte mean corpuscular hemoglobin [Entitic mass] by Automated count 30.2 pg 27.0-33.0 Mch [place] ([facility]) Erythrocyte mean corpuscular hemoglobin concentration [Mass/volume] by Automated count 33.8 g/dL 32.0-36.0 Mchc [place] ([facility]) Erythrocyte distribution width [Ratio] by Automated count 11.5 % 11.0-15.0 Rdw [place] ([facility]) Platelets [#/volume] in Blood by Automated count 295 thousand/uL 14 0-400 Platelet Count [place] ([facility]) Neutrophils [#/volume] in Blood by Automated count 3038 cells/uL 15 00-7800 Absolute Neutrophils [place] ([facility]) Platelet mean volume [Entitic volume] in Blood by Kavitha 10.9 f L 7.5-12.5 Mpv [place] ([facility]) Lymphocytes [#/volume] in Blood by Automated count 3758 cells/uL 85 0-3900 Absolute Lymphocytes [place] ([facility]) Lymphocytes/100 leukocytes in Blood by Automated count 50.1 % 15-49 Above high normal Lymphocytes [facility] ([facility]) Monocytes [#/volume] in Blood by Automated count 503 cells/uL 200-9 50 Absolute Monocytes [place] ([facility]) Basophils [#/volume] in Blood by Automated count 30 cells/uL 0-200 Absolute Basophils [place] ([facility]) Neutrophils/100 leukocytes in Blood by Automated count 40.5 % 38-80 Neutrophils [place] ([facility]) Eosinophils [#/volume] in Blood by Automated count 173 cells/uL 15- 500 Absolute Eosinophils [place] ([facility]) Monocytes/100 leukocytes in Blood by Automated count 6.7 % 0-13 Monocytes [place] ([facility]) Eosinophils/100 leukocytes in Blood by Automated count 2.3 % 0-8 Eosinophils [place] ([facility]) Basophils/100 leukocytes in Blood by Automated count 0.4 % 0-2 Basophils [place] ([facility]) ID Date Data Source [id number] 04/28/2021 11:43:00 AM EDT [place] ([facility]) Name Value Range Interpretation Code Description Data Darby rce(s) Supporting Document(s) Glucose [Mass/volume] in Serum or Plasma 83 mg/dL 65-99 Glucose [place] ([facility]) Urea nitrogen [Mass/volume] in Serum or Plasma 13 mg/dL 7-25 Urea Nitrogen (BUN) [place] ([facility]) Creatinine [Mass/volume] in Serum or Plasma 0.76 mg/dL 0.50-1.10 Creatinine [place] ([facility]) Glomerular filtration rate/1.73 sq M.pre dicted among blacks [Volume Rate/Area] in Serum, Plasma or Blood by Creatinine-based formula (CKD-EPI) 130 mL/min/1.73m2 > or = 60 eGFR [place] ([facility]) Urea nitrogen/Creatinine [Mass Ratio] in Serum or Plasma not applic able 6-22 BUN/creatinine Ratio [place] ([facility]) Glomerular filtration rate/1.73 sq M.pre dicted among non-blacks [Volume Rate/Area] in Serum, Plasma or Blood by Creatinine-based formula (CKD-EPI) 112 mL/min/1.73m2 > or = 60 eGFR Non-afr. Sammar[place] ([facility]) Sodium [Moles/volume] in Serum or Plasma 139 mmol/L 135-146 Sodium [place] ([facility]) Potassium [Moles/volume] in Serum or Plasma 4.5 mmol/L 3.5-5.3 Potassium [place] ([facility]) Chloride [Moles/volume] in Serum or Plasma 103 mmol/L 98-110 Chloride [facility]) Carbon dioxide, total [Moles/volume] in Serum or Plasma 28 mmol/L 20-32 Carbon Dioxide [place] ([facility]) Calcium [Mass/volume] in Serum or Plasma 9.7 mg/dL 8.6-10.2 Calcium [facility]) Protein [Mass/volume] in Serum or Plasma 7.2 g/dL 6.1-8.1 Protein, Total [facility]) Albumin [Mass/volume] in Serum or Plasma 4.9 g/dL 3.6-5.1 Albumin [facility]) Globulin [Mass/volume] in Serum by calculation 2.3 g/dL_(calc) 1.9- 3.7 Globulin [place] ([facility]) Albumin/Globulin [Mass Ratio] in Serum or Plasma 2.1 (calc) 1.0-2 .5 Albumin/globulin Ratio [facility]) Bilirubin.total [Mass/volume] in Serum or Plasma 1.5 mg/dL 0.2-1.2 Above high normal Bilirubin, Total [place] ([facility]) Alkaline phosphatase [Enzymatic activity/volume] in Serum or Plasma 61 U/L 31-125 Alkaline Phosphatase [place] ([facility]) Aspartate aminotransferase [Enzymatic activity/volume] in Serum or Plasma 12 U/L 10-30 Ast [place] ([facility]) Alanine aminotransferase [Enzymatic activity/volume] in Seru m or Plasma 9 U/L 6-29 Alt [place] ([facility]) ID Date Data Source [id number] 04/28/2021 11:43:00 AM EDT [place] ([facility]) Name Value Range Interpretation Code Description Data Darby rce(s) Supporting Document(s) Triiodothyronine resin uptake (T3RU) in Serum or Plasma 30 % 22 -35 T3 Uptake [place] ([facility]) Thyroxine (T4) [Mass/volume] in Serum or Plasma 7.5 mcg/dL 5.1-11 .9 T4 (Thyroxine), Total [place] ([facility]) Thyroxine (T4) free index in Serum or Plasma by calculation 1.4-3.8 Free T4 Index (T7) [place] ([facility]) Thyrotropin [Units/volume] in Serum or Plasma 1.43 mIU/L Tsh [facility]) ID Date Data Source [id number] 04/28/2021 11:43:00 AM EDT [facility]) Name Value Range Interpretation Code Description Data Darby rce(s) Supporting Document(s) Hemoglobin [Mass/volume] in Blood 14.5 g/dL 11.7-15.5 He moglobin [place] ([facility]) Leukocytes [#/volume] in Blood by Automated count 7.5 thousand/uL 3 .8-10.8 White Blood Cell Count [place] ([facility]) Erythrocytes [#/volume] in Blood by Automated count 4.80 million/uL 3.80-5.10 Red Blood Cell Count [place] ([facility]) Erythrocyte mean corpuscular hemoglobin concentration [Mass/volume] by Automated count 33.8 g/dL 32.0-36.0 Mchc [facility] ([facility]) Erythrocyte mean corpuscular hemoglobin [Entitic mass] by Automated count 30.2 pg 27.0-33.0 Mch [place] ([facility]) Hematocrit [Volume Fraction] of Blood by Automated count 42.9 % 35.0-45.0 Hematocrit [place] ([facility]) Erythrocyte mean corpuscular volume [Entitic volume] by Auto mated count 89.4 fL 80.0-100.0 Mcv [place] ([facility]) Erythrocyte distribution width [Ratio] by Automated count 11.5 % 11.0-15.0 Rdw [place] ([facility]) Platelet mean volume [Entitic volume] in Blood by Karlo-Tyesha 10.9 f L 7.5-12.5 Mpv [place] ([facility]) Platelets [#/volume] in Blood by Automated count 295 thousand/uL 14 0-400 Platelet Count [place] ([facility]) Neutrophils [#/volume] in Blood by Automated count 3038 cells/uL 15 00-7800 Absolute Neutrophils [place] ([facility]) Basophils [#/volume] in Blood by Automated count 30 cells/uL 0-200 Absolute Basophils [place] ([facility]) Lymphocytes [#/volume] in Blood by Automated count 3758 cells/uL 85 0-3900 Absolute Lymphocytes [place] ([facility]) Monocytes [#/volume] in Blood by Automated count 503 cells/uL 200-9 50 Absolute Monocytes [place] ([facility]) Eosinophils [#/volume] in Blood by Automated count 173 cells/uL 15- 500 Absolute Eosinophils [place] ([facility]) Neutrophils/100 leukocytes in Blood by Automated count 40.5 % 38-80 Neutrophils [place] ([facility]) Eosinophils/100 leukocytes in Blood by Automated count 2.3 % 0-8 Eosinophils [place] ([facility]) Basophils/100 leukocytes in Blood by Automated count 0.4 % 0-2 Basophils [place] ([facility]) Monocytes/100 leukocytes in Blood by Automated count 6.7 % 0-13 Monocytes [place] ([facility]) Lymphocytes/100 leukocytes in Blood by Automated count 50.1 % 15-49 Above high normal Lymphocytes [place] ([facility]) ID Date Data Source [id number] 04/28/2021 11:43:00 AM EDT [place] ([facility]) Name Value Range Interpretation Code Description Data Darby rce(s) Supporting Document(s) Glucose [Mass/volume] in Serum or Plasma 83 mg/dL 65-99 Glucose [place] ([facility]) Urea nitrogen [Mass/volume] in Serum or Plasma 13 mg/dL 7-25 Urea Nitrogen (BUN) [place] ([facility]) Creatinine [Mass/volume] in Serum or Plasma 0.76 mg/dL 0.50-1.10 Creatinine [place] ([facility]) Sodium [Moles/volume] in Serum or Plasma 139 mmol/L 135-146 Sodium [place] ([facility]) Glomerular filtration rate/1.73 sq M.pre dicted among non-blacks [Volume Rate/Area] in Serum, Plasma or Blood by Creatinine-based formula (CKD-EPI) 112 mL/min/1.73m2 > or = 60 eGFR Non-afr. [place] ([facility]) Urea nitrogen/Creatinine [Mass Ratio] in Serum or Plasma not applic able 6-22 BUN/creatinine Ratio [place] ([facility]) Glomerular filtration rate/1.73 sq M.pre dicted among blacks [Volume Rate/Area] in Serum, Plasma or Blood by Creatinine-based formula (CKD-EPI) 130 mL/min/1.73m2 > or = 60 eGFR [place] (No [facility]) Potassium [Moles/volume] in Serum or Plasma 4.5 mmol/L 3.5-5.3 Potassium [place] ([facility]) Calcium [Mass/volume] in Serum or Plasma 9.7 mg/dL 8.6-10.2 Calcium [place] ([facility]) Carbon dioxide, total [Moles/volume] in Serum or Plasma 28 mmol/L 20-32 Carbon Dioxide [place] ([facility]) Chloride [Moles/volume] in Serum or Plasma 103 mmol/L 98-110 Chloride [place] ([facility]) Globulin [Mass/volume] in Serum by calculation 2.3 g/dL_(calc) 1.9- 3.7 Globulin [place] ([facility]) Protein [Mass/volume] in Serum or Plasma 7.2 g/dL 6.1-8.1 Protein, Total [place] ([facility]) Albumin [Mass/volume] in Serum or Plasma 4.9 g/dL 3.6-5.1 Albumin [place] ([facility]) Bilirubin.total [Mass/volume] in Serum or Plasma 1.5 mg/dL 0.2-1.2 Above high normal Bilirubin, Total [place] ([facility]) Aspartate aminotransferase [Enzymatic activity/volume] in Serum or Plasma 12 U/L 10-30 Ast [place] ([facility]) Alkaline phosphatase [Enzymatic activity/volume] in Serum or Plasma 61 U/L 31-125 Alkaline Phosphatase [place] ([facility]) Albumin/Globulin [Mass Ratio] in Serum or Plasma 2.1 (calc) 1.0-2 .5 Albumin/globulin Ratio [place] ([facility]) Alanine aminotransferase [Enzymatic activity/volume] in Seru m or Plasma 9 U/L 6-29 Alt [place] ([facility]) ID Date Data Source [id number] 04/28/2021 11:43:00 AM EDT [facility]) Name Value Range Interpretation Code Description Data Darby rce(s) Supporting Document(s) Triiodothyronine resin uptake (T3RU) in Serum or Plasma 30 % 22 -35 T3 Uptake [place] ([facility]) Thyroxine (T4) free index in Serum or Plasma by calculation 1.4-3.8 Free T4 Index (T7) [place] ([facility]) Thyroxine (T4) [Mass/volume] in Serum or Plasma 7.5 mcg/dL 5.1-11 .9 T4 (Thyroxine), Total [place] ([facility]) Thyrotropin [Units/volume] in Serum or Plasma 1.43 mIU/L Tsh [facility]) ID Date Data Source [id number] 04/28/2021 11:43:00 AM EDT [facility]) Name Value Range Interpretation Code Description Data Darby rce(s) Supporting Document(s) Leukocytes [#/volume] in Blood by Automated count 7.5 thousand/uL 3 .8-10.8 White Blood Cell Count [place] ([facility]) Hemoglobin [Mass/volume] in Blood 14.5 g/dL 11.7-15.5 He moglobin [place] ([facility]) Erythrocytes [#/volume] in Blood by Automated count 4.80 million/uL 3.80-5.10 Red Blood Cell Count [place] ([facility]) Erythrocyte mean corpuscular volume [Entitic volume] by Auto mated count 89.4 fL 80.0-100.0 Mcv [place] ([facility]) Hematocrit [Volume Fraction] of Blood by Automated count 42.9 % 35.0-45.0 Hematocrit [place] ([facility]) Erythrocyte distribution width [Ratio] by Automated count 11.5 % 11.0-15.0 Rdw [place] ([facility]) Erythrocyte mean corpuscular hemoglobin [Entitic mass] by Automated count 30.2 pg 27.0-33.0 Mch [place] ([facility]) Erythrocyte mean corpuscular hemoglobin concentration [Mass/volume] by Automated count 33.8 g/dL 32.0-36.0 Mchc [place] ([facility]) Platelets [#/volume] in Blood by Automated count 295 thousand/uL 14 0-400 Platelet Count [place] ([facility]) Monocytes [#/volume] in Blood by Automated count 503 cells/uL 200-9 50 Absolute Monocytes [place] ([facility]) Lymphocytes [#/volume] in Blood by Automated count 3758 cells/uL 85 0-3900 Absolute Lymphocytes [place] ([facility]) Platelet mean volume [Entitic volume] in Blood by Kavitha 10.9 f L 7.5-12.5 Mpv [place] ([facility]) Neutrophils [#/volume] in Blood by Automated count 3038 cells/uL 15 00-7800 Absolute Neutrophils [place] ([facility]) Eosinophils [#/volume] in Blood by Automated count 173 cells/uL 15- 500 Absolute Eosinophils [place] ([facility]) Monocytes/100 leukocytes in Blood by Automated count 6.7 % 0-13 Monocytes [place] ([facility]) Neutrophils/100 leukocytes in Blood by Automated count 40.5 % 38-80 Neutrophils [place] ([facility]) Basophils [#/volume] in Blood by Automated count 30 cells/uL 0-200 Absolute Basophils [place] ([facility]) Lymphocytes/100 leukocytes in Blood by Automated count 50.1 % 15-49 Above high normal Lymphocytes [place] ([facility]) Basophils/100 leukocytes in Blood by Automated count 0.4 % 0-2 Basophils [place] ([facility]) Eosinophils/100 leukocytes in Blood by Automated count 2.3 % 0-8 Eosinophils [place] ([facility]) ID Date Data Source [id number] 04/28/2021 11:43:00 AM EDT [facility]) Name Value Range Interpretation Code Description Data Darby rce(s) Supporting Document(s) Urea nitrogen [Mass/volume] in Serum or Plasma 13 mg/dL 7-25 [facility]) [facility] Glucose [Mass/volume] in Serum or Plasma 83 mg/dL 65-99 Glucose [place] ([facility]) Creatinine [Mass/volume] in Serum or Plasma 0.76 mg/dL 0.50-1.10 Creatinine [facility] Glomerular filtration rate/1.73 sq M.pre dicted among non-blacks [Volume Rate/Area] in Serum, Plasma or Blood by Creatinine-based formula (CKD-EPI) 112 mL/min/1.73m2 > or = 60 eGFR Non-afr. [place] ([facility]) Urea nitrogen/Creatinine [Mass Ratio] in Serum or Plasma not applic able 6-22 BUN/creatinine Ratio [facility] Glomerular filtration rate/1.73 sq M.pre dicted among blacks [Volume Rate/Area] in Serum, Plasma or Blood by Creatinine-based formula (CKD-EPI) 130 mL/min/1.73m2 > or = 60 eGFR [place] (No [facility]) Potassium [Moles/volume] in Serum or Plasma 4.5 mmol/L 3.5-5.3 Potassium [place] ([facility]) Chloride [Moles/volume] in Serum or Plasma 103 mmol/L 98-110 Chloride [place] ([facility]) Sodium [Moles/volume] in Serum or Plasma 139 mmol/L 135-146 Sodium [place] ([facility]) Protein [Mass/volume] in Serum or Plasma 7.2 g/dL 6.1-8.1 Protein, Total [place] ([facility]) Albumin [Mass/volume] in Serum or Plasma 4.9 g/dL 3.6-5.1 Albumin [place] ([facility]) Carbon dioxide, total [Moles/volume] in Serum or Plasma 28 mmol/L 20-32 Carbon Dioxide [place] ([facility]) Calcium [Mass/volume] in Serum or Plasma 9.7 mg/dL 8.6-10.2 Calcium [place] ([facility]) Bilirubin.total [Mass/volume] in Serum or Plasma 1.5 mg/dL 0.2-1.2 Above high normal Bilirubin, Total [place] ([facility]) Alkaline phosphatase [Enzymatic activity/volume] in Serum or Plasma 61 U/L 31-125 Alkaline Phosphatase [place] ([facility]) Albumin/Globulin [Mass Ratio] in Serum or Plasma 2.1 (calc) 1.0-2 .5 Albumin/globulin Ratio [place] ([facility]) Globulin [Mass/volume] in Serum by calculation 2.3 g/dL_(calc) 1.9- 3.7 Globulin [place] ([facility]) Alanine aminotransferase [Enzymatic activity/volume] in Seru m or Plasma 9 U/L 6-29 Alt [place] ([facility]) Aspartate aminotransferase [Enzymatic activity/volume] in Serum or Plasma 12 U/L 10-30 Ast [place] ([facility]) ID Date Data Source [id number] 04/28/2021 11:43:00 AM EDT [place] ([facility]) Name Value Range Interpretation Code Description Data Darby rce(s) Supporting Document(s) Triiodothyronine resin uptake (T3RU) in Serum or Plasma 30 % 22 -35 T3 Uptake [place] ([facility]) Thyroxine (T4) [Mass/volume] in Serum or Plasma 7.5 mcg/dL 5.1-11 .9 T4 (Thyroxine), Total [place] ([facility]) Thyrotropin [Units/volume] in Serum or Plasma 1.43 mIU/L Tsh [place] ([facility]) Thyroxine (T4) free index in Serum or Plasma by calculation 1.4-3.8 Free T4 Index (T7) [place] ([facility]) ID Date Data Source CHLAMYDIA & GC DNA AMPLIFICAT 04/26/2021 12:00:00 AM EDT eCW 1 ([facility]ending [facility] To [facility]) Name Value Range Interpretation Code Description Data Darby rce(s) Supporting Document(s) Chlamydia trachomatis rRNA [Presence] in Unspecified specimen by Probe and target amplification method NEGATIVE NEGATIVE CHLAMYDIA DNA AMPLIFICATION eCW1 ([facility]ending [facility] To [facility]) ID Date Data Source SYPHILIS ANTIBODY (RPR SCREEN) 12/01/2020 12:00:00 AM EST eC W1 ([facility]ending [facility] To [facility]) Name Value Range Interpretation Code Description Data Darby rce(s) Supporting Document(s) NONREACTIVE NONREACTIVE eCW1 ([facility]ending [facility] To [facility]) ID Date Data Source PAP REQUEST FOR SERVICE 12/01/2020 12:00:00 AM EST eCW1 ([facility]) Name Value Range Interpretation Code Description Data Darby rce(s) Supporting Document(s) eCW1 ([facility]) ID Date Data Source [id number] 12/01/2020 12:00:00 AM EST eCW1 ([facility]) Name Value Range Interpretation Code Description Data Darby rce(s) Supporting Document(s) eCW1 ([facility]) ID Date Data Source HEPATITIS C ANTIBODY INDEX 12/01/2020 12:00:00 AM EST eCW1 ( [facility]ending [facility] To [facility]) Name Value Range Interpretation Code Description Data Darby rce(s) Supporting Document(s) < 0.0 <0.8 [facility] ([facility]) ID Date Data Source CHLAMYDIA, GC & TRICH AMP 12/01/2020 12:00:00 AM EST eCW1 ([facility]) Name Value Range Interpretation Code Description Data Darby rce(s) Supporting Document(s) NOT DETECTED NEGATIVE eCW1 ([facility]) ID Date Data Source [id number] 11/13/2020 12:00:00 [...] Never Smoker completed Never S moker eCW1 ([facility]ending [facility] To [facility]) Smoking 04/26/2021 12:00:00 AM EDT Never Smoker completed Never S moker eCW1 ([facility]ending [facility] To [facility]) Smoking 04/26/2021 12:00:00 AM EDT Never Smoker completed Never S moker eCW1 ([facility] To [facility]) Smoking 12/01/2020 12:00:00 AM EST Never Smoker completed Never S moker eCW1 ([facility]ending [facility] To [facility]) Vital Signs ID Date Data Source [id number] Name Value Range Interpretation Code Description Data Source(s) Body mass index (BMI) [Ratio] 20.25 kg/m2 20.25 kg/m2 eCW1 ([facility]ending [facility] To [facility]) Body height 64 [in_i] 64 [in_i] eCW1 ([facility]) Diastolic blood pressure 80 mm[Hg] 80 mm[Hg] eCW1 ([facility]ending [facility] To [facility]) Body weight 118 [lb_av] 118 [lb_av] eCW1 ([facility]) Systolic blood pressure 120 mm[Hg] 120 mm[Hg] e CW1 ([facility]ending [facility] To [facility]) Body mass index (BMI) [Ratio] 19.87 kg/m2 19.87 kg/m2 eCW1 ([facility]ending [facility] To [facility]) Body weight 115.8 [lb_av] 115.8 [lb_av] eCW1 ([facility]) Systolic blood pressure 118 mm[Hg] 118 mm[Hg] e CW1 ([facility]ending [facility] To [facility]) Diastolic blood pressure 64 mm[Hg] 64 mm[Hg] eCW1 ([facility]ending [facility] To [facility]) Body weight 52.53 kg 52.53 kg eCW1 ([facility]) Body height 64 [in_i] 64 [in_i] eCW1 ([facility]) Body height 64 [in_i] 64 [in_i] [place] ([facility]) Body height 64 [in_i] 64 [in_i] [place] ([facility]) Body height 64 [in_i] 64 [in_i] [place] ([facility]) Body height 64 [in_i] 64 [in_i] [place] ([facility]) Body height 64 [in_i] 64 [in_i] [place] ([facility]) Body height 64 [in_i] 64 [in_i] [place] ([facility]) Body height 64 [in_i] 64 [in_i] [place] ([facility]) Body height 64 [in_i] 64 [in_i] [place] ([facility]) Body height 64 [in_i] 64 [in_i] [place] ([facility]) Body height 64 [in_i] 64 [in_i] [place] ([facility]) Diastolic blood pressure 77 mm[Hg] 77 mm[Hg] [place] ([facility]) Body height 64 [in_i] 64 [in_i] [place] ([facility]) Body mass index (BMI) [Ratio] 19.7 kg/m2 19.7 k g/m2 [place] ([facility]) Systolic blood pressure 111 mm[Hg] 111 mm[Hg] A [place] ([facility]) Body weight 1840 [oz_av] 1840 [oz_av] [place] ([facility]) Body height 64 [in_i] 64 [in_i] [place] ([facility]) Body mass index (BMI) [Ratio] 19.7 kg/m2 19.7 k g/m2 [place] ([facility]) Diastolic blood pressure 77 mm[Hg] 77 mm[Hg] [place] ([facility]) Systolic blood pressure 111 mm[Hg] 111 mm[Hg] A [place] ([facility]) Body weight 1840 [oz_av] 1840 [oz_av] [place] ([facility]) Diastolic blood pressure 77 mm[Hg] 77 mm[Hg] [place] ([facility]) Body height 64 [in_i] 64 [in_i] [place] ([facility]) Body mass index (BMI) [Ratio] 19.7 kg/m2 19.7 k g/m2 [place] ([facility]) Systolic blood pressure 111 mm[Hg] 111 [facility] Body weight 1840 [oz_av] 1840 [oz_av] [place] ([facility]) Diastolic blood pressure 77 mm[Hg] 77 mm[Hg] [place] ([facility]) Body mass index (BMI) [Ratio] 19.7 kg/m2 19.7 k g/m2 [place] ([facility]) Systolic blood pressure 111 mm[Hg] 111 mm[Hg[facility] Body weight 1840 [oz_av] 1840 [oz_av] [place] ([facility]) Body height 64 [in_i] 64 [in_i] [place] ([facility]) Diastolic blood pressure 77 mm[Hg] 77 mm[Hg] [place] ([facility]) Body height 64 [in_i] 64 [in_i] [place] ([facility]) Body mass index (BMI) [Ratio] 19.7 kg/m2 19.7 k g/m2 [place] ([facility]) Systolic blood pressure 111 mm[Hg] 111 mm[Hg] A [place] ([facility]) Body weight 1840 [oz_av] 1840 [oz_av] [place] ([facility]) Diastolic blood pressure 77 mm[Hg] 77 mm[Hg] [place] ([facility]) Body height 64 [in_i] 64 [in_i] [place] ([facility]) Body mass index (BMI) [Ratio] 19.7 kg/m2 19.7 k g/m2 [place] ([facility]) Systolic blood pressure 111 mm[Hg] 111 mm[Hg] A [place] ([facility]) Body weight 1840 [oz_av] 1840 [oz_av] [place] ([facility]) Diastolic blood pressure 77 mm[Hg] 77 mm[Hg] [place] ([facility]) Body height 64 [in_i] 64 [in_i] [place] ([facility]) Body mass index (BMI) [Ratio] 19.7 kg/m2 19.7 k g/m2 [place] ([facility]) Systolic blood pressure 111 mm[Hg] 111 mm[facility]Hg[facility] Body weight 1840 [oz_av] 1840 [oz_av] [place] ([facility]) Body height 64 [in_i] 64 [in_i] [place] ([facility]) Diastolic blood pressure 77 mm[Hg] 77 mm[Hg] [place] ([facility]) Body mass index (BMI) [Ratio] 19.7 kg/m2 19.7 k g/m2 [place] ([facility]) Systolic blood pressure 111 mm[Hg] 111 mm[Hg] A [place] ([facility]) Body weight 1840 [oz_av] 1840 [oz_av] [facility] [facility] Systolic blood pressure 111 mm[Hg] 111 mm[Hg] A THENA ([facility]) Body weight 1840 [oz_av] 1840 [oz_av] HAROLDO ([facility]) Diastolic blood pressure 77 mm[Hg] 77 mm[Hg] HAROLDO ([facility]) Body height 64 [in_i] 64 [in_i] HAROLDO ([facility]) Body mass index (BMI) [Ratio] 19.7 kg/m2 19.7 k g/m2 HAROLDO ([facility]) Diastolic blood pressure 77 mm[Hg] 77 mm[Hg] HAROLDO ([facility]) Body height 64 [in_i] 64 [in_i] HAROLDO ([facility]) Body mass index (BMI) [Ratio] 19.7 kg/m2 19.7 k g/m2 HAROLDO ([facility]) Systolic blood pressure 111 mm[Hg] 111 mm[Hg] [facility] Diastolic blood pressure 77 mm[Hg] 77 mm[Hg] HAROLDO ([facility]) Body height 64 [in_i] 64 [in_i] HAROLDO ([facility]) Body mass index (BMI) [Ratio] 19.7 kg/m2 19.7 k g/m2 HAROLDO ([facility]) Systolic blood pressure 111 mm[Hg] 111 mm[Hg] A THENA ([facility]) Body weight 1840 [oz_av] 1840 [oz_av] HAROLDO ([facility]) Diastolic blood pressure 77 mm[Hg] 77 mm[Hg] HAROLDO ([facility]) Body height 64 [in_i] 64 [in_i] HAROLDO ([facility]) Body mass index (BMI) [Ratio] 19.7 kg/m2 19.7 k g/m2 HAROLDO ([facility]) Body weight 1840 [oz_av] 1840 [oz_av] HAROLDO ([facility]) Systolic blood pressure 111 mm[Hg] 111 mm[Hg] A THENA ([facility]) Body weight 1840 [oz_av] 1840 [oz_av] HAROLDO ([facility]) Systolic blood pressure 117 mm[Hg] 117 mm[Hg] e CW1 (Pending Sale To [facility]) Body weight 120 [lb_av] 120 [lb_av] eCW1 ([facility]) Body weight 54.43 kg 54.43 kg eCW1 ([facility]) Body height 64 [in_i] 64 [in_i] eCW1 ([facility]) Body mass index (BMI) [Ratio] 20.6 kg/m2 20.6 k g/m2 eCW1 (Pending Sale To [facility]) Diastolic blood pressure 73 mm[Hg] 73 mm[Hg] eCW1 (Pending Sale To [facility]) Patient Treatment Plan of Care Planned Activity Planned Date Details Description Data Source (s) Metronidazole 0.0075 MG/MG Vaginal Gel 12/01/2020 12:00:00 AM EST eCW1 (Pending Sale To [facility]) Sertraline 25 MG Oral Tablet HAROLDO ([facility]) prednisolone acetate 10 MG/ML Ophthalmic Suspension HAROLDO ([facility]) NITROFURANTOIN, MACROCRYSTALS 25 MG / Ni trofurantoin, Monohydrate 75 MG Oral Capsule HAROLDO ([facility]) Metronidazole 0.0075 MG/MG Vaginal Gel HAROLDO ([facility]) Fluoxetine 10 MG Oral Capsule HAROLDO ([facility]) Fluconazole 150 MG Oral Tablet HARLODO ([facility]) Azithromycin 500 MG Oral Tablet HAROLDO ([facility]) Sertraline 25 MG Oral Tablet HAROLDO ([facility]) prednisolone acetate 10 MG/ML Ophthalmic Suspension HAROLDO ([facility]) NITROFURANTOIN, MACROCRYSTALS 25 MG / Ni trofurantoin, Monohydrate 75 MG Oral Capsule HAROLDO ([facility]) Metronidazole 0.0075 MG/MG Vaginal Gel HAROLDO ([facility]) Fluoxetine 10 MG Oral Capsule HAROLDO ([facility]) Fluconazole 150 MG Oral Tablet HAROLDO ([facility]) Azithromycin 500 MG Oral Tablet HAROLDO ([facility]) Sertraline 25 MG Oral Tablet HAROLDO ([facility]) prednisolone acetate 10 MG/ML Ophthalmic Suspension HAROLDO ([facility]) NITROFURANTOIN, MACROCRYSTALS 25 MG / Ni trofurantoin, Monohydrate 75 MG Oral Capsule HAROLDO ([facility]) Metronidazole 0.0075 MG/MG Vaginal Gel HAROLDO ([facility]) Fluoxetine 10 MG Oral Capsule HAROLDO ([facility]) Fluconazole 150 MG Oral Tablet HAROLDO ([facility]) Azithromycin 500 MG Oral Tablet HAROLDO ([facility]) Sertraline 25 MG Oral Tablet HAROLDO ([facility]) prednisolone acetate 10 MG/ML Ophthalmic Suspension HAROLDO ([facility]) NITROFURANTOIN, MACROCRYSTALS 25 MG / Ni trofurantoin, Monohydrate 75 MG Oral Capsule HAROLDO ([facility]) Metronidazole 0.0075 MG/MG Vaginal Gel HAROLDO ([facility]) Fluoxetine 10 MG Oral Capsule HAROLDO ([facility]) Fluconazole 150 MG Oral Tablet HAROLDO ([facility]) Azithromycin 500 MG Oral Tablet HAROLDO ([facility]) Sertraline 25 MG Oral Tablet HAROLDO ([facility]) prednisolone acetate 10 MG/ML Ophthalmic Suspension HAROLDO ([facility]) NITROFURANTOIN, MACROCRYSTALS 25 MG / Ni trofurantoin, Monohydrate 75 MG Oral Capsule HAROLDO ([facility]) Metronidazole 0.0075 MG/MG Vaginal Gel HAROLDO ([facility]) Fluoxetine 10 MG Oral Capsule HAROLDO ([facility]) Fluconazole 150 MG Oral Tablet HAROLDO ([facility]) Azithromycin 500 MG Oral Tablet HAROLDO ([facility]) Sertraline 25 MG Oral Tablet HAROLDO ([facility]) prednisolone acetate 10 MG/ML Ophthalmic Suspension HAROLDO ([facility]) NITROFURANTOIN, MACROCRYSTALS 25 MG / Ni trofurantoin, Monohydrate 75 MG Oral Capsule HAROLDO ([facility]) Metronidazole 0.0075 MG/MG Vaginal Gel HAROLDO ([facility]) Fluoxetine 10 MG Oral Capsule HAROLDO ([facility]) Fluconazole 150 MG Oral Tablet HAROLDO ([facility]) Azithromycin 500 MG Oral Tablet HAROLDO ([facility]) Sertraline 25 MG Oral Tablet HAROLDO ([facility]) NITROFURANTOIN, MACROCRYSTALS 25 MG / Ni trofurantoin, Monohydrate 75 MG Oral Capsule HAROLDO ([facility]) Metronidazole 0.0075 MG/MG Vaginal Gel HAROLDO ([facility]) Fluconazole 150 MG Oral Tablet HAROLDO ([facility]) Azithromycin 500 MG Oral Tablet HAROLDO ([facility]) Fluconazole 150 MG Oral Tablet HAROLDO ([facility]) Azithromycin 500 MG Oral Tablet HAROLDO ([facility]) Sertraline 25 MG Oral Tablet HAROLDO ([facility]) NITROFURANTOIN, MACROCRYSTALS 25 MG / Ni trofurantoin, Monohydrate 75 MG Oral Capsule HAROLDO ([facility]) Metronidazole 0.0075 MG/MG Vaginal Gel HAROLDO ([facility]) Fluconazole 150 MG Oral Tablet HAROLDO ([facility]) Azithromycin 500 MG Oral Tablet HAROLDO ([facility]) NITROFURANTOIN, MACROCRYSTALS 25 MG / Ni trofurantoin, Monohydrate 75 MG Oral Capsule HAROLDO ([facility]) Metronidazole 0.0075 MG/MG Vaginal Gel HAROLDO ([facility]) Fluconazole 150 MG Oral Tablet HAROLDO ([facility]) Azithromycin 500 MG Oral Tablet HAROLDO ([facility]) Sertraline 25 MG Oral Tablet HAROLDO ([facility]) NITROFURANTOIN, MACROCRYSTALS 25 MG / Ni trofurantoin, Monohydrate 75 MG Oral Capsule HAROLDO ([facility]) Metronidazole 0.0075 MG/MG Vaginal Gel HAROLDO ([facility]) Fluconazole 150 MG Oral Tablet HAROLDO ([facility]) Azithromycin 500 MG Oral Tablet HAROLDO ([facility]) NITROFURANTOIN, MACROCRYSTALS 25 MG / Ni trofurantoin, Monohydrate 75 MG Oral Capsule HAROLDO ([facility]) Metronidazole 0.0075 MG/MG Vaginal Gel HAROLDO ([facility]) Fluconazole 150 MG Oral Tablet HAROLDO ([facility]) Azithromycin 500 MG Oral Tablet HAROLDO ([facility]) Sertraline 25 MG Oral Tablet HAROLDO ([facility]) NITROFURANTOIN, MACROCRYSTALS 25 MG / Ni trofurantoin, Monohydrate 75 MG Oral Capsule HAROLDO ([facility]) Metronidazole 0.0075 MG/MG Vaginal Gel HAROLDO ([facility])
--- OUTSIDE RECORDS SUMMARY | 2021-07-31 20:15 | CCD ---
Author Author [facility] Organization [facility] Address Unknown Phone Unavailable Care Team Providers Care Parole Hearing Officer Name Role Phone GOLDMAN, LOIDA JOSE RPA-C [...] is protected by Article 27-F of the [place] State Public Health law. If you continue you may have access to information: Regarding HIV / AIDS; Provided by facilities licensed or operated by the [facility] Office of Mental Health; or Provided by the [facility] Office for People With Developmental Disabilities. If such information is present, then the following [facility] mandated warning applies: This information has [...] law may result in a fine or fdc sentence or both. A general authorization for the release of medical or other information is NOT sufficient authorization for further disc losure. Family History Family Member Name Family Member Gender Family Member Status Date o f Status Description Data Source(s) Unknown Male Problem MEDENT ([facility]) Unknown Unknown Problem MEDENT ([facility], ) Encounters Encounter Providers Location Date Indications Data Source(s ) Outpatient [address] [facility] [address] 07/23/2021 12:00:00 AM EDT eCW1 ([facility]) Unknown [address] [facility] [address] 07/07/2021 12:00:00 AM EDT eCW1 ([facility]) Sherrie Jean Baptiste LCSW-R: [address], [place] [address], Ph. Attender: Sherrie Landry [facility] Medical 06/21/2021 12:00:00 AM [facility]T [facility] Sherrie Jean Baptiste LCSW-R: [address], [address], [place] [address], Ph. Attender: Sherrie Landry [facility] Medical 06/07/2021 12:00:00 AM EDT [facility] Sherrie Jean Baptiste LCSW-R: [address], [address], [place] [address], Ph. Attender: Sherrie Landry [facility] Medical 06/07/2021 12:00:00 AM EDT [facility] Sherrie Jean Baptiste, ELECTRICAL MANUFACTURING TECHNICIAN-R: [address], [address], [place] [address], Ph. Attender: Sherrie Landry [facility] Medical 06/07/2021 12:00:00 AM EDT [place] ([facility]) SherrieSIERRA ChengW-R: [address], [address], [place] [address], Ph. Attender: Sherrie Landry [facility] Medical 06/07/2021 12:00:00 AM EDT [place] ([facility]) SherrieSIERRA ChengW-R: [address], [address], [place] [address], Ph. Attender: Sherrie Landry [facility] Medical 06/02/2021 12:00:00 AM EDT [place] ([facility]) SherrieSIERRA ChengW-R: [address], [address], [place] [address], Ph. Attender: Sherrie Landry [facility] Medical 06/02/2021 12:00:00 AM EDT [place] ([facility]) SIERRA MarW-R: [address], [address], [place] [address], Ph. Attender: Sherrie Landry [facility] Medical 06/02/2021 12:00:00 AM EDT [place] ([facility]) SIERRA MarW-R: [address], [address], [place] [address], Ph. Attender: Sherrie Evangelinaanalydouglas [facility] Medical 06/02/2021 12:00:00 AM EDT [facility]) SIERRA MarW-R: [address], [place] [address], Ph. Attender: Sherrie Landry [facility] Medical 05/24/2021 12:00:00 AM EDT [facility]) SIERRA MarW-R: [address], [place] [address], Ph. Attender: Sherrie Landry [facility] Medical 05/24/2021 12:00:00 AM EDT [facility]) SIERRA MarW-R: [address], [place] [address], Ph. Attender: Sherrie Landry [facility] Medical 05/24/2021 12:00:00 AM EDT [facility]) SIERRA MarW-R: [address], [place] [address], Ph. Attender: Sherrie Landry [facility] Medical 05/24/2021 12:00:00 AM EDT [facility]) Sherrie Jean Baptiste LCSW-R: [address], [place] [address], Ph. Attender: Sherrie Landry [facility] Medical 05/10/2021 12:00:00 AM EDT [facility]) Sherrie Jean Baptiste LCSW-R: [address], [place] [address], Ph. Attender: Sherrie Landry [facility] Medical 05/10/2021 12:00:00 AM EDT [facility]) Sherrie Jean Baptiste, ELECTRICAL MANUFACTURING TECHNICIAN-R: [address], [place] [address], Ph. Attender: Sherrie Landry [facility] Medical 05/10/2021 12:00:00 AM EDT [place] ([facility]) SIERRA MarW-R: [address], [place] [address], Ph. Attender: Sherrie Mayorgabee [facility] Medical 05/10/2021 12:00:00 AM EDT [place] ([facility]) SIERRA MarW-R: [address], [place] [address], Ph. Attender: Sherrie Hutchinsonanalyleobee [facility] Medical 05/10/2021 12:00:00 AM EDT [facility]) Nella Gray PA-C: [address], [place] [address], Ph. Attender: Nella MIRANDA [facility] Medical 05/07/2021 12:00:00 AM EDT [place] ([facility]) Nella Gray PA-C: [address], [place] [address], Ph. Attender: Nella MIRANDA [facility] Medical 05/07/2021 12:00:00 AM EDT [place] ([facility]) Nella Gray PA-C: [address], [place] [address], Ph. Attender: Nella MIRANDA [facility] Medical 05/07/2021 12:00:00 AM EDT [place] ([facility]) Nella Gray PA-C: [address], [place] [address], Ph. Attender: Nella MIRANDA [facility] Medical 05/07/2021 12:00:00 AM EDT [place] ([facility]) EREN OscarC: [address], [place] [address], Ph. Attender: Nella MIRANDA [facility] Medical 05/07/2021 12:00:00 AM EDT [place] ([facility]) Nella Gray PA-C: [address], [facility] [address], Ph. Attender: Nella MIRANDA [facility] Medical 05/07/2021 12:00:00 AM EDT [place] ([facility]) Jose Goldman RPA-C: [address], [place] [address], Ph. Attender: JOSE HOWELLC [facility] Medical 04/28/2021 12:00:00 AM EDT [place] ([facility]) Jose Goldman RPA-C: [address], [address], [place] [address], Ph. Attender: JOSE GOLDMAN RPA-C [facility] Medical 04/28/2021 12:00:00 AM EDT [place] ([facility]) Jose Goldman RPA-C: [address], [address], [place] [address], Ph. Attender: JOSE GOLDMAN RPA-C [facility] Medical 04/28/2021 12:00:00 AM EDT [place] ([facility]) Jose Goldman RPA-C: [address], [place] [address], Ph. Attender: JOSE GOLDMAN RPA-C [facility] Medical 04/28/2021 12:00:00 AM EDT [place] ([facility]) Jose Goldman RPA-C: [address], [address], [place] [address], Ph. Attender: JOSE GOLDMAN RPA-C [facility] Medical 04/28/2021 12:00:00 AM EDT [place] ([facility]) Jose Goldman RPA-C: [address], [address], [place] [address], Ph. Attender: JOSE GOLDMAN RPA-C [facility] Medical 04/28/2021 12:00:00 AM EDT [place] ([facility]) Jose Goldman RPA-C: [address], [address], [place] [address], Ph. Attender: JOSE GOLDMAN RPA-C [facility] Medical 04/28/2021 12:00:00 AM EDT [place] ([facility]) Outpatient [address] [facility] [address] 04/26/2021 12:00:00 AM EDT eCW1 ([facility]) SIERRA MarW-R: [address], [address], [place] [address], Ph. Attender: Sherrie Landry [facility] Medical 04/15/2021 12:00:00 AM EDT [place] ([facility]) SIERRA MarW-R: [address], [address], [place] [address], Ph. Attender: Sherrie Landry [facility] Medical 04/15/2021 12:00:00 AM EDT [place] ([facility]) SIERRA MarW-R: [address], [address], [place] [address], Ph. Attender: Sherrie Landry [facility] Medical 04/15/2021 12:00:00 AM EDT [place] ([facility]) SIERRA MarW-R: [address], [address], [place] [address], Ph. Attender: Sherrie Landry [facility] Medical 04/15/2021 12:00:00 AM EDT [place] ([facility]) SIERRA MarW-R: [address], [address], [place] [address], Ph. Attender: Sherrie Landry [facility] Medical 04/15/2021 12:00:00 AM EDT [place] ([facility]) SIERRA MarW-R: [address], [address], [place] [address], Ph. Attender: Sherrie Hutchinsonanalyleobee [facility] Medical 04/15/2021 12:00:00 AM EDT [place] ([facility]) SIERRA MarW-R: [address], [address], [place] [address], Ph. Attender: Sherrie Landry [facility] Medical 04/15/2021 12:00:00 AM EDT [place] ([facility]) SherrieSIERRA ChengW-R: [address], [address], [place] [address], Ph. Attender: Sherrie Landry [facility] Medical 04/15/2021 12:00:00 AM EDT [place] ([facility]) SIERRA MarW-R: [address], [address], [place] [address], Ph. Attender: Sherrie Landry [facility] Medical 04/01/2021 12:00:00 AM EDT [place] ([facility]) SherrieSIERRA ChengW-R: [address], [address], [place] [address], Ph. Attender: Sherrie Evangelinaanalyleobee [facility] Medical 04/01/2021 12:00:00 AM EDT [place] ([facility]) SIERRA MarW-R: [address], [address], [place] [address], Ph. Attender: Sherrie Landry [facility] Medical 04/01/2021 12:00:00 AM EDT [place] ([facility]) SIERRA MarW-R: [address], [address], [place] [address], Ph. Attender: Sherrie Evangelinaanalyleobee [facility] Medical 04/01/2021 12:00:00 AM EDT [place] ([facility]) SIERRA MarW-R: [address], [address], [place] [address], Ph. Attender: Sherrie Quilesleobee [facility] Medical 04/01/2021 12:00:00 AM EDT [place] ([facility]) Sherrie Jean Baptiste, ELECTRICAL MANUFACTURING TECHNICIAN-R: [address], [address], [place] [address], Ph. Attender: Sherrie Landry [facility] Medical 04/01/2021 12:00:00 AM EDT [place] ([facility]) Sherrie Jean BaptisteSIERRAW-R: [address], [address], [place] [address], Ph. Attender: Sherrie Landry [facility] Medical 04/01/2021 12:00:00 AM EDT [place] ([facility]) Sherrie Jean BaptisteSIERRAW-R: [address], [address], [place] [address], Ph. Attender: Sherrie Landry [facility] Medical 04/01/2021 12:00:00 AM EDT [place] ([facility]) Sherrie Jean BaptisteSIERRAW-R: [address], [address], [place] [address], Ph. Attender: Sherrie Landry [facility] Medical 04/01/2021 12:00:00 AM EDT [place] ([facility]) Nella Gray PA-C: [address], [place] [address], Ph. Attender: Nella MIRANDA [facility] Medical 03/29/2021 12:00:00 AM EDT [place] ([facility]) Nella Gray PA-C: [address], [place] [address], Ph. Attender: Nella MIRANDA [facility] Medical 03/29/2021 12:00:00 AM EDT [place] ([facility]) Nella Gray PA-C: [address], [place] [address], Ph. Attender: Nella MIRANDA [facility] Medical 03/29/2021 12:00:00 AM EDT [place] ([facility]) Nella Gray PA-C: [address], [place] [address], Ph. Attender: Nella MIRANDA [facility] Medical 03/29/2021 12:00:00 AM EDT [place] ([facility]) Nella Gray PA-C: [address], [place] [address], Ph. Attender: Nella MIRANDA [facility] Medical 03/29/2021 12:00:00 AM EDT [place] ([facility]) Nella Gray PA-C: [address], [place] [address], Ph. Attender: Nella MIRANDA [facility] Medical 03/29/2021 12:00:00 AM EDT [place] ([facility]) Nella Gray PA-C: [address], [place] [address], Ph. Attender: Nella MIRANDA [facility] Medical 03/29/2021 12:00:00 AM EDT [place] ([facility]) Nella Gray PA-C: [address], [place] [address], Ph. Attender: Nella MIRANDA [facility] Medical 03/29/2021 12:00:00 AM EDT [place] ([facility]) Nella Gray PA-C: [address], [place] [address], Ph. Attender: Nella MIRANDA [facility] Medical 03/29/2021 12:00:00 AM EDT [place] ([facility]) Nella Gray PA-C: [address], [place] [address], Ph. Attender: Nella MIRANDA [facility] Medical 03/29/2021 12:00:00 AM EDT [place] ([facility]) SIERRA MarW-R: [address], [place] [address], Ph. Attender: Sherrie Landry [facility] Medical 03/22/2021 12:00:00 AM EDT [place] ([facility]) SIERRA MarW-R: [address], [place] [address], Ph. Attender: Sherrie Landry [facility] Medical 03/22/2021 12:00:00 AM EDT [place] ([facility]) SIERRA MarW-R: [address], [place] [address], Ph. Attender: Sherrie Landry [facility] Medical 03/22/2021 12:00:00 AM EDT [place] ([facility]) SIERRA MarW-R: [address], [place] [address], Ph. Attender: Sherrie Landry [facility] Medical 03/22/2021 12:00:00 AM EDT [facility]) SIERRA MarW-R: [address], [place] [address], Ph. Attender: Sherrie Landry [facility] Medical 03/22/2021 12:00:00 AM EDT [facility]) SIERRA MarW-R: [address], [place] [address], Ph. Attender: Sherrie Landry [facility] Medical 03/22/2021 12:00:00 AM EDT [facility]) SIERRA MarW-R: [address], [place] [address], Ph. Attender: Sherrie Landry [facility] Medical 03/22/2021 12:00:00 AM EDT [facility]) SIERRA MarW-R: [address], [place] [address], Ph. Attender: Sherrie Landry [facility] Medical 03/22/2021 12:00:00 AM EDT [facility]) SIERRA MarW-R: [address], [place] [address], Ph. Attender: Sherrie Landry [facility] Medical 03/22/2021 12:00:00 AM EDT [facility]) SIERRA MarW-R: [address], [place] [address], Ph. Attender: Sherrie Landry [facility] Medical 03/22/2021 12:00:00 AM EDT [facility]) SIERRA MarW-R: [address], [place] [address], Ph. Attender: Sherrie Landry [facility] Medical 03/22/2021 12:00:00 AM EDT [place] ([facility]) Nella Gray PA-C: [address], [place] [address], Ph. Attender: Nella MIRANDA [facility] Medical 01/28/2021 12:00:00 AM EDT [place] ([facility]) Nella Gray PA-C: [address], [place] [address], Ph. Attender: Nella MIRANDA [facility] Medical 01/28/2021 12:00:00 AM EDT [place] ([facility]) Nella Gray PA-C: [address], [place] [address], Ph. Attender: Nella MIRANDA [facility] Medical 01/28/2021 12:00:00 AM EDT [place] ([facility]) Nella Gray PA-C: [address], [place] [address], Ph. Attender: Nella MIRANDA [facility] Medical 01/28/2021 12:00:00 AM EDT [place] ([facility]) Nella Gray PA-C: [address], [place] [address], Ph. Attender: Nella MIRANDA [facility] Medical 01/28/2021 12:00:00 AM EDT [place] ([facility]) Nella Gray PA-C: [address], [place] [address], Ph. Attender: Nella MIRANDA [facility] Medical 01/28/2021 12:00:00 AM EDT [place] ([facility]) Nella Gray PA-C: [address], [place] [address], Ph. Attender: Nella MIRANDA [facility] Medical 01/28/2021 12:00:00 AM EDT [place] ([facility]) Nella Gray PA-C: [address], [place] [address], Ph. Attender: Nella MIRANDA [facility] Medical 01/28/2021 12:00:00 AM EDT [place] ([facility]) Nella Gray PA-C: [address], [place] [address], Ph. Attender: Nella MIRANDA [facility] Medical 01/28/2021 12:00:00 AM EDT [place] ([facility]) Nella Gray PA-C: [address], [place] [address], Ph. Attender: Nella MIRANDA [facility] Medical 01/28/2021 12:00:00 AM EDT [place] ([facility]) Nella Gray PA-C: [address], [place] [address], Ph. Attender: Nella MIRANDA [facility] Medical 01/28/2021 12:00:00 AM EDT [place] ([facility]) Nella Gray PA-C: [address], [place] [address], Ph. 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 [address] [place] [address] 12/01/2020 12:00:00 AM EST eCW1 ([facility]) Medications Medication Brand Name Start Date Product [...] AM EST suspended metroNIDAZOLE 0.75 % eCW1 ([facility]) Metronidazole 0.0075 MG/MG Vaginal Gel metroNIDAZOLE 0 .75 % metroNIDAZOLE 0.75 % 12/01/2020 12:00:00 AM EST suspended metroNIDAZOLE 0.75 % eCW1 ([facility]) Metronidazole 0.0075 MG/MG Vaginal Gel metroNIDAZOLE 0 .75 % metroNIDAZOLE 0.75 % 12/01/2020 12:00:00 AM EST active metroNIDAZOLE 0.75 % eCW1 ([facility]) Metronidazole 0.0075 MG/MG Vaginal Gel Metronidazole 0 .75 % Metronidazole 0.75 % 12/01/2020 12:00:00 AM EST active Metronidazole 0.75 % eCW1 ([facility]) 500 mg 06/12/2020 12:00:00 AM EDT [...] completed fluconazole 150 MG Oral Tablet [place] ([facility]) Azithromycin 500 MG Oral Tablet azithrom ycin 500 mg tablet TAKE TWO TABLETS BY MOUTH ONCE azithromycin 500 mg tablet TAKE TWO TABLETS BY MOUTH ONCE completed azithromycin 500 MG Oral Tab let [place] ([facility]) prednisolone acetate 10 MG/ML Ophthalmic Suspension prednisolone acetate 1 % eye drops,suspension INSTILL 1 DROP IN BOTH EYES FOUR TIMES A DAY DIRECTED prednisolone acetate 1 % eye drops,suspension INSTILL 1 DROP IN BOTH EYES FOUR TIMES A DAY DIRECTED completed prednisolone acetate 10 MG/ML Ophthalmic Suspension [place] ([facility]) NITROFURANTOIN, MACROCRYSTALS 25 MG / Ni trofurantoin, Monohydrate 75 MG Oral Capsule nitrofurantoin monohydrate/macrocrystals 100 mg capsule TAKE ONE CAPSULE BY MOUTH TWICE A DAY nitrofurantoin monohydrate/macrocrystals 100 mg capsule TAKE ONE CAPSULE BY MOUTH TWICE A DAY completed nitrofurantoin, macrocrystals 25 MG / nitrofurantoin, monohydrate 75 MG Oral Capsule [place] ([facility]) Azithromycin 500 MG Oral Tablet azithrom ycin 500 mg tablet TAKE TWO TABLETS BY MOUTH ONCE azithromycin 500 mg tablet TAKE TWO TABLETS BY MOUTH ONCE completed azithromycin 500 MG Oral Tab let [place] ([facility]) Fluoxetine 10 MG Oral Capsule fluoxetine 10 mg capsule fluox etine 10 mg capsule completed fluoxetine 10 MG Oral Capsule [place] ([facility]) Metronidazole 0.0075 MG/MG Vaginal Gel m etronidazole 0.75 % vaginal gel APPLY 1 APPLICATORFUL AT BEDTIME ONCE A DAY FOR 5 DAYS metronidazole 0.75 % vaginal gel APPLY 1 APPLICATORFUL AT BEDTIME ONCE A DAY FOR 5 DAYS completed metronidazole 0.0075 MG/MG Vaginal Gel [place] ([facility]) Metronidazole 0.0075 MG/MG Vaginal Gel m etronidazole 0.75 % vaginal gel APPLY 1 APPLICATORFUL AT BEDTIME ONCE A DAY FOR 5 DAYS metronidazole 0.75 % vaginal gel APPLY 1 APPLICATORFUL AT BEDTIME ONCE A DAY FOR 5 DAYS completed metronidazole 0.0075 MG/MG Vaginal Gel [place] ([facility]) NITROFURANTOIN, MACROCRYSTALS 25 MG / Ni trofurantoin, Monohydrate 75 MG Oral Capsule nitrofurantoin monohydrate/macrocrystals 100 mg capsule TAKE ONE CAPSULE BY MOUTH TWICE A DAY nitrofurantoin monohydrate/macrocrystals 100 mg capsule TAKE ONE CAPSULE BY MOUTH TWICE A DAY completed nitrofurantoin, macrocrystals 25 MG / nitrofurantoin, monohydrate 75 MG Oral Capsule [place] ([facility]) Metronidazole 0.0075 MG/MG Vaginal Gel m etronidazole 0.75 % vaginal gel APPLY 1 APPLICATORFUL AT BEDTIME ONCE A DAY FOR 5 DAYS metronidazole 0.75 % vaginal gel APPLY 1 APPLICATORFUL AT BEDTIME ONCE A DAY FOR 5 DAYS completed metronidazole 0.0075 MG/MG Vaginal Gel [place] ([facility]) Metronidazole 0.0075 MG/MG Vaginal Gel m etronidazole 0.75 % vaginal gel APPLY 1 APPLICATORFUL AT BEDTIME ONCE A DAY FOR 5 DAYS metronidazole 0.75 % vaginal gel APPLY 1 APPLICATORFUL AT BEDTIME ONCE A DAY FOR 5 DAYS completed metronidazole 0.0075 MG/MG Vaginal Gel [place] ([facility]) Fluconazole 150 MG Oral Tablet fluconazo le 150 mg tablet TAKE 1 TABLET BY MOUTH NOW THEN TAKE 2ND TABLET IN 48 HOURS fluconazole 150 mg tablet TAKE 1 TABLET BY MOUTH NOW THEN TAKE 2ND TABLET IN 48 HOURS completed fluconazole 150 MG Oral Tablet [place] ([facility]) Azithromycin 500 MG Oral Tablet azithrom ycin 500 mg tablet TAKE TWO TABLETS BY MOUTH ONCE azithromycin 500 mg tablet TAKE TWO TABLETS BY MOUTH ONCE completed azithromycin 500 MG Oral Tab let [place] ([facility]) Fluoxetine 10 MG Oral Capsule fluoxetine 10 mg capsule fluox etine 10 mg capsule completed fluoxetine 10 MG Oral Capsule [place] ([facility]) Metronidazole 0.0075 MG/MG Vaginal Gel m etronidazole 0.75 % vaginal gel APPLY 1 APPLICATORFUL AT BEDTIME ONCE A DAY FOR 5 DAYS metronidazole 0.75 % vaginal gel APPLY 1 APPLICATORFUL AT BEDTIME ONCE A DAY FOR 5 DAYS completed metronidazole 0.0075 MG/MG Vaginal Gel [place] ([facility]) prednisolone acetate 10 MG/ML Ophthalmic Suspension prednisolone acetate 1 % eye drops,suspension INSTILL 1 DROP IN BOTH EYES FOUR TIMES A DAY DIRECTED prednisolone acetate 1 % eye drops,suspension INSTILL 1 DROP IN BOTH EYES FOUR TIMES A DAY DIRECTED completed prednisolone acetate 10 MG/ML Ophthalmic Suspension [place] ([facility]) Sertraline 25 MG Oral Tablet sertraline 25 mg tablet TAKE ONE TABLET BY MOUTH EVERY DAY sertraline 25 mg tablet TAKE ONE TABLET BY MOUTH EVERY DAY completed sertraline 25 MG Oral Tablet [place] ([facility]) Azithromycin 500 MG Oral Tablet azithrom ycin 500 mg tablet TAKE TWO TABLETS BY MOUTH ONCE azithromycin 500 mg tablet TAKE TWO TABLETS BY MOUTH ONCE completed azithromycin 500 MG Oral Tab let [place] ([facility]) Azithromycin 500 MG Oral Tablet azithrom ycin 500 mg tablet TAKE TWO TABLETS BY MOUTH ONCE azithromycin 500 mg tablet TAKE TWO TABLETS BY MOUTH ONCE completed azithromycin 500 MG Oral Tab let [place] ([facility]) Metronidazole 0.0075 MG/MG Vaginal Gel m etronidazole 0.75 % vaginal gel APPLY 1 APPLICATORFUL AT BEDTIME ONCE A DAY FOR 5 DAYS metronidazole 0.75 % vaginal gel APPLY 1 APPLICATORFUL AT BEDTIME ONCE A DAY FOR 5 DAYS completed metronidazole 0.0075 MG/MG Vaginal Gel [place] ([facility]) Sertraline 25 MG Oral Tablet sertraline 25 mg tablet TAKE ONE TABLET BY MOUTH EVERY DAY sertraline 25 mg tablet TAKE ONE TABLET BY MOUTH EVERY DAY completed sertraline 25 MG Oral Tablet [place] ([facility]) Metronidazole 0.0075 MG/MG Vaginal Gel m etronidazole 0.75 % vaginal gel APPLY 1 APPLICATORFUL AT BEDTIME ONCE A DAY FOR 5 DAYS metronidazole 0.75 % vaginal gel APPLY 1 APPLICATORFUL AT BEDTIME ONCE A DAY FOR 5 DAYS completed metronidazole 0.0075 MG/MG Vaginal Gel [place] ([facility]) Fluoxetine 10 MG Oral Capsule fluoxetine 10 mg capsule fluox etine 10 mg capsule completed fluoxetine 10 MG Oral Capsule [place] ([facility]) Fluconazole 150 MG Oral Tablet fluconazo le 150 mg tablet TAKE 1 TABLET BY MOUTH NOW THEN TAKE 2ND TABLET IN 48 HOURS fluconazole 150 mg tablet TAKE 1 TABLET BY MOUTH NOW THEN TAKE 2ND TABLET IN 48 HOURS completed fluconazole 150 MG Oral Tablet [place] ([facility]) Sertraline 25 MG Oral Tablet sertraline 25 mg tablet TAKE ONE TABLET BY MOUTH EVERY DAY sertraline 25 mg tablet TAKE ONE TABLET BY MOUTH EVERY DAY completed sertraline 25 MG Oral Tablet [place] ([facility]) Fluoxetine 10 MG Oral Capsule fluoxetine 10 mg capsule fluox etine 10 mg capsule completed fluoxetine 10 MG Oral Capsule [place] ([facility]) Fluconazole 150 MG Oral Tablet fluconazo le 150 mg tablet TAKE 1 TABLET BY MOUTH NOW THEN TAKE 2ND TABLET IN 48 HOURS fluconazole 150 mg tablet TAKE 1 TABLET BY MOUTH NOW THEN TAKE 2ND TABLET IN 48 HOURS completed fluconazole 150 MG Oral Tablet [place] ([facility]) prednisolone acetate 10 MG/ML Ophthalmic Suspension prednisolone acetate 1 % eye drops,suspension INSTILL 1 DROP IN BOTH EYES FOUR TIMES A DAY DIRECTED prednisolone acetate 1 % eye drops,suspension INSTILL 1 DROP IN BOTH EYES FOUR TIMES A DAY DIRECTED completed prednisolone acetate 10 MG/ML Ophthalmic Suspension [place] ([facility]) NITROFURANTOIN, MACROCRYSTALS 25 MG / Ni trofurantoin, Monohydrate 75 MG Oral Capsule nitrofurantoin monohydrate/macrocrystals 100 mg capsule TAKE ONE CAPSULE BY MOUTH TWICE A DAY nitrofurantoin monohydrate/macrocrystals 100 mg capsule TAKE ONE CAPSULE BY MOUTH TWICE A DAY completed nitrofurantoin, macrocrystals 25 MG / nitrofurantoin, monohydrate 75 MG Oral Capsule [place] ([facility]) Sertraline 25 MG Oral Tablet sertraline 25 mg tablet TAKE ONE TABLET BY MOUTH EVERY DAY sertraline 25 mg tablet TAKE ONE TABLET BY MOUTH EVERY DAY completed sertraline 25 MG Oral Tablet [place] ([facility]) NITROFURANTOIN, MACROCRYSTALS 25 MG / Ni trofurantoin, Monohydrate 75 MG Oral Capsule nitrofurantoin monohydrate/macrocrystals 100 mg capsule TAKE ONE CAPSULE BY MOUTH TWICE A DAY nitrofurantoin monohydrate/macrocrystals 100 mg capsule TAKE ONE CAPSULE BY MOUTH TWICE A DAY completed nitrofurantoin, macrocrystals 25 MG / nitrofurantoin, monohydrate 75 MG Oral Capsule [place] ([facility]) NITROFURANTOIN, MACROCRYSTALS 25 MG / Ni trofurantoin, Monohydrate 75 MG Oral Capsule nitrofurantoin monohydrate/macrocrystals 100 mg capsule TAKE ONE CAPSULE BY MOUTH TWICE A DAY nitrofurantoin monohydrate/macrocrystals 100 mg capsule TAKE ONE CAPSULE BY MOUTH TWICE A DAY completed nitrofurantoin, macrocrystals 25 MG / nitrofurantoin, monohydrate 75 MG Oral Capsule [place] ([facility]) Fluconazole 150 MG Oral Tablet fluconazo le 150 mg tablet TAKE 1 TABLET BY MOUTH NOW THEN TAKE 2ND TABLET IN 48 HOURS fluconazole 150 mg tablet TAKE 1 TABLET BY MOUTH NOW THEN TAKE 2ND TABLET IN 48 HOURS completed fluconazole 150 MG Oral Tablet [place] ([facility]) Metronidazole 0.0075 MG/MG Vaginal Gel m etronidazole 0.75 % vaginal gel APPLY 1 APPLICATORFUL AT BEDTIME ONCE A DAY FOR 5 DAYS metronidazole 0.75 % vaginal gel APPLY 1 APPLICATORFUL AT BEDTIME ONCE A DAY FOR 5 DAYS completed metronidazole 0.0075 MG/MG Vaginal Gel [place] ([facility]) Metronidazole 0.0075 MG/MG Vaginal Gel m etronidazole 0.75 % vaginal gel APPLY 1 APPLICATORFUL AT BEDTIME ONCE A DAY FOR 5 DAYS metronidazole 0.75 % vaginal gel APPLY 1 APPLICATORFUL AT BEDTIME ONCE A DAY FOR 5 DAYS completed metronidazole 0.0075 MG/MG Vaginal Gel [place] ([facility]) Sertraline 25 MG Oral Tablet sertraline 25 mg tablet TAKE ONE TABLET BY MOUTH EVERY DAY sertraline 25 mg tablet TAKE ONE TABLET BY MOUTH EVERY DAY completed sertraline 25 MG Oral Tablet [place] ([facility]) NITROFURANTOIN, MACROCRYSTALS 25 MG / Ni trofurantoin, Monohydrate 75 MG Oral Capsule nitrofurantoin monohydrate/macrocrystals 100 mg capsule TAKE ONE CAPSULE BY MOUTH TWICE A DAY nitrofurantoin monohydrate/macrocrystals 100 mg capsule TAKE ONE CAPSULE BY MOUTH TWICE A DAY completed nitrofurantoin, macrocrystals 25 MG / nitrofurantoin, monohydrate 75 MG Oral Capsule [facility]) NITROFURANTOIN, MACROCRYSTALS 25 MG / Ni trofurantoin, Monohydrate 75 MG Oral Capsule nitrofurantoin monohydrate/macrocrystals 100 mg capsule TAKE ONE CAPSULE BY MOUTH TWICE A DAY nitrofurantoin monohydrate/macrocrystals 100 mg capsule TAKE ONE CAPSULE BY MOUTH TWICE A DAY completed nitrofurantoin, macrocrystals 25 MG / nitrofurantoin, monohydrate 75 MG Oral Capsule [place] ([facility]) Fluconazole 150 MG Oral Tablet fluconazo le 150 mg tablet TAKE 1 TABLET BY MOUTH NOW THEN TAKE 2ND TABLET IN 48 HOURS fluconazole 150 mg tablet TAKE 1 TABLET BY MOUTH NOW THEN TAKE 2ND TABLET IN 48 HOURS completed fluconazole 150 MG Oral Tablet [facility]) Sertraline 25 MG Oral Tablet sertraline 25 mg tablet TAKE ONE TABLET BY MOUTH EVERY DAY sertraline 25 mg tablet TAKE ONE TABLET BY MOUTH EVERY DAY completed sertraline 25 MG Oral Tablet [facility]) Azithromycin 500 MG Oral Tablet azithrom ycin 500 mg tablet TAKE TWO TABLETS BY MOUTH ONCE azithromycin 500 mg tablet TAKE TWO TABLETS BY MOUTH ONCE completed azithromycin 500 MG Oral Tab let [facility]) Fluoxetine 10 MG Oral Capsule fluoxetine 10 mg capsule fluox etine 10 mg capsule completed fluoxetine 10 MG Oral Capsule [facility]) Azithromycin 500 MG Oral Tablet azithrom ycin 500 mg tablet TAKE TWO TABLETS BY MOUTH ONCE azithromycin 500 mg tablet TAKE TWO TABLETS BY MOUTH ONCE completed azithromycin 500 MG Oral Tab let [place] ([facility]) Azithromycin 500 MG Oral Tablet azithrom ycin 500 mg tablet TAKE TWO TABLETS BY MOUTH ONCE azithromycin 500 mg tablet TAKE TWO TABLETS BY MOUTH ONCE completed azithromycin 500 MG Oral Tab let [facility]) prednisolone acetate 10 MG/ML Ophthalmic Suspension prednisolone acetate 1 % eye drops,suspension INSTILL 1 DROP IN BOTH EYES FOUR TIMES A DAY DIRECTED prednisolone acetate 1 % eye drops,suspension INSTILL 1 DROP IN BOTH EYES FOUR TIMES A DAY DIRECTED completed prednisolone acetate 10 MG/ML Ophthalmic Suspension [facility]) NITROFURANTOIN, MACROCRYSTALS 25 MG / Ni trofurantoin, Monohydrate 75 MG Oral Capsule nitrofurantoin monohydrate/macrocrystals 100 mg capsule TAKE ONE CAPSULE BY MOUTH TWICE A DAY nitrofurantoin monohydrate/macrocrystals 100 mg capsule TAKE ONE CAPSULE BY MOUTH TWICE A DAY completed nitrofurantoin, macrocrystals 25 MG / nitrofurantoin, monohydrate 75 MG Oral Capsule [place] ([facility]) Azithromycin 500 MG Oral Tablet azithrom ycin 500 mg tablet TAKE TWO TABLETS BY MOUTH ONCE azithromycin 500 mg tablet TAKE TWO TABLETS BY MOUTH ONCE completed azithromycin 500 MG Oral Tab let [place] ([facility]) Sertraline 25 MG Oral Tablet sertraline 25 mg tablet TAKE ONE TABLET BY MOUTH EVERY DAY sertraline 25 mg tablet TAKE ONE TABLET BY MOUTH EVERY DAY completed sertraline 25 MG Oral Tablet [place] ([facility]) Azithromycin 500 MG Oral Tablet azithrom ycin 500 mg tablet TAKE TWO TABLETS BY MOUTH ONCE azithromycin 500 mg tablet TAKE TWO TABLETS BY MOUTH ONCE completed azithromycin 500 MG Oral Tab let [place] ([facility]) Fluconazole 150 MG Oral Tablet fluconazo le 150 mg tablet TAKE 1 TABLET BY MOUTH NOW THEN TAKE 2ND TABLET IN 48 HOURS fluconazole 150 mg tablet TAKE 1 TABLET BY MOUTH NOW THEN TAKE 2ND TABLET IN 48 HOURS completed fluconazole 150 MG Oral Tablet [place] ([facility]) prednisolone acetate 10 MG/ML Ophthalmic Suspension prednisolone acetate 1 % eye drops,suspension INSTILL 1 DROP IN BOTH EYES FOUR TIMES A DAY DIRECTED prednisolone acetate 1 % eye drops,suspension INSTILL 1 DROP IN BOTH EYES FOUR TIMES A DAY DIRECTED completed prednisolone acetate 10 MG/ML Ophthalmic Suspension [facility]) Fluconazole 150 MG Oral Tablet fluconazo le 150 mg tablet TAKE 1 TABLET BY MOUTH NOW THEN TAKE 2ND TABLET IN 48 HOURS fluconazole 150 mg tablet TAKE 1 TABLET BY MOUTH NOW THEN TAKE 2ND TABLET IN 48 HOURS completed fluconazole 150 MG Oral Tablet [facility]) Sertraline 25 MG Oral Tablet sertraline 25 mg tablet TAKE ONE TABLET BY MOUTH EVERY DAY sertraline 25 mg tablet TAKE ONE TABLET BY MOUTH EVERY DAY completed sertraline 25 MG Oral Tablet [place] ([facility]) Fluconazole 150 MG Oral Tablet fluconazo le 150 mg tablet TAKE 1 TABLET BY MOUTH NOW THEN TAKE 2ND TABLET IN 48 HOURS fluconazole 150 mg tablet TAKE 1 TABLET BY MOUTH NOW THEN TAKE 2ND TABLET IN 48 HOURS completed fluconazole 150 MG Oral Tablet [place] ([facility]) Fluconazole 150 MG Oral Tablet fluconazo le 150 mg tablet TAKE 1 TABLET BY MOUTH NOW THEN TAKE 2ND TABLET IN 48 HOURS fluconazole 150 mg tablet TAKE 1 TABLET BY MOUTH NOW THEN TAKE 2ND TABLET IN 48 HOURS completed fluconazole 150 MG Oral Tablet [place] ([facility]) Metronidazole 0.0075 MG/MG Vaginal Gel m etronidazole 0.75 % vaginal gel APPLY 1 APPLICATORFUL AT BEDTIME ONCE A DAY FOR 5 DAYS metronidazole 0.75 % vaginal gel APPLY 1 APPLICATORFUL AT BEDTIME ONCE A DAY FOR 5 DAYS completed metronidazole 0.0075 MG/MG Vaginal Gel [place] ([facility]) NITROFURANTOIN, MACROCRYSTALS 25 MG / Ni trofurantoin, Monohydrate 75 MG Oral Capsule nitrofurantoin monohydrate/macrocrystals 100 mg capsule TAKE ONE CAPSULE BY MOUTH TWICE A DAY nitrofurantoin monohydrate/macrocrystals 100 mg capsule TAKE ONE CAPSULE BY MOUTH TWICE A DAY completed nitrofurantoin, macrocrystals 25 MG / nitrofurantoin, monohydrate 75 MG Oral Capsule [place] ([facility]) Fluoxetine 10 MG Oral Capsule fluoxetine 10 mg capsule fluox etine 10 mg capsule completed fluoxetine 10 MG Oral Capsule [place] ([facility]) Sertraline 25 MG Oral Tablet sertraline 25 mg tablet TAKE ONE TABLET BY MOUTH EVERY DAY sertraline 25 mg tablet TAKE ONE TABLET BY MOUTH EVERY DAY completed sertraline 25 MG Oral Tablet [place] ([facility]) Azithromycin 500 MG Oral Tablet azithrom ycin 500 mg tablet TAKE TWO TABLETS BY MOUTH ONCE azithromycin 500 mg tablet TAKE TWO TABLETS BY MOUTH ONCE completed azithromycin 500 MG Oral Tab let [place] ([facility]) Azithromycin 500 MG Oral Tablet [...] / nitrofurantoin, monohydrate 75 MG Oral Capsule [place] ([facility]) Fluconazole 150 MG Oral Tablet fluconazo le 150 mg tablet TAKE 1 TABLET BY MOUTH NOW THEN TAKE 2ND TABLET IN 48 HOURS fluconazole 150 mg tablet TAKE 1 TABLET BY MOUTH NOW THEN TAKE 2ND TABLET IN 48 HOURS completed fluconazole 150 MG Oral Tablet [facility]) NITROFURANTOIN, MACROCRYSTALS 25 MG / Ni trofurantoin, Monohydrate 75 MG Oral Capsule nitrofurantoin monohydrate/macrocrystals 100 mg capsule TAKE ONE CAPSULE BY MOUTH TWICE A DAY nitrofurantoin monohydrate/macrocrystals 100 mg capsule TAKE ONE CAPSULE BY MOUTH TWICE A DAY completed nitrofurantoin, macrocrystals 25 MG / nitrofurantoin, monohydrate 75 MG Oral Capsule [facility]) Metronidazole 0.0075 MG/MG Vaginal Gel m etronidazole 0.75 % vaginal gel APPLY 1 APPLICATORFUL AT BEDTIME ONCE A DAY FOR 5 DAYS metronidazole 0.75 % vaginal gel APPLY 1 APPLICATORFUL AT BEDTIME ONCE A DAY FOR 5 DAYS completed metronidazole 0.0075 MG/MG Vaginal Gel [place] ([facility]) Metronidazole 0.0075 MG/MG Vaginal Gel m etronidazole 0.75 % vaginal gel APPLY 1 APPLICATORFUL AT BEDTIME ONCE A DAY FOR 5 DAYS metronidazole 0.75 % vaginal gel APPLY 1 APPLICATORFUL AT BEDTIME ONCE A DAY FOR 5 DAYS completed metronidazole 0.0075 MG/MG Vaginal Gel [place] ([facility]) NITROFURANTOIN, MACROCRYSTALS 25 MG / Ni trofurantoin, Monohydrate 75 MG Oral Capsule nitrofurantoin monohydrate/macrocrystals 100 mg capsule TAKE ONE CAPSULE BY MOUTH TWICE A DAY nitrofurantoin monohydrate/macrocrystals 100 mg capsule TAKE ONE CAPSULE BY MOUTH TWICE A DAY completed nitrofurantoin, macrocrystals 25 MG / nitrofurantoin, monohydrate 75 MG Oral Capsule [place] ([facility]) prednisolone acetate 10 MG/ML Ophthalmic Suspension prednisolone acetate 1 % eye drops,suspension INSTILL 1 DROP IN BOTH EYES FOUR TIMES A DAY DIRECTED prednisolone acetate 1 % eye drops,suspension INSTILL 1 DROP IN BOTH EYES FOUR TIMES A DAY DIRECTED completed prednisolone acetate 10 MG/ML Ophthalmic Suspension [place] ([facility]) Fluconazole 150 MG Oral Tablet fluconazo le 150 mg tablet TAKE 1 TABLET BY MOUTH NOW THEN TAKE 2ND TABLET IN 48 HOURS fluconazole 150 mg tablet TAKE 1 TABLET BY MOUTH NOW THEN TAKE 2ND TABLET IN 48 HOURS completed fluconazole 150 MG Oral Tablet [place] ([facility]) Sertraline 25 MG Oral Tablet sertraline 25 mg tablet TAKE ONE TABLET BY MOUTH EVERY DAY sertraline 25 mg tablet TAKE ONE TABLET BY MOUTH EVERY DAY completed sertraline 25 MG Oral Tablet [place] ([facility]) Insurance Providers Payer name Policy type / Coverage type Policy ID Covered republican ID Covered republican's relationship to antoine Policy Antoine Plan Information [facility] [id number] SP [id number] SP [id number] SP [id number] [facility] O [id number] S [id number] [facility] [id number] SP [id number] MEDICAID [id number] SP [id number] [facility] [place] [id number] ANSI-Commercial [id number] ANSI-Commercial [id number] ANSI-Commercial [id number] [facility] Commercial [id number] Self [id number] ANSI-Commercial [id number] ANSI-Commercial [id number] ANSI-Commercial [id number] [facility] Commercial [id number] Self [id number] SELF PAY ONLY [id number] MO2 [id number] SELF PAY ONLY [id number] MO2 [id number] [employer] [facility] [id number] SP [id number] [employer] AMERICHOICE XIX -HMO [id number] 18 [id number] [facility] Health Maintenance Organization (HMO) [id number] Self [facility]) O [id number] S [id number] Self Pay P [id number] S [id number] [employer] P [id number] S [id number] Self Pay P UNAVAILABLE S UNAVAILA BLE [employer] CHP P [id number] O [id number] BC/BS OF [place] P [id number] S [id number] Problems, Conditions, and Diagnoses Code Display Name Description Problem Type Effective Dates Data Source(s) 99420818 Generalized anxiety disorder Generalized Anxiety Disor ambreen Problem 01/28/2021 12:00:00 AM EDT [place] ([facility]) [id number] Major depressive disorder Major Depressive Disorder Pr oblem 01/28/2021 12:00:00 AM EDT [place] ([facility]) [id number] Generalized anxiety disorder Generalized Anxiety Disor ambreen Problem 01/28/2021 12:00:00 AM EDT [place] ([facility]) [id number] Major depressive disorder Major Depressive Disorder Pr oblem 01/28/2021 12:00:00 AM EDT [place] ([facility]) [id number] Generalized anxiety disorder Generalized Anxiety Disor ambreen Problem 01/28/2021 12:00:00 AM EDT [place] ([facility]) [id number] Major depressive disorder Major Depressive Disorder Pr oblem 01/28/2021 12:00:00 AM EDT [place] ([facility]) [id number] Generalized anxiety disorder Generalized Anxiety Disor ambreen Problem 01/28/2021 12:00:00 AM EDT [place] ([facility]) [id number] Major depressive disorder Major Depressive Disorder Pr oblem 01/28/2021 12:00:00 AM EDT [place] ([facility]) [id number] Generalized anxiety disorder Generalized Anxiety Disor ambreen Problem 01/28/2021 12:00:00 AM EDT [place] ([facility]) [id number] Major depressive disorder Major Depressive Disorder Pr oblem 01/28/2021 12:00:00 AM EDT [place] ([facility]) [id number] Generalized anxiety disorder Generalized Anxiety Disor ambreen Problem 01/28/2021 12:00:00 AM EDT [place] ([facility]) [id number] Major depressive disorder Major Depressive Disorder Pr oblem 01/28/2021 12:00:00 AM EDT [place] ([facility]) 01199900 Generalized anxiety disorder Generalized Anxiety Disor ambreen Problem 01/28/2021 12:00:00 AM EDT [place] ([facility]) [id number] Major depressive disorder Major Depressive Disorder Pr oblem 01/28/2021 12:00:00 AM EDT [place] ([facility]) [id number] Generalized anxiety disorder Generalized Anxiety Disor ambreen Problem 01/28/2021 12:00:00 AM EDT [place] ([facility]) [id number] Major depressive disorder Major Depressive Disorder Pr oblem 01/28/2021 12:00:00 AM EDT [place] ([facility]) [id number] Generalized anxiety disorder Generalized Anxiety Disor ambreen Problem 01/28/2021 12:00:00 AM EDT [place] ([facility]) [id number] Major depressive disorder Major Depressive Disorder Pr oblem 01/28/2021 12:00:00 AM EDT [place] ([facility]) 80280069 Generalized anxiety disorder Generalized Anxiety Disor ambreen Problem 01/28/2021 12:00:00 AM EDT [place] ([facility]) [id number] Major depressive disorder Major Depressive Disorder Pr oblem 01/28/2021 12:00:00 AM EDT [place] ([facility]) [id number] Generalized anxiety disorder Generalized Anxiety Disor ambreen Problem 01/28/2021 12:00:00 AM EDT [place] ([facility]) [id number] Major depressive disorder Major Depressive Disorder Pr oblem 01/28/2021 12:00:00 AM EDT [place] ([facility]) [id number] Generalized anxiety disorder Generalized Anxiety Disor ambreen Problem 01/28/2021 12:00:00 AM EDT [place] ([facility]) [id number] Major depressive disorder Major Depressive Disorder Pr oblem 01/28/2021 12:00:00 AM EDT [place] ([facility]) N92.6 [id number] Irregular menses Problem 12/01/2020 12:00:00 AM EST W1 ([facility]) Surgeries/Procedures Procedure Description Date Indications Data Source(s) URINE TEST 04/26/2021 12:00:00 AM EDT eCW1 ([facility]) Results ID Date Data Source [id number] 06/25/2021 12:00:00 AM EDT [facility] Name Value Range Interpretation Code Description Data Darby rce(s) Supporting Document(s) SARS-CoV2 Rapid Antigen Negative [facility] and reported by [facility]. ID Date Data Source [id number] 04/28/2021 11:43:00 AM EDT [place] ([facility]) Name Value Range Interpretation Code Description Data Darby rce(s) Supporting Document(s) Leukocytes [#/volume] in Blood by Automated count 7.5 thousand/uL 3 .8-10.8 White Blood Cell Count [place] ([facility]) Erythrocytes [#/volume] in Blood by Automated count 4.80 million/uL 3.80-5.10 Red Blood Cell Count [place] ([facility]) Hemoglobin [Mass/volume] in Blood 14.5 g/dL 11.7-15.5 He moglobin [place] ([facility]) Erythrocyte mean corpuscular volume [Entitic volume] by Auto mated count 89.4 fL 80.0-100.0 Mcv [place] ([facility]) Hematocrit [Volume Fraction] of Blood by Automated count 42.9 % 35.0-45.0 Hematocrit [place] ([facility]) Erythrocyte mean corpuscular hemoglobin [Entitic mass] by Automated count 30.2 pg 27.0-33.0 Mch [place] ([facility]) Platelet mean volume [Entitic volume] in Blood by Kavitha 10.9 f L 7.5-12.5 Mpv [place] ([facility]) Platelets [#/volume] in Blood by Automated count 295 thousand/uL 14 0-400 Platelet Count [place] ([facility]) Neutrophils [#/volume] in Blood by Automated count 3038 cells/uL 15 00-7800 Absolute Neutrophils [place] ([facility]) Erythrocyte mean corpuscular hemoglobin concentration [Mass/volume] by Automated count 33.8 g/dL 32.0-36.0 Mchc [place] ([facility]) Erythrocyte distribution width [Ratio] by Automated count 11.5 % 11.0-15.0 Rdw [place] ([facility]) Lymphocytes [#/volume] in Blood by Automated count 3758 cells/uL 85 0-3900 Absolute Lymphocytes [place] ([facility]) Monocytes [#/volume] in Blood by Automated count 503 cells/uL 200-9 50 Absolute Monocytes [place] ([facility]) Basophils [#/volume] in Blood by Automated count 30 cells/uL 0-200 Absolute Basophils [place] ([facility]) Eosinophils [#/volume] in Blood by Automated count 173 cells/uL 15- 500 Absolute Eosinophils [place] ([facility]) Lymphocytes/100 leukocytes in Blood by Automated count 50.1 % 15-49 Above high normal Lymphocytes [place] ([facility]) Eosinophils/100 leukocytes in Blood by Automated count 2.3 % 0-8 Eosinophils [place] ([facility]) Neutrophils/100 leukocytes in Blood by Automated count 40.5 % 38-80 Neutrophils [place] ([facility]) Basophils/100 leukocytes in Blood by Automated count 0.4 % 0-2 Basophils [place] ([facility]) Monocytes/100 leukocytes in Blood by Automated count 6.7 % 0-13 Monocytes [place] ([facility]) ID Date Data Source [id number] 04/28/2021 11:43:00 AM EDT [place] ([facility]) Name Value Range Interpretation Code Description Data Darby rce(s) Supporting Document(s) Glucose [Mass/volume] in Serum or Plasma 83 mg/dL 65-99 Glucose [place] ([facility]) Urea nitrogen [Mass/volume] in Serum or Plasma 13 mg/dL 7-25 Urea Nitrogen (BUN) [place] ([facility]) Glomerular filtration rate/1.73 sq M.pre dicted among non-blacks [Volume Rate/Area] in Serum, Plasma or Blood by Creatinine-based formula (CKD-EPI) 112 mL/min/1.73m2 > or = 60 eGFR Non-afr. [place] ([facility]) Creatinine [Mass/volume] in Serum or Plasma 0.76 mg/dL 0.50-1.10 Creatinine [place] ([facility]) Glomerular filtration rate/1.73 sq M.pre dicted among blacks [Volume Rate/Area] in Serum, Plasma or Blood by Creatinine-based formula (CKD-EPI) 130 mL/min/1.73m2 > or = 60 eGFR [place] ([facility]) Urea nitrogen/Creatinine [Mass Ratio] in Serum or Plasma not applic able 6-22 BUN/creatinine Ratio [place] ([facility]) Potassium [Moles/volume] in Serum or Plasma 4.5 mmol/L 3.5-5.3 Potassium [place] ([facility]) Sodium [Moles/volume] in Serum or Plasma 139 mmol/L 135-146 Sodium [place] ([facility]) Chloride [Moles/volume] in Serum or Plasma 103 mmol/L 98-110 Chloride [place] ([facility]) Albumin [Mass/volume] in Serum or Plasma 4.9 g/dL 3.6-5.1 Albumin [place] ([facility]) Carbon dioxide, total [Moles/volume] in Serum or Plasma 28 mmol/L 20-32 Carbon Dioxide [place] ([facility]) Protein [Mass/volume] in Serum or Plasma 7.2 g/dL 6.1-8.1 Protein, Total [place] ([facility]) Calcium [Mass/volume] in Serum or Plasma 9.7 mg/dL 8.6-10.2 Calcium [place] ([facility]) Bilirubin.total [Mass/volume] in Serum or Plasma 1.5 mg/dL 0.2-1.2 Above high normal Bilirubin, Total [place] ([facility]) Globulin [Mass/volume] in Serum by calculation 2.3 g/dL_(calc) 1.9- 3.7 Globulin [place] ([facility]) Albumin/Globulin [Mass Ratio] in Serum or Plasma 2.1 (calc) 1.0-2 .5 Albumin/globulin Ratio [place] ([facility]) Alkaline phosphatase [Enzymatic activity/volume] in Serum or Plasma 61 U/L 31-125 Alkaline Phosphatase [place] ([facility]) Aspartate aminotransferase [Enzymatic activity/volume] in Serum or Plasma 12 U/L 10-30 Ast [place] ([facility]) Alanine aminotransferase [Enzymatic activity/volume] in Seru m or Plasma 9 U/L 6-29 Alt [place] ([facility]) ID Date Data Source [id number] 04/28/2021 11:43:00 AM EDT [facility]) Name Value Range Interpretation Code Description Data Darby rce(s) Supporting Document(s) Triiodothyronine resin uptake (T3RU) in Serum or Plasma 30 % 22 -35 T3 Uptake [place] ([facility]) Thyroxine (T4) free index in Serum or Plasma by calculation 1.4-3.8 Free T4 Index (T7) [place] ([facility]) Thyrotropin [Units/volume] in Serum or Plasma 1.43 mIU/L Tsh [place] ([facility]) Thyroxine (T4) [Mass/volume] in Serum or Plasma 7.5 mcg/dL 5.1-11 .9 T4 (Thyroxine), Total [place] ([facility]) ID Date Data Source [id number] 04/28/2021 11:43:00 AM EDT [place] ([facility]) Name Value Range Interpretation Code Description Data Darby rce(s) Supporting Document(s) Hemoglobin [Mass/volume] in Blood 14.5 g/dL 11.7-15.5 He moglobin [place] ([facility]) Hematocrit [Volume Fraction] of Blood by Automated count 42.9 % 35.0-45.0 Hematocrit [place] ([facility]) Erythrocytes [#/volume] in Blood by Automated count 4.80 million/uL 3.80-5.10 Red Blood Cell Count [place] ([facility]) Leukocytes [#/volume] in Blood by Automated count 7.5 thousand/uL 3 .8-10.8 White Blood Cell Count [place] ([facility]) Erythrocyte mean corpuscular hemoglobin [Entitic mass] by Automated count 30.2 pg 27.0-33.0 Mch [place] ([facility]) Erythrocyte mean corpuscular hemoglobin concentration [Mass/volume] by Automated count 33.8 g/dL 32.0-36.0 Mchc [place] ([facility]) Erythrocyte mean corpuscular volume [Entitic volume] by Auto mated count 89.4 fL 80.0-100.0 Mcv [place] ([facility]) Platelets [#/volume] in Blood by Automated count 295 thousand/uL 14 0-400 Platelet Count [place] ([facility]) Erythrocyte distribution width [Ratio] by Automated count 11.5 % 11.0-15.0 Rdw [place] ([facility]) Neutrophils [#/volume] in Blood by Automated count 3038 cells/uL 15 00-7800 Absolute Neutrophils [place] ([facility]) Platelet mean volume [Entitic volume] in Blood by Kavitha 10.9 f L 7.5-12.5 Mpv [place] ([facility]) Eosinophils [#/volume] in Blood by Automated count 173 cells/uL 15- 500 Absolute Eosinophils [place] ([facility]) Basophils [#/volume] in Blood by Automated count 30 cells/uL 0-200 Absolute Basophils [place] ([facility]) Monocytes [#/volume] in Blood by Automated count 503 cells/uL 200-9 50 Absolute Monocytes [place] ([facility]) Lymphocytes [#/volume] in Blood by Automated count 3758 cells/uL 85 0-3900 Absolute Lymphocytes [place] ([facility]) Neutrophils/100 leukocytes in Blood by Automated count 40.5 % 38-80 Neutrophils [place] ([facility]) Lymphocytes/100 leukocytes in Blood by Automated count 50.1 % 15-49 Above high normal Lymphocytes [place] ([facility]) Eosinophils/100 leukocytes in Blood by Automated count 2.3 % 0-8 Eosinophils [place] ([facility]) Monocytes/100 leukocytes in Blood by Automated count 6.7 % 0-13 Monocytes [place] ([facility]) Basophils/100 leukocytes in Blood by Automated count 0.4 % 0-2 Basophils [place] ([facility]) ID Date Data Source [id number] 04/28/2021 11:43:00 AM EDT [place] ([facility]) Name Value Range Interpretation Code Description Data Darby rce(s) Supporting Document(s) Urea nitrogen [Mass/volume] in Serum or Plasma 13 mg/dL 7-25 Urea Nitrogen (BUN) [place] ([facility]) Glucose [Mass/volume] in Serum or Plasma 83 mg/dL 65-99 Glucose [place] ([facility]) Creatinine [Mass/volume] in Serum or Plasma 0.76 mg/dL 0.50-1.10 Creatinine [place] ([facility]) Glomerular filtration rate/1.73 sq M.pre dicted among blacks [Volume Rate/Area] in Serum, Plasma or Blood by Creatinine-based formula (CKD-EPI) 130 mL/min/1.73m2 > or = 60 eGFR [place] ([facility]) Glomerular filtration rate/1.73 sq M.pre dicted among non-blacks [Volume Rate/Area] in Serum, Plasma or Blood by Creatinine-based formula (CKD-EPI) 112 mL/min/1.73m2 > or = 60 eGFR Non-afr. [place] ([facility]) Urea nitrogen/Creatinine [Mass Ratio] in Serum or Plasma not applic able 6- BUN/creatinine Ratio [place] ([facility]) Potassium [Moles/volume] in Serum or Plasma 4.5 mmol/L 3.5-5.3 Potassium [place] ([facility]) Sodium [Moles/volume] in Serum or Plasma 139 mmol/L 135-146 Sodium [place] ([facility]) Chloride [Moles/volume] in Serum or Plasma 103 mmol/L 98-110 Chloride [facility]) Carbon dioxide, total [Moles/volume] in Serum or Plasma 28 mmol/L 20-32 Carbon Dioxide [facility]) Protein [Mass/volume] in Serum or Plasma 7.2 g/dL 6.1-8.1 Protein, Total [facility]) Calcium [Mass/volume] in Serum or Plasma 9.7 mg/dL 8.6-10.2 Calcium [facility]) Albumin [Mass/volume] in Serum or Plasma 4.9 g/dL 3.6-5.1 Albumin [facility]) Globulin [Mass/volume] in Serum by calculation 2.3 g/dL_(calc) 1.9- 3.7 Globulin [place] ([facility]) Alkaline phosphatase [Enzymatic activity/volume] in Serum or Plasma 61 U/L 31-125 Alkaline Phosphatase [facility]) Bilirubin.total [Mass/volume] in Serum or Plasma 1.5 mg/dL 0.2-1.2 Above high normal Bilirubin, Total [facility]) Albumin/Globulin [Mass Ratio] in Serum or Plasma 2.1 (calc) 1.0-2 .5 Albumin/globulin Ratio [place] ([facility]) Aspartate aminotransferase [Enzymatic activity/volume] in Serum or Plasma 12 U/L 10-30 Ast [place] ([facility]) Alanine aminotransferase [Enzymatic activity/volume] in Seru m or Plasma 9 U/L 6-29 Alt [place] ([facility]) ID Date Data Source [id number] 04/28/2021 11:43:00 AM EDT [place] ([facility]) Name Value Range Interpretation Code Description Data Darby rce(s) Supporting Document(s) Thyroxine (T4) [Mass/volume] in Serum or Plasma 7.5 mcg/dL 5.1-11 .9 T4 (Thyroxine), Total [place] ([facility]) Triiodothyronine resin uptake (T3RU) in Serum or Plasma 30 % 22 -35 T3 Uptake [place] ([facility]) Thyroxine (T4) free index in Serum or Plasma by calculation 1.4-3.8 Free T4 Index (T7) [place] ([facility]) Thyrotropin [Units/volume] in Serum or Plasma 1.43 mIU/L Tsh [place] ([facility]) ID Date Data Source [id number] 04/28/2021 11:43:00 AM EDT [facility]) Name Value Range Interpretation Code Description Data Darby rce(s) Supporting Document(s) Leukocytes [#/volume] in Blood by Automated count 7.5 thousand/uL 3 .8-10.8 White Blood Cell Count [place] ([facility]) Hemoglobin [Mass/volume] in Blood 14.5 g/dL 11.7-15.5 He moglobin [place] ([facility]) Erythrocytes [#/volume] in Blood by Automated count 4.80 million/uL 3.80-5.10 Red Blood Cell Count [place] ([facility]) Erythrocyte mean corpuscular volume [Entitic volume] by Auto mated count 89.4 fL 80.0-100.0 Mcv [place] ([facility]) Hematocrit [Volume Fraction] of Blood by Automated count 42.9 % 35.0-45.0 Hematocrit [place] ([facility]) Erythrocyte mean corpuscular hemoglobin [Entitic mass] by Automated count 30.2 pg 27.0-33.0 Mch [place] ([facility]) Platelets [#/volume] in Blood by Automated count 295 thousand/uL 14 0-400 Platelet Count [place] ([facility]) Erythrocyte distribution width [Ratio] by Automated count 11.5 % 11.0-15.0 Rdw [place] ([facility]) Erythrocyte mean corpuscular hemoglobin concentration [Mass/volume] by Automated count 33.8 g/dL 32.0-36.0 Mchc [place] ([facility]) Monocytes [#/volume] in Blood by Automated count 503 cells/uL 200-9 50 Absolute Monocytes [place] ([facility]) Lymphocytes [#/volume] in Blood by Automated count 3758 cells/uL 85 0-3900 Absolute Lymphocytes [place] ([facility]) Platelet mean volume [Entitic volume] in Blood by Kavitha 10.9 f L 7.5-12.5 Mpv [place] ([facility]) Neutrophils [#/volume] in Blood by Automated count 3038 cells/uL 15 00-7800 Absolute Neutrophils [place] ([facility]) Basophils [#/volume] in Blood by Automated count 30 cells/uL 0-200 Absolute Basophils [place] ([facility]) Neutrophils/100 leukocytes in Blood by Automated count 40.5 % 38-80 Neutrophils [place] ([facility]) Lymphocytes/100 leukocytes in Blood by Automated count 50.1 % 15-49 Above high normal Lymphocytes [place] ([facility]) Eosinophils [#/volume] in Blood by Automated count 173 cells/uL 15- 500 Absolute Eosinophils [place] ([facility]) Monocytes/100 leukocytes in Blood by Automated count 6.7 % 0-13 Monocytes [place] ([facility]) Basophils/100 leukocytes in Blood by Automated count 0.4 % 0-2 Basophils [place] ([facility]) Eosinophils/100 leukocytes in Blood by Automated count 2.3 % 0-8 Eosinophils [place] ([facility]) ID Date Data Source [id number] 04/28/2021 11:43:00 AM EDT [place] ([facility]) Name Value Range Interpretation Code Description Data Darby rce(s) Supporting Document(s) Urea nitrogen [Mass/volume] in Serum or Plasma 13 mg/dL 7-25 Urea Nitrogen (BUN) [place] ([facility]) Glucose [Mass/volume] in Serum or Plasma 83 mg/dL 65-99 Glucose [place] ([facility]) Glomerular filtration rate/1.73 sq M.pre dicted among non-blacks [Volume Rate/Area] in Serum, Plasma or Blood by Creatinine-based formula (CKD-EPI) 112 mL/min/1.73m2 > or = 60 eGFR Non-afr. [place] ([facility]) Creatinine [Mass/volume] in Serum or Plasma 0.76 mg/dL 0.50-1.10 Creatinine [place] ([facility]) Glomerular filtration rate/1.73 sq M.pre dicted among blacks [Volume Rate/Area] in Serum, Plasma or Blood by Creatinine-based formula (CKD-EPI) 130 mL/min/1.73m2 > or = 60 eGFR [place] (No [facility]) Urea nitrogen/Creatinine [Mass Ratio] in Serum or Plasma not applic able 6-22 BUN/creatinine Ratio [place] ([facility]) Sodium [Moles/volume] in Serum or Plasma 139 mmol/L 135-146 Sodium [place] ([facility]) Potassium [Moles/volume] in Serum or Plasma 4.5 mmol/L 3.5-5.3 Potassium [place] ([facility]) Chloride [Moles/volume] in Serum or Plasma 103 mmol/L 98-110 Chloride [place] ([facility]) Calcium [Mass/volume] in Serum or Plasma 9.7 mg/dL 8.6-10.2 Calcium [place] ([facility]) Carbon dioxide, total [Moles/volume] in Serum or Plasma 28 mmol/L 20-32 Carbon Dioxide [place] ([facility]) Protein [Mass/volume] in Serum or Plasma 7.2 g/dL 6.1-8.1 Protein, Total [place] ([facility]) Albumin [Mass/volume] in Serum or Plasma 4.9 g/dL 3.6-5.1 Albumin [place] ([facility]) Globulin [Mass/volume] in Serum by calculation 2.3 g/dL_(calc) 1.9- 3.7 Globulin [place] ([facility]) Albumin/Globulin [Mass Ratio] in Serum or Plasma 2.1 (calc) 1.0-2 .5 Albumin/globulin Ratio [place] ([facility]) Alkaline phosphatase [Enzymatic activity/volume] in Serum or Plasma 61 U/L 31-125 Alkaline Phosphatase [place] ([facility]) Bilirubin.total [Mass/volume] in Serum or Plasma 1.5 mg/dL 0.2-1.2 Above high normal Bilirubin, Total [place] ([facility]) Aspartate aminotransferase [Enzymatic activity/volume] in Serum or Plasma 12 U/L 10-30 Ast [place] ([facility]) Alanine aminotransferase [Enzymatic activity/volume] in Seru m or Plasma 9 U/L 6-29 Alt [place] ([facility]) ID Date Data Source [id number] 04/28/2021 11:43:00 AM EDT [facility]) Name Value Range Interpretation Code Description Data Darby rce(s) Supporting Document(s) Triiodothyronine resin uptake (T3RU) in Serum or Plasma 30 % 22 -35 T3 Uptake [place] ([facility]) Thyroxine (T4) [Mass/volume] in Serum or Plasma 7.5 mcg/dL 5.1-11 .9 T4 (Thyroxine), [facility] Thyrotropin [Units/volume] in Serum or Plasma 1.43 mIU/L Tsh [place] ([facility]) Thyroxine (T4) free index in Serum or Plasma by calculation 1.4-3.8 Free T4 Index (T7) [facility]) ID Date Data Source [id number] 04/28/2021 11:43:00 AM EDT [facility]) Name Value Range Interpretation Code Description Data Darby rce(s) Supporting Document(s) Leukocytes [#/volume] in Blood by Automated count 7.5 thousand/uL 3 .8-10.8 White Blood Cell Count [place] ([facility]) Erythrocytes [#/volume] in Blood by Automated count 4.80 million/uL 3.80-5.10 Red Blood Cell Count [place] ([facility]) Erythrocyte mean corpuscular volume [Entitic volume] by Auto mated count 89.4 fL 80.0-100.0 Mcv [place] ([facility]) Hemoglobin [Mass/volume] in Blood 14.5 g/dL 11.7-15.5 He moglobin [place] ([facility]) Hematocrit [Volume Fraction] of Blood by Automated count 42.9 % 35.0-45.0 Hematocrit [place] ([facility]) Erythrocyte mean corpuscular hemoglobin [Entitic mass] by Automated count 30.2 pg 27.0-33.0 Mch [place] ([facility]) Platelets [#/volume] in Blood by Automated count 295 thousand/uL 14 0-400 Platelet Count [place] ([facility]) Erythrocyte mean corpuscular hemoglobin concentration [Mass/volume] by Automated count 33.8 g/dL 32.0-36.0 Mchc [place] ([facility]) Erythrocyte distribution width [Ratio] by Automated count 11.5 % 11.0-15.0 Rdw [place] ([facility]) Neutrophils [#/volume] in Blood by Automated count 3038 cells/uL 15 00-7800 Absolute Neutrophils [place] ([facility]) Lymphocytes [#/volume] in Blood by Automated count 3758 cells/uL 85 0-3900 Absolute Lymphocytes [place] ([facility]) Platelet mean volume [Entitic volume] in Blood by Kavitha 10.9 f L 7.5-12.5 Mpv [place] ([facility]) Monocytes [#/volume] in Blood by Automated count 503 cells/uL 200-9 50 Absolute Monocytes [place] ([facility]) Neutrophils/100 leukocytes in Blood by Automated count 40.5 % 38-80 Neutrophils [place] ([facility]) Eosinophils [#/volume] in Blood by Automated count 173 cells/uL 15- 500 Absolute Eosinophils [place] ([facility]) Basophils [#/volume] in Blood by Automated count 30 cells/uL 0-200 Absolute Basophils [place] ([facility]) Eosinophils/100 leukocytes in Blood by Automated count 2.3 % 0-8 Eosinophils [place] ([facility]) Lymphocytes/100 leukocytes in Blood by Automated count 50.1 % 15-49 Above high normal Lymphocytes [place] ([facility]) Monocytes/100 leukocytes in Blood by Automated count 6.7 % 0-13 Monocytes [place] ([facility]) Basophils/100 leukocytes in Blood by Automated count 0.4 % 0-2 Basophils [place] ([facility]) ID Date Data Source [id number] 04/28/2021 11:43:00 AM EDT [place] ([facility]) Name Value Range Interpretation Code Description Data Darby rce(s) Supporting Document(s) Glucose [Mass/volume] in Serum or Plasma 83 mg/dL 65-99 [facility] Creatinine [Mass/volume] in Serum or Plasma 0.76 mg/dL 0.50-1.10 Creatinine [facility]) Glomerular filtration rate/1.73 sq M.pre dicted among non-blacks [Volume Rate/Area] in Serum, Plasma or Blood by Creatinine-based formula (CKD-EPI) 112 mL/min/1.73m2 > or = 60 eGFR Non-afr. [place] ([facility]) Urea nitrogen [Mass/volume] in Serum or Plasma 13 mg/dL 7-25 Urea Nitrogen (BUN) [facility] Potassium [Moles/volume] in Serum or Plasma 4.5 mmol/L 3.5-5.3 Potassium [place] ([facility]) Urea nitrogen/Creatinine [Mass Ratio] in Serum or Plasma not applic able 6-22 BUN/creatinine Ratio [facility]) Sodium [Moles/volume] in Serum or Plasma 139 mmol/L 135-146 Sodium [facility] Glomerular filtration rate/1.73 sq M.pre dicted among blacks [Volume Rate/Area] in Serum, Plasma or Blood by Creatinine-based formula (CKD-EPI) 130 mL/min/1.73m2 > or = 60 eGFR [place] (No [facility]) Chloride [Moles/volume] in Serum or Plasma 103 mmol/L 98-110 Chloride [place] ([facility]) Carbon dioxide, total [Moles/volume] in Serum or Plasma 28 mmol/L 20-32 Carbon Dioxide [place] ([facility]) Calcium [Mass/volume] in Serum or Plasma 9.7 mg/dL 8.6-10.2 Calcium [place] ([facility]) Protein [Mass/volume] in Serum or Plasma 7.2 g/dL 6.1-8.1 Protein, Total [place] ([facility]) Albumin [Mass/volume] in Serum or Plasma 4.9 g/dL 3.6-5.1 Albumin [place] ([facility]) Globulin [Mass/volume] in Serum by calculation 2.3 g/dL_(calc) 1.9- 3.7 Globulin [place] ([facility]) Bilirubin.total [Mass/volume] in Serum or Plasma 1.5 mg/dL 0.2-1.2 Above high normal Bilirubin, Total [place] ([facility]) Albumin/Globulin [Mass Ratio] in Serum or Plasma 2.1 (calc) 1.0-2 .5 Albumin/globulin Ratio [place] ([facility]) Alkaline phosphatase [Enzymatic activity/volume] in Serum or Plasma 61 U/L 31-125 Alkaline Phosphatase [place] ([facility]) Aspartate aminotransferase [Enzymatic activity/volume] in Serum or Plasma 12 U/L 10-30 Ast [place] ([facility]) Alanine aminotransferase [Enzymatic activity/volume] in Seru m or Plasma 9 U/L 6-29 Alt [place] ([facility]) ID Date Data Source [id number] 04/28/2021 11:43:00 AM EDT [place] ([facility]) Name Value Range Interpretation Code Description Data Darby rce(s) Supporting Document(s) Triiodothyronine resin uptake (T3RU) in Serum or Plasma 30 % 22 -35 [facility] Thyroxine (T4) free index in Serum or Plasma by calculation 1.4-3.8 Free T4 Index (T7) [place] ([facility]) Thyroxine (T4) [Mass/volume] in Serum or Plasma 7.5 mcg/dL 5.1-11 .9 T4 (Thyroxine), Total [place] ([facility]) Thyrotropin [Units/volume] in Serum or Plasma 1.43 mIU/L Tsh [place] ([facility]) ID Date Data Source [id number] 04/28/2021 11:43:00 AM EDT [place] ([facility]) Name Value Range Interpretation Code Description Data Darby rce(s) Supporting Document(s) Erythrocytes [#/volume] in Blood by Automated count 4.80 million/uL 3.80-5.10 Red Blood Cell Count [place] ([facility]) Leukocytes [#/volume] in Blood by Automated count 7.5 thousand/uL 3 .8-10.8 White Blood Cell Count [place] ([facility]) Erythrocyte mean corpuscular volume [Entitic volume] by Auto mated count 89.4 fL 80.0-100.0 Mcv [place] ([facility]) Hemoglobin [Mass/volume] in Blood 14.5 g/dL 11.7-15.5 He moglobin [place] ([facility]) Hematocrit [Volume Fraction] of Blood by Automated count 42.9 % 35.0-45.0 Hematocrit [place] ([facility]) Erythrocyte mean corpuscular hemoglobin [Entitic mass] by Automated count 30.2 pg 27.0-33.0 Mch [place] ([facility]) Erythrocyte mean corpuscular hemoglobin concentration [Mass/volume] by Automated count 33.8 g/dL 32.0-36.0 Mchc [place] ([facility]) Erythrocyte distribution width [Ratio] by Automated count 11.5 % 11.0-15.0 Rdw [place] ([facility]) Platelets [#/volume] in Blood by Automated count 295 thousand/uL 14 0-400 Platelet Count [place] ([facility]) Neutrophils [#/volume] in Blood by Automated count 3038 cells/uL 15 00-7800 Absolute Neutrophils [place] ([facility]) Platelet mean volume [Entitic volume] in Blood by Kavitha 10.9 f L 7.5-12.5 Mpv [place] ([facility]) Lymphocytes [#/volume] in Blood by Automated count 3758 cells/uL 85 0-3900 Absolute Lymphocytes [place] ([facility]) Lymphocytes/100 leukocytes in Blood by Automated count 50.1 % 15-49 Above high normal Lymphocytes [place] ([facility]) Monocytes [#/volume] in Blood by Automated count 503 cells/uL 200-9 50 Absolute Monocytes [place] ([facility]) Basophils [#/volume] in Blood by Automated count 30 cells/uL 0-200 Absolute Basophils [place] ([facility]) Neutrophils/100 leukocytes in Blood by Automated count 40.5 % 38-80 Neutrophils [place] ([facility]) Eosinophils [#/volume] in Blood by Automated count 173 cells/uL 15- 500 Absolute Eosinophils [place] ([facility]) Monocytes/100 leukocytes in Blood by Automated count 6.7 % 0-13 Monocytes [place] ([facility]) Eosinophils/100 leukocytes in Blood by Automated count 2.3 % 0-8 Eosinophils [place] ([facility]) Basophils/100 leukocytes in Blood by Automated count 0.4 % 0-2 Basophils [place] ([facility]) ID Date Data Source [id number] 04/28/2021 11:43:00 AM EDT [place] ([facility]) Name Value Range Interpretation Code Description Data Darby rce(s) Supporting Document(s) Glucose [Mass/volume] in Serum or Plasma 83 mg/dL 65-99 Glucose [place] ([facility]) Urea nitrogen [Mass/volume] in Serum or Plasma 13 mg/dL 7-25 Urea Nitrogen (BUN) [place] ([facility]) Creatinine [Mass/volume] in Serum or Plasma 0.76 mg/dL 0.50-1.10 Creatinine [place] ([facility]) Glomerular filtration rate/1.73 sq M.pre dicted among blacks [Volume Rate/Area] in Serum, Plasma or Blood by Creatinine-based formula (CKD-EPI) 130 mL/min/1.73m2 > or = 60 eGFR [place] ([facility]) Urea nitrogen/Creatinine [Mass Ratio] in Serum or Plasma not applic able 6-22 BUN/creatinine Ratio [place] ([facility]) Glomerular filtration rate/1.73 sq M.pre dicted among non-blacks [Volume Rate/Area] in Serum, Plasma or Blood by Creatinine-based formula (CKD-EPI) 112 mL/min/1.73m2 > or = 60 eGFR Non-afr. [place] ([facility]) Sodium [Moles/volume] in Serum or Plasma 139 mmol/L 135-146 Sodium [place] ([facility]) Potassium [Moles/volume] in Serum or Plasma 4.5 mmol/L 3.5-5.3 Potassium [place] ([facility]) Chloride [Moles/volume] in Serum or Plasma 103 mmol/L 98-110 Chloride [facility]) Carbon dioxide, total [Moles/volume] in Serum or Plasma 28 mmol/L 20-32 Carbon Dioxide [place] ([facility]) Calcium [Mass/volume] in Serum or Plasma 9.7 mg/dL 8.6-10.2 Calcium [facility]) Protein [Mass/volume] in Serum or Plasma 7.2 g/dL 6.1-8.1 Protein, Total [facility]) Albumin [Mass/volume] in Serum or Plasma 4.9 g/dL 3.6-5.1 Albumin [facility]) Globulin [Mass/volume] in Serum by calculation 2.3 g/dL_(calc) 1.9- 3.7 Globulin [place] ([facility]) Albumin/Globulin [Mass Ratio] in Serum or Plasma 2.1 (calc) 1.0-2 .5 Albumin/globulin Ratio [facility]) Bilirubin.total [Mass/volume] in Serum or Plasma 1.5 mg/dL 0.2-1.2 Above high normal Bilirubin, Total [place] ([facility]) Alkaline phosphatase [Enzymatic activity/volume] in Serum or Plasma 61 U/L 31-125 Alkaline Phosphatase [place] ([facility]) Aspartate aminotransferase [Enzymatic activity/volume] in Serum or Plasma 12 U/L 10-30 Ast [place] ([facility]) Alanine aminotransferase [Enzymatic activity/volume] in Seru m or Plasma 9 U/L 6-29 Alt [place] ([facility]) ID Date Data Source [id number] 04/28/2021 11:43:00 AM EDT [place] ([facility]) Name Value Range Interpretation Code Description Data Darby rce(s) Supporting Document(s) Triiodothyronine resin uptake (T3RU) in Serum or Plasma 30 % 22 -35 T3 Uptake [place] ([facility]) Thyroxine (T4) [Mass/volume] in Serum or Plasma 7.5 mcg/dL 5.1-11 .9 T4 (Thyroxine), Total [place] ([facility]) Thyroxine (T4) free index in Serum or Plasma by calculation 1.4-3.8 Free T4 Index (T7) [place] ([facility]) Thyrotropin [Units/volume] in Serum or Plasma 1.43 mIU/L Tsh [facility]) ID Date Data Source [id number] 04/28/2021 11:43:00 AM EDT [facility]) Name Value Range Interpretation Code Description Data Darby rce(s) Supporting Document(s) Hemoglobin [Mass/volume] in Blood 14.5 g/dL 11.7-15.5 He moglobin [place] ([facility]) Leukocytes [#/volume] in Blood by Automated count 7.5 thousand/uL 3 .8-10.8 White Blood Cell Count [place] ([facility]) Erythrocytes [#/volume] in Blood by Automated count 4.80 million/uL 3.80-5.10 Red Blood Cell Count [place] ([facility]) Erythrocyte mean corpuscular hemoglobin concentration [Mass/volume] by Automated count 33.8 g/dL 32.0-36.0 Mchc [place] ([facility]) Erythrocyte mean corpuscular hemoglobin [Entitic mass] by Automated count 30.2 pg 27.0-33.0 Mch [place] ([facility]) Hematocrit [Volume Fraction] of Blood by Automated count 42.9 % 35.0-45.0 Hematocrit [place] ([facility]) Erythrocyte mean corpuscular volume [Entitic volume] by Auto mated count 89.4 fL 80.0-100.0 Mcv [place] ([facility]) Erythrocyte distribution width [Ratio] by Automated count 11.5 % 11.0-15.0 Rdw [place] ([facility]) Platelet mean volume [Entitic volume] in Blood by Karlo-Tyesha 10.9 f L 7.5-12.5 Mpv [place] ([facility]) Platelets [#/volume] in Blood by Automated count 295 thousand/uL 14 0-400 Platelet Count [place] ([facility]) Neutrophils [#/volume] in Blood by Automated count 3038 cells/uL 15 00-7800 Absolute Neutrophils [place] ([facility]) Basophils [#/volume] in Blood by Automated count 30 cells/uL 0-200 Absolute Basophils [place] ([facility]) Lymphocytes [#/volume] in Blood by Automated count 3758 cells/uL 85 0-3900 Absolute Lymphocytes [place] ([facility]) Monocytes [#/volume] in Blood by Automated count 503 cells/uL 200-9 50 Absolute Monocytes [place] ([facility]) Eosinophils [#/volume] in Blood by Automated count 173 cells/uL 15- 500 Absolute Eosinophils [place] ([facility]) Neutrophils/100 leukocytes in Blood by Automated count 40.5 % 38-80 Neutrophils [place] ([facility]) Eosinophils/100 leukocytes in Blood by Automated count 2.3 % 0-8 Eosinophils [place] ([facility]) Basophils/100 leukocytes in Blood by Automated count 0.4 % 0-2 Basophils [place] ([facility]) Monocytes/100 leukocytes in Blood by Automated count 6.7 % 0-13 Monocytes [place] ([facility]) Lymphocytes/100 leukocytes in Blood by Automated count 50.1 % 15-49 Above high normal Lymphocytes [place] ([facility]) ID Date Data Source [id number] 04/28/2021 11:43:00 AM EDT [place] ([facility]) Name Value Range Interpretation Code Description Data Darby rce(s) Supporting Document(s) Glucose [Mass/volume] in Serum or Plasma 83 mg/dL 65-99 Glucose [place] ([facility]) Urea nitrogen [Mass/volume] in Serum or Plasma 13 mg/dL 7-25 Urea Nitrogen (BUN) [place] ([facility]) Creatinine [Mass/volume] in Serum or Plasma 0.76 mg/dL 0.50-1.10 Creatinine [place] ([facility]) Sodium [Moles/volume] in Serum or Plasma 139 mmol/L 135-146 Sodium [place] ([facility]) Glomerular filtration rate/1.73 sq M.pre dicted among non-blacks [Volume Rate/Area] in Serum, Plasma or Blood by Creatinine-based formula (CKD-EPI) 112 mL/min/1.73m2 > or = 60 eGFR Non-afr. [place] ([facility]) Urea nitrogen/Creatinine [Mass Ratio] in Serum or Plasma not applic able 6-22 BUN/creatinine Ratio [place] ([facility]) Glomerular filtration rate/1.73 sq M.pre dicted among blacks [Volume Rate/Area] in Serum, Plasma or Blood by Creatinine-based formula (CKD-EPI) 130 mL/min/1.73m2 > or = 60 eGFR [place] (No [facility]) Potassium [Moles/volume] in Serum or Plasma 4.5 mmol/L 3.5-5.3 Potassium [place] ([facility]) Calcium [Mass/volume] in Serum or Plasma 9.7 mg/dL 8.6-10.2 Calcium [place] ([facility]) Carbon dioxide, total [Moles/volume] in Serum or Plasma 28 mmol/L 20-32 Carbon Dioxide [place] ([facility]) Chloride [Moles/volume] in Serum or Plasma 103 mmol/L 98-110 Chloride [place] ([facility]) Globulin [Mass/volume] in Serum by calculation 2.3 g/dL_(calc) 1.9- 3.7 Globulin [place] ([facility]) Protein [Mass/volume] in Serum or Plasma 7.2 g/dL 6.1-8.1 Protein, Total [place] ([facility]) Albumin [Mass/volume] in Serum or Plasma 4.9 g/dL 3.6-5.1 Albumin [place] ([facility]) Bilirubin.total [Mass/volume] in Serum or Plasma 1.5 mg/dL 0.2-1.2 Above high normal Bilirubin, Total [place] ([facility]) Aspartate aminotransferase [Enzymatic activity/volume] in Serum or Plasma 12 U/L 10-30 Ast [place] ([facility]) Alkaline phosphatase [Enzymatic activity/volume] in Serum or Plasma 61 U/L 31-125 Alkaline Phosphatase [place] ([facility]) Albumin/Globulin [Mass Ratio] in Serum or Plasma 2.1 (calc) 1.0-2 .5 Albumin/globulin Ratio [place] ([facility]) Alanine aminotransferase [Enzymatic activity/volume] in Seru m or Plasma 9 U/L 6-29 Alt [place] ([facility]) ID Date Data Source [id number] 04/28/2021 11:43:00 AM EDT [facility]) Name Value Range Interpretation Code Description Data Darby rce(s) Supporting Document(s) Triiodothyronine resin uptake (T3RU) in Serum or Plasma 30 % 22 -35 T3 Uptake [place] ([facility]) Thyroxine (T4) free index in Serum or Plasma by calculation 1.4-3.8 Free T4 Index (T7) [place] ([facility]) Thyroxine (T4) [Mass/volume] in Serum or Plasma 7.5 mcg/dL 5.1-11 .9 T4 (Thyroxine), Total [place] ([facility]) Thyrotropin [Units/volume] in Serum or Plasma 1.43 mIU/L Tsh [facility]) ID Date Data Source [id number] 04/28/2021 11:43:00 AM EDT [facility]) Name Value Range Interpretation Code Description Data Darby rce(s) Supporting Document(s) Leukocytes [#/volume] in Blood by Automated count 7.5 thousand/uL 3 .8-10.8 White Blood Cell Count [place] ([facility]) Hemoglobin [Mass/volume] in Blood 14.5 g/dL 11.7-15.5 He moglobin [place] ([facility]) Erythrocytes [#/volume] in Blood by Automated count 4.80 million/uL 3.80-5.10 Red Blood Cell Count [place] ([facility]) Erythrocyte mean corpuscular volume [Entitic volume] by Auto mated count 89.4 fL 80.0-100.0 Mcv [place] ([facility]) Hematocrit [Volume Fraction] of Blood by Automated count 42.9 % 35.0-45.0 Hematocrit [place] ([facility]) Erythrocyte distribution width [Ratio] by Automated count 11.5 % 11.0-15.0 Rdw [place] ([facility]) Erythrocyte mean corpuscular hemoglobin [Entitic mass] by Automated count 30.2 pg 27.0-33.0 Mch [place] ([facility]) Erythrocyte mean corpuscular hemoglobin concentration [Mass/volume] by Automated count 33.8 g/dL 32.0-36.0 Mchc [place] ([facility]) Platelets [#/volume] in Blood by Automated count 295 thousand/uL 14 0-400 Platelet Count [place] ([facility]) Monocytes [#/volume] in Blood by Automated count 503 cells/uL 200-9 50 Absolute Monocytes [place] ([facility]) Lymphocytes [#/volume] in Blood by Automated count 3758 cells/uL 85 0-3900 Absolute Lymphocytes [place] ([facility]) Platelet mean volume [Entitic volume] in Blood by Kavitha 10.9 f L 7.5-12.5 Mpv [place] ([facility]) Neutrophils [#/volume] in Blood by Automated count 3038 cells/uL 15 00-7800 Absolute Neutrophils [place] ([facility]) Eosinophils [#/volume] in Blood by Automated count 173 cells/uL 15- 500 Absolute Eosinophils [place] ([facility]) Monocytes/100 leukocytes in Blood by Automated count 6.7 % 0-13 Monocytes [place] ([facility]) Neutrophils/100 leukocytes in Blood by Automated count 40.5 % 38-80 Neutrophils [place] ([facility]) Basophils [#/volume] in Blood by Automated count 30 cells/uL 0-200 Absolute Basophils [place] ([facility]) Lymphocytes/100 leukocytes in Blood by Automated count 50.1 % 15-49 Above high normal Lymphocytes [place] ([facility]) Basophils/100 leukocytes in Blood by Automated count 0.4 % 0-2 Basophils [place] ([facility]) Eosinophils/100 leukocytes in Blood by Automated count 2.3 % 0-8 Eosinophils [place] ([facility]) ID Date Data Source [id number] 04/28/2021 11:43:00 AM EDT [facility]) Name Value Range Interpretation Code Description Data Darby rce(s) Supporting Document(s) Urea nitrogen [Mass/volume] in Serum or Plasma 13 mg/dL 7-25 [facility]UN) [facility] Glucose [Mass/volume] in Serum or Plasma 83 mg/dL 65-99 Glucose [place] ([facility]) Creatinine [Mass/volume] in Serum or Plasma 0.76 mg/dL 0.50-1.10 Creatinine [facility] Glomerular filtration rate/1.73 sq M.pre dicted among non-blacks [Volume Rate/Area] in Serum, Plasma or Blood by Creatinine-based formula (CKD-EPI) 112 mL/min/1.73m2 > or = 60 eGFR Non-afr. [place] ([facility]) Urea nitrogen/Creatinine [Mass Ratio] in Serum or Plasma not applic able 6-22 BUN/creatinine Ratio [facility] Glomerular filtration rate/1.73 sq M.pre dicted among blacks [Volume Rate/Area] in Serum, Plasma or Blood by Creatinine-based formula (CKD-EPI) 130 mL/min/1.73m2 > or = 60 eGFR [place] (No [facility]) Potassium [Moles/volume] in Serum or Plasma 4.5 mmol/L 3.5-5.3 Potassium [place] ([facility]) Chloride [Moles/volume] in Serum or Plasma 103 mmol/L 98-110 Chloride [place] ([facility]) Sodium [Moles/volume] in Serum or Plasma 139 mmol/L 135-146 Sodium [place] ([facility]) Protein [Mass/volume] in Serum or Plasma 7.2 g/dL 6.1-8.1 Protein, Total [place] ([facility]) Albumin [Mass/volume] in Serum or Plasma 4.9 g/dL 3.6-5.1 Albumin [place] ([facility]) Carbon dioxide, total [Moles/volume] in Serum or Plasma 28 mmol/L 20-32 Carbon Dioxide [place] ([facility]) Calcium [Mass/volume] in Serum or Plasma 9.7 mg/dL 8.6-10.2 Calcium [place] ([facility]) Bilirubin.total [Mass/volume] in Serum or Plasma 1.5 mg/dL 0.2-1.2 Above high normal Bilirubin, Total [place] ([facility]) Alkaline phosphatase [Enzymatic activity/volume] in Serum or Plasma 61 U/L 31-125 Alkaline Phosphatase [place] ([facility]) Albumin/Globulin [Mass Ratio] in Serum or Plasma 2.1 (calc) 1.0-2 .5 Albumin/globulin Ratio [place] ([facility]) Globulin [Mass/volume] in Serum by calculation 2.3 g/dL_(calc) 1.9- 3.7 Globulin [place] ([facility]) Alanine aminotransferase [Enzymatic activity/volume] in Seru m or Plasma 9 U/L 6-29 Alt [place] ([facility]) Aspartate aminotransferase [Enzymatic activity/volume] in Serum or Plasma 12 U/L 10-30 Ast [place] ([facility]) ID Date Data Source [id number] 04/28/2021 11:43:00 AM EDT [place] ([facility]) Name Value Range Interpretation Code Description Data Darby rce(s) Supporting Document(s) Triiodothyronine resin uptake (T3RU) in Serum or Plasma 30 % 22 -35 T3 Uptake [place] ([facility]) Thyroxine (T4) [Mass/volume] in Serum or Plasma 7.5 mcg/dL 5.1-11 .9 T4 (Thyroxine), Total [place] ([facility]) Thyrotropin [Units/volume] in Serum or Plasma 1.43 mIU/L Tsh [place] ([facility]) Thyroxine (T4) free index in Serum or Plasma by calculation 1.4-3.8 Free T4 Index (T7) [place] ([facility]) ID Date Data Source CHLAMYDIA & GC DNA AMPLIFICAT 04/26/2021 12:00:00 AM EDT eCW 1 ([facility]) Name Value Range Interpretation Code Description Data Darby rce(s) Supporting Document(s) Chlamydia trachomatis rRNA [Presence] in Unspecified specimen by Probe and target amplification method NEGATIVE NEGATIVE CHLAMYDIA DNA AMPLIFICATION eCW1 ([facility]) ID Date Data Source SYPHILIS ANTIBODY (RPR SCREEN) 12/01/2020 12:00:00 AM EST eC W1 ([facility]) Name Value Range Interpretation Code Description Data Darby rce(s) Supporting Document(s) NONREACTIVE NONREACTIVE eCW1 ([facility]) ID Date Data Source PAP REQUEST FOR SERVICE 12/01/2020 12:00:00 AM EST eCW1 ([facility]) Name Value Range Interpretation Code Description Data Darby rce(s) Supporting Document(s) eCW1 ([facility]) ID Date Data Source [id number] 12/01/2020 12:00:00 AM EST eCW1 ([facility] Name Value Range Interpretation Code Description Data Darby rce(s) Supporting Document(s) eCW1 ([facility]) ID Date Data Source HEPATITIS C ANTIBODY INDEX 12/01/2020 12:00:00 AM EST eCW1 ( [facility]) Name Value Range Interpretation Code Description Data Darby rce(s) Supporting Document(s) < 0.0 <0.8 [facility] ([facility]) ID Date Data Source CHLAMYDIA, GC & TRICH AMP 12/01/2020 12:00:00 AM EST eCW1 ([facility]) Name Value Range Interpretation Code Description Data Darby rce(s) Supporting Document(s) NOT DETECTED NEGATIVE eCW1 ([facility]) ID Date Data Source [id number] 11/13/2020 12:00:00 [...] Never Smoker completed Never S moker eCW1 ([facility]) Smoking 04/26/2021 12:00:00 AM EDT Never Smoker completed Never S moker eCW1 ([facility]) Smoking 04/26/2021 12:00:00 AM EDT Never Smoker completed Never S moker eCW1 ([facility]) Smoking 12/01/2020 12:00:00 AM EST Never Smoker completed Never S moker eCW1 ([facility]) Vital Signs ID Date Data Source [id number] Name Value Range Interpretation Code Description Data Source(s) Body height 64 [in_i] 64 [in_i] eCW1 ([facility]) Body mass index (BMI) [Ratio] 20.25 kg/m2 20.25 kg/m2 W1 ([facility]) Systolic blood pressure 120 mm[Hg] 120 mm[Hg] e CW1 ([facility]) Diastolic blood pressure 80 mm[Hg] 80 mm[Hg] eCW1 ([facility]) Body weight 118 [lb_av] 118 [lb_av] eCW1 ([facility]) Body weight 52.53 kg 52.53 kg W1 ([facility]) Body weight 115.8 [lb_av] 115.8 [lb_av] eCW1 ([facility]) Body height 64 [in_i] 64 [in_i] eCW1 ([facility]) Body mass index (BMI) [Ratio] 19.87 kg/m2 19.87 kg/m2 eCW1 ([facility]) Systolic blood pressure 118 mm[Hg] 118 mm[Hg] e CW1 ([facility]) Diastolic blood pressure 64 mm[Hg] 64 mm[Hg] eCW1 ([facility]) Body height 64 [in_i] 64 [in_i] [place] ([facility]) Body height 64 [in_i] 64 [in_i] [place] ([facility]) Body height 64 [in_i] 64 [in_i] [place] ([facility]) Body height 64 [in_i] 64 [in_i] [place] ([facility]) Body height 64 [in_i] 64 [in_i] [place] ([facility]) Body height 64 [in_i] 64 [in_i] [place] ([facility]) Body height 64 [in_i] 64 [in_i] [place] ([facility]) Body height 64 [in_i] 64 [in_i] [place] ([facility]) Body height 64 [in_i] 64 [in_i] [place] ([facility]) Body height 64 [in_i] 64 [in_i] [place] ([facility]) Diastolic blood pressure 77 mm[Hg] 77 mm[Hg] [place] ([facility]) Body height 64 [in_i] 64 [in_i] [place] ([facility]) Body mass index (BMI) [Ratio] 19.7 kg/m2 19.7 k g/m2 [place] ([facility]) Systolic blood pressure 111 mm[Hg] 111 mm[Hg] A THENA ([facility]) Body weight 1840 [oz_av] 1840 [oz_av] [place] ([facility]) Diastolic blood pressure 77 mm[Hg] 77 mm[Hg] [place] ([facility]) Body height 64 [in_i] 64 [in_i] [place] ([facility]) Body mass index (BMI) [Ratio] 19.7 kg/m2 19.7 k g/m2 [place] ([facility]) Systolic blood pressure 111 mm[Hg] 111 mm[Hg] A THENA ([facility]) Body weight 1840 [oz_av] 1840 [oz_av] [place] ([facility]) Diastolic blood pressure 77 mm[Hg] 77 mm[Hg] [place] ([facility]) Body height 64 [in_i] 64 [in_i] [place] ([facility]) Body mass index (BMI) [Ratio] 19.7 kg/m2 19.7 k g/m2 [place] ([facility]) Systolic blood pressure 111 mm[Hg] 111 mm[Hg] [facility] Body weight 1840 [oz_av] 1840 [oz_av] [place] ([facility]) Diastolic blood pressure 77 mm[Hg] 77 mm[Hg] [place] ([facility]) Body mass index (BMI) [Ratio] 19.7 kg/m2 19.7 k g/m2 [place] ([facility]) Systolic blood pressure 111 mm[Hg] 111 mm[Hg] A THENA ([facility]) Body weight 1840 [oz_av] 1840 [oz_av] [place] ([facility]) Body height 64 [in_i] 64 [in_i] [place] ([facility]) Diastolic blood pressure 77 mm[Hg] 77 mm[Hg] [place] ([facility]) Body height 64 [in_i] 64 [in_i] [place] ([facility]) Body mass index (BMI) [Ratio] 19.7 kg/m2 19.7 k g/m2 [place] ([facility]) Systolic blood pressure 111 mm[Hg] 111 mm[Hg] A THENA ([facility]) Body weight 1840 [oz_av] 1840 [oz_av] [place] ([facility]) Diastolic blood pressure 77 mm[Hg] 77 mm[Hg] [facility] ([facility]) Body height 64 [in_i] 64 [in_i] [facility] ([facility]) Body mass index (BMI) [Ratio] 19.7 kg/m2 19.7 k g/m2 [facility] ([facility]) Systolic blood pressure 111 mm[Hg] 111 mm[Hg] A THENA ([facility]) Body weight 1840 [oz_av] 1840 [oz_av] [facility] ([facility]) Diastolic blood pressure 77 mm[Hg] 77 mm[Hg] [facility] ([facility]) Body height 64 [in_i] 64 [in_i] [facility] ([facility]) Body mass index (BMI) [Ratio] 19.7 kg/m2 19.7 k g/m2 [facility] ([facility]) Systolic blood pressure 111 mm[Hg] 111 mm[Hg] [facility] Body weight 1840 [oz_av] 1840 [oz_av] [facility] ([facility]) Diastolic blood pressure 77 mm[Hg] 77 mm[Hg] [facility] ([facility]) Body height 64 [in_i] 64 [in_i] [facility] ([facility]) Diastolic blood pressure 77 mm[Hg] 77 mm[Hg] [facility] ([facility]) Body height 64 [in_i] 64 [in_i] [facility] ([facility]) Body mass index (BMI) [Ratio] 19.7 kg/m2 19.7 k g/m2 [facility] ([facility]) Systolic blood pressure 111 mm[Hg] 111 mm[Hg] A THENA ([facility]) Body weight 1840 [oz_av] 1840 [oz_av] [facility] ([facility]) Body mass index (BMI) [Ratio] 19.7 kg/m2 19.7 k g/m2 [facility] ([facility]) Systolic blood pressure 111 mm[Hg] 111 mm[Hg] A THENA ([facility]) Body weight 1840 [oz_av] 1840 [oz_av] [facility] ([facility]) Diastolic blood pressure 77 mm[Hg] 77 mm[Hg] [facility] ([facility]) Diastolic blood pressure 77 mm[Hg] 77 mm[Hg] [facility] ([facility]) Body height 64 [in_i] 64 [in_i] [facility] ([facility]) Body mass index (BMI) [Ratio] 19.7 kg/m2 19.7 k g/m2 [facility] ([facility]) Systolic blood pressure 111 mm[Hg] 111 mm[Hg] A THENA ([facility]) Body weight 1840 [oz_av] 1840 [oz_av] [facility] ([facility]) Body height 64 [in_i] 64 [in_i] [facility] ([facility]) Diastolic blood pressure 77 mm[Hg] 77 mm[Hg] [facility] ([facility]) Body height 64 [in_i] 64 [in_i] [facility] ([facility]) Body mass index (BMI) [Ratio] 19.7 kg/m2 19.7 k g/m2 [facility] ([facility]) Systolic blood pressure 111 mm[Hg] 111 mm[Hg] A THENA ([facility]) Body weight 1840 [oz_av] 1840 [oz_av] [facility] ([facility]) Body mass index (BMI) [Ratio] 19.7 kg/m2 19.7 k g/m2 [facility] ([facility]) Systolic blood pressure 111 mm[Hg] 111 mm[Hg] A THENA ([facility]) Body weight 1840 [oz_av] 1840 [oz_av] [facility] ([facility]) Body weight 120 [lb_av] 120 [lb_av] eCW1 ([facility]) Body weight 54.43 kg 54.43 kg W1 ([facility] Body height 64 [in_i] 64 [in_i] eCW1 ([facility]) Body mass index (BMI) [Ratio] 20.6 kg/m2 20.6 k g/m2 [facility] ([facility]) Systolic blood pressure 117 mm[Hg] 117 mm[Hg] e CW1 ([facility]) Diastolic blood pressure 73 mm[Hg] 73 mm[Hg] eCW1 ([facility]) Patient Treatment Plan of Care Planned Activity Planned Date Details Description Data Source (s) Metronidazole 0.0075 MG/MG Vaginal Gel 12/01/2020 12:00:00 AM EST eCW1 ([facility]) Sertraline 25 MG Oral Tablet [facility] ([facility]) prednisolone acetate 10 MG/ML Ophthalmic Suspension [facility] ([facility]) NITROFURANTOIN, MACROCRYSTALS 25 MG / Ni trofurantoin, Monohydrate 75 MG Oral Capsule [facility] ([facility]) Metronidazole 0.0075 MG/MG Vaginal Gel [facility] ([facility]) Fluoxetine 10 MG Oral Capsule [facility] ([facility]) Fluconazole 150 MG Oral Tablet [facility] ([facility]) Azithromycin 500 MG Oral Tablet [facility] ([facility]) Sertraline 25 MG Oral Tablet [facility] ([facility]) prednisolone acetate 10 MG/ML Ophthalmic Suspension [facility] ([facility]) NITROFURANTOIN, MACROCRYSTALS 25 MG / Ni trofurantoin, Monohydrate 75 MG Oral Capsule [facility] ([facility]) Metronidazole 0.0075 MG/MG Vaginal Gel [facility] ([facility]) Fluoxetine 10 MG Oral Capsule [facility] ([facility]) Fluconazole 150 MG Oral Tablet [facility] ([facility]) Azithromycin 500 MG Oral Tablet [facility] ([facility]) Sertraline 25 MG Oral Tablet [facility] ([facility]) prednisolone acetate 10 MG/ML Ophthalmic Suspension [facility] ([facility]) NITROFURANTOIN, MACROCRYSTALS 25 MG / Ni trofurantoin, Monohydrate 75 MG Oral Capsule [facility] ([facility]) Metronidazole 0.0075 MG/MG Vaginal Gel [facility] ([facility]) Fluoxetine 10 MG Oral Capsule [facility] ([facility]) Fluconazole 150 MG Oral Tablet [facility] ([facility]) Azithromycin 500 MG Oral Tablet [facility] ([facility]) Sertraline 25 MG Oral Tablet [facility] ([facility]) prednisolone acetate 10 MG/ML Ophthalmic Suspension [facility] ([facility]) NITROFURANTOIN, MACROCRYSTALS 25 MG / Ni trofurantoin, Monohydrate 75 MG Oral Capsule [facility] ([facility]) Metronidazole 0.0075 MG/MG Vaginal Gel [facility] ([facility]) Fluoxetine 10 MG Oral Capsule [facility] ([facility]) Fluconazole 150 MG Oral Tablet [facility] ([facility]) Azithromycin 500 MG Oral Tablet [facility] ([facility]) Sertraline 25 MG Oral Tablet [facility] ([facility]) prednisolone acetate 10 MG/ML Ophthalmic Suspension [facility] ([facility]) NITROFURANTOIN, MACROCRYSTALS 25 MG / Ni trofurantoin, Monohydrate 75 MG Oral Capsule [facility] ([facility]) Metronidazole 0.0075 MG/MG Vaginal Gel [facility] ([facility]) Fluoxetine 10 MG Oral Capsule [facility] ([facility]) Fluconazole 150 MG Oral Tablet [facility] ([facility]) Azithromycin 500 MG Oral Tablet [facility] ([facility]) Sertraline 25 MG Oral Tablet [facility] ([facility]) prednisolone acetate 10 MG/ML Ophthalmic Suspension [facility] ([facility]) NITROFURANTOIN, MACROCRYSTALS 25 MG / Ni trofurantoin, Monohydrate 75 MG Oral Capsule [facility] ([facility]) Metronidazole 0.0075 MG/MG Vaginal Gel [facility] ([facility]) Fluoxetine 10 MG Oral Capsule [facility] ([facility]) Fluconazole 150 MG Oral Tablet [facility] ([facility]) Azithromycin 500 MG Oral Tablet [facility] ([facility]) Sertraline 25 MG Oral Tablet [facility] ([facility]) NITROFURANTOIN, MACROCRYSTALS 25 MG / Ni trofurantoin, Monohydrate 75 MG Oral Capsule [facility] ([facility]) Metronidazole 0.0075 MG/MG Vaginal Gel [facility] ([facility]) Fluconazole 150 MG Oral Tablet [facility] ([facility]) Azithromycin 500 MG Oral Tablet [facility] ([facility]) Fluconazole 150 MG Oral Tablet [facility] ([facility]) Azithromycin 500 MG Oral Tablet [facility] ([facility]) Sertraline 25 MG Oral Tablet [facility] ([facility]) NITROFURANTOIN, MACROCRYSTALS 25 MG / Ni trofurantoin, Monohydrate 75 MG Oral Capsule [facility] ([facility]) Metronidazole 0.0075 MG/MG Vaginal Gel [facility] ([facility]) Fluconazole 150 MG Oral Tablet [facility] ([facility]) Azithromycin 500 MG Oral Tablet [facility] ([facility]) NITROFURANTOIN, MACROCRYSTALS 25 MG / Ni trofurantoin, Monohydrate 75 MG Oral Capsule [facility] ([facility]) Metronidazole 0.0075 MG/MG Vaginal Gel [facility] ([facility]) Fluconazole 150 MG Oral Tablet [facility] ([facility]) Azithromycin 500 MG Oral Tablet [facility] ([facility]) Sertraline 25 MG Oral Tablet [facility] ([facility]) NITROFURANTOIN, MACROCRYSTALS 25 MG / Ni trofurantoin, Monohydrate 75 MG Oral Capsule [facility] ([facility]) Metronidazole 0.0075 MG/MG Vaginal Gel [facility] ([facility]) Fluconazole 150 MG Oral Tablet [facility] ([facility]) Azithromycin 500 MG Oral Tablet [facility] ([facility]) NITROFURANTOIN, MACROCRYSTALS 25 MG / Ni trofurantoin, Monohydrate 75 MG Oral Capsule [facility] ([facility]) Metronidazole 0.0075 MG/MG Vaginal Gel [facility] ([facility]) Fluconazole 150 MG Oral Tablet [facility] ([facility]) Azithromycin 500 MG Oral Tablet [facility] ([facility]) Sertraline 25 MG Oral Tablet [facility] ([facility]) NITROFURANTOIN, MACROCRYSTALS 25 MG / Ni trofurantoin, Monohydrate 75 MG Oral Capsule [facility] ([facility]) Metronidazole 0.0075 MG/MG Vaginal Gel [facility] ([facility])
== END 2021-07-31 19:45 | disposition left against medical advice (07) ==
LOC: M ED 19:34
DX: Z53.21 Procedure and treatment not carried out due to patient leaving prior to being seen by health care provider (principal)

== ENCOUNTER → 2021-08-13 | Outpatient (CLI) | payer OTHER ==
--- NOTE | 2021-08-13 16:51 | REP ---
INDICATION: DATING AND VIABILITY. COMPARISON: None. TECHNIQUE: Transabdominal OB ultrasound FINDINGS: Using the bladder as an acoustic window, the uterus is anteverted. There is a gestational sac in the body and fundus of the uterus. There is a small subchorionic bleed along the right lateral inferior margin of that sac. The measuring 1.6 x 1.6 x 0.6 cm. There is a pole which has a crown-rump length of 1.8 cm and corresponds to 8 weeks 2 days. heart activity at 164 bpm. A yolk sac is seen. Shape of the gestational sac is normal with visibly normal amniotic fluid noted. And unfused amnion is seen as a normal finding in this gestational age group. No pelvic free fluid.. The right adnexa shows a 4.8 x 5.5 x 4.2 cm corpus luteum cyst. No free fluid adjacent. The ovary itself measures 6.6 x 4.8 x 5.6 cm. IMPRESSION: Living single intrauterine gestation at 8 weeks 2 days by today's composite sonographic criteria. Expected gestational age estimate based on LMP is 9 weeks 0 days. ARUN by LMP 03/18/2022, by today's ultrasound 03/23/2022. Corpus luteum cyst right ovary. No pelvic free fluid. Small subchorionic bleed right lateral inferior aspect of the gestational sac. heart rate 164. <Electronically signed by Terry Bright > 08/13/21 [id number]
== END ==
LOC: M WHC 13:29
PROVIDERS: ATTEND Obstetrics & Gynecology
DX: O36.80X0 Pregnancy with inconclusive fetal viability, not applicable or unspecified (principal)

== ENCOUNTER → 2021-09-10 | Outpatient (CLI) | payer OTHER ==
[2021-09-10 15:29] LABS: HEMATOCRIT 33.3 % (36.0-47.0); MEAN CORPUSCULAR HEMOGLOBIN 29.6 pg (27.0-33.0); MEAN CORPUSCULAR VOLUME 89.8 fl (80.0-96.0); PLATELET COUNT, AUTOMATED 220 10^3/uL (150-450); RED BLOOD COUNT 3.71 10^6/uL (4.00-5.40); WHITE BLOOD COUNT 10.8 10^3/uL (4.0-10.0)
[2021-09-10 16:48] LABS: HEPATITIS C VIRUS ABY INDEX 0.1 INDEX (<0.8); HIV 1&2 SCREEN CENTAUR NEGATIVE (NEGATIVE)
[2021-09-10 17:07] LABS: GC DNA AMPLIFICATION NEGATIVE (NEGATIVE)
== END ==
LOC: M PLALAB 10:39
PROVIDERS: ATTEND Obstetrics & Gynecology
DX: Z01.84 Encounter for antibody response examination (principal); Z11.3 Encounter for screening for infections with a predominantly sexual mode of transmission; Z11.59 Encounter for screening for other viral diseases

== ENCOUNTER → 2021-11-04 | Outpatient (CLI) | payer OTHER | LOC: M WHC 07:59 | PROVIDERS: ATTEND Specialist | DX: Z34.02 Encounter for supervision of normal first pregnancy, second trimester (principal); Z3A.20 20 weeks gestation of pregnancy ==

== ENCOUNTER → 2021-11-19 | Outpatient (CLI) | payer OTHER | LOC: M WHC 07:26 | PROVIDERS: ATTEND Advanced Practice Midwife | DX: O99.342 Other mental disorders complicating pregnancy, second trimester (principal) ==

== ENCOUNTER → 2021-12-29 | Outpatient (CLI) | payer OTHER ==
[2021-12-29 11:47] LABS: HEMATOCRIT 34.4 % (36.0-47.0); HEMOGLOBIN 11.6 g/dl (12.0-15.5); MEAN CORPUSCULAR HEMOGLOBIN 30.6 pg (27.0-33.0); MEAN CORPUSCULAR HGB CONC 33.7 g/dl (32.0-36.5); MEAN CORPUSCULAR VOLUME 90.8 fl (80.0-96.0); PLATELET COUNT, AUTOMATED 246 10^3/uL (150-450); RED BLOOD COUNT 3.79 10^6/uL (4.00-5.40); WHITE BLOOD COUNT 8.6 10^3/uL (4.0-10.0)
== END ==
LOC: M PLALAB 07:23
PROVIDERS: ATTEND Advanced Practice Midwife
DX: O99.342 Other mental disorders complicating pregnancy, second trimester (principal); Z3A.00 Weeks of gestation of pregnancy not specified

== ENCOUNTER → 2022-03-02 | Outpatient (REF) | payer OTHER | LOC: M SFHCWAGY 12:54 | PROVIDERS: ATTEND Obstetrics & Gynecology | DX: Z36.85 Encounter for antenatal screening for Streptococcus B (principal) ==

== ENCOUNTER 2022-03-27 10:02 | Inpatient (IN) | payer OTHER ==
[~2022-03-27] VITALS: Ht 162.6 cm; Wt 70.2 kg
[2022-03-27 10:22] VITALS: BP 130/84
[2022-03-27] MEDS: miSOPROStol 50MCG 1/2 TABLET SL SCH ×3 (11:47→19:30)
[2022-03-27 11:56] LABS: HEMATOCRIT 36.9 % (36.0-47.0); HEMOGLOBIN 11.9 g/dl (12.0-15.5); MEAN CORPUSCULAR HEMOGLOBIN 29.4 pg (27.0-33.0); MEAN CORPUSCULAR HGB CONC 32.2 g/dl (32.0-36.5); MEAN CORPUSCULAR VOLUME 91.1 fl (80.0-96.0); PLATELET COUNT, AUTOMATED 238 10^3/uL (150-450); RED BLOOD COUNT 4.05 10^6/uL (4.00-5.40)
[2022-03-27 12:57] VITALS: BP 137/85
[2022-03-27] MEDS ORDERED: STUACAP PO (13:07)
[2022-03-27 14:14] LABS: BLOOD UREA NITROGEN 14 MG/DL (7-18); CALCIUM LEVEL 8.5 MG/DL (8.5-10.1); CARBON DIOXIDE LEVEL 21 MEQ/L (21-32); CHLORIDE LEVEL 107 MEQ/L (98-107); CREATININE FOR GFR 0.73 MG/DL (0.55-1.30); GLOMERULAR FILTRATION RATE > 60.0 (>60); GLUCOSE, FASTING 93 MG/DL (70-100); POTASSIUM SERUM 4.1 MEQ/L (3.5-5.1); SODIUM LEVEL 140 MEQ/L (136-145)
[2022-03-27 16:03] VITALS: BP 140/85
[2022-03-27 19:08] VITALS: BP 177/95
[2022-03-27 19:26] VITALS: BP 139/91
[2022-03-27] MEDS ORDERED: PROMETHAZINE 25MG/ML 1ML VIAL IV ONE (21:00)
[2022-03-27] MEDS ORDERED: BUTORPHANOL 2 MG/ML INJ (J0595) IV ONE (21:00)
[2022-03-27 22:11] VITALS: BP 153/97
[2022-03-28] VITALS (26 sets, daily range): BP systolic 107–189; BP diastolic 66–121
[2022-03-28] MEDS ORDERED: LR 1,000 ML IV SCH (00:45)
[2022-03-28] MEDS ORDERED: OXYTOCIN DRIP 30 UNITS in IV 1 EA IV SCH (00:45)
[2022-03-28] MEDS ORDERED: FENTANYL 2MCG/ML ROPIVACAINE 0.2% IN 0.9% NACL 100ML IVBAG As Ordered ONE (04:03)
[2022-03-28] MEDS ORDERED: ePHEDrine SULFATE 25 MG/5 ML(5MG/ML) SYRINGE IVP PRN (04:05)
[2022-03-28] MEDS ORDERED: EPIDURAL/PCA KEYS XX PRN (04:05)
[2022-03-28] MEDS ORDERED: NALOXONE INJ 0.4MG/1ML VIAL (J2310 PER 1MG) IV PRN (04:05)
[2022-03-28] MEDS ORDERED: FENTANYL/ROPIVACAINE/NACL BAG 100 ML EPIDURAL SCH (04:05)
[2022-03-28] MEDS ORDERED: diphenhydrAMINE 50MG/ML VIAL (J1200) IV PRN (04:05)
[2022-03-28] MEDS ORDERED: LR 500 ML IV PRN (04:05)
[2022-03-28] MEDS ORDERED: ONDANSETRON 4MG 2ML VIAL IV PRN (04:05)
[2022-03-28] MEDS ORDERED: ANUSOL HC CREAM 30GM TOP PRN (10:00)
[2022-03-28] MEDS ORDERED: IBUPROFEN 600MG TAB PO PRN (10:00)
[2022-03-28] MEDS ORDERED: RHOGAM 300 MCG (1500 IU) INJ (J2790) IM SCH (10:00)
[2022-03-28] MEDS ORDERED: DOCUSATE SODIUM 100MG CAPSULE PO PRN (10:00)
[2022-03-28] MEDS ORDERED: METHYLERGONOVINE MALEATE 0.2 MG TAB PO PRN (10:00)
[2022-03-28] MEDS ORDERED: MOM 30ML SUSPENSION UDC PO PRN (10:00)
[2022-03-28] MEDS ORDERED: DIBUCAINE 1% OINTMENT 30GM TOP PRN (10:00)
[2022-03-28] MEDS: PRENATAL VITAMINS CHEWABLE TABLET PO SCH (10:41)
[2022-03-28] MEDS: IBUPROFEN 800 MG TAB PO PRN (10:41)
[2022-03-28] MEDS ORDERED: SLF 3 ML SYR IV PRN (11:05)
[2022-03-28] MEDS: SLF 3 ML SYR IV SCH ×2 (14:38→22:00)
[2022-03-29 06:30] VITALS: BP 125/74
[2022-03-29] MEDS: IBUPROFEN 800 MG TAB PO PRN (08:13)
[2022-03-29] MEDS: PRENATAL VITAMINS CHEWABLE TABLET PO SCH (08:13)
[2022-03-29 18:00] VITALS: BP 134/86
[2022-03-30 06:00] VITALS: BP 129/77
[2022-03-30] MEDS: PRENATAL VITAMINS CHEWABLE TABLET PO SCH (08:01)
[2022-03-30] MEDS ORDERED: MEASLES,MUMPS,RUBELLA VACCINE INJ (MMR-II) (90707) SC.IMMUN ONE (09:00)
== END 2022-03-30 12:50 | disposition home or self-care (01) | DRG 560 ==
LOC: M LDI 10:02 → M OBS 03-28 11:50
PROVIDERS: ADMIT Specialist; ATTEND Specialist
PROC: 3E033VJ Introduction of Other Hormone into Peripheral Vein, Percutaneous Approach (ICD-10-PCS; 2022-03-27)
PROC: 3E0DXGC Introduction of Other Therapeutic Substance into Mouth and Pharynx, External Approach (ICD-10-PCS; 2022-03-27)
PROC: 10E0XZZ Delivery of Products of Conception, External Approach (ICD-10-PCS; principal; 2022-03-28)
PROC: 0HQ9XZZ Repair Perineum Skin, External Approach (ICD-10-PCS; 2022-03-28)
DX: O48.0 Post-term pregnancy (principal); O99.344 Other mental disorders complicating childbirth; F41.9 Anxiety disorder, unspecified; Z37.0 Single live birth; Z3A.40 40 weeks gestation of pregnancy; O77.0 Labor and delivery complicated by meconium in amniotic fluid; O69.82X0 Labor and delivery complicated by other cord entanglement, without compression, not applicable or unspecified; O70.0 First degree perineal laceration during delivery; Z11.3 Encounter for screening for infections with a predominantly sexual mode of transmission

== ENCOUNTER → 2022-10-13 | Outpatient (CLI) | payer OTHER ==
[~2022-10-13] MED LIST changes: +STUACAP PO
[2022-10-13 13:46] LABS: HEMOGLOBIN 11.9 g/dl (12.0-15.5); MEAN CORPUSCULAR HEMOGLOBIN 28.9 pg (27.0-33.0); MEAN CORPUSCULAR HGB CONC 33.1 g/dl (32.0-36.5); MEAN CORPUSCULAR VOLUME 87.4 fl (80.0-96.0); PLATELET COUNT, AUTOMATED 261 10^3/uL (150-450); RED BLOOD COUNT 4.12 10^6/uL (4.00-5.40); WHITE BLOOD COUNT 7.3 10^3/uL (4.0-10.0)
[2022-10-13 14:40] LABS: HIV 1&2 SCREEN CENTAUR NEGATIVE (NEGATIVE)
[2022-10-13 14:48] LABS: HEPATITIS C VIRUS ABY INDEX 0.1 INDEX (<0.8)
[2022-10-13 16:08] LABS: GC DNA AMPLIFICATION NEGATIVE (NEGATIVE)
== END ==
LOC: M PLALAB 10:31
PROVIDERS: ATTEND Advanced Practice Midwife
DX: Z34.80 Encounter for supervision of other normal pregnancy, unspecified trimester (principal)

== ENCOUNTER → 2022-12-14 | Outpatient (CLI) | payer OTHER | LOC: M WHC 09:21 | PROVIDERS: ATTEND Advanced Practice Midwife | DX: Z34.82 Encounter for supervision of other normal pregnancy, second trimester (principal); Z3A.19 19 weeks gestation of pregnancy ==

== ENCOUNTER → 2023-02-08 | Outpatient (CLI) | payer OTHER ==
[2023-02-08 15:11] LABS: HEMATOCRIT 35.4 % (36.0-47.0); HEMOGLOBIN 11.5 g/dl (12.0-15.5); MEAN CORPUSCULAR HEMOGLOBIN 30.4 pg (27.0-33.0); MEAN CORPUSCULAR HGB CONC 32.5 g/dl (32.0-36.5); MEAN CORPUSCULAR VOLUME 93.7 fl (80.0-96.0); PLATELET COUNT, AUTOMATED 270 10^3/uL (150-450); RED BLOOD COUNT 3.78 10^6/uL (4.00-5.40); WHITE BLOOD COUNT 11.9 10^3/uL (4.0-10.0)
[2023-02-08 17:23] LABS: GC DNA AMPLIFICATION NEGATIVE (NEGATIVE)
== END ==
LOC: M PLALAB 11:03
PROVIDERS: ATTEND Advanced Practice Midwife
DX: Z34.82 Encounter for supervision of other normal pregnancy, second trimester (principal)

== ENCOUNTER → 2023-02-15 | Outpatient (CLI) | payer OTHER | LOC: M WHC 09:33 | PROVIDERS: ATTEND Advanced Practice Midwife | DX: Z34.82 Encounter for supervision of other normal pregnancy, second trimester (principal); Z3A.28 28 weeks gestation of pregnancy ==

== ENCOUNTER → 2023-03-30 | Outpatient (CLI) | payer OTHER | LOC: M WHC 11:37 | PROVIDERS: ATTEND Obstetrics & Gynecology | DX: O26.849 Uterine size-date discrepancy, unspecified trimester (principal) ==

== ENCOUNTER → 2023-04-06 | Outpatient (REF) | payer OTHER | LOC: M SFHCWAGY 16:45 | PROVIDERS: ATTEND Obstetrics & Gynecology | DX: Z34.93 Encounter for supervision of normal pregnancy, unspecified, third trimester (principal) ==

== ENCOUNTER 2023-05-12 09:00 | Inpatient (IN) | payer OTHER ==
[2023-05-12] VITALS (20 sets, daily range): BP systolic 113–159; BP diastolic 60–90; O2SAT 98–100
[~2023-05-12] VITALS: Ht 162.6 cm; Wt 70.8 kg
[2023-05-12] MEDS ORDERED: HOME MED LIST COMPLETE! XX SCH (09:20)
[2023-05-12] MEDS ORDERED: LACTATED RINGER'S 1000 ML IV STA (10:03)
[2023-05-12] MEDS ORDERED: LIDOCAINE 1% MDV 20ML VIAL INFIL PRN (10:05)
[2023-05-12] MEDS ORDERED: TRANEXAMIC ACID INJection 1,000 MG in NS 100 ML IV PRN (10:05)
[2023-05-12] MEDS ORDERED: CARBOPROST TROMETHAMINE 250 MCG/ML AMP IM PRN (10:05)
[2023-05-12] MEDS ORDERED: OXYTOCIN DRIP 30 UNITS in IV 1 EA IV PRN (10:05)
[2023-05-12] MEDS ORDERED: METHYLERGONOVINE MALEATE 0.2MG/ML 1ML VIAL IM PRN (10:05)
[2023-05-12] MEDS ORDERED: LR 1,000 ML IV SCH (10:05)
[2023-05-12] MEDS ORDERED: OXYTOCIN DRIP 30 UNITS in IV 1 EA IV SCH (10:05)
[2023-05-12 10:37] LABS: HEMATOCRIT 36.8 % (36.0-47.0); HEMOGLOBIN 12.2 g/dl (12.0-15.5); MEAN CORPUSCULAR HEMOGLOBIN 29.8 pg (27.0-33.0); MEAN CORPUSCULAR HGB CONC 33.2 g/dl (32.0-36.5); MEAN CORPUSCULAR VOLUME 89.8 fl (80.0-96.0); PLATELET COUNT, AUTOMATED 215 10^3/uL (150-450); WHITE BLOOD COUNT 11.7 10^3/uL (4.0-10.0)
[2023-05-12] MEDS ORDERED: LR 500 ML IV PRN (13:15)
[2023-05-12] MEDS ORDERED: FENTANYL/ROPIVACAINE/NACL BAG 100 ML EPIDURAL SCH (13:15)
[2023-05-12] MEDS ORDERED: NALOXONE INJ 0.4MG/1ML VIAL IV PRN (13:15)
[2023-05-12] MEDS ORDERED: EPIDURAL/PCA KEYS XX PRN (13:15)
[2023-05-12] MEDS ORDERED: diphenhydrAMINE 50MG/ML VIAL IV PRN (13:15)
[2023-05-12] MEDS ORDERED: ONDANSETRON 4MG 2ML VIAL IV PRN ×2 (13:15→15:05)
[2023-05-12] MEDS ORDERED: ePHEDrine SULFATE 25 MG/5 ML(5MG/ML) SYRINGE IVP PRN (13:15)
[2023-05-12] MEDS ORDERED: ANUSOL HC CREAM 30GM TOP PRN (15:05)
[2023-05-12] MEDS ORDERED: MOM 30ML SUSPENSION UDC PO PRN (15:05)
[2023-05-12] MEDS ORDERED: IBUPROFEN 800 MG TAB PO PRN (15:05)
[2023-05-12] MEDS ORDERED: DIBUCAINE 1% OINTMENT 30GM TOP PRN (15:05)
[2023-05-12] MEDS ORDERED: METHYLERGONOVINE MALEATE 0.2 MG TAB PO PRN (15:05)
[2023-05-12] MEDS ORDERED: RHOGAM 300MCG (1500IU) INJ IM SCH (15:05)
[2023-05-12] MEDS: IBUPROFEN 600MG TAB PO PRN (17:59)
[2023-05-12] MEDS: DOCUSATE SODIUM 100MG CAPSULE PO PRN (21:00)
[2023-05-13] MEDS: IBUPROFEN 600MG TAB PO PRN (05:35)
[2023-05-13] MEDS: DOCUSATE SODIUM 100MG CAPSULE PO PRN (05:36)
[2023-05-13] MEDS ORDERED: PRENATAL VITAMINS CHEWABLE TABLET PO SCH (09:00)
[2023-05-13 17:50] VITALS: BP 116/74; O2SAT 97
[2023-05-13] MEDS ORDERED: IBUP-1022 PO (17:59)
[2023-05-13] MEDS ORDERED: COLA100C5 PO (17:59)
[2023-05-14] MEDS ORDERED: MEASLES,MUMPS,RUBELLA VACCINE INJ (MMR-II) SC.IMMUN ONE (09:00)
== END 2023-05-13 18:50 | disposition home or self-care (01) | DRG 560 ==
LOC: M LDI 09:00 → M OBS 17:05
PROVIDERS: ADMIT Advanced Practice Midwife; ATTEND Advanced Practice Midwife
PROC: 10E0XZZ Delivery of Products of Conception, External Approach (ICD-10-PCS; principal; 2023-05-12)
PROC: 3E033VJ Introduction of Other Hormone into Peripheral Vein, Percutaneous Approach (ICD-10-PCS; 2023-05-12)
DX: O48.0 Post-term pregnancy (principal); Z88.5 Allergy status to narcotic agent; Z37.0 Single live birth; Z3A.41 41 weeks gestation of pregnancy; Z88.6 Allergy status to analgesic agent

== ENCOUNTER → 2024-08-20 | Outpatient (REF) | payer MEDICAID, OTHER ==
[~2024-08-20] MED LIST changes: +COLA100C5 PO; +IBUP-1022 PO; +ONDA-282 PO; -ONDA4TAB6 PO
[2024-08-22 15:17] LABS: HPV APTIMA Not Detected (Not Detected)
== END ==
LOC: M SFHCWAGY 17:39
PROVIDERS: ATTEND Nurse Practitioner Family
DX: Z12.4 Encounter for screening for malignant neoplasm of cervix (principal); Z11.51 Encounter for screening for human papillomavirus (HPV)

== ENCOUNTER → 2024-11-18 | Outpatient (REF) | payer OTHER, MEDICAID ==
[2024-11-18 16:17] LABS: Trichomonas vaginalis (AMP) NOT DETECTED (NEGATIVE)
[2024-11-18 16:40] LABS: GC DNA AMPLIFICATION NEGATIVE (NEGATIVE)
== END ==
LOC: M SFHCWAGY 14:34
PROVIDERS: ATTEND Nurse Practitioner Family
DX: N73.9 Female pelvic inflammatory disease, unspecified (principal); Z11.3 Encounter for screening for infections with a predominantly sexual mode of transmission